=== PATIENT | female | born 1955 | race Caucasian/White ===

== ENCOUNTER → 2018-02-08 10:53 | Outpatient (CLI) | payer OTHER, SELFPAY ==
--- NOTE | 2018-02-08 10:58 | RAD_ITS ---
STUDY: X-RAY - SACROILIAC JOINTS REASON FOR EXAM: Female, 62 years old. Low back pain. TECHNIQUE: 3 view(s) of the sacroiliac joints were obtained. COMPARISON: None. FINDINGS: There are degenerative changes of the bilateral sacroiliac joints. Normal visualized sacral ala and sacrum. Normal visualized iliac bones. Normal visualized soft tissue structures. RAD/S-I Jts 3 or More Views IMPRESSION: Degenerative changes of the bilateral sacroiliac joints, as described above. Electronically Signed: Jase Torres MD at 9:16 EST Tel [phone], Service support ,
--- NOTE | 2018-02-08 10:58 | RAD_ITS ---
STUDY: X-RAY - LUMBAR SPINE REASON FOR EXAM: Female, 62 years old. Low back pain following a fall. TECHNIQUE: 5 view(s) of the lumbar spine were obtained including oblique views. COMPARISON: None FINDINGS: Normal lumbar lordosis. There is no substantial scoliosis. There is a normal alignment of the vertebrae. 20% loss of height of the superior endplate of the L1 vertebrae. There is multi-level degenerative disc disease with multi-level disc space narrowing. Spondylosis. There is atherosclerotic calcification of the abdominal aorta without a demonstrated aneurysm. RAD/L/S Spine Min 4 Views IMPRESSION: Degenerative changes of the spine, as detailed above. 20% loss of height of the superior endplate of the L1 vertebrae. Electronically Signed: Jsae Torres MD at 9:15 EST Tel [phone], Service support ,
--- OUTSIDE RECORDS SUMMARY | 2018-05-12 15:00 | XMS RPT_ITS ---
:1955 Author Organization [facility] Care Team Providers Name Role Phone Jair Squires Attending Unavailable Jair Squires Referring Unavailable Jair Squires Primary Care Unavailable Jair Squires Attending Unavailable Jair Squires Referring Unavailable Shaw, Jair Primary Care Unavailable Jair Squires Attending Unavailable Shaw, Jair Primary Care Unavailable PROBLEMS PROBLEMS DATE TYPE CONDITION / CODE ATTENDING STATUS SOURCE 03/08/2018 Unknown S32.010A - Wedge Jair Squires Active Nelson compression [facility], Repository initial encounter for closed fracture / S32.010A(ICD-10) 02/08/2018 Unknown S39.012A - Strain Jair Squires Active Nelson of muscle, fascia Community and tendon of Hospital lower back, Repository initial encounter / S39.012A(ICD-10) PROCEDURES PROCEDURES No Procedure Records FoundRESULTS RESULTS DEXA BONE DENSITY Observed: 03/08/2018 Status: F Source: [place] [facility] 9:23 AM [facility] Imaging Services [address] [place] [address] Dexa Bone Density Study MR#: [id number] Acct: [id number] Name: MARGO STRICKLAND Rep #: [id number] : 1955 F 62 From: Jase Torres MD PCP: Jair Squires MD Status: REG CLI Study: Dexa Bone Density Study Date of Exam: 03/08/18 Exam# [id number] Ordering Dr: Jari Squires MD STUDY: DUAL ENERGY X-RAY ABSORPTIOMETRY / DXA REASON FOR EXAM: Female, 62 years old. Early menopause. Loss of height. TECHNIQUE: Bone Mineral Density (BMD) measurements of lumbar spine and bilateral hips were obtained. COMPARISON: None. FINDINGS: Lumbar Spine (L1-L4): g/cm2 (0.994) / T-score (-1.7) / Z-score (0.2) Findings are suggestive of osteopenia with a moderate fracture risk. Left Femur Total: g/cm2 (0.674) / T-score (-2.6) / Z- score (-1.5) Left Femoral Neck: g/cm2 (0.690) / T-score (-2.5) / Z- score (-1.1) Right Femur Total: g/cm2 (0.720) / T-score (-2.3) / Z- score (-1.1) Right Femoral Neck: g/cm2 (0.733) / T-score (-2.2) / Z-score (-0.8) BD/Dexa Bone Density Study IMPRESSION: The patient is considered osteoporotic as outlined below according to World Yash Organization (WHO) criteria with a high fracture risk. Reference Information: The T-score is the number of standard deviations above or below the standard which is normal for young adults at their peak bone mineral density. The World Health Organization (WHO) interprets the T-scores as follows: Above -1 Normal bone density Between -1 and -2.5 Osteopenia Equal to / or below -2.5 Osteoporosis As a practical clinical guideline, osteopenia may be graded as follows: Mild -1 through -1.5 Moderate -1.6 through -2.0 Severe -2.1 through -2.4 The Z-score is the number of standard deviations above or below age-matched controls. A Z-score of less than -1.5 would be considered abnormal. References: 1. NIH Osteoporosis and Related Bone Diseases http://www.osteo.org 2. International Society for Clinical Densitometry http://www.iscd.org 3. National Osteoporosis Foundation http://www.nof.org Electronically Signed: Jase Torres MD at 11:19 EST Tel [phone], Service support , CC: Jair Squires MD Justice Of The Peace: Signed BONE SCAN LIMITED Observed: 02/23/2018 Status: F Source: [facility] 10:11 AM [facility] Imaging Services [address] [place] [address] Bone Scan Limited Area MR#: [id number] Acct: [id number] Name: MARGO STRICKLAND Rep #: [id number] : 1955 F 62 From: Amando Quinones DO PCP: Jair Squires MD Status: REG CLI Study: Bone Scan Limited Area Date of Exam: 02/23/18 Exam# [id number] Ordering Dr: Jair Squires MD CLINICAL: 62-year-old female with reported history of traumatic fall. LIMITED PLANAR 99m Tc MDP RADIONUCLIDE BONE SCINTIGRAPHY COMPARISON: Plain film radiograph reports lumbar spine and sacroiliac joints 02/08/2018 FINDINGS: Following the intravenous administration of 25.5 mCi of 99m Tc MDP, limited bone acquisitions of the lower thoracic-lumbar spine and pelvis, bilateral knee articulations reveal: 1. Increased radiopharmaceutical concentration is defined in the first lumbar vertebra diffusely, the left proximal tibial metaphysis. 2. Enhanced tracer concentration is defined in the patellofemoral compartment of the right knee, fourth and fifth lumbar vertebra posteriorly on the left and right. 3. The remaining limited skeletal structures are scintigraphically unremarkable with normal appearing renal images and urinary bladder activity identified. NM/Bone Scan Limited Area IMPRESSION: 1. The increase in radiopharmaceutical concentration identified in the first lumbar vertebra is commensurate with trauma-compression fracture correlating with findings described on plain film x-ray report of the lumbar spine dated 02/08/2018. In patients less than 65 years of age, increased radiopharmaceutical concentration on bone scintigraphy in uncomplicated documented fracture, may take up to 18 months for complete resolution. (Colin et al, Seminars of Nuclear Medicine, 13:104, 1983). 2. Facilitated uptake defined in the left proximal tibial metaphysis likely represents trauma-fracture. Plain film radiography correlation is recommended. 3. Degenerative arthritis is otherwise defined in the right knee, the lower lumbar spine. Electronically Signed: Amando Quinones DO at 23:12 EST Tel , Service support , CC: Jair Squires MD Justice Of The Peace: Signed L/S SPINE MIN 4 Observed: 02/08/2018 Status: F Source: [place] [facility] 10:58 AM [facility] Imaging Services [address] [place] [address] [place] [address] L/S Spine Min 4 Views MR#: [id number] Acct: [id number] Name: MARGO STRICKLAND Rep #: [id number] : 1955 F 62 From: Jase Torres MD PCP: Jair Squires MD Status: REG CLI Study: L/S Spine Min 4 Views Date of Exam: 02/08/18 Exam# [id number] Ordering Dr: Jair Squires MD STUDY: X-RAY - LUMBAR SPINE REASON FOR EXAM: Female, 62 years old. Low back pain following a fall. TECHNIQUE: 5 view(s) of the lumbar spine were obtained including oblique views. COMPARISON: None FINDINGS: Normal lumbar lordosis. There is no substantial scoliosis. There is a normal alignment of the vertebrae. 20% loss of height of the superior endplate of the L1 vertebrae. There is multi-level degenerative disc disease with multi-level disc space narrowing. Spondylosis. There is atherosclerotic calcification of the abdominal aorta without a demonstrated aneurysm. RAD/L/S Spine Min 4 Views IMPRESSION: Degenerative changes of the spine, as detailed above. 20% loss of height of the superior endplate of the L1 vertebrae. Electronically Signed: Jase Torres MD at 9:15 EST Tel [phone], Service support , CC: Jair Squires MD Justice Of The Peace: Signed S-I JTS 3 OR MORE Observed: 02/08/2018 Status: F Source: [place] [facility] 10:58 AM [facility] Imaging Services [address] [place] [address] S-I Jts 3 or More Views MR#: [id number] Acct: [id number] Name: MARGO STRICKLAND Rep #: [id number] : 1955 F 62 From: Jase Torres MD PCP: Jair Squires MD Status: REG CLI Study: S-I Jts 3 or More Views Date of Exam: 02/08/18 Exam# [id number] Ordering Dr: Jair Squires MD STUDY: X-RAY - SACROILIAC JOINTS REASON FOR EXAM: Female, 62 years old. Low back pain. TECHNIQUE: 3 view(s) of the sacroiliac joints were obtained. COMPARISON: None. FINDINGS: There are degenerative changes of the bilateral sacroiliac joints. Normal visualized sacral ala and sacrum. Normal visualized iliac bones. Normal visualized soft tissue structures. RAD/S-I Jts 3 or More Views IMPRESSION: Degenerative changes of the bilateral sacroiliac joints, as described above. Electronically Signed: Jase Torres MD at 9:16 EST Tel [phone], Service support , CC: Jair Squires MD Justice Of The Peace: Signed ALLERGIES ALLERGIES No Allergies Records FoundENCOUNTERS ENCOUNTERS ADMIT/DISCHARGE ACCOUNT ADMITTING ENCOUNTER LOCATION SOURCE NUMBER CLASS 03/08/2018 [id number] Ambulatory [facility] 2 [facility] ing:OPBD Repository 02/23/2018 [id number] Ambulatory [facility] 7 [facility] ing:NM Repository 02/08/[id number] ing:MTRAD Repository PAYERS PAYERS ENCOUNTER GUARANTOR PAYER SUBSCRIBER SOURCE 03/08/2018 MARGO Cuevas Primary MARGO Cuevas Nelson [id number] MIGUELINA Insurance:MEDICAL YODERDOB: [facility] [id number] [id number]: (330) Number: Repository [phone] (HP) [id number] Date:6314-31-75VS [address] [place] [phone]: 03/08/2018 Secondary NOT GIVENUNK Nelson Insurance:SELF PAY [facility] Number: Effective Repository Date:2018-02-28 02/23/2018 MARGO Cuevas Primary MARGO Cuevas Nelson [id number] MIGUELINA Insurance:MEDICAL YODERDOB: [facility] [id number] [id number]: (330) Number: Repository [phone] () [id number] Date:6593-77-80SS [address] [place] [phone]: 02/23/2018 Secondary NOT GIVENUNK Joe Insurance:SELF PAY [facility] Number: Effective Repository Date:2018-02-16 02/08/2018 MARGO Cuevas Primary MARGO Cuevas Nelson [id number] MIGUELINA Insurance:MEDICAL YODERDOB: [facility] [id number] Hospital [address]Ibk: (330) Number: Repository [phone] () [id number] Date:3314-65-89DY [address] [place] [phone]: 02/08/2018 Secondary NOT GIVENUNK Nelson Insurance:SELF PAY [facility] Number: Effective Repository Date:2018-02-08
== END ==
PROVIDERS: Family Provider Family Medicine; PCP Family Medicine; Referring Provider Family Medicine; Visit Provider Family Medicine
DX: S39.012A Strain of muscle, fascia and tendon of lower back, initial encounter (principal)
CPT/HCPCS: 72110; 72202

== ENCOUNTER → 2018-02-23 10:05 | Outpatient (CLI) | payer OTHER, SELFPAY ==
--- NOTE | 2018-02-23 10:11 | NM_ITS ---
CLINICAL: 62-year-old female with reported history of traumatic fall. LIMITED PLANAR 99m Tc MDP RADIONUCLIDE BONE SCINTIGRAPHY COMPARISON: Plain film radiograph reports lumbar spine and sacroiliac joints 02/08/2018 FINDINGS: Following the intravenous administration of 25.5 mCi of 99m Tc MDP, limited bone acquisitions of the lower thoracic-lumbar spine and pelvis, bilateral knee articulations reveal: 1. Increased radiopharmaceutical concentration is defined in the first lumbar vertebra diffusely, the left proximal tibial metaphysis. 2. Enhanced tracer concentration is defined in the patellofemoral compartment of the right knee, fourth and fifth lumbar vertebra posteriorly on the left and right. 3. The remaining limited skeletal structures are scintigraphically unremarkable with normal appearing renal images and urinary bladder activity identified. NM/Bone Scan Limited Area IMPRESSION: 1. The increase in radiopharmaceutical concentration identified in the first lumbar vertebra is commensurate with trauma-compression fracture correlating with findings described on plain film x-ray report of the lumbar spine dated 02/08/2018. In patients less than 65 years of age, increased radiopharmaceutical concentration on bone scintigraphy in uncomplicated documented fracture, may take up to 18 months for complete resolution. (Colin et al, Seminars of Nuclear Medicine, 13:104, 1983). 2. Facilitated uptake defined in the left proximal tibial metaphysis likely represents trauma-fracture. Plain film radiography correlation is recommended. 3. Degenerative arthritis is otherwise defined in the right knee, the lower lumbar spine. Electronically Signed: Amando Quinones DO at 23:12 EST Tel , Service support ,
== END ==
PROVIDERS: Family Provider Family Medicine; PCP Family Medicine; Referring Provider Family Medicine; Visit Provider Family Medicine
DX: M54.5 Low back pain (principal)
CPT/HCPCS: 78300

== ENCOUNTER → 2018-03-08 09:30 | Outpatient (CLI) | payer OTHER, SELFPAY ==
--- NOTE | 2018-03-08 09:35 | BD_ITS ---
STUDY: DUAL ENERGY X-RAY ABSORPTIOMETRY / DXA REASON FOR EXAM: Female, 62 years old. Early menopause. Loss of height. TECHNIQUE: Bone Mineral Density (BMD) measurements of lumbar spine and bilateral hips were obtained. COMPARISON: None. FINDINGS: Lumbar Spine (L1-L4): g/cm2 (0.994) / T-score (-1.7) / Z-score (0.2) Findings are suggestive of osteopenia with a moderate fracture risk. Left Femur Total: g/cm2 (0.674) / T-score (-2.6) / Z-score (-1.5) Left Femoral Neck: g/cm2 (0.690) / T-score (-2.5) / Z-score (-1.1) Right Femur Total: g/cm2 (0.720) / T-score (-2.3) / Z-score (-1.1) Right Femoral Neck: g/cm2 (0.733) / T-score (-2.2) / Z-score (-0.8) BD/Dexa Bone Density Study IMPRESSION: The patient is considered osteoporotic as outlined below according to World Yash Organization (WHO) criteria with a high fracture risk. Reference Information: The T-score is the number of standard deviations above or below the standard which is normal for young adults at their peak bone mineral density. The World Health Organization (WHO) interprets the T-scores as follows: Above -1 Normal bone density Between -1 and -2.5 Osteopenia Equal to / or below -2.5 Osteoporosis As a practical clinical guideline, osteopenia may be graded as follows: Mild -1 through -1.5 Moderate -1.6 through -2.0 Severe -2.1 through -2.4 The Z-score is the number of standard deviations above or below age-matched controls. A Z-score of less than -1.5 would be considered abnormal. References: 1. NIH Osteoporosis and Related Bone Diseases http://www.osteo.org 2. International Society for Clinical Densitometry http://www.iscd.org 3. National Osteoporosis Foundation http://www.nof.org Electronically Signed: Jase Torres MD at 11:19 EST Tel [phone], Service support ,
--- OUTSIDE RECORDS SUMMARY | 2018-05-13 01:18 | XMS RPT_ITS ---
[...] Unknown S32.010A - Wedge Jair Squires Active [place]man compression [facility] lumbar vertebra, Repository initial encounter for closed fracture / S32.010A(ICD-10) 02/08/2018 Unknown S39.012A - Strain Jair Squires Active Holman of muscle, fascia Community and tendon of Hospital lower back, Repository initial encounter / S39.012A(ICD-10) PROCEDURES PROCEDURES No Procedure Records FoundRESULTS RESULTS DEXA BONE DENSITY Observed: 03/08/2018 Status: F Source: [place] [facility] 9:23 AM [facility] REPOSITORY [facility] Imaging Services [address] [place] [address] Dexa Bone Density Study MR#: [id number] Acct: [id number] Name: MARGO STRICKLAND Rep #: [id number] : 1955 F 62 From: Jase Torres MD PCP: Jair Squires MD Status: REG CLI Study: Dexa Bone Density Study Date of Exam: 03/08/18 Exam# [id number] Ordering Dr: Jair Squires MD STUDY: DUAL ENERGY X-RAY ABSORPTIOMETRY [...] Jase Torres MD at 11:19 EST Tel [phone], Service support , CC: Jair Squires MD Media Relations Coordinator: Signed BONE SCAN LIMITED Observed: 02/23/2018 Status: F Source: [facility] 10:11 AM [facility] REPOSITORY [facility] Imaging Services [address] [place] [address] Bone Scan Limited Area MR#: [id number] Acct: [id number] Name: MARGO STRICKLAND Rep #: [id number] : 1955 F 62 From: Amando Quinones DO PCP: Jair Squires MD Status: REG CLI Study: Bone Scan Limited Area Date of Exam: 02/23/18 Exam# [id number] Ordering Dr: Jair Squires MD CLINICAL: 62-year-old [...] EST Tel , Service support , CC: Jiar Squires MD Media Relations Coordinator: Signed L/S SPINE MIN 4 Observed: 02/08/2018 Status: F Source: [place] [facility] 10:58 AM [facility] REPOSITORY [facility] Imaging Services [address] [place] [address] [place] [address] L/S Spine Min 4 Views MR#: [id number] Acct: [id number] Name: MARGO STRICKLAND Rep #: [id number] : 1955 F 62 From: Jase Torres MD PCP: Jair Squires MD Status: REG CLI Study: L/S Spine Min 4 Views Date of Exam: 02/08/18 Exam# [id number] Ordering Dr: Jair Squires MD STUDY: X-RAY [...] Jase Torres MD at 9:15 EST Tel [phone], Service support , CC: Jair Squires MD Media Relations Coordinator: Signed S-I JTS 3 OR MORE Observed: 02/08/2018 Status: F Source: [place] [facility] 10:58 AM [facility] REPOSITORY [facility] Imaging Services [address] [place] [address] S-I Jts 3 or More Views MR#: [id number] Acct: [id number] Name: MARGO STRICKLAND Rep #: [id number] : 1955 F 62 From: Jase Torres MD PCP: Jair Squires MD Status: REG CLI Study: S-I Jts 3 or More Views Date of Exam: 02/08/18 Exam# [id number] Ordering Dr: Jair Squires MD STUDY: X-RAY [...] Jase Torres MD at 9:16 EST Tel [phone], Service support , CC: Jair Squires MD Media Relations Coordinator: Signed ALLERGIES ALLERGIES No Allergies Records FoundENCOUNTERS ENCOUNTERS ADMIT/DISCHARGE ACCOUNT ADMITTING ENCOUNTER LOCATION SOURCE NUMBER CLASS 03/08/2018 [id number] Ambulatory [facility] 2 [facility] ing:OPBD Repository 02/23/2018 [id number] Ambulatory [facility] 7 [facility] ing:NM Repository 02/08/[id number] ing:MTRAD Repository PAYERS PAYERS ENCOUNTER GUARANTOR PAYER SUBSCRIBER SOURCE 03/08/2018 MARGO Cuevas Primary MARGO Cuevas Holman [id number] [place] Insurance:MEDICAL YODERDOB: [facility] [id number] Hospital [address]Trg: (330) Number: Repository [phone] (HP) [id number] Date:6963-43-42VZ [address] [place] [phone]: 03/08/2018 Secondary NOT GIVENUNK Holman Insurance:SELF PAY [facility] Number: Effective Repository Date:2018-02-28 02/23/2018 MARGO Cuevas Primary MARGO Cuevas Holman [id number] [place] Insurance:MEDICAL YODERDOB: [facility] [id number] [id number]: (330) Number: Repository [phone] () [id number] Date:3312-29-75MP [address] [place] [phone]: 02/23/2018 Secondary NOT GIVENUNK Joe Insurance:SELF PAY [facility] Number: Effective Repository Date:2018-02-16 02/08/2018 MARGO Cuevas Primary MARGO Cuevas Holman [id number] MIGUEL[place] Insurance:MEDICAL YODERDOB: [facility] [id number] Hospital [address]Vga: (330) Number: Repository [phone] () [id number] Date:7209-48-26HY [address] [place] [phone]: 02/08/2018 Secondary NOT GIVENUNK Holman Insurance:SELF PAY [facility]: Effective Repository Date:2018-02-08
== END ==
PROVIDERS: Family Provider Family Medicine; PCP Family Medicine; Visit Provider Family Medicine
DX: S32.010A Wedge compression fracture of first lumbar vertebra, initial encounter for closed fracture (principal)
CPT/HCPCS: 77080

== ENCOUNTER → 2018-08-18 | Outpatient (CLI) | payer OTHER, SELFPAY ==
[2018-08-08 10:53] VITALS: BMI 23.7
--- NOTE | 2018-08-18 07:51 | BI_ITS ---
MAMMOGRAPHY - BILATERAL SCREENING 3-D TOMOSYNTHESIS REASON FOR EXAM: Female, 62 years old. Bilateral Screening 3-D tomosynthesis PERTINENT HISTORY: Breast cancer in sister at age 42. TECHNIQUE: 2-D mammograms and 3-D Tomosynthesis of the breast (s) were performed. CAD was performed. COMPARISON: March 16, 2017, February 24, 2016 FINDINGS: The breast composition is heterogeneously dense that can obscure small breast masses. Scattered benign calcifications are seen. No dense spiculated masses or suspicious microcalcifications are identified. No architectural distortion is identified. There is no skin thickening or retraction. There has been no significant change since the prior study. BI/SCREEN MAMM (CAD) W/JOSE E BILAT IMPRESSION: No mammographic signs of malignancy. Routine yearly mammograms recommended. ASSESSMENT CATEGORY: BIRADS Category 2: Benign. A letter regarding these results will be sent to the patient by the facility within 30 days. FOLLOW UP RECOMMENDATION: Yearly follow up mammogram recommended. (A) Approximately 10% of breast cancers are not detected by mammography. A normal mammogram should not delay biopsy of a clinically suspicious abnormality. Electronically Signed: Toby Vincent MD at 17:53 EDT , Service support ,
== END | disposition home or self-care (01) ==
LOC: OPBI 07:49
PROVIDERS: Family Provider Family Medicine; PCP Family Medicine; Referring Provider Family Medicine; Visit Provider Family Medicine
DX: Z12.31 Encounter for screening mammogram for malignant neoplasm of breast (principal)
CPT/HCPCS: 77063; 77067

== ENCOUNTER → 2018-12-25 08:38 | Outpatient (CLI) | payer MEDICARE, SELFPAY ==
[2018-08-08 10:53] VITALS: BMI 23.7
[2018-12-25 11:24] LABS: ALB/GLOB Ratio 0.9 RATIO (0.9-2.4); AST(SGOT) 59 U/L (15-37); Alanine Aminotransfer ALT/SGPT 47 U/L (13-56); Albumin, Serum 3.8 g/dL (3.2-5.0); Alkaline Phosphatase 43 U/L (45-117); Anion Gap 10 (5-15); BUN 8 mg/dL (7-18); BUN/Creat Ratio 14.5 RATIO (10-20); Calcium,Total 8.8 mg/dL (8.5-10.1); Chloride 98 mmol/L (98-107); Creatinine, Serum 0.55 mg/dL (0.55-1.02); EST Glomerular Filtration Rate 117 mL/min (>60); Est Glom Filt Rate - Afr Amer 142 mL/min (>60); Free T3 3.3 pg/mL (2.18-3.98); Globulin 4.3 g/dL (2.2-4.2); Glucose 79 mg/dL (74-106); Magnesium 1.3 mg/dL (1.6-2.6); Protein, Total 8.1 g/dL (6.4-8.2); Sodium Level 132 mmol/L (136-145); T4 Free Direct 0.94 ng/dL (0.76-1.46); Thyroid Stim Hormone (TSH) 1.11 uIU/mL (0.358-3.74)
[2018-12-25 11:36] LABS: Microalbumin:Creatinine Ratio 278.9 mg/g CRE (<30 mg/g CRE)
== END ==
PROVIDERS: Family Provider Family Medicine; PCP Family Medicine; Visit Provider Family Medicine
DX: I10 Essential (primary) hypertension (principal); R45.0 Nervousness
CPT/HCPCS: 36415; 80053; 82043; 82570; 83735; 84439; 84443; 84481

== ENCOUNTER → 2019-01-29 16:11 | Outpatient (CLI) | payer MEDICARE, SELFPAY ==
[2018-08-08 10:53] VITALS: BMI 23.7
== END ==
PROVIDERS: Family Provider Family Medicine; PCP Family Medicine; Referring Provider Otolaryngology; Visit Provider Otolaryngology
DX: J32.9 Chronic sinusitis, unspecified (principal)
CPT/HCPCS: 87070; 87205

== ENCOUNTER 2019-07-02 17:59 | Emergency (ER) | payer MEDICARE, SELFPAY ==
[2019-02-22 11:05] VITALS: BMI 23.7
[2019-07-02 17:59] VITALS: BP 86/40; PULSE 72; RESP 16; TEMP 36.4; O2SAT 98; BMI 24.1
[2019-07-02 18:03] VITALS: BP 132/62; PULSE 71; RESP 16; O2SAT 96
--- NOTE | 2019-07-02 19:29 | ED.VIS.GEN ---
History of Present Illness Chief Complaint: Upper Extremity Injury Informant: Patient Onset: Today Current Severity: Moderate Maximum Severity: Moderate Narrative: Patient reports pain to left shoulder and wrist after falling down 12 steps. She states she was rushing and lost her footing. She does admit to drinking alcohol today. She denies headache or loss of consciousness. Her brought her to the emergency room. - Past Medical History (1) Hypertension Status: Chronic Past Medical History - Allergies and Home Meds Allergies/Adverse Reactions: Allergies doxycycline Allergy (Mild, Verified 07/02/19 18:02) UNKNOWN amoxicillin Allergy (Verified 07/02/19 18:02) Unknown ciprofloxacin [From Cipro] Allergy (Verified 07/02/19 18:02) Unknown naproxen Allergy (Verified 07/02/19 18:02) Unknown sulfamethoxazole [From Bactrim] Allergy (Verified 07/02/19 18:02) Unknown trimethoprim [From Bactrim] Allergy (Verified 07/02/19 18:02) Unknown Primary Care Physician: Jhonny Turner MD [STAFF PHYSICIAN] - 3-5 Days Prior records reviewed: Yes Lives: Spouse/ Significant Other Smoking Status: Current every day smoker Alcohol: Heavy Drugs: None Review of Systems General: Denies: Chills, Fever Eyes: Denies: Visual changes - bilaterally ENT: Denies: Bilateral ear pain Cardiovascular: Denies: Chest pain Respiratory: Denies: Dyspnea, Cough Gastrointestinal: Denies: Abdominal pain, Nausea, Vomiting, Diarrhea Musculoskeletal: Reports: Extremity Pain Skin: Denies: Rash Neurological: Denies: Headache Hematologic: Denies: Easy bruising, Easy bleeding Allergy: Denies: Uticaria Physical Exam Vital Signs/Narrative: Vital Signs Temp Pulse Resp BP Pulse Ox 07/02/19 18:03 71 16 132/62 H 96 07/02/19 17:59 97.6 F L 72 16 86/40 L 98 Inital Vital Signs reviewed: Yes General: Well nourished, Well developed Head: Normocephalic, Atraumatic Eyes: Perrl, EOMI ENT: Moist mucous membranes Neck: Supple, - - No C-spine tenderness. Cardiovascular: Regular rate, Regular rhythm Respiratory: No distress, CTA bilaterally Abdomen: Soft, Nontender Back: - - No midline thoracic or lumbar tenderness. Extremities: - - Tenderness palpation around the left shoulder with ecchymosis noted over the lateral portion of the left clavicle. Decreased range of motion secondary to pain. No tenderness of the elbow but she does have mild tenderness at the left wrist. No obvious deformity. Good cap refill distally with good sensation. Neurological: Alert, Oriented x3 Psychological: Normal affect Diagnostic/Tx/Re-eval Impressions Shoulder X-Ray 07/02/19 19:58 IMPRESSION: Mid clavicular fracture. Left first rib fracture. Electronically Signed: Regi Boggs MD at 20:29 EDT Tel , Service support , Wrist X-Ray 07/02/19 19:58 IMPRESSION: Distal radial fracture. Ulnar styloid fracture. Electronically Signed: Regi Boggs MD at 20:32 EDT Tel , Service support , 07/02/19 19:58 Shoulder min 2 Views [RAD] Stat Wrist min 3 Views [RAD] Stat - Medical Decision Making Test results are discussed with the patient. She was given 1 tab of [place] here for pain. Left wrist fracture was splinted in AP Ortho-Glass splint by myself. She was given a sling. Patient was observed in the ER for 5 hours and remained alert and appropriate throughout her ED stay. She is given prescription for [place] for home and is referred to Dr. Turner, on-call for orthopedics. Procedures - Upper Extremity Splints Upper Extremity Splint: Orthoglass, - - AP Ortho-Glass splint Splint Fabrication: Fabricated Location: Left ED Disposition - Plan for ED Patient: Disposition: Home or Assisted Living Diagnosis: Clavicle fracture, Wrist fracture Instructions: ED Clavicle Fracture, ED WRIST FRACTURE General Prescriptions: Hydrocodone Bitart/Apap 5-325 [[place] 5MG-325MG] 1 tab PO Q6H PRN PRN 3 Days #10 tab PRN Reason: Pain Prescription Printed Referrals: Jhonny Turner MD [STAFF PHYSICIAN] - 3-5 Days
--- NOTE | 2019-07-02 19:58 | RAD_ITS ---
STUDY: X-RAY - LEFT WRIST REASON FOR EXAM: Female, 63 years old. FALL, PAIN AND SWELLING -- HX OF FX TECHNIQUE: 3 view(s) of the wrist were obtained. COMPARISON: None. FINDINGS: There is a comminuted intra-articular distal radial fracture. There is a ulnar styloid fracture present as well. Normal carpal bones. Normal carpal articulations. Normal carpometacarpal articulation of the thumb. Normal second through fifth carpometacarpal articulations. Normal visualized metacarpal bones. There is diffuse soft tissue swelling. RAD/Wrist min 3 Views IMPRESSION: Distal radial fracture. Ulnar styloid fracture. Electronically Signed: Regi Boggs MD at 20:32 EDT Tel , Service support ,
--- NOTE | 2019-07-02 19:58 | RAD_ITS ---
STUDY: X-RAY - LEFT SHOULDER REASON FOR EXAM: Female, 63 years old. FALL, PAIN TECHNIQUE: 2 view(s) of the shoulder. COMPARISON: None. FINDINGS: There is a deformity within the mid clavicle. Normal glenohumeral articulation. Normal acromioclavicular joint. Normal acromion. Normal humeral head and visualized proximal humerus. The soft tissue structures are unremarkable. There is a fracture of the left first rib. RAD/Shoulder min 2 Views IMPRESSION: Mid clavicular fracture. Left first rib fracture. Electronically Signed: Regi Boggs MD at 20:29 EDT Tel , Service support ,
[2019-07-02 20:00] VITALS: RESP 17
[2019-07-02] MEDS: HYDROcodone Bitartrate/Apap 5/325 Tablet PO (20:48)
[2019-07-02 22:46] VITALS: BP 107/69; PULSE 79; RESP 16; O2SAT 95
== END 2019-07-02 23:26 | disposition home or self-care (01) ==
PROVIDERS: Emergency Provider Emergency Medicine; PCP Family Medicine
DX: S42.002A Fracture of unspecified part of left clavicle, initial encounter for closed fracture (principal); S52.502A Unspecified fracture of the lower end of left radius, initial encounter for closed fracture; S52.612A Displaced fracture of left ulna styloid process, initial encounter for closed fracture; S22.32XA Fracture of one rib, left side, initial encounter for closed fracture; W10.9XXA Fall (on) (from) unspecified stairs and steps, initial encounter; Y93.9 Activity, unspecified; Y92.9 Unspecified place or not applicable; I10 Essential (primary) hypertension; Z79.899 Other long term (current) drug therapy; F17.200 Nicotine dependence, unspecified, uncomplicated
CPT/HCPCS: 29125; 73030; 73110; 99283

== ENCOUNTER → 2019-07-12 09:26 | Outpatient (CLI) | payer MEDICARE, SELFPAY ==
[2019-07-02 17:59] VITALS: BMI 24.1
--- NOTE | 2019-07-12 09:28 | RAD_ITS ---
ACR Level 3 findings have been noted. An addendum which confirms receipt of the report will follow. STUDY: X-RAY CHEST REASON FOR EXAM: Female, 63 years old. WHEEZING, COUGH, SOB AND CONGESTION FOR ABOUT 4 DAYS NOW. NOT FEELING WELL AT ALL PER PATIENT. HX OF A RECENT FALL DOWN STAIRS June AND BROKE SEVERAL BONES PER PATIENT. UNALBLE TO HOLD BREATH VERY WELL OR HOLD ARMS UP. TECHNIQUE: PA and lateral views of the chest. COMPARISON: X-ray dated July 02, 2019 of the shoulder. FINDINGS: Acute/subacute left clavicle overlapping fracture. Multiple acute/subacute left-sided rib fracture. Cardiac silhouette unremarkable. Pulmonary vascularity unremarkable. Aorta calcified. No focal patchy airspace opacities. Mild costophrenic angle blunting without significant effusions. Atelectasis/scar with coarse lung markings. Upper abdomen unremarkable. No visualized pneumothorax. RAD/Chest PA and Lateral IMPRESSION: Acute/subacute left clavicle overlapping fracture Multiple acute/subacute left-sided displaced rib fractures Costophrenic angle blunting without significant effusions COPD with atelectasis/scarring Consider chest CT evaluation as clinically necessary Electronically Signed: Jair Hoskins DO at 10:03 EDT Tel , Service support ,
== END ==
PROVIDERS: PCP Family Medicine; Referring Provider Family Medicine; Visit Provider Family Medicine
DX: R06.2 Wheezing (principal)
CPT/HCPCS: 71046

== ENCOUNTER → 2019-12-04 09:25 | Outpatient (CLI) | payer MEDICARE, SELFPAY ==
[2019-11-23 15:36] VITALS: BMI 24.1
--- NOTE | 2019-12-04 10:10 | HP_ITS ---
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: No Is patient in pain?: No Allergies doxycycline Allergy (Mild, Verified 11/23/19 15:35) UNKNOWN amoxicillin Allergy (Verified 11/23/19 15:35) Unknown ciprofloxacin [From Cipro] Allergy (Verified 11/23/19 15:35) Unknown naproxen Allergy (Verified 11/23/19 15:35) Unknown sulfamethoxazole [From Bactrim] Allergy (Verified 11/23/19 15:35) Unknown trimethoprim [From Bactrim] Allergy (Verified 11/23/19 15:35) Unknown Medications amlodipine 10 mg tablet 10 mg PO DAILY #90 tab 08/08/18 [History Confirmed 11/23/19] metoprolol succinate 100 mg tablet,extended release 24 hr 100 mg PO DAILY #90 tab 08/08/18 [History Confirmed 11/23/19] omeprazole 40 mg capsule,delayed release 40 mg PO DAILY #90 cap 08/08/18 [History Confirmed 11/23/19] PFSH Medical History Hypertension (Chronic) Bronchitis (Acute) Acute frontal sinusitis, unspecified (Acute) Laceration of left thumb (Acute) HTN (hypertension) (Chronic) Family History Sister Breast cancer Mother Heart disease Social History (Updated 11/23/19 @ 16:[address] Gregg Bar MD) Smoking Status: Current every day smoker alcohol intake: current alcohol intake frequency: 0-2 drinks per day Alcohol type: beer HPI HPI HPI: MARGO STRICKLAND, is a 63 F who presents to the office today for HPI HPI Surgical H&P: Yes HPI: MARGO STRICKLAND, is a 63 F who presents to the office today for Epigastric pain as well as diarrhea and need for colonoscopy. Patient reports that she has been having epigastric pain especially after eating. She is on a PPI. She has also been having diarrhea for the past 3 weeks. Patient reports that there was one episode where she did have a lot of bleeding with the diarrhea. She is not having any other abdominal pain. ROS General General: No weight change or fatigue Cardio Cardiovascular: Yes high blood pressure; no murmur, pacemaker, heart disease, atrial fibrillation, heart attack, heart stent, palpitations, shortness of breat with exertion or chest pain Psych Psychiatric: No depression or anxiety Resp Respiratory: No shortness of breath, No sleep apnea, No cough, No COPD, No asthma, No emphysema, No wheezing Gastro Gastrointestinal: Yes abdominal pain, No nausea or vomiting, Yes diarrhea, No constipation, Yes blood in stool, Yes acid reflux, No hemorrhoids, No ulcers, No gallbladder problem, No black,tarry stools Yomi Hematologic: No blood thinners Exam Const General: cooperative Orientation: alert, oriented x3 Resp Effort & Inspection: normal respiratory effort Auscultation: clear to auscultation bilaterally Cardio Rate: regular rate Rhythm: regular rhythm Heart Sounds: no murmurs GI Inspection: non-distended Palpation: soft, nontender Assessment & Plan Problems 1. Epigastric pain R10.13 2. Gastroesophageal reflux disease, unspecified whether esophagitis present K21.9 3. Diarrhea, unspecified type R19.7 4. Rectal bleed K62.5 5. Tobacco abuse Z72.0 Plan The patient has epigastric pain and diarrhea. The patient reports that she is on a PPI but she also smokes. I discussed smoking cessation with the patient as well. Patient is also been having 3 weeks of diarrhea. She did have blood associated with one of her episodes of diarrhea. At this time I recommend the patient continue her PPI and I will perform an EGD and colonoscopy. I explained endoscopy in detail to the patient. I explained the risks including but not limited to stroke or heart attack with anesthesia, perforation of the GI tract, bleeding, infection. I explained that any of these could necessitate further emergency surgery. The patient understands and all questions were answered sufficiently. The patient wishes to proceed with procedure. Gregg Bar MD Pager: [facility] [address] [place] [address], [address] [place] [address] Office: Orders Orders: Colonoscopy Today EGD Today K62.5, R10.13 Coding Level of Care Code Off vis,new,level 3 Diagnoses Epigastric pain R10.13 Gastroesophageal reflux disease, unspecified whether esophagitis present K21.9 ??Esophagitis presence: esophagitis presence not specified Diarrhea, unspecified type R19.7 ??Diarrhea type: unspecified type Rectal bleed K62.5 Tobacco abuse Z72.0
== END ==
PROVIDERS: Anesthesiology; PCP Family Medicine; Referring Provider Family Medicine; Visit Provider Surgery
PROC: 0DJD8ZZ Inspection of Lower Intestinal Tract, Via Natural or Artificial Opening Endoscopic (ICD-10-PCS; CPT 45378; principal; 2019-12-04 09:25)
DX: Z20.828 Contact with and (suspected) exposure to other viral communicable diseases (principal)
CPT/HCPCS: 87635; C9803; U0003

== ENCOUNTER 2020-01-11 09:24 | Day surgery (SDC) | payer MEDICARE, SELFPAY ==
[2019-11-23 15:36] VITALS: BMI 24.1
--- NOTE | 2020-01-11 | IMM_PTH ---
PATIENT: MARGO STRICKLAND LOC: EN U#:[id number] AGE/SX: 64/F ROOM: RE01/11/[address]: Dr. Gregg Bar MD : 1955 BED: DIS: 01/11/2020 SPEC #: [id number] RECD: 01/15/20 10:52 STATUS: HANANE REPorsche #: [id number] DOUGIE: 01/11/20 00:[address]: Gregg Bar DEPT: IMMUNOHISTOCHEMISTRY RECD BY: Yennifer Rice ENTERED: 01/15/20 10:53 SP TYPE: IMMUNO OTHR DR: Dr. Jair Squires MD Tissues: A - Stomach, NOS Procedures: H Pylori (initial) PHYSICIAN & INSTITUTION [place] [address] SPECIMEN INFORMATION: Tissue Source: A - Gastric wall biopsy Clinical Info: Epigastric pain, GERD, esophagitis, diarrhea, rectal bleed Specimen Number: [id number] CPT code: 06994 METHODOLOGY: Deparaffinized sections of prefer/formalin-fixed tissue or PAP/DQ stained slides are incubated with monoclonal/polyclonal antibodies/oligonucleotide probes. Localization is made via biotin free immunoperoxidase method. Appropriate controls are performed and reacted as expected. Results on target cell population are indicated in the following table: RESULTS: ANTIBODY / CLONE RESULT Block A H Pylori (polyclonal) negative These tests were developed and their performance characteristics determined by [facility]. They may not have been cleared or approved by the U.S. Food and Drug Administration. The FDA has determined that such clearance or approval is not necessary. The above immunohistochemical/dualISH markers are ordered and reviewed by the Pathologist. INTERPRETATION: A. Gastric wall, biopsy: Negative for Helicobacter pylori organisms. SJ:maulik 01/16/20
--- NOTE | 2020-01-11 08:35 | HP_ITS ---
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 Is patient in pain?: No Allergies doxycycline Allergy (Mild, Verified 11/23/19 15:35) UNKNOWN amoxicillin Allergy (Verified 11/23/19 15:35) Unknown ciprofloxacin [From Cipro] Allergy (Verified 11/23/19 15:35) Unknown naproxen Allergy (Verified 11/23/19 15:35) Unknown sulfamethoxazole [From Bactrim] Allergy (Verified 11/23/19 15:35) Unknown trimethoprim [From Bactrim] Allergy (Verified 11/23/19 15:35) Unknown Medications amlodipine 10 mg tablet 10 mg PO DAILY #90 tab 08/08/18 [History Confirmed 11/23/19] metoprolol succinate 100 mg tablet,extended release 24 hr 100 mg PO DAILY #90 tab 08/08/18 [History Confirmed 11/23/19] omeprazole 40 mg capsule,delayed release 40 mg PO DAILY #90 cap 08/08/18 [History Confirmed 11/23/19] PFSH Medical History Hypertension (Chronic) Bronchitis (Acute) Acute frontal sinusitis, unspecified (Acute) Laceration of left thumb (Acute) HTN (hypertension) (Chronic) Family History Sister Breast cancer Mother Heart disease Social History (Updated 11/23/19 @ 16:[address] Gregg Bar MD) Smoking Status: Current every day smoker alcohol intake: current alcohol intake frequency: 0-2 drinks per day Alcohol type: beer HPI HPI HPI: MARGO STRICKLAND, is a 63 F who presents to the office today for HPI HPI Surgical H&P: Yes HPI: MARGO STRICKLAND, is a 63 F who presents to the office today for Epigastric pain as well as diarrhea and need for colonoscopy. Patient reports that she has been having epigastric pain especially after eating. She is on a PPI. She has also been having diarrhea for the past 3 weeks. Patient reports that there was one episode where she did have a lot of bleeding with the diarrhea. She is not having any other abdominal pain. ROS General General: No weight change or fatigue Cardio Cardiovascular: Yes high blood pressure; no murmur, pacemaker, heart disease, atrial fibrillation, heart attack, heart stent, palpitations, shortness of breat with exertion or chest pain Psych Psychiatric: No depression or anxiety Resp Respiratory: No shortness of breath, No sleep apnea, No cough, No COPD, No asthma, No emphysema, No wheezing Gastro Gastrointestinal: Yes abdominal pain, No nausea or vomiting, Yes diarrhea, No constipation, Yes blood in stool, Yes acid reflux, No hemorrhoids, No ulcers, No gallbladder problem, No black,tarry stools Yomi Hematologic: No blood thinners Exam Const General: cooperative Orientation: alert, oriented x3 Resp Effort & Inspection: normal respiratory effort Auscultation: clear to auscultation bilaterally Cardio Rate: regular rate Rhythm: regular rhythm Heart Sounds: no murmurs GI Inspection: non-distended Palpation: soft, nontender Assessment & Plan Problems 1. Epigastric pain R10.13 2. Gastroesophageal reflux disease, unspecified whether esophagitis present K21.9 3. Diarrhea, unspecified type R19.7 4. Rectal bleed K62.5 5. Tobacco abuse Z72.0 Plan The patient has epigastric pain and diarrhea. The patient reports that she is on a PPI but she also smokes. I discussed smoking cessation with the patient as well. Patient is also been having 3 weeks of diarrhea. She did have blood associated with one of her episodes of diarrhea. At this time I recommend the patient continue her PPI and I will perform an EGD and colonoscopy. I explained endoscopy in detail to the patient. I explained the risks including but not limited to stroke or heart attack with anesthesia, perforation of the GI tract, bleeding, infection. I explained that any of these could necessitate further emergency surgery. The patient understands and all questions were answered sufficiently. The patient wishes to proceed with procedure. Gregg Bar MD Pager: [facility] [address] [place] [address], [address] [place] [address] Office: Orders Orders: Colonoscopy Today EGD Today K62.5, R10.13 Coding Level of Care Code Off vis,new,level 3 Diagnoses Epigastric pain R10.13 Gastroesophageal reflux disease, unspecified whether esophagitis present K21.9 ??Esophagitis presence: esophagitis presence not specified Diarrhea, unspecified type R19.7 ??Diarrhea type: unspecified type Rectal bleed K62.5 Tobacco abuse Z72.0 I have re-examined the patient. There are no clinical changes since date of exam.
[2020-01-11 09:53] VITALS: BP 144/45; PULSE 114; RESP 14; TEMP 37.2; O2SAT 98; BMI 24.4
[2020-01-11] MEDS: Lactated Ringers 1,000 ML 100 ML IV (10:01)
--- NOTE | 2020-01-11 10:30 | COLBX_PTH ---
PATIENT: MARGO STRICKLAND LOC: EN U#:[id number] AGE/SX: 64/F ROOM: RE01/11/[address]: Dr. Gregg Bar MD : 1955 BED: DIS: 01/11/2020 SPEC #: [id number] RECD: 01/11/20 12:08 STATUS: HANANE RENEE #: [id number] DOUGIE: 01/11/20 10:[address]: Gregg Bar DEPT: SURGICAL PATHOLOGY RECD BY: Annette Collins ENTERED: 01/11/20 13:01 SP TYPE: COLON BX OTHR DR: Dr. Jair Squires MD Tissues: A - Gastric mucous membrane B - Sigmoid colon biopsy C - COLON BIOPSY Procedures: Trichrome (control) Special Stain Group II Surgery Specimen Level IV HEADER OPERATION: Colonoscopy, [place] DIAGNOSIS: Epigastric pain, GERD, esophagitis, diarrhea, rectal bleed TISSUE SUBMITTED: A - Biopsy of gastric wall, B - Sigmoid colon polyp, C - Random colon biopsies MICROSCOPIC DIAGNOSIS A. Gastric wall, biopsy: Mild chronic gastritis. See comment. B. Sigmoid colon polyp, biopsy: Consistent with hyperplastic polyp. C. Colon, random biopsy: Collagenous colitis. See comment. AM:maulik 01/15/20 COMMENT A. The results of immunohistochemistry for Helicobacter pylori will be reported separately ([id number]). C. Trichrome stain with matched control was used in the evaluation of this case. MICROSCOPIC DESCRIPTION Slides are reviewed. GROSS DESCRIPTION A - Received in fixative is one container labeled with the patient's name and designated gastric wall biopsy. The specimen consists of multiple irregular fragments of light jeffries soft tissue that in aggregate measure 0.7 x 0.3 x 0.1 cm. The specimen is totally submitted in one cassette. B - Received in fixative is one container labeled with the patient's name and designated sigmoid colon. The specimen consists of one irregular fragment of light jeffries soft tissue that measures 0.6 x 0.3 x 0.2 cm. The specimen is totally submitted in one cassette. C - Received in fixative is one container labeled with the patient's name and designated random colon biopsy. The specimen consists of multiple irregular fragments of light jeffries soft tissue that in aggregate measure 2 x 0.6 x 0.1 cm. The specimen is totally submitted in one cassette. / AM:maulik 01/11/20 TC:3 CPT: 39160 x3, 78012
[2020-01-11 11:12] VITALS: BP 144/45; BP 156/109; PULSE 104; RESP 22; TEMP 36.3; O2SAT 100
--- NOTE | 2020-01-11 11:13 | OP.EGD_ITS ---
Patient Name: Vani Nguyen Procedure Date: 01/11/2020 10:27 AM Date of : 1955 Age: 64 Procedure: Upper GI endoscopy Indications: Epigastric abdominal pain Providers: Gregg Bar MD Referring MD: Jair Squires Medicines: Monitored Anesthesia Care Patient Profile: This is a 64 year old female. Refer to note in patient chart for documentation of history and physical. Complications: No immediate complications. Estimated blood loss: Minimal. Procedure: Pre-Anesthesia Assessment: - Prior to the procedure, a History and Physical was performed, and patient medications and allergies were reviewed. The patient's tolerance of previous anesthesia was also reviewed. The risks and benefits of the procedure and the sedation options and risks were discussed with the patient. All questions were answered, and informed consent was obtained. Prior Anticoagulants: The patient has taken no previous anticoagulant or antiplatelet agents. After reviewing the risks and benefits, the patient was deemed in satisfactory condition to undergo the procedure. After obtaining informed consent, the endoscope was passed under direct vision. Throughout the procedure, the patient's blood pressure, pulse, and oxygen saturations were monitored continuously. The Endoscope was introduced through the mouth, and advanced to the third part of duodenum. The upper GI endoscopy was accomplished without difficulty. The patient tolerated the procedure well. Scope In: 10:42:05 AM Scope Out: 10:45:00 AM Total Procedure Duration Time 0 hours 2 minutes 55 seconds Findings: Diffuse moderately erythematous mucosa without bleeding was found in the entire examined stomach. Biopsies were taken with a cold forceps for histology. The esophagus was normal. The examined duodenum was normal. Impression: - Erythematous mucosa in the stomach. Biopsied. - Normal esophagus. - Normal examined duodenum. Recommendation: - Await pathology results. - Discharge patient to home. - Resume previous diet. - Continue present medications. - Await pathology results. Procedure Code(s): --- Professional --- 04817, Esophagogastroduodenoscopy, flexible, transoral; with biopsy, single or multiple Diagnosis Code(s): --- Professional --- K31.89, Other diseases of stomach and duodenum R10.13, Epigastric pain CPT copyright 2017 [employer]. All rights reserved. The codes documented in this report are preliminary and upon surgical coder review may be revised to meet current compliance requirements. Gregg Bar MD 01/11/2020 11:13:30 AM This report has been signed electronically. Number of Addenda: 0 Note Initiated On: 01/11/2020 10:27 AM
--- NOTE | 2020-01-11 11:13 | OP.CCLET_ITS ---
01/11/2020 Jair Squires [address] [place] [address] Re : Upper GI endoscopy procedure for Vani Nguyen Dear Dr. Squires This procedure was performed on Saturday, January 11, 2020. My impressions and recommendations are as follows: Impressions : - Erythematous mucosa in the stomach. Biopsied. - Normal esophagus. - Normal examined duodenum. Recommendations : - Await pathology results. - Discharge patient to home. - Resume previous diet. - Continue present medications. - Await pathology results. My findings are described in the full procedure note, which is enclosed. If I can be of further assistance, please feel free to contact me at Doctor phone number(s): , Work: . Sincerely, Gregg Bar MD 01/11/2020 11:13:30 AM This report has been signed electronically.
--- NOTE | 2020-01-11 11:16 | OP.COLON_ITS ---
Patient Name: Vani Nguyen Procedure Date: 01/11/2020 10:46 AM Date of : 1955 Age: 64 Procedure: Colonoscopy Indications: Chronic diarrhea Providers: Gregg Bar MD Referring MD: Jair Squires Medicines: Monitored Anesthesia Care Patient Profile: This is a 64 year old female. Refer to note in patient chart for documentation of history and physical. Last Colonoscopy: none. The patient's first colonoscopy is today. Complications: No immediate complications. Estimated blood loss: Minimal. Procedure: Pre-Anesthesia Assessment: - Prior to the procedure, a History and Physical was performed, and patient medications and allergies were reviewed. The patient's tolerance of previous anesthesia was also reviewed. The risks and benefits of the procedure and the sedation options and risks were discussed with the patient. All questions were answered, and informed consent was obtained. Prior Anticoagulants: The patient has taken no previous anticoagulant or antiplatelet agents. After reviewing the risks and benefits, the patient was deemed in satisfactory condition to undergo the procedure. After I obtained informed consent, the scope was passed under direct vision. Throughout the procedure, the patient's blood pressure, pulse, and oxygen saturations were monitored continuously. The pediatric colonoscope was introduced through the anus and advanced to the cecum, identified by appendiceal orifice and ileocecal valve. The colonoscopy was performed without difficulty. The patient tolerated the procedure well. The quality of the bowel preparation was good. Scope In: 10:48:51 AM Scope Withdrawal Time 0 hours 4 minutes 23 seconds Scope Out: 11:08:40 AM Total Procedure Duration Time 0 hours 19 minutes 49 seconds Findings: A polyp was found in the sigmoid colon. The polyp was semi-pedunculated. The polyp was removed with a hot snare. Resection and retrieval were complete. Biopsies for histology were taken with a cold forceps from the entire colon for evaluation of microscopic colitis. Impression: - One polyp in the sigmoid colon, removed with a hot snare. Resected and retrieved. Biopsied. Recommendation: - Discharge patient to home. - Resume previous diet. - Continue present medications. - Await pathology results. - Repeat colonoscopy in 5 years for surveillance based on pathology results. Procedure Code(s): --- Professional --- 29438, Colonoscopy, flexible; with removal of tumor(s), polyp(s), or other lesion(s) by snare technique Diagnosis Code(s): --- Professional --- D12.5, Benign neoplasm of sigmoid colon K52.9, Noninfective gastroenteritis and colitis, unspecified CPT copyright 2017 [employer]. All rights reserved. The codes documented in this report are preliminary and upon data coder operator review may be revised to meet current compliance requirements. Gregg Bar MD 01/11/2020 11:15:43 AM This report has been signed electronically. Number of Addenda: 0 Note Initiated On: 01/11/2020 10:46 AM
--- NOTE | 2020-01-11 11:16 | OP.CCLET_ITS ---
01/11/2020 Jair Squires [address] [place] [address] Re : Colonoscopy procedure for Vani Nguyen Dear Dr. Squires This procedure was performed on Saturday, January 11, 2020. My impressions and recommendations are as follows: Impressions : - One polyp in the sigmoid colon, removed with a hot snare. Resected and retrieved. Biopsied. Recommendations : - Discharge patient to home. - Resume previous diet. - Continue present medications. - Await pathology results. - Repeat colonoscopy in 5 years for surveillance based on pathology results. My findings are described in the full procedure note, which is enclosed. If I can be of further assistance, please feel free to contact me at Doctor phone number(s): , Work: . Sincerely, Gregg Bar MD 01/11/2020 11:15:43 AM This report has been signed electronically.
[2020-01-11 11:20] VITALS: BP 137/78; BP 144/45; PULSE 110; RESP 20; O2SAT 100
[2020-01-11 11:25] VITALS: BP 109/92; BP 144/45; PULSE 98; RESP 16; O2SAT 99
[2020-01-11 11:30] VITALS: BP 121/74; BP 144/45; PULSE 84; RESP 16; TEMP 36.3; O2SAT 100
[2020-01-11 12:03] VITALS: BP 144/45
== END 2020-01-11 12:03 | disposition home or self-care (01) ==
LOC: EN 09:25 → AC 09:25
PROVIDERS: PCP Family Medicine; Referring Provider Family Medicine; Visit Provider Surgery
PROC: 0DJD8ZZ Inspection of Lower Intestinal Tract, Via Natural or Artificial Opening Endoscopic (ICD-10-PCS; CPT 45378; principal; 2020-01-11 10:25)
DX: K29.50 Unspecified chronic gastritis without bleeding (principal); K52.831 Collagenous colitis; K63.5 Polyp of colon; K21.9 Gastro-esophageal reflux disease without esophagitis; Z20.828 Contact with and (suspected) exposure to other viral communicable diseases; I10 Essential (primary) hypertension; Z78.0 Asymptomatic menopausal state; Z79.899 Other long term (current) drug therapy; F17.200 Nicotine dependence, unspecified, uncomplicated
CPT/HCPCS: 43239; 45385; 87426; 88305; 88313; 88342; C9803; J7120; J1610; J2405

== ENCOUNTER → 2020-03-03 | Outpatient (CLI) | payer MEDICARE, SELFPAY | END | disposition home or self-care (01) | PROVIDERS: PCP Family Medicine; Referring Provider Nurse Practitioner Family; Visit Provider Nurse Practitioner Family | DX: U07.1 COVID-19 (principal); R53.83 Other fatigue | CPT/HCPCS: 87635; U0005; U0003 ==

== ENCOUNTER → 2020-03-15 | Outpatient (CLI) | payer MEDICARE, SELFPAY | END | disposition home or self-care (01) | LOC: LABSPEC 11:07 | PROVIDERS: PCP Family Medicine; Referring Provider Otolaryngology; Visit Provider Otolaryngology | DX: J32.9 Chronic sinusitis, unspecified (principal) | CPT/HCPCS: 87070; 87077; 87205 ==

== ENCOUNTER → 2020-04-21 | Outpatient (CLI) | payer MEDICARE, SELFPAY | END | disposition home or self-care (01) | LOC: LABSPEC 14:56 | PROVIDERS: PCP Family Medicine; Visit Provider Otolaryngology | DX: J32.9 Chronic sinusitis, unspecified (principal) | CPT/HCPCS: 87070; 87077; 87205 ==

== ENCOUNTER → 2020-04-22 14:59 | Outpatient (CLI) | payer MEDICARE, SELFPAY ==
[2020-04-22 18:16] LABS: CRP < 2.90 mg/L (0.0-3.0)
[2020-04-24 20:10] LABS: Endomysial Antibody IgA Negative (Negative)
[2020-04-25 16:31] LABS: Immunoglobulin A 352 mg/dL (87-352); t-Transglutaminase IgA <2 U/mL (0-3)
== END ==
PROVIDERS: PCP Family Medicine; Referring Provider Internal Medicine Gastroenterology; Visit Provider Internal Medicine Gastroenterology
DX: R19.7 Diarrhea, unspecified (principal)
CPT/HCPCS: 36415; 82784; 83516; 86140; 86255

== ENCOUNTER → 2020-12-03 | Outpatient (CLI) | payer MEDICARE, SELFPAY | END | disposition home or self-care (01) | LOC: LABSPEC 16:03 | PROVIDERS: PCP Family Medicine; Referring Provider Family Medicine; Visit Provider Family Medicine | DX: J39.9 Disease of upper respiratory tract, unspecified (principal); R09.89 Other specified symptoms and signs involving the circulatory and respiratory systems | CPT/HCPCS: 87633; 87635; U0005; U0003 ==

== ENCOUNTER → 2021-01-21 12:31 | Outpatient (CLI) | payer MEDICARE, SELFPAY ==
--- NOTE | 2021-01-21 12:34 | RAD_ITS ---
STUDY: X-RAY - PELVIS AND LEFT HIP REASON FOR EXAM: Female, 65 years old. Left hip pain following a fall. TECHNIQUE: 3 views of the pelvis and hip. COMPARISON: None. FINDINGS: There is a non-specific bowel gas pattern. Normal visualized soft tissue structures. There is narrowing with cortical sclerosis and osteophyte formation of the sacroiliac joint consistent with degenerative osteoarthritic changes. Normal bilateral superior and inferior pubic rami. There are degenerative changes of the pubic symphysis with articular narrowing and sclerosis. Normal bilateral ischial tuberosities. There is a nondisplaced transcervical fracture. RAD/HIP, UNI W/ Pelvis 2-3 Views IMPRESSION: Nondisplaced transcervical fracture. Electronically Signed: Jase Torres MD at 13:15 EST , Service support ,
[2021-01-21 14:59] LABS: Absolute Lymphocyte Count 0.56 X10^3/uL (0.83-4.51); Absolute Neutrophil Count 6.8 X10^3/uL (2.0-7.7); Basophil# 0.04 X10^3/uL; Basophil% 0.5 % (0-1); Eosinophil# 0.01 X10^3/uL; Eosinophils% 0.1 % (0-5); Hematocrit 35.9 % (37-47); Hemoglobin 13.1 g/dL (12.0-15.0); Lymphocyte # 0.56 X10^3/ul (0.83-4.51); Lymphocyte % 6.5 % (19-41); Mean Corp Hgb Conc 36.5 g/dL (32-36); Mean Corpuscular Hgb 37.3 pg (27.0-32.0); Mean Corpuscular Volume 102.3 fL (81-99); Monocyte# 1.14 X10^3/uL; Monocyte% 13.3 % (0-10); NRBC Flagged by Analyzer 0 % (0-5); Neutrophil # 6.75 X10^3/uL (2.7-7.7); POSITIVE DIFFERENTIAL YES; Platelet Count 206 K/mm3 (150-450); RBC Distribution Width CV 13.2 % (11.6-14.6); RBC Distribution Width SD 49.3 fl (35.1-43.9); Red Blood Count 3.51 M/mm3 (4.2-5.4); White Blood Count 8.6 K/mm3 (4.4-11.0)
[2021-01-21 15:03] LABS: Differential Indicated SCAN CRITERIA MET
[2021-01-21 15:20] LABS: ALB/GLOB Ratio 1.1 RATIO (0.9-2.4); AST(SGOT) 58 U/L (15-37); Alanine Aminotransfer ALT/SGPT 56 U/L (13-56); Alkaline Phosphatase 64 U/L (45-117); Anion Gap 16 (5-15); BUN 8 mg/dL (7-18); BUN/Creat Ratio 18.4 RATIO (10-20); Calcium,Total 7.9 mg/dL (8.5-10.1); Chloride 90 mmol/L (98-107); Creatinine, Serum 0.44 mg/dL (0.55-1.02); EST Glomerular Filtration Rate 154 mL/min (>60); Est Glom Filt Rate - Afr Amer 186 mL/min (>60); Globulin 3.7 g/dL (2.2-4.2); Glucose 108 mg/dL (74-106); Potassium 3.3 mmol/L (3.5-5.1); Protein, Total 7.7 g/dL (6.4-8.2); Sodium Level 128 mmol/L (136-145)
[2021-01-21 15:32] LABS: Differential Comment SCANNED
== END ==
PROVIDERS: Family Medicine; PCP Family Medicine; Referring Provider Family Medicine; Visit Provider Family Medicine
DX: S70.12XA Contusion of left thigh, initial encounter (principal); S70.02XA Contusion of left hip, initial encounter; R55 Syncope and collapse
CPT/HCPCS: 36415; 73502; 80053; 85025

== ENCOUNTER 2021-01-21 13:15 | Observation (INO) | payer MEDICARE, SELFPAY ==
[2021-01-21] VITALS (17 sets, daily range): BP systolic 98–137; BP diastolic 67–118; PULSE 73–99; RESP 15–25; TEMP 35.9–36.6; O2SAT 91–98; BMI 21.9; BMI 22.4
--- NOTE | 2021-01-21 14:18 | EKG12_ITS ---
Test Reason : FALL Blood Pressure : / mmHG Vent. Rate : 093 BPM Atrial Rate : 093 BPM P-R Int : 134 ms QRS Dur : 070 ms QT Int : 370 ms P-R-T Axes : 069 072 079 degrees QTc Int : 460 ms Normal sinus rhythm Normal ECG Confirmed by ADAM COPELAND, LUZ ([id number]), editorial specialist JACKELYN VALDEZ ([id number]) on 01/26/2021 9:42:06 AM Referred By: NEPTALI Confirmed By:ANA MEDINA MD
--- NOTE | 2021-01-21 14:18 | EX.ED.DYSGE1 ---
HPI History of Present Illness Chief Complaint: Fall Informant: patient Onset/Context/Timing Onset: Yesterday Current Severity: Mild Maximum Severity: Moderate Narrative Narrative: Patient presents with a fall/syncopal episode last evening. Patient states that she went to the kitchen because she had not eaten for some time and if she needed to eat. She got lightheaded while standing there and fell to the floor with a brief syncopal episode. Spouse was able to help her to the sofa. A short time later she attempted to walk to the bathroom and became lightheaded and had another near syncopal episode. Patient was seen by PCPs office this morning secondary to left hip pain after the syncopal episode. She was found to have a transcervical left hip fracture and sent to the emergency room. Patient denies chest pain or palpitations. [facility] Medical History HTN (hypertension) Microscopic colitis Home Medications amlodipine 10 mg tablet 10 mg PO DAILY #90 tab 08/08/18 [History Last Taken Unknown] metoprolol succinate 100 mg tablet,extended release 24 hr 100 mg PO DAILY #90 tab 08/08/18 [History Last Taken Unknown] omeprazole 40 mg capsule,delayed release 40 mg PO DAILY #90 cap 08/08/18 [History Last Taken Unknown] denosumab [Prolia] 60 mg SUBCUT .[id number] 01/21/21 [History Last Taken 12/03/20] Allergy/AdvReac Type Severity Reaction Status Date / Time doxycycline Allergy Mild UNKNOWN Verified 01/21/21 13:16 amoxicillin Allergy Unknown Verified 01/21/21 13:16 ciprofloxacin [From Cipro] Allergy Unknown Verified 01/21/21 13:16 naproxen Allergy Unknown Verified 01/21/21 13:16 sulfamethoxazole Allergy Unknown Verified 01/21/21 13:16 [From Bactrim] trimethoprim [From Bactrim] Allergy Unknown Verified 01/21/21 13:16 Family History Sister Breast cancer Mother Heart disease Social History Smoking Status: Current every day smoker tobacco type: cigarettes alcohol intake: current alcohol intake frequency: 0-2 drinks per day Alcohol type: beer ROS ROS ED Constitutional Constitutional ED: Denies chills or fever(s) Eyes Eyes: Denies change in vision ENT ENT ED: Denies sore throat Cardiovascular Cardiovascular: Denies chest pain Respiratory/Chest Respiratory/Chest: Denies cough or dyspnea Gastrointestinal Gastrointestinal: Denies abdominal pain, diarrhea, nausea or vomiting Genitourinary Genitourinary ED: Denies dysuria Musculoskeletal Musculoskeletal: Reports arthralgias; Denies back pain Integumentary Denies rash Neurologic Neurologic: Denies headache(s) or weakness Psychiatric Psychiatric: Denies anxiety or depression Allergic/Immunologic Allergic/Immunologic ED: Denies urticaria EXAM Physical Exam Const Vital Signs: 01/21/21 13:16 01/21/21 13:53 Temperature 96.7 F L Temperature Source Temporal Pulse Rate 96 Respiratory Rate 15 Respiratory Effort Short of Breath Respiratory Depth Shallow Respiratory Pattern Tachypnea Blood Pressure 119/79 Blood Pressure Mean 92 Pulse Ox 98 Oxygen Delivery Method Room Air Room Air Positive well nourished and well developed General Appearance ED: well developed Eyes PERRL and EOMs intact bilaterally Neck supple Chest Wall inspection of chest normal and palpation of chest normal Resp normal respiratory effort and clear to auscultation bilaterally Cardio regular rate and regular rhythm GI normal to inspection, nondistended, normoactive bowel sounds and non-tender Palpation: soft Extremity Extremity Narrative: Mild tenderness left hip. Equal leg lengths. Strong distal pulses and normal sensation. Neuro oriented x3 Sensorium / Orientation: alert Psych mental status grossly normal Skin no rashes or lesions noted MDM MDM MDM Narrative Medical decision making narrative: Although patient had labs drawn earlier he spoke with the lab and the blood work is not yet on this campus to run. Labs to be repeated. She declined anything for pain. EKG and Covid test obtained. Lab Data Attestation: I reviewed the patient's lab results. Labs: Laboratory Results - last 24 hr 01/21/21 01/21/21 01/21/21 14:05 14:05 14:30 WBC 9.1 RBC 3.57 L Hgb 13.2 Hct 36.1 L MCV 101.1 H MCH 37.0 H MCHC 36.6 H RDW Std Deviation 47.8 H RDW Coeff of Lynnette 12.8 Plt Count 213 MPV 9.3 Immature Gran % (Auto) 0.300 Neut % (Auto) 80.1 H Lymph % (Auto) 6.2 L Louisa % (Auto) 13.0 H Eos % (Auto) 0.1 Baso % (Auto) 0.3 Absolute Neuts (auto) 7.3 Absolute Lymphs (auto) 0.57 L Nucleated RBC % 0 Differential Comment COMMENT PT Cancelled INR Cancelled APTT Cancelled Sodium 128 L Potassium 3.0 L Chloride 91 L Carbon Dioxide 21.0 Anion Gap 16 H BUN 7 Creatinine 0.43 L Estim Creat Clear Calc 47.14 Est GFR (MDRD) Af Amer 187 Est GFR (MDRD) Non-Af 155 BUN/Creatinine Ratio 16.2 Glucose 99 Calcium 8.1 L Rapid Covid: Negative Radiography Chest X-Ray - ED: 1 View and Read by ED Physician Diagnostic Testing: Hyperinflation with no acute infiltrate. EKG Initial EKG: Attestation: I personally reviewed and interpreted this EKG as follows: Interpretation: Sinus Rhythm (Sinus at 93 with no acute ischemia.) Treatment and Re-Evaluation Comments:: I spoke with Dr. Scott solis after seeing the patient. Patient has not yet eaten today and he may take her to the OR this afternoon if available time. I will speak with the hospitalist. Discharge Plan Dx/Rx/DC Orders Clinical Impression: Closed fracture of left hip, Syncope Disposition Disposition: Acute Care [facility]
[2021-01-21] MEDS: 0.9% Normal Saline 1,000 ML 150 ML IV ×2 (14:25→21:07)
[2021-01-21 14:32] LABS: Absolute Lymphocyte Count 0.57 X10^3/uL (0.83-4.51); Absolute Neutrophil Count 7.3 X10^3/uL (2.0-7.7); Basophil# 0.03 X10^3/uL; Basophil% 0.3 % (0-1); Eosinophil# 0.01 X10^3/uL; Eosinophils% 0.1 % (0-5); Hematocrit 36.1 % (37-47); Hemoglobin 13.2 g/dL (12.0-15.0); Lymphocyte # 0.57 X10^3/ul (0.83-4.51); Lymphocyte % 6.2 % (19-41); Mean Corp Hgb Conc 36.6 g/dL (32-36); Mean Corpuscular Volume 101.1 fL (81-99); Mean Platelet Vol. 9.3 fl (6.2-12.0); Monocyte# 1.19 X10^3/uL; NRBC Flagged by Analyzer 0 % (0-5); Neutrophil % 80.1 % (47-70); POSITIVE DIFFERENTIAL YES; Platelet Count 213 K/mm3 (150-450); RBC Distribution Width CV 12.8 % (11.6-14.6); RBC Distribution Width SD 47.8 fl (35.1-43.9); Red Blood Count 3.57 M/mm3 (4.2-5.4); White Blood Count 9.1 K/mm3 (4.4-11.0)
[2021-01-21 14:36] LABS: Differential Indicated SCAN CRITERIA MET
[2021-01-21 14:40] LABS: Anion Gap 16 (5-15); BUN 7 mg/dL (7-18); BUN/Creat Ratio 16.2 RATIO (10-20); Calcium,Total 8.1 mg/dL (8.5-10.1); Chloride 91 mmol/L (98-107); Creatinine, Serum 0.43 mg/dL (0.55-1.02); EST Glomerular Filtration Rate 155 mL/min (>60); Est Glom Filt Rate - Afr Amer 187 mL/min (>60); Estimated Creatinine Clearance 47.14 ml/min; Glucose 99 mg/dL (74-106); Sodium Level 128 mmol/L (136-145)
--- NOTE | 2021-01-21 14:45 | RAD_ITS ---
STUDY: X-RAY CHEST REASON FOR EXAM: Female, 65 years old. Hip fx TECHNIQUE: Single AP portable view of the chest. COMPARISON: Comparison is made with prior study 07/12/2019. FINDINGS: EKG electrodes are seen. There is hyperinflation of the lungs consistent with chronic obstructive lung disease (COPD). Questionable 1.7 cm x 2 cm nodule in the lateral right upper lobe. There is no demonstrated pleural abnormality. Normal size heart. Normal mediastinum and skyler. There is prominence of the pulmonary hilar arteries without peripheral pulmonary vascular congestion, suggesting pulmonary hypertension. Normal visualized aortic arch and descending thoracic aorta. There are diffuse degenerative changes of the visualized thoracic spine. Multiple healed left rib fractures. Healed left clavicular fracture. There is no demonstrated abnormality of the visualized soft tissue structures of the upper abdomen. RAD/Chest 1 View (Portable) IMPRESSION: Hyperinflation. Questionable 1.7 cm x 2 cm nodule in the lateral right upper lobe. Multiple healed left rib fractures. Electronically Signed: Jase Torres MD at 15:08 EST , Service support ,
--- NOTE | 2021-01-21 14:57 | RAD_ITS ---
STUDY: X-RAY - PELVIS AND LEFT HIP REASON FOR EXAM: Female, 65 years old. LT. HIP PINNING IN OR TECHNIQUE: 5 fluoroscopic views of the pelvis and hip. COMPARISON: Pelvic x-ray dated January 21, 2021 FINDINGS: Intraoperative fluoroscopic views of the right hip shows 3 newly placed partially threaded lag screws along the long axis of the femoral neck and intratrochanteric region across the fracture site. The major fracture fragments have been reduced with improved alignment. RAD/Hip 1 view with Pelvis IMPRESSION: Status post surgical pinning of the left hip Electronically Signed: Robin Salguero MD at 18:55 EST , Service support ,
[2021-01-21 15:34] LABS: Prothrombin Time (Protime)PT. 12.7 SECONDS (11.7-14.9)
[2021-01-21 15:36] LABS: Partial Thromboplast Time 26.1 Seconds (24.1-36.2)
--- NOTE | 2021-01-21 15:48 | HP.PCM.HOS_ITS ---
Documented by User: Miguel NORWOOD 01/21/21 16:33 HPI - General General Date of Admission: 01/21/21 Date of Service: 01/21/21 Chief Complaint: Fall w/ left hip fracture HPI Narrative MARGO STRICKLAND is a 65-year-old female who presents to the ED at [facility] on 01/21/2021 with a chief complaint of fall and left hip fracture. Yesterday afternoon patient reported that she had gotten up from the sofa to get something to eat and subsequently got lightheaded and passed out on the kitchen floor. Patient did not initially seek emergency care as her only complaint initially was pain. Patient attempted to walk to the bathroom later on that evening and suffered a second syncopal episode. Due to repeat syncopal episode and ongoing left-sided hip pain patient reported to her PCP office this morning. Patient was found to have a transcervical left hip fracture and was told to report to the emergency room. Patient denies any acute illness, however does endorse diarrhea which is a chronic problem for her due to her colitis. Vital signs in the ED are BP 112/77, RR of 20 and patient is currently satting 92% on room air. CBC shows WBCs at 9.1, hemoglobin of 13.2 and platelets at 213. Chest x-ray demonstrates hyperinflation with questionable 1.7 x 2 cm nodule in the lateral right upper lobe. X-ray of the hip/pelvis demonstrates a left-sided nondisplaced transcervical fracture. Patient was given fluids in the ED. [facility] Medical History (Updated 01/21/21 @ 20:41 by Kenji Moeller) Anxiety Depression GERD (gastroesophageal reflux disease) HTN (hypertension) Microscopic colitis Osteoporosis Home Medications amlodipine 10 mg tablet 10 mg PO DAILY #90 tab 08/08/18 [History Last Taken 01/21/21] metoprolol succinate 100 mg tablet,extended release 24 hr 100 mg PO DAILY #90 tab 08/08/18 [History Last Taken 01/21/21] omeprazole 40 mg capsule,delayed release 40 mg PO DAILY #90 cap 08/08/18 [History Last Taken 01/21/21] denosumab [Prolia] 60 mg SUBCUT .[id number] 01/21/21 [History Last Taken 12/03/20] Allergy/AdvReac Type Severity Reaction Status Date / Time doxycycline Allergy Mild UNKNOWN Verified 01/21/21 13:16 amoxicillin Allergy Unknown Verified 01/21/21 13:16 ciprofloxacin [From Cipro] Allergy Unknown Verified 01/21/21 13:16 naproxen Allergy Unknown Verified 01/21/21 13:16 sulfamethoxazole Allergy Unknown Verified 01/21/21 13:16 [From Bactrim] trimethoprim [From Bactrim] Allergy Unknown Verified 01/21/21 13:16 Family History Sister Breast cancer Mother Heart disease Father No problems noted. no significant family history (No significant paternal medical history known. ) Surgical History (Updated 01/21/21 @ 16:02 by Miguel NORWOOD) History of colonoscopy Social History Smoking Status: Current every day smoker tobacco type: cigarettes alcohol intake: current alcohol intake frequency: 0-2 drinks per day Alcohol type: beer ROS Constitutional Constitutional: Denies anorexia, change in weight, chills, fatigue, fever(s), malaise, night sweats, weakness or other Eyes Eyes: Denies blurry vision, change in eye color, change in vision, discharge from eye(s), double vision, erythema, eye pain, loss of vision or other ENT HEENT: Denies abnormal hearing, dysphagia, ear pain, epistaxis, headache(s), hearing loss, nasal congestion, nasal discharge, post nasal drip, sinus pressure, sore throat or other Cardiovascular Cardiovascular: Reports syncope; Denies chest pain, claudication, dyspnea on exertion, edema, lightheadedness, orthopnea, palpitations, paroxysmal nocturnal dyspnea, rapid heart rate or other Respiratory/Chest Respiratory/Chest: Denies cough, dyspnea, excessive phlegm production, hemoptysis, productive cough, shortness of breath at rest, shortness of breath with exertion, wheezing or other Gastrointestinal Gastrointestinal: Reports diarrhea; Denies abdominal pain, coffee ground emesis, constipation, dyspepsia, hematemesis, hematochezia, loose stools, melena, nausea, vomiting or other Genitourinary Genitourinary: Denies burning urination, difficulty urinating, dysuria, hematuria, nocturia, urinary frequency, urinary hesitancy, urinary incontinence, urinary urgency or other Musculoskeletal Musculoskeletal: Denies arthralgias, back pain, joint pain, joint stiffness, joint swelling, myalgias, neck pain or other Neurologic Neurologic: Denies abnormal gait, abnormal speech, confusion, disequilibrium, dizziness, focal weakness, headache(s), numbness, paresthesias, seizure-like activity, seizures, syncope, tingling, tremor(s) or other Psychiatric Psychiatric: Denies anxiety, depression, homicidal ideation, suicidal ideation or other Vital Signs Vital Signs Vital Signs: 01/21/21 13:16 01/21/21 13:53 01/21/21 15:00 Temperature 96.7 F L Temperature Source Temporal Pulse Rate 96 93 Respiratory Rate 15 20 H Respiratory Effort Short of Breath Respiratory Depth Shallow Respiratory Pattern Tachypnea Blood Pressure 119/79 109/76 Blood Pressure Mean 92 87 Blood Pressure Source Blood Pressure Position Blood Pressure Location Pulse Ox 98 94 Oxygen Delivery Method Room Air Room Air Room Air 01/21/21 15:29 Temperature 97.9 F Temperature Source Temporal Pulse Rate 93 Respiratory Rate 25 H Respiratory Effort Respiratory Depth Respiratory Pattern Blood Pressure 112/77 Blood Pressure Mean 88 Blood Pressure Source Monitor Blood Pressure Position Semi-Fowlers Blood Pressure Location Left Arm Pulse Ox 91 Oxygen Delivery Method Room Air Weight Weight: 128 lb Body Mass Index (BMI) 21.9 Physical Exam Const alert and oriented x3 General Appearance: cooperative HEENT normocephalic, head/scalp atraumatic and hearing grossly normal bilaterally Eyes PERRL, EOMs intact bilaterally and conjunctivae normal Neck no lymphadenopathy, supple and no JVD Resp normal respiratory effort, no retractions, no use of accessory muscles and clear to auscultation bilaterally Cardio regular rate, regular rhythm, no murmurs and no JVD GI normal to inspection, nondistended, normoactive bowel sounds and non-tender Extremity normal to inspection, full ROM and no clubbing, cyanosis or edema Skin no rashes or lesions noted, no wounds and skin turgor normal Neuro CN's II-XII intact bilaterally Psych affect normal Results Lab / Micro Data Result Diagrams: 01/21/21 14:05 01/21/21 14:05 Labs: Laboratory Results - last 24 hr 01/21/21 14:05: WBC 9.1, RBC 3.57 L, Hgb 13.2, Hct 36.1 L, MCV 101.1 H, MCH 37.0 H, MCHC 36.6 H, RDW Std Deviation 47.8 H, RDW Coeff of Lynnette 12.8, Plt Count 213, MPV 9.3, Immature Gran % (Auto) 0.300, Neut % (Auto) 80.1 H, Lymph % (Auto) 6.2 L, Holt % (Auto) 13.0 H, Eos % (Auto) 0.1, Baso % (Auto) 0.3, Absolute Neuts (auto) 7.3, Absolute Lymphs (auto) 0.57 L, Nucleated RBC % 0, Differential Comment COMMENT 01/21/21 14:05: Sodium 128 L, Potassium 3.0 L, Chloride 91 L, Carbon Dioxide 21.0, Anion Gap 16 H, BUN 7, Creatinine 0.43 L, Estim Creat Clear Calc 47.14, Est GFR (MDRD) Af Amer 187, Est GFR (MDRD) Non-Af 155, BUN/Creatinine Ratio 16.2, Glucose 99, Calcium 8.1 L 01/21/21 14:30: PT Cancelled, INR Cancelled, APTT Cancelled 01/21/21 15:15: PT 12.7, INR 1.0, APTT 26.1 Micro: Microbiology 01/21/21 14:20 Nasal Secretion SARS-CoV-2 Antigen (Rapid) - Final Radiology Impression Chest X-Ray 01/21/21 14:45 IMPRESSION: Hyperinflation. Questionable 1.7 cm x 2 cm nodule in the lateral right upper lobe. Multiple healed left rib fractures. Electronically Signed: Jase Torres MD at 15:08 EST , Service support , Assessment & Plan Assessment/Plan (1) Closed fracture of left hip: (2) Syncope: PLAN: Patient is a 65-year-old female who presents to the ED at [facility] on 01/21/2021 with a chief complaint of syncope with fall. Patient will be admitted for management of left hip fracture. 1) Fall w/ left nondisplaced transcervical fracture Patient presents after suffering a fall yesterday in her kitchen after having an episode of syncope. Hip/pelvis x-ray obtained on admission demonstrated left nondisplaced transcervical fracture. According to the NSQIP surgical risk calculator patient has a below average risk of complications from surgery. Plan; admit to [facility] 3, consult Dr. Chavez, CBC and BMP in a.m., PT/OT eval ordered, case management consult ordered, initiate fluids, as needed medications ordered, obtain vitamin D level, obtain TSH and mag level. 2) syncope 2 episodes of syncope observed yesterday. Believe the syncopal events to be the result of poor oral intake and possible orthostasis, given unremarkable medical history. Patient denies any recent illness and rapid Covid is negative. Will place patient on telemetry, initiate fluids, obtain TSH and mag level, obtain orthostatic vitals. 3) HTN Continue amlodipine and metoprolol. 4) GERD Continue PPI. CODE STATUS: Full code Advanced care planning: Patient's is healthcare power of county attorney and is to be contacted if patient cannot make decisions for self. DVT prophylaxis - low risk, SCDs Patient seen by Miguel Smalls PA-C, under the supervision of Dr. Burnett. Documented by User: Dr. Christophe Burnett, 01/21/21 21:04 HPI - General General Date of Admission: 01/21/21 [facility] Medical History (Updated 01/21/21 @ 20:41 by Kenji Moeller) Anxiety Depression GERD (gastroesophageal reflux disease) HTN (hypertension) Microscopic colitis Osteoporosis Home Medications amlodipine 10 mg tablet 10 mg PO DAILY #90 tab 08/08/18 [History Last Taken 1 03/24/20] metoprolol succinate 100 mg tablet,extended release 24 hr 100 mg PO DAILY #90 tab 08/08/18 [History Last Taken 01/21/21] omeprazole 40 mg capsule,delayed release 40 mg PO DAILY #90 cap 08/08/18 [History Last Taken 01/21/21] denosumab [Prolia] 60 mg SUBCUT .[id number] 01/21/21 [History Last Taken 12/03/20] Allergy/AdvReac Type Severity Reaction Status Date / Time doxycycline Allergy Mild UNKNOWN Verified 01/21/21 13:16 amoxicillin Allergy Unknown Verified 01/21/21 13:16 ciprofloxacin [From Cipro] Allergy Unknown Verified 01/21/21 13:16 naproxen Allergy Unknown Verified 01/21/21 13:16 sulfamethoxazole Allergy Unknown Verified 01/21/21 13:16 [From Bactrim] trimethoprim [From Bactrim] Allergy Unknown Verified 01/21/21 13:16 Family History Sister Breast cancer Mother Heart disease Father No problems noted. Surgical History (Updated 01/21/21 @ 16:02 by Miguel NORWOOD) History of colonoscopy Social History Smoking Status: Current every day smoker tobacco type: cigarettes alcohol intake: current alcohol intake frequency: 0-2 drinks per day Alcohol type: beer Results Lab / Micro Data Result Diagrams: 01/21/21 14:05 01/21/21 14:05 Charges/Coding Addendum Addendum: Patient was seen and examined today independently of Miguel Smalls, she came to the emergency room after being sent in due to abnormal x-rays done as an outpatient indicating hip fracture. Patient had fallen 1 day prior after having what she believes was a syncopal episode or episode of lightheadedness. Patient states he fell in her kitchen. On examination she appeared in good health and spirits, she does not appear to be in any distress. Vital signs as documented. Skin warm and dry and without overt rashes. Neck without JVD, thyroid appears normal, trachea is midline, neck is supple. Lungs clear, normal air movement was noted. Heart exam notable for regular rhythm, normal sounds and absence of murmurs, rubs or gallops. Abdomen unremarkable and without evidence of organomegaly, masses, or abdominal aortic e nlargement, bowel sounds are present in all 4 quadrants, no abdominal tenderness was noted. Extremities nonedematous, no cyanosis was noted, no clubbing was noted. Neuro: Cranial nerves II through XII are grossly intact, no focal motor deficits were noted, sensation to light touch and pinprick is intact, motor exam 5/5 throughout. Psych: Patient is alert and oriented x3, she does not appear anxious or depressed, she does not appear agitated. Patient appears stable for surgery today, she was taken to surgery this afternoon that underwent a percutaneous screw fixation of the left nondisplaced valgus impacted femoral neck fracture. She appears stable postop at this time, she will remain on her home medications with the exception of her Prolia. I have reviewed Miguel Smalls's history and physical including his medical assessment and plan of care and endorse it. Visit Charges Inpatient E&M: 68116 Init Hosp L3
--- NOTE | 2021-01-21 16:17 | CON.PCM.OR_ITS ---
HPI Consult Data Date of Consult: 01/21/21 HPI Narrative HPI Narrative: MARGO STRICKLAND, is a 65 F who presents after a syncopal episode and fall last evening with left hip pain especially when ambulating. Patient has a history of colitis and was not eating or drinking all day yesterday. She states she got up in the evening to go to the kitchen and got lightheaded and subsequently fell. She awoke shortly thereafter as testified by her is at bedside. She was able to get up and bear some weight on her left hip although painful. She has been ambulating slowly and painfully over the last 18 hours or so. She denies any antecedent hip or groin pain. Denies prior use of cane or walker. Patient is being treated for osteoporosis with Prolia infusion s. Denies any other injuries from the fall. Denies head injury or neck pain. Denies any numbness or tingling. [facility] Medical History HTN (hypertension) Microscopic colitis Home Medications amlodipine 10 mg tablet 10 mg PO DAILY #90 tab 08/08/18 [History Last Taken 01/21/21] metoprolol succinate 100 mg tablet,extended release 24 hr 100 mg PO DAILY #90 tab 08/08/18 [History Last Taken 01/21/21] omeprazole 40 mg capsule,delayed release 40 mg PO DAILY #90 cap 08/08/18 [History Last Taken 01/21/21] denosumab [Prolia] 60 mg SUBCUT .[id number] 01/21/21 [History Last Taken 12/03/20] Allergy/AdvReac Type Severity Reaction Status Date / Time doxycycline Allergy Mild UNKNOWN Verified 01/21/21 13:16 amoxicillin Allergy Unknown Verified 01/21/21 13:16 ciprofloxacin [From Cipro] Allergy Unknown Verified 01/21/21 13:16 naproxen Allergy Unknown Verified 01/21/21 13:16 sulfamethoxazole Allergy Unknown Verified 01/21/21 13:16 [From Bactrim] trimethoprim [From Bactrim] Allergy Unknown Verified 01/21/21 13:16 Family History Sister Breast cancer Mother Heart disease Father No problems noted. Surgical History (Updated 01/21/21 @ 16:02 by Miguel NORWOOD) History of colonoscopy Social History Smoking Status: Current every day smoker tobacco type: cigarettes alcohol intake: current alcohol intake frequency: 0-2 drinks per day Alcohol type: beer ROS ROS Narrative 10 point review of systems obtained, negative unless otherwise noted in HPI. Vital Signs Vital Signs Vital Signs: 01/21/21 13:16 01/21/21 13:53 01/21/21 15:00 Temperature 96.7 F L Temperature Source Temporal Pulse Rate 96 93 Respiratory Rate 15 20 H Respiratory Effort Short of Breath Respiratory Depth Shallow Respiratory Pattern Tachypnea Blood Pressure 119/79 109/76 Blood Pressure Mean 92 87 Blood Pressure Source Blood Pressure Position Blood Pressure Location Pulse Ox 98 94 Oxygen Delivery Method Room Air Room Air Room Air 01/21/21 15:29 Temperature 97.9 F Temperature Source Temporal Pulse Rate 93 Respiratory Rate 25 H Respiratory Effort Respiratory Depth Respiratory Pattern Blood Pressure 112/77 Blood Pressure Mean 88 Blood Pressure Source Monitor Blood Pressure Position Semi-Fowlers Blood Pressure Location Left Arm Pulse Ox 91 Oxygen Delivery Method Room Air Weight Weight: 128 lb Body Mass Index (BMI) 21.9 Physical Exam Narrative General -A&Ox3, NAD, appears stated age. Vital signs stable, afebrile. Respiratory -normal work of breathing, no intercostal retractions. CV -pulses regular, brisk capillary refill ?4 limbs. Abdomen-soft, nontender, nondistended. No guarding, rigidity, rebound tenderness. Musculoskeletal/neurologic -full range of motion nontender throughout bilateral upper extremities, right lower extremity with full sensation and strength in all dermatomes and myotomes. No midline cervical tenderness. Left lower extremity- no obvious deformity. Pain with logroll of the left lower extremity. Nontender throughout the left knee femoral shaft, tibial shaft and left foot/ankle. Brisk capillary refill. Sensation intact light touch L3-S1 dermatomes. DF, PF, EHL intact. DP, PT 2+. Pelvis is stable, nontender. Skin is intact without lacerations, abrasions. No ecchymosis noted. Lab / Micro Data Result Diagrams: 01/21/21 14:05 01/21/21 14:05 Labs: Laboratory Results - last 24 hr 01/21/21 14:05: WBC 9.1, RBC 3.57 L, Hgb 13.2, Hct 36.1 L, MCV 101.1 H, MCH 37.0 H, MCHC 36.6 H, RDW Std Deviation 47.8 H, RDW Coeff of Lynnette 12.8, Plt Count 213, MPV 9.3, Immature Gran % (Auto) 0.300, Neut % (Auto) 80.1 H, Lymph % (Auto) 6.2 L, Knox % (Auto) 13.0 H, Eos % (Auto) 0.1, Baso % (Auto) 0.3, Absolute Neuts (auto) 7.3, Absolute Lymphs (auto) 0.57 L, Nucleated RBC % 0, Differential Comment COMMENT 01/21/21 14:05: Sodium 128 L, Potassium 3.0 L, Chloride 91 L, Carbon Dioxide 21.0, Anion Gap 16 H, BUN 7, Creatinine 0.43 L, Estim Creat Clear Calc 47.14, Est GFR (MDRD) Af Amer 187, Est GFR (MDRD) Non-Af 155, BUN/Creatinine Ratio 16.2, Glucose 99, Calcium 8.1 L 01/21/21 14:30: PT Cancelled, INR Cancelled, APTT Cancelled 01/21/21 15:15: PT 12.7, INR 1.0, APTT 26.1 Micro: Microbiology 01/21/21 14:20 Nasal Secretion SARS-CoV-2 Antigen (Rapid) - Final Radiology Impression Chest X-Ray 01/21/21 14:45 IMPRESSION: Hyperinflation. Questionable 1.7 cm x 2 cm nodule in the lateral right upper lobe. Multiple healed left rib fractures. Electronically Signed: Jase Torres MD at 15:08 EST , Service support , X-rays reviewed by myself personally 01/21/2021 AP pelvis and left hip demonstrates a subcapital femoral neck fracture with valgus impaction without significant angulation on the lateral projection. Minimal degenerative changes are noted at the hip joint. Assessment & Plan Assessment/Plan (1) Closed fracture of left hip: PLAN: Patient has a valgus impacted left subcapital femoral neck fracture. There is no significant angulation in the sagittal plane as best identified on these x-rays. Patient has also stressed the fracture by attempting to ambulate over the last day. Given these factors and a lack of antecedent hip pain, I recommended a percutaneous surgical fixation with cannulated screws of the left femoral neck fracture. The risk, benefits, alternatives to the procedure reviewed with patient at length. Risks include but are not limited to bleeding, infection, loss of limb, neurovascular injury, failure of orthopedic hardware, nonunion, malunion, need for additional surgery, need for conversion to total hip arthroplasty, wound complications, need for a walker postoperatively, pers istent limp. Patient expressed understands of these risks and wished to proceed with surgery. Informed consent obtained and placed in chart. 2 g Ancef on-call to the OR Plan to proceed with surgical intervention this evening when a room becomes available. Thank you for this consultation. I will follow in the postoperative period.
[2021-01-21] MEDS: Ipratropium/Albuterol Sulfate 3 ML AMPUL.NEB INHALATION ×2 (16:37→18:54)
--- NOTE | 2021-01-21 17:12 | PCM.OPRPT ---
Problems Associated Problem List Diagnoses (1) Closed fracture of left hip: Report of Operation Description of Surgical Findings:: Preoperative diagnosis: Left valgus impacted femoral neck fracture Postoperative diagnosis: Left valgus impacted femoral neck fracture Procedure: Percutaneous screw fixation of left nondisplaced valgus impacted femoral neck fracture Surgeon: Jason Chavez DO Anesthesia: General LMA Anesthesiologist: Dr. Chacon Complications: None Drains: None Estimated blood loss: 100 cc Urinary output: None IV fluids: 700 cc crystalloid Specimens: None Surgical implants: Synthes 7.3 mm cannulated screws x3, 1 washer Surgical indications: MARGO STRICKLAND is a 65 F who presents after a syncopal episode and fall last evening with left hip pain especially when ambulating. Patient has a history of colitis and was not eating or drinking all day yesterday. She states she got up in the evening to go to the kitchen and got lightheaded and subsequently fell. She awoke shortly thereafter as testified by her is at bedside. She was able to get up and bear some weight on her left hip although painful. She has been ambulating slowly and painfully over the last 18 hours or so. She denied any antecedent hip or groin pain. Denied prior use of cane or walker. Patient is being treated for osteoporosis with Prolia infusions. Denied any other injuries from the fall. Denied head injury or neck pain. She was seen by the hospitalist who stated she was optimized for surgery. She was also seen by the anesthesia staff prior to procedure. After review of the available imaging, there was no significant angulation in the sagittal plane as best identified on x-rays. Patient had also stressed the fracture by attempting to ambulate over the last day. Given these factors and a lack of antecedent hip pain, I recommended a percutaneous surgical fixation with cannulated screws of the left femoral neck fracture. The risks, benefits, alternatives to the procedure reviewed with patient at length. Risks include but are not limited to bleeding, infection, loss of limb, neurovascular injury, failure of orthopedic hardware, nonunion, malunion, need for additional surgery, need for conversion to total hip arthroplasty, wound complications, need for a walker postoperatively, persistent limp. Patient expressed understands of these risks and wished to proceed with surgery. Informed consent obtained and placed in chart. Description of procedure: Prior to the procedure, patient was brought to the preoperative holding area where patient was identified by name, medical record number and date of . I confirmed the side, site, operation to be performed. Informed consent was confirmed. The operative extremity was marked. She was also seen by anesthesia staff and anesthesia consent obtained.At time of the operative procedure, pt was brought to the operative suite. General anesthesia was induced on the hospital bed and LMA placed. After adequate anesthesia and securing the tube, patient was then positioned supine on a fracture table. The operative foot was well-padded and placed in a ski boot attached to the traction unit on the fracture table. The nonoperative leg was extended and secured to the lateral post of the fracture table. A well-padded perineal post was placed and the left upper extremity was brought across patient's torso and secured. We applied minimal traction through the operative extremity. We then prepped and draped the right lower extremity in normal sterile orthopedic fashion after maintained reduction was confirmed on fluoroscopy orthogonal views. We then performed a timeout with all parties in attendance in agreement with the side, site, operation be performed. 2 g Ancef was administered prior to incision by anesthesia staff. I first used fluoroscopy to rossana out our planned incision with the planned trajectory of the screws. An approximately 6 cm incision was made along the lateral thigh. I then opened the IT band with a scalpel. A threaded K wire was then used to plan my screw trajectory. I placed an inverted triangle configuration just above the level of the lesser trochanter. Position was confirmed on fluoroscopy and appropriate and parallel position. Depth gauge was used to measure the length of screws. Screws were then placed on power and tightened on hand. I did place a washer on the inferior screw for increasing purchase. Final tightening demonstrated excellent purchase of all screws. Final fluoroscopic images were obtained. Maintained reduction in placement and size of hardware appeared appropriate. Hemostasis was excellent. I then thoroughly irrigated the wound with normal saline solution. Deep tissues were closed with 0 Vicryl suture and subcutaneous tissue closed with 2-0 Vicryl suture. Skin was finally closed with kiana. Sterile compression dressings were applied to the wounds. Patient was then taken out of traction entirely and removed from both traction boot and well leg cavazos. Patient was transferred back to his hospital bed in stable condition and extubated safely in the operative suite. Patient was then transferred to PACU in stable condition. Post Operative Plan: Weightbearing: Weightbearing as tolerated left lower extremity Antibiotics: Ancef 1 g x 3 doses postoperatively, 1 dose given preoperatively DVT Prophylaxis: Given her history of colitis, I will discuss postoperative DVT prophylaxis with hospitalist. Aspirin versus Lovenox would be considered, given her high functioning mobility status. SCDs, JENY novoa. Adam: None Dressing: Dry sterile dressing changes daily and as needed for saturation X-Rays: 2-3 weeks postop in the office Follow-up: 2-3 weeks in the office with myself
[2021-01-21] MEDS: Cefazolin 2 GM in 0.9% Normal Saline 100 ML IV (17:29)
[2021-01-21] MEDS: Ropivacaine 0.5% 30 ML Vial (18:12)
[2021-01-21] MEDS: Acetaminophen 500 MG Tablet 1000 MG PO (21:07)
[2021-01-22] VITALS (9 sets, daily range): BP systolic 107–122; BP diastolic 57–80; PULSE 65–89; RESP 16–20; TEMP 36.6–36.9; O2SAT 91–97
[2021-01-22] MEDS: Acetaminophen 500 MG Tablet 1000 MG PO ×3 (04:55→21:18)
[2021-01-22] MEDS: 0.9% Normal Saline 1,000 ML 150 ML IV (04:56)
[2021-01-22 06:58] LABS: Absolute Lymphocyte Count 0.44 X10^3/uL (0.83-4.51); Absolute Neutrophil Count 6.6 X10^3/uL (2.0-7.7); Basophil# 0.02 X10^3/uL; Basophil% 0.2 % (0-1); Eosinophil# 0.04 X10^3/uL; Eosinophils% 0.5 % (0-5); Hematocrit 29.2 % (37-47); Hemoglobin 10.3 g/dL (12.0-15.0); Lymphocyte # 0.44 X10^3/ul (0.83-4.51); Lymphocyte % 5.2 % (19-41); Mean Corp Hgb Conc 35.3 g/dL (32-36); Mean Corpuscular Hgb 36.8 pg (27.0-32.0); Mean Corpuscular Volume 104.3 fL (81-99); Mean Platelet Vol. 9.5 fl (6.2-12.0); Monocyte% 14.3 % (0-10); NRBC Flagged by Analyzer 0 % (0-5); Neutrophil # 6.63 X10^3/uL (2.7-7.7); Neutrophil % 79.1 % (47-70); POSITIVE DIFFERENTIAL YES; Platelet Count 166 K/mm3 (150-450); RBC Distribution Width SD 49.3 fl (35.1-43.9); White Blood Count 8.4 K/mm3 (4.4-11.0)
[2021-01-22 07:00] LABS: Differential Indicated SCAN CRITERIA MET
--- NOTE | 2021-01-22 07:37 | PN.ORTHO_ITS ---
Subjective Subjective Patient seen and examined at bedside this morning. Patient required straight catheterization x1 overnight. Denies fevers, chills, nausea vomiting, chest pain or shortness of breath. She states pain is controlled at rest. Objective Data Objective Data Vital Signs: Vital Signs Temp Pulse Resp BP Pulse Ox 97.8 F 80 16 107/57 L 96 01/22/21 04:30 01/22/21 04:30 01/22/21 04:30 01/22/21 04:30 01/22/21 04:30 Oxygen Flow Rate (L/min) 2 Oxygen Delivery Method Nasal Cannula Weight: 131 lb 6.328 oz Body Mass Index (BMI) 22.4 Intake & Output: Intake and Output for Last 24 Hours 01/20/21 01/21/21 01/22/21 23:59 23:59 23:59 Intake Total 1110 / 1110 2000 / 2000 Output Total 400 / 400 Balance 1110 / 1110 1600 / 1600 Lab / Micro Data Result Diagrams: 01/22/21 06:15 01/22/21 06:15 Labs: Laboratory Results - last 24 hr 01/21/21 14:05: WBC 9.1, RBC 3.57 L, Hgb 13.2, Hct 36.1 L, MCV 101.1 H, MCH 37.0 H, MCHC 36.6 H, RDW Std Deviation 47.8 H, RDW Coeff of Lynnette 12.8, Plt Count 213, MPV 9.3, Immature Gran % (Auto) 0.300, Neut % (Auto) 80.1 H, Lymph % (Auto) 6.2 L, Mineral % (Auto) 13.0 H, Eos % (Auto) 0.1, Baso % (Auto) 0.3, Absolute Neuts (auto) 7.3, Absolute Lymphs (auto) 0.57 L, Nucleated RBC % 0, Differential Comment COMMENT 01/21/21 14:05: Sodium 128 L, Potassium 3.0 L, Chloride 91 L, Carbon Dioxide 21.0, Anion Gap 16 H, BUN 7, Creatinine 0.43 L, Estim Creat Clear Calc 47.14, Est GFR (MDRD) Af Amer 187, Est GFR (MDRD) Non-Af 155, BUN/Creatinine Ratio 16.2, Glucose 99, Calcium 8.1 L 01/21/21 14:05: Blood Type AB POSITIVE, Antibody Screen NEGATIVE 01/21/21 14:30: PT Cancelled, INR Cancelled, APTT Cancelled 01/21/21 15:15: PT 12.7, INR 1.0, APTT 26.1 01/22/21 06:15: WBC 8.4, RBC 2.80 L, Hgb 10.3 L, Hct 29.2 L, MCV 104.3 H, MCH 36.8 H, MCHC 35.3, RDW Std Deviation 49.3 H, RDW Coeff of Lynnette 13.0, Plt Count 166, MPV 9.5, Immature Gran % (Auto) 0.700, Neut % (Auto) 79.1 H, Lymph % (Auto) 5.2 L, Mineral % (Auto) 14.3 H, Eos % (Auto) 0.5, Baso % (Auto) 0.2, Absolute Neuts (auto) 6.6, Absolute Lymphs (auto) 0.44 L, Nucleated RBC % 0, Differential Comment COMMENT Micro: Microbiology 01/21/21 14:20 Nasal Secretion SARS-CoV-2 Antigen (Rapid) - Final Radiography Diagnostic Testing: Radiology Impression Chest X-Ray 01/21/21 14:45 IMPRESSION: Hyperinflation. Questionable 1.7 cm x 2 cm nodule in the lateral right upper lobe. Multiple healed left rib fractures. Electronically Signed: Jase Torres MD at 15:08 EST , Service support , Hip/Pelvis X-Ray 01/21/21 14:57 IMPRESSION: Status post surgical pinning of the left hip Electronically Signed: Robin Salguero MD at 18:55 EST , Service support , Physical Exam Narrative General - A&Ox3, NAD. VSS/AF Left lower extremity -incisional dressing minimal shadowing. SILT Sural, Saphenous, SPN, DPN, Tibial N. distributions. DP, PT 2+. BCR. DF, PF, EHL 5/5. No calf TTP. Assessment & Plan Assessment/Plan (1) Closed fracture of left hip: QUALIFIERS: Encounter type: initial encounter Qualified Code(s): S72.002A - Fracture of unspecified part of neck of left femur, initial encounter for closed fracture PLAN: POD#1 s/p left femoral neck percutaneous screw fixation - Pain control - Medicine following for medical management -hypokalemic this morning - PT/OT -weightbearing as tolerated left lower extremity with a walker - DVT PPX -aspirin 81 mg twice daily. She states she has tolerated aspirin well in the past despite her colitis. -Dietary consult ordered due to patient poor nutritional status. Would consider Ensure or something similar in terms of nutritional support for wound and bone healing. - Case management - D/C planning
[2021-01-22 07:41] LABS: Anion Gap 14 (5-15); BUN 7 mg/dL (7-18); Calcium,Total 6.4 mg/dL (8.5-10.1); Chloride 97 mmol/L (98-107); Creatinine, Serum 0.28 mg/dL (0.55-1.02); EST Glomerular Filtration Rate 255 mL/min (>60); Est Glom Filt Rate - Afr Amer 309 mL/min (>60); Estimated Creatinine Clearance 47.14 ml/min; Glucose 89 mg/dL (74-106); Magnesium 0.6 mg/dL (1.6-2.6); Potassium 2.8 mmol/L (3.5-5.1); Sodium Level 132 mmol/L (136-145); Thyroid Stim Hormone (TSH) 0.72 uIU/mL (0.358-3.74)
[2021-01-22 08:28] LABS: Vitamin D,25 Hydroxy 13.5 ng/mL
[2021-01-22] MEDS: Potassium Chloride Oral Tablet 20 MEQ 60 MEQ PO (09:37)
[2021-01-22] MEDS: Aspirin 81 MG TAB.CHEW PO (09:37)
[2021-01-22] MEDS: amLODIPine 10 MG Tablet PO (09:37)
[2021-01-22] MEDS: Pantoprazole Sodium 40 MG Tablet PO (09:38)
[2021-01-22] MEDS: Metoprolol(XL)Succ 100 MG Tablet PO (09:38)
[2021-01-22] MEDS: oxyCODONE 5 MG Tablet PO ×2 (09:42→17:35)
[2021-01-22] MEDS: Magnesium Sulfate 4gm/100mL 4 GM/100 ML IV.SOLN. IV (11:07)
--- NOTE | 2021-01-22 11:12 | CASEMGMT ---
Addendum entered by Alina Fang 01/22/21 11:50: Communication with , would like pt to have home therapy prior to follow up appt with him. Patient was provided a list of C providers including quality and resource use data and consistent with the patient?s preferred geographic region, medical needs, and insurance network. Pt and would like to review list and RN CM to come back for decision. Original Note: RN CM Assessment: Face to Face with pt for initial transition planning/care coordination assessment. RN CM introduced self and role at [facility], pt voices understanding and consents to assessment. Pt is A/O x4 and answers all questions appropriately at this time. Pt sitting up in chair in no distress with at bedside. Care providers, pharmacy, and demographics verified/updated. Admitting Dx: Left hip fx PCP:Shaw Specialists: eric Chavez Preferred Pharmacy: [facility] inpt [facility]: yes LW/HPOA: Pt has LW/DPOA on file at [facility]. Her DPOA is her , Sriram Nguyen. LNOK: Sriram Nguyen, Living Arrangements: Pt lives with in a two story house with 1 step to enter without a rail. Pt states she was I in ADL's prior to her fall. Pt denies concerns at home. Transportation: Pt drives self and denies concerns with transportation. is able to transport pt until she is able to drive again. DME/HHC/SNF: Pt has a FWW and w/c at home. She did not use any DME prior. Pt denies previous HHC or SNF stays. Pt states no concerns with going home at time of dc. She states her will assist her at home. She states that she was told she will follow up with in two weeks then start therapy at [facility]. Will verify with Dr. Chavez. Pt states no further concerns/needs. CM to follow. Advised pt to ask CM if any further question/concerns/needs arise, voices understanding. Pt Goal: Home with outpt therapy after f/u appt Plan: TBD
--- NOTE | 2021-01-22 11:53 | PN.HOSP_ITS ---
Documented by User: Florence Arevalo NP-C 01/22/21 12:00 Subjective Subjective Patient seen and examined. Patient sitting in chair no distress noted. Patient states that she is having increased pain approximately 6 out of 10 having just worked with therapy. Patient denies other needs at this time. Objective Data Objective Data Vital Signs: Vital Signs Temp Pulse Resp BP Pulse Ox 98.2 F 86 20 H 117/75 93 01/22/21 08:26 01/22/21 09:38 01/22/21 08:26 01/22/21 08:26 01/22/21 08:26 Oxygen Flow Rate (L/min) 2 Oxygen Delivery Method Nasal Cannula Weight: 131 lb 6.328 oz Body Mass Index (BMI) 22.4 Intake & Output: Intake and Output for Last 24 Hours 01/20/21 01/21/21 01/22/21 23:59 23:59 23:59 Intake Total 1110 / 1110 2850 / 2850 Output Total 400 / 400 Balance 1110 / 1110 2450 / 2450 Lab / Micro Data Result Diagrams: 01/22/21 06:15 01/22/21 06:15 Labs: Laboratory Results - last 24 hr 01/21/21 14:05: WBC 9.1, RBC 3.57 L, Hgb 13.2, Hct 36.1 L, MCV 101.1 H, MCH 37.0 H, MCHC 36.6 H, RDW Std Deviation 47.8 H, RDW Coeff of Lynnette 12.8, Plt Count 213, MPV 9.3, Immature Gran % (Auto) 0.300, Neut % (Auto) 80.1 H, Lymph % (Auto) 6.2 L, [place] % (Auto) 13.0 H, Eos % (Auto) 0.1, Baso % (Auto) 0.3, Absolute Neuts (auto) 7.3, Absolute Lymphs (auto) 0.57 L, Nucleated RBC % 0, Differential Comment COMMENT 01/21/21 14:05: Sodium 128 L, Potassium 3.0 L, Chloride 91 L, Carbon Dioxide 21.0, Anion Gap 16 H, BUN 7, Creatinine 0.43 L, Estim Creat Clear Calc 47.14, Est GFR (MDRD) Af Amer 187, Est GFR (MDRD) Non-Af 155, BUN/Creatinine Ratio 16.2, Glucose 99, Calcium 8.1 L 01/21/21 14:05: Blood Type AB POSITIVE, Antibody Screen NEGATIVE 01/21/21 14:30: PT Cancelled, INR Cancelled, APTT Cancelled 01/21/21 15:15: PT 12.7, INR 1.0, APTT 26.1 01/22/21 06:15: Vitamin D 25-Hydroxy 13.5 01/22/21 06:15: WBC 8.4, RBC 2.80 L, Hgb 10.3 L, Hct 29.2 L, MCV 104.3 H, MCH 36.8 H, MCHC 35.3, RDW Std Deviation 49.3 H, RDW Coeff of Lynnette 13.0, Plt Count 166, MPV 9.5, Immature Gran % (Auto) 0.700, Neut % (Auto) 79.1 H, Lymph % (Auto) 5.2 L, [place] % (Auto) 14.3 H, Eos % (Auto) 0.5, Baso % (Auto) 0.2, Absolute Neuts (auto) 6.6, Absolute Lymphs (auto) 0.44 L, Nucleated RBC % 0, Differential Comment COMMENT 01/22/21 06:15: Sodium 132 L, Potassium 2.8 L, Chloride 97 L, Carbon Dioxide 21.0, Anion Gap 14, BUN 7, Creatinine 0.28 L, Estim Creat Clear Calc 47.14, Est GFR (MDRD) Af Amer 309, Est GFR (MDRD) Non-Af 255, BUN/Creatinine Ratio 25.0 H, Glucose 89, Calcium 6.4 L*, Magnesium 0.6 L*, TSH 0.72 Micro: Microbiology 01/21/21 14:20 Nasal Secretion SARS-CoV-2 Antigen (Rapid) - Final Radiography Diagnostic Testing: Radiology Impression Chest X-Ray 01/21/21 14:45 IMPRESSION: Hyperinflation. Questionable 1.7 cm x 2 cm nodule in the lateral right upper lobe. Multiple healed left rib fractures. Electronically Signed: Jase Torres MD at 15:08 EST , Service support , Hip/Pelvis X-Ray 01/21/21 14:57 IMPRESSION: Status post surgical pinning of the left hip Electronically Signed: Robin Salguero MD at 18:55 EST , Service support , Physical Exam Const alert, oriented x3 and no apparent distress HEENT head/scalp atraumatic Head and Scalp: normocephalic Eyes conjunctivae normal and no scleral icterus Neck full ROM and supple Resp normal respiratory effort, normal air movement and clear to auscultation bilaterally Effort and Inspection: able to speak in complete sentences and symmetric chest movement Cardio regular rate, regular rhythm, S1 normal heart sound and S2 normal heart sound GI normal to inspection, nondistended, normoactive bowel sounds, soft to palpation and non-tender Extremity normal to inspection and no clubbing, cyanosis or edema Extremity Narrative: Limited range of motion to left leg secondary to pain from recent fracture Peripheral Pulses: Yes pulses 2+ throughout Skin no rashes or lesions noted, no wounds and skin turgor normal Neuro oriented x3, moves all extremities, no focal motor deficits and no sensory deficits noted Sensorium / Orientation: awake and alert Psych affect normal Assessment & Plan Assessment/Plan (1) Closed fracture of left hip: QUALIFIERS: Encounter type: initial encounter Qualified Code(s): S72.002A - Fracture of unspecified part of neck of left femur, initial encounter for closed fracture (2) Syncope: QUALIFIERS: Syncope type: unspecified Qualified Code(s): R55 - Syncope and collapse PLAN: Patient is a 65-year-old female who presented following a fall. Patient was noted to fracture her left hip and subsequently underwent a screw fixation of the left hip with Dr. Chavez. 1. Fall with left nondisplaced transcervical fracture -Postop day one -PT and OT following -Pain medication regimen ordered -Dr. Chavez following 2. Syncope -TSH and vitamin D normal, magnesium, calcium, potassium low, replacement ordered -Telemetry demonstrates normal sinus rhythm 3. Hypertension -Vital signs per protocol, currently stable -Continue amlodipine and metoprolol DVT prophylaxis-SCDs This patient was seen by MEGHAN Vo under the supervision of Dr. Burnett. Documented by User: Dr. Christophe Burnett DO 01/22/21 18:57 Objective Data Lab / Micro Data Result Diagrams: 01/22/21 06:15 01/22/21 06:15 Charges/Coding Addendum Addendum: Patient was seen and examined today independently of Suzanna Arevalo, her electrolytes were abnormal today with a low potassium, low magnesium, and low calcium. Supplements were given IV and orally for the patient. Patient's labs will be rechecked tomorrow. On examination she appeared in good health and spirits, she does not appear to be in any distress. Vital signs as documented. Skin warm and dry and without overt rashes. Neck without JVD, thyroid appears normal, trachea is midline, neck is supple. Lungs clear, normal air movement was noted. Heart exam notable for regular rhythm, normal sounds and absence of murmurs, rubs or gallops. Abdomen unremarkable and without evidence of organomegaly, masses, or abdominal aortic enlargement, bowel sounds are present in all 4 quadrants, no abdominal tenderness was noted. Extremities nonedematous, no cyanosis was noted, no clubbing was noted. Neuro: Cranial nerves II through XII are grossly intact, no focal motor deficits were noted, sensation to light touch and pinprick is intact, motor exam 5/5 throughout. Psych: Patient is alert and oriented x3, she does not appear anxious or depressed, she does not appear agitated. Patient appears medically stable at this time, labs will be rechecked tomorrow. I have reviewed Suzanna Arevalo's progress note including her medical assessment and plan of care and endorse it. Visit Charges Inpatient E&M: 28546 Subs Hosp L2
[2021-01-22] MEDS: Potassium Chloride Oral Tablet 20 MEQ 40 MEQ PO (12:59)
[2021-01-23] MEDS: Acetaminophen 500 MG Tablet 1000 MG PO (05:21)
[2021-01-23 05:29] VITALS: BP 122/82; PULSE 87; RESP 16; TEMP 36.4; O2SAT 95
[2021-01-23 05:52] LABS: Absolute Lymphocyte Count 0.78 X10^3/uL (0.83-4.51); Absolute Neutrophil Count 3.9 X10^3/uL (2.0-7.7); Basophil# 0.03 X10^3/uL; Basophil% 0.5 % (0-1); Eosinophil# 0.06 X10^3/uL; Eosinophils% 1.1 % (0-5); Hematocrit 29.6 % (37-47); Hemoglobin 10.7 g/dL (12.0-15.0); Lymphocyte # 0.78 X10^3/ul (0.83-4.51); Lymphocyte % 13.8 % (19-41); Mean Corp Hgb Conc 36.1 g/dL (32-36); Mean Corpuscular Hgb 37.4 pg (27.0-32.0); Mean Corpuscular Volume 103.5 fL (81-99); Mean Platelet Vol. 9.3 fl (6.2-12.0); Monocyte# 0.87 X10^3/uL; Monocyte% 15.4 % (0-10); NRBC Flagged by Analyzer 0 % (0-5); Neutrophil # 3.86 X10^3/uL (2.7-7.7); Neutrophil % 68.5 % (47-70); Platelet Count 165 K/mm3 (150-450); RBC Distribution Width CV 12.6 % (11.6-14.6); RBC Distribution Width SD 47.2 fl (35.1-43.9); Red Blood Count 2.86 M/mm3 (4.2-5.4); White Blood Count 5.6 K/mm3 (4.4-11.0)
[2021-01-23 06:29] LABS: Anion Gap 8 (5-15); BUN 3 mg/dL (7-18); BUN/Creat Ratio 8.8 RATIO (10-20); Chloride 97 mmol/L (98-107); Creatinine, Serum 0.34 mg/dL (0.55-1.02); EST Glomerular Filtration Rate 204 mL/min (>60); Est Glom Filt Rate - Afr Amer 247 mL/min (>60); Estimated Creatinine Clearance 47.14 ml/min; Glucose 89 mg/dL (74-106); Magnesium 1.6 mg/dL (1.6-2.6); Potassium 3.9 mmol/L (3.5-5.1); Sodium Level 130 mmol/L (136-145)
[2021-01-23 08:00] VITALS: BP 122/79; PULSE 76; RESP 16; TEMP 36.3; O2SAT 100
[2021-01-23 08:06] VITALS: PULSE 76
[2021-01-23] MEDS: Pantoprazole Sodium 40 MG Tablet PO (08:06)
[2021-01-23] MEDS: amLODIPine 10 MG Tablet PO (08:06)
[2021-01-23] MEDS: Aspirin 81 MG TAB.CHEW PO (08:06)
[2021-01-23] MEDS: Metoprolol(XL)Succ 100 MG Tablet PO (08:06)
[2021-01-23] MEDS: oxyCODONE 5 MG Tablet PO (08:06)
--- NOTE | 2021-01-23 08:58 | CASEMGMT ---
Late entry for 01/22/2021 at 1545- Pt chose [facility], referral made to Gloria at [facility] and accepted. SOC will be Tuesday.
--- NOTE | 2021-01-23 12:00 | PCM.DC ---
Discharge Instructions Diet Discharge Diet: Low fat / Low cholesterol Activity Weight Bearing Status: Weight bearing as tolerated Keep extremity elevated above heart level: Left Leg Dressing / Incision Call your doctor if your incision/area has: Sudden Increased Bleeding, Increased Pain/ Swelling and Swelling at the incision site Call your doctor if you observe: Fever of 101 or Higher, Coldness, Increased Pain, Numbness or Tingling and Uncontrolled pain Follow Up Care Please Follow Up With: Jason Chavez DO When: 2-3 weeks Test Results: Test results from this visit will be discussed in further detail at your follow-up appointment, if applicable. Discharge Plan Admission Admit Date/Time: 01/21/21 21:02 Primary Reason for Your Visit: Left hip fracture Attending Provider: Miguel Smalls Primary Care Provider: Jair Squires Consulting Providers: Jason Chavez Discharge Orders/Prescriptions Prescriptions: New acetaminophen 500 mg Tablet 1,000 mg PO Q8 Qty: 0 RF: 0 oxycodone 5 mg Tablet 5 mg PO Q6H PRN PRN (Reason: Pain Score 4-5) 3 Days Qty: 10 RF: 0 Continued metoprolol succinate 100 mg tablet extended release 24 hr 100 mg PO DAILY Qty: 90 RF: 0 amlodipine 10 mg tablet 10 mg PO DAILY Qty: 90 RF: 0 omeprazole 40 mg capsule,delayed release(DR/EC) 40 mg PO DAILY Qty: 90 RF: 0 Prolia 60 mg/mL syringe 60 mg SUBCUT .[id number] RF: 0 Referrals / Follow Up: Jair Squires MD [Primary Care Provider] - Jason Chavez DO [STAFF PHYSICIAN] - 02/09/21 Disposition Disposition (needs filled in before D/C Order can be placed): Home Health Service
--- NOTE | 2021-01-23 12:14 | DS.PCM_ITS ---
Documented by User: MEGHAN Vo 01/23/21 12:18 Providers Date of Admission: 01/21/21 Primary Care Physician: Dr. Jair Squires MD Consultations 01/21/21 16:24 Consult: Orthopedics Routine Consulting Provider: Jason Chavez Reason for Consult: Left hip fracture. EMERGENT Consult: No MD Notified: Yes Date Notified: 01/21/21 Time Notified: 16:28 Method of Notification: Verbal Reason For Visit: LEFT HIP FRACTURE Diagnosis Discharge Diagnosis (1) Closed fracture of left hip: Status: Acute Code(s): S72.002A - Fracture of unspecified part of neck of left femur, initial encounter for closed fracture Qualifiers: Encounter type: initial encounter Qualified Code(s): S72.002A - Fracture of unspecified part of neck of left femur, initial encounter for closed fracture (2) Syncope: Status: Acute Code(s): R55 - Syncope and collapse Qualifiers: Syncope type: unspecified Qualified Code(s): R55 - Syncope and collapse Medications at Discharge Home Medications amlodipine 10 mg tablet 10 mg PO DAILY #90 tab 08/08/18 metoprolol succinate 100 mg tablet,extended release 24 hr 100 mg PO DAILY #90 tab 08/08/18 omeprazole 40 mg capsule,delayed release 40 mg PO DAILY #90 cap 08/08/18 Prolia 60 mg SUBCUT .[id number] 01/21/21 acetaminophen 1,000 mg PO Q8 #0 tab 01/23/21 oxycodone 5 mg PO Q6H PRN PRN 3 Days #10 tab 01/23/21 Hospital Course Operations - (Left hip screw fixation) Procedures EKG Summary of Care Provided Minutes Spent on Discharge: 35 Hospital Course: Patient is a 65-year-old female who presented with a left hip fracture following a fall. Patient underwent a percutaneous screw fixation of the left nondisplaced valgus impacted femoral neck fracture with Dr. Chavez. Patient will be discharged home with home health for PT and OT. Patient was also discharged home with oxycodone for pain and instructions to follow-up with Dr. Chavez in 2 to 3 weeks in the office for repeat x-rays and evaluation of postsurgical progress. Physical Exam Const alert, oriented x3 and no apparent distress HEENT head/scalp atraumatic Eyes conjunctivae normal and no scleral icterus Neck full ROM and supple Resp normal respiratory effort, normal air movement and clear to auscultation bilate rally Effort and Inspection: able to speak in complete sentences and symmetric chest movement Cardio regular rate, regular rhythm, S1 normal heart sound and S2 normal heart sound GI normal to inspection, nondistended, normoactive bowel sounds, soft to palpation and non-tender Extremity normal to inspection and no clubbing, cyanosis or edema Extremity Narrative: Limited range of motion to left leg secondary to pain from recent fracture Skin no rashes or lesions noted, no wounds and skin turgor normal Neuro oriented x3, moves all extremities, no focal motor deficits and no sensory deficits noted Sensorium / Orientation: awake and alert Psych affect normal Weight / BMI Weight Weight: 131 lb 6.328 oz Body Mass Index (BMI) 22.4 ABG / Lab / Microbiology Data Result Diagrams: 01/23/21 05:30 01/23/21 05:30 Laboratory: Laboratory Results - last 24 hr 01/23/21 05:30: WBC 5.6, RBC 2.86 L, Hgb 10.7 L, Hct 29.6 L, MCV 103.5 H, MCH 37.4 H, MCHC 36.1 H, RDW Std Deviation 47.2 H, RDW Coeff of Lynnette 12.6, Plt Count 165, MPV 9.3, Immature Gran % (Auto) 0.700, Neut % (Auto) 68.5, Lymph % (Auto) 13.8 L, [place] % (Auto) 15.4 H, Eos % (Auto) 1.1, Baso % (Auto) 0.5, Absolute Neuts (auto) 3.9, Absolute Lymphs (auto) 0.78 L, Nucleated RBC % 0 01/23/21 05:30: Sodium 130 L, Potassium 3.9, Chloride 97 L, Carbon Dioxide 25.0, Anion Gap 8, BUN 3 L, Creatinine 0.34 L, Estim Creat Clear Calc 47.14, Est GFR (MDRD) Af Amer 247, Est GFR (MDRD) Non-Af 204, BUN/Creatinine Ratio 8.8 L, Glucose 89, Calcium 7.0 L, Magnesium 1.6 Microbiology: Microbiology 01/21/21 14:20 Nasal Secretion SARS-CoV-2 Antigen (Rapid) - Final D/C Instructions Discharge Diet: Low fat / Low cholesterol Weight Bearing Status: Weight bearing as tolerated Keep extremity elevated above heart level: Left Leg Call your doctor if your incision/area has: Sudden Increased Bleeding, Increased Pain/ Swelling and Swelling at the incision site Call your doctor if you observe: Fever of 101 or Higher, Coldness, Increased Pain, Numbness or Tingling and Uncontrolled pain Please Follow Up With: Jason Chavez DO When: 2-3 weeks Meaningful Use Info Meaningful Use Diagnoses (Choose all that apply): None applicable Discharge Plan Admission Admit Date/Time: 01/21/21 21:02 Primary Reason for Your Visit: Left hip fracture Attending Provider: Miguel Smalls Primary Care Provider: Jair Squires Consulting Providers: Jason Chavez Discharge Orders/Prescriptions Prescriptions: New acetaminophen 500 mg Tablet 1,000 mg PO Q8 Qty: 0 RF: 0 oxycodone 5 mg Tablet 5 mg PO Q6H PRN PRN (Reason: Pain Score 4-5) 3 Days Qty: 10 RF: 0 Continued metoprolol succinate 100 mg tablet extended release 24 hr 100 mg PO DAILY Qty: 90 RF: 0 amlodipine 10 mg tablet 10 mg PO DAILY Qty: 90 RF: 0 omeprazole 40 mg capsule,delayed release(DR/EC) 40 mg PO DAILY Qty: 90 RF: 0 Prolia 60 mg/mL syringe 60 mg SUBCUT .[id number] RF: 0 Referrals / Follow Up: Jair Squires MD [Primary Care Provider] - Jason Chavez DO [STAFF PHYSICIAN] - 02/09/21 Disposition Disposition (needs filled in before D/C Order can be placed): Home Health Service Documented by User: Dr. Christophe Burnett DO 01/23/21 21:44 Providers Date of Admission: 01/21/21 Reason For Visit: LEFT HIP FRACTURE Medications at Discharge Home Medications amlodipine 10 mg tablet 10 mg PO DAILY #90 tab 08/08/18 metoprolol succinate 100 mg tablet,extended release 24 hr 100 mg PO DAILY #90 tab 08/08/18 omeprazole 40 mg capsule,delayed release 40 mg PO DAILY #90 cap 08/08/18 Prolia 60 mg SUBCUT .[id number] 01/21/21 acetaminophen 1,000 mg PO Q8 #0 tab 01/23/21 oxycodone 5 mg PO Q6H PRN PRN 3 Days #10 tab 01/23/21 ABG / Lab / Microbiology Data Result Diagrams: 01/23/21 05:30 01/23/21 05:30 Discharge Plan Admission Admit Date/Time: 01/21/21 21:02 Primary Reason for Your Visit: Left hip fracture Attending Provider: Miguel Smalls Primary Care Provider: Jair Squires Consulting Providers: Jason Chavez Discharge Orders/Prescriptions Prescriptions: New acetaminophen 500 mg Tablet 1,000 mg PO Q8 Qty: 0 RF: 0 oxycodone 5 mg Tablet 5 mg PO Q6H PRN PRN (Reason: Pain Score 4-5) 3 Days Qty: 10 RF: 0 Continued metoprolol succinate 100 mg tablet extended release 24 hr 100 mg PO DAILY Qty: 90 RF: 0 amlodipine 10 mg tablet 10 mg PO DAILY Qty: 90 RF: 0 omeprazole 40 mg capsule,delayed release(DR/EC) 40 mg PO DAILY Qty: 90 RF: 0 Prolia 60 mg/mL syringe 60 mg SUBCUT .[id number] RF: 0 Referrals / Follow Up: Jair Squires MD [Primary Care Provider] - Jason Chavez DO [STAFF PHYSICIAN] - 02/09/21 Disposition Disposition (needs filled in before D/C Order can be placed): Home Health Service Charges/Coding Addendum Addendum: Patient was seen and examined today, I talked extensively with her and her who was in the room at the time of my examination. Patient has been able to ambulate without much difficulty. Patient's electrolytes appear to have corrected for the most part, her sodium is still slightly low at 130. Patient has no symptoms of hyponatremia. On examination she appeared in good health and spirits, she does not appear to be in any distress. Vital signs as documented. Skin warm and dry and without overt rashes. Neck without JVD, thyroid appears normal, trachea is midline, neck is supple. Lungs clear, normal air movement was noted. Heart exam notable for regular rhythm, normal sounds and absence of murmurs, rubs or gallops. Abdomen unremarkable and without evidence of organomegaly, masses, or abdominal aortic enlargement, bowel sounds are present in all 4 quadrants, no abdominal tendern ess was noted. Extremities nonedematous, no cyanosis was noted, no clubbing was noted. Neuro: Cranial nerves II through XII are grossly intact, no focal motor deficits were noted, sensation to light touch and pinprick is intact, motor exam 5/5 throughout. Psych: Patient is alert and oriented x3, she does not appear anxious or depressed, she does not appear agitated. 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 I have reviewed Suzanna Arevalo's discharge summary including her medical assessment and plan of care and endorse it. Visit Charges Inpatient E&M: 20455 Disch Hosp
--- NOTE | 2021-01-23 12:24 | PN.ORTHO_ITS ---
Subjective Subjective Patient is s/p percutaneous screw fixation of left nondisplaced impacted femoral neck fracture with Dr. Chavez. Patient resting comfortably in bed. Rates pain 5-7/ 10 at rest. With movement 7/10. States taking Tylenol and oxycodone and ice help to relieve pain. Patient has been up with therapy. Walking with the assit of a walker. Afebrile, no chest pain, shortness of breath, negative calf pain/ erythema, and no other signs of DVT. Objective Data Objective Data Vital Signs: Vital Signs Temp Pulse Resp BP Pulse Ox 97.4 F L 76 16 122/79 H 100 01/23/21 08:00 01/23/21 08:06 01/23/21 08:00 01/23/21 08:00 01/23/21 08:00 Oxygen Flow Rate (L/min) 2 Oxygen Delivery Method Room Air Weight: 59.6 kg Body Mass Index (BMI) 22.4 Intake & Output: Intake and Output for Last 24 Hours 01/21/21 01/22/21 01/23/21 23:59 23:59 23:59 Intake Total 1110 / 1110 3590 / 3690 650 / 650 Output Total 900 / 900 Balance 1110 / 1110 2690 / 2790 650 / 650 Lab / Micro Data Result Diagrams: 01/23/21 05:30 01/23/21 05:30 Labs: Laboratory Results - last 24 hr 01/23/21 05:30: WBC 5.6, RBC 2.86 L, Hgb 10.7 L, Hct 29.6 L, MCV 103.5 H, MCH 37.4 H, MCHC 36.1 H, RDW Std Deviation 47.2 H, RDW Coeff of Lynnette 12.6, Plt Count 165, MPV 9.3, Immature Gran % (Auto) 0.700, Neut % (Auto) 68.5, Lymph % (Auto) 13.8 L, [place] % (Auto) 15.4 H, Eos % (Auto) 1.1, Baso % (Auto) 0.5, Absolute Neuts (auto) 3.9, Absolute Lymphs (auto) 0.78 L, Nucleated RBC % 0 01/23/21 05:30: Sodium 130 L, Potassium 3.9, Chloride 97 L, Carbon Dioxide 25.0, Anion Gap 8, BUN 3 L, Creatinine 0.34 L, Estim Creat Clear Calc 47.14, Est GFR (MDRD) Af Amer 247, Est GFR (MDRD) Non-Af 204, BUN/Creatinine Ratio 8.8 L, Glucose 89, Calcium 7.0 L, Magnesium 1.6 Micro: Microbiology 01/21/21 14:20 Nasal Secretion SARS-CoV-2 Antigen (Rapid) - Final Physical Exam Narrative Patient resting comfortably in bed No signs of acute distress Satting well on room air Limb is warm to touch, Sensation intact throughout entire lower extremity, including saphenous, sural, superficial and deep peroneal, and tibial distri bution. DP/PT pulses bounding. Dorsiflexion plantarflexion 5/5 Dressing clear dry intact Calf nontender to palpation, no erythema, no edema. Negative Homans Assessment & Plan Assessment/Plan (1) Closed fracture of left hip: QUALIFIERS: Encounter type: initial encounter Qualified Code(s): S72.002A - Fracture of unspecified part of neck of left femur, initial encounter for closed fracture PLAN: Patient is status post percutaneous screw fixation of left nondisplaced valgus impacted femoral neck fracture with Dr. Chavez On 01/21/2021. 1. Will continue PT today . Weightbearing as tolerated 2. Okay for discharge from orthopedic standpoint discharge per primary. 3. Patient will follow up for his post op appointment in 2 weeks 4. Appreciate medicine for electrolyte imbalance. Na 130 today. K 3.9 from 2. 8. 5. DVT prophylaxis : Aspirin 81 mg twice daily x4 weeks 6. Pain control: Recommend tylenol 500mg 2 tablets TID scheduled. and oxycodone 1-2 tablets every 4-6 hours only as needed for pain control.
[2021-01-23 12:45] VITALS: BP 120/80; PULSE 83; RESP 16; O2SAT 93
== END 2021-01-23 13:05 | disposition home health service (06) | DRG 482 ==
LOC: ED 14:43 → SDC 15:30 → ACINP 15:31 → SDC 16:03 → MS3 16:05
PROVIDERS: Nurse Practitioner Family; Student in an Organized Health Care Education/Training Program; Admitting Provider Internal Medicine; Emergency Provider Emergency Medicine; PCP Family Medicine; Visit Provider Physician Assistant
PROC: (CPT 27235; principal; 2021-01-21 16:40)
DX: S72.035A Nondisplaced midcervical fracture of left femur, initial encounter for closed fracture (principal); M81.0 Age-related osteoporosis without current pathological fracture; Z20.822 Contact with and (suspected) exposure to COVID-19; F17.210 Nicotine dependence, cigarettes, uncomplicated; R55 Syncope and collapse; K52.839 Microscopic colitis, unspecified; I10 Essential (primary) hypertension; W18.30XA Fall on same level, unspecified, initial encounter; Z79.899 Other long term (current) drug therapy; K21.9 Gastro-esophageal reflux disease without esophagitis; W19.XXXA Unspecified fall, initial encounter; Y92.89 Other specified places as the place of occurrence of the external cause
CPT/HCPCS: 27235; 01230; 36415; 71045; 73501; 73502; 76000; 80048; 80053; 82306; 83735; 84443; 85025; 85610; 85730; 86850; 86900; 86901; 87426; 93005; 94640; 96361; 96365; 96366; 96367; 97162; 97166; 97530; 97535; 97802; 99221; 99284; 99406; C1713; J7030; A4216; G0378; J0610; J2405

== ENCOUNTER → 2021-02-06 | Outpatient (CLI) | payer MEDICARE, SELFPAY | END | disposition home or self-care (01) | LOC: LABSPEC 15:47 | PROVIDERS: PCP Family Medicine; Referring Provider Family Medicine; Visit Provider Family Medicine | DX: J01.90 Acute sinusitis, unspecified (principal) | CPT/HCPCS: 87633; 87635; U0005; U0003 ==

== ENCOUNTER 2021-02-11 16:45 | Inpatient (IN) | payer MEDICARE, SELFPAY ==
[2021-02-11] VITALS (12 sets, daily range): BP systolic 104–144; BP diastolic 70–113; PULSE 92–138; RESP 18–43; TEMP 36.4–36.7; O2SAT 77–100; BMI 20.7; BMI 20.5
--- NOTE | 2021-02-11 17:00 | EKG12_ITS ---
Test Reason : SOB Blood Pressure : / mmHG Vent. Rate : 115 BPM Atrial Rate : 115 BPM P-R Int : 126 ms QRS Dur : 068 ms QT Int : 336 ms P-R-T Axes : 036 066 058 degrees QTc Int : 464 ms Sinus tachycardia Nonspecific ST abnormality Abnormal ECG Confirmed by RAVEN COPELAND, TJ ([id number]), news assignment editor JACKELYN VALDEZ ([id number]) on 02/16/2021 10:15:34 AM Referred By: JENIFER Confirmed By:TJ CARBAJAL MD
--- NOTE | 2021-02-11 17:02 | ED.VIS.DYS ---
HPI History of Present Illness Chief Complaint: Shortness of Breath Informant: patient and spouse/S.O. Onset/Context/Timing Onset: Days Context: gradual Timing: Continuous Quality: Positive for Dyspnea on exertion Current Severity: Moderate Maximum Severity: Moderate Worsened by: Exertion, Lying flat and Coughing Relieved by: Rest Associated Symptoms cough; Negative for fever Chest Pain: Positive for None Narrative Narrative: 65-year-old female 40+ pack year history of smoking but never been diagnosed with COPD. Has a history of microscopic colitis and anxiety depression. Says he been coughing short of breath for approximately a week. In the last several days she had a negative rapid Covid test. She denies any history of DVT or PE. No leg pain or swelling. No hemoptysis. She is not on home O2. She did within the last month have broken hip and had hip surgery. She denies any chest pain. No fever or chills. PE Risk Factors: Positive for Recent surgery; Negative for Cancer, OCP + Smoking + > 35, Prior DVT or PE, Recent immobilization and Recent travel Prior similar symptoms: No Recent Illness/Hospitalization: No PFSH PFSH Medical History Anxiety Depression GERD (gastroesophageal reflux disease) Hip fracture HTN (hypertension) Microscopic colitis Osteoporosis Home Medications amlodipine 10 mg tablet 10 mg PO DAILY #90 tab 08/08/18 [History Last Taken 01/21/21] metoprolol succinate 100 mg tablet,extended release 24 hr 100 mg PO DAILY #90 tab 08/08/18 [History Last Taken 01/21/21] omeprazole 40 mg capsule,delayed release 40 mg PO DAILY #90 cap 08/08/18 [History Last Taken 01/21/21] Prolia 60 mg SUBCUT .[id number] 01/21/21 [History Last Taken 12/03/20] acetaminophen 1,000 mg PO Q8 #0 tab 01/23/21 [Rx Last Taken Unknown] Allergy/AdvReac Type Severity Reaction Status Date / Time doxycycline Allergy Mild UNKNOWN Verified 02/11/21 16:54 amoxicillin Allergy Unknown Verified 02/11/21 16:54 ciprofloxacin [From Cipro] Allergy Unknown Verified 02/11/21 16:54 naproxen Allergy Unknown Verified 02/11/21 16:54 sulfamethoxazole Allergy Unknown Verified 02/11/21 16:54 [From Bactrim] trimethoprim [From Bactrim] Allergy Unknown Verified 02/11/21 16:54 Family History Sister Breast cancer Mother Heart disease Father No problems noted. Surgical History History of colonoscopy Social History Smoking Status: Current every day smoker tobacco type: cigarettes alcohol intake: current alcohol intake frequency: 0-2 drinks per day Alcohol type: beer ROS ROS ED ROS Narrative Wheezing, short of breath. Review of Systems ROS Unobtainable: Denies due to encephalopathy Constitutional Constitutional ED: Denies chills or fever(s) Eyes Eyes: Denies change in vision ENT ENT ED: Denies ear pain or rhinorrhea Cardiovascular Cardiovascular: Denies chest pain or palpitations Respiratory/Chest Respiratory/Chest: Reports cough and dyspnea; Denies sputum Gastrointestinal Gastrointestinal: Denies abdominal pain, diarrhea, nausea or vomiting Genitourinary Genitourinary ED: Denies dysuria or hematuria Musculoskeletal Musculoskeletal: Denies myalgias Integumentary Denies rash Neurologic Neurologic: Denies headache(s) Psychiatric Psychiatric: Denies depression Endocrine Endocrinology: Denies polyuria Hematologic/Lymphatic Hematologic/Lymphatic: Denies easy bruising Allergic/Immunologic Allergic/Immunologic ED: Denies urticaria EXAM Physical Exam Narrative Exam Narrative: Six 5-year-old female increased work of breathing. Tripoding. Vital signs are stable except for pulse ox of 77% on room air consistent with obvious hypoxia. On 15 L she is on her percent. She is actually working to breathe. Has prolonged expiratory phase. H EENT exam unremarkable. Neck nontender no JVD. No lymphadenopathy. Lungs diminished breath sounds bilaterally. Increased work of breathing. Prolonged expiratory phase and expiratory wheezes. No rales or rhonchi. Heart tachycardic rate about 115 no murmur. Chest wall nontender no crepitance or subcu air. Abdomen soft nontender. Moving all 4 extremities. Calves are nontender without edema or cords. Neurologically she is awake and alert with no focal motor deficits. Const Vital Signs: 02/11/21 16:46 02/11/21 16:52 02/11/21 16:56 Temperature 97.5 F L Temperature Source Temporal Pulse Rate 115 H Respiratory Rate 38 H Respiratory Effort Short of Breath Labored Accessory Muscle Use Retracting Respiratory Depth Deep Respiratory Pattern Tachypnea Blood Pressure 120/86 H Blood Pressure Mean 97 Pulse Ox 77 100 Oxygen Delivery Method Room Air Non-Rebreather Non-Rebreather Oxygen Flow Rate (L/min) 15 15 02/11/21 17:18 02/11/21 17:59 02/11/21 18:34 Temperature Temperature Source Pulse Rate 121 H 138 H 133 H Respiratory Rate 43 H 23 H 32 H Respiratory Effort Respiratory Depth Respiratory Pattern Tachypnea Blood Pressure 117/74 144/113 H Blood Pressure Mean 88 123 Pulse Ox 94 96 Oxygen Delivery Method Nasal Cannula Nasal Cannula Oxygen Flow Rate (L/min) 3 3 02/11/21 19:03 02/11/21 21:00 02/11/21 21:48 Temperature Temperature Source Pulse Rate 134 H 116 H 112 H Respiratory Rate 34 H Respiratory Effort Respiratory Depth Respiratory Pattern Blood Pressure 106/70 104/71 114/83 H Blood Pressure Mean 82 82 93 Pulse Ox 91 96 94 Oxygen Delivery Method Nasal Cannula Nasal Cannula Oxygen Flow Rate (L/min) 3 4 Positive well nourished and well developed; Negative for obese, cachectic, contractures or unkempt General Appearance ED: well developed; Negative for unkempt, cachectic, contractures, NAD or pallor Nutritional Appearance: Negative for cachectic or obese HEENT Reports moist mucous membranes atraumatic; Negative for trauma or tenderness Eyes PERRL and EOMs intact bilaterally Neck no lymphadenopathy, supple, no meningeal signs and no JVD General: Negative for tenderness Back/Spine no CVA tenderness and normal to inspection General Back: Negative for CVA tenderness Extremity normal to inspection General Extremety ED: Negative for edema or tenderness General Extremity: Negative for edema Neuro oriented x3 Sensorium / Orientation: alert, oriented to person, oriented to place and oriented to time; Negative for orientation impaired, confused, lethargic or stuporous Motor Exam: strength 5/5 throughout Psych mental status grossly normal Appearance: Negative for unkempt Thought Process: normal thought process Skin no wounds General Skin Exam: Negative for jaundice or pallor Lesions: no lesions Rashes: no rashes MDM MDM MDM Narrative Medical decision making narrative: 65-year-old female with a shortness of breath hypoxia. I think this is her first onset of COPD with a flare. Rule out pneumonia versus Covid versus other etiologies. PE is in the differential but very low suspicion. She has had no chest pain or nor any hemoptysis. She had no leg swelling. She is wheezing and working to breathe. She will be treated with aerosols with albuterol and DuoNeb. IV Solu-Medrol and evaluated with chest x-ray and lab work-up. Repeat exam at 6:05 PM patient says she did not feel a lot better after multiple aerosols and Solu-Medrol IV. She said aerosols made her quite jittery. She will be given a milligram of Ativan because she also has anxiety. I am going to add a D-dimer because of her recent surgery though my clinical suspicion is low. She still has expiratory wheezes. Repeat exam patient is showing improvement at 10:05 PM. She will be taken off the oxygen and ambulated by staff to determine if she can go home on steroids and inhaler or has to be admitted. Patient was taken off the oxygen her sats dropped about 84% before we even attempted a walker she will need to be admitted for continued aerosols and steroids. Lab Data Attestation: I reviewed the patient's lab results. Lab results narrative: CBC shows an elevated white count of 16.3. Hemoglobin 13.1 hematocrit 37. Electrolytes sodium 131 potassium 3.1 gap of 14. Normal BUN and creatinine. Normal troponin. D-dimer elevated 1.09. Labs: Laboratory Results - last 24 hr 02/11/21 02/11/21 02/11/21 17:00 17:00 17:00 WBC 16.3 H RBC 3.63 L Hgb 13.1 Hct 37.2 MCV 102.5 H MCH 36.1 H MCHC 35.2 RDW Std Deviation 51.0 H RDW Coeff of Lynnette 13.5 Plt Count 216 MPV 9.0 Immature Gran % (Auto) 0.900 Neut % (Auto) 78.3 H Lymph % (Auto) 6.6 L [place] % (Auto) 12.5 H Eos % (Auto) 1.2 Baso % (Auto) 0.5 Absolute Neuts (auto) 12.8 H Absolute Lymphs (auto) 1.07 Nucleated RBC % 0 Differential Comment SCANNED Diff Path Review May foll D-Dimer Quant (PE/DVT) 1.09 H* Sodium 131 L Potassium 3.1 L Chloride 93 L Carbon Dioxide 24.0 Anion Gap 14 BUN 7 Creatinine 0.57 Estim Creat Clear Calc 45.16 Est GFR (MDRD) Af Amer 136 Est GFR (MDRD) Non-Af 113 BUN/Creatinine Ratio 12.3 Glucose 99 Calcium 7.4 L Troponin I High Sens 4 Radiography Chest X-Ray - ED: 1 View, Read by ED Physician, Heart, Lungs, Mediastinum, Bony Structures, No Acute Disease and Chronic Changes Diagnostic Testing: Clinical Impression(s) from Imaging Studies Chest X-Ray 02/11/21 17:42 IMPRESSION: Mild hyperinflation and chronic interstitial changes. No acute disease. Electronically Signed: Renaldo Jones MD at 18:08 EST , Service support , Chest CTA 02/11/21 19:26 IMPRESSION: Diffuse chronic interstitial and emphysematous changes. ASHD without evidence for aortic aneurysm No evidence for pulmonary embolus Electronically Signed: Renaldo Jones MD at 21:12 EST , Service support , Chest x-ray portable shows chronic changes consistent with COPD. The right hilum which was seen on a prior film. No pneumothorax. No infiltrate. No obvious Covid. CT chest shows no PE. No pneumonia. Extensive COPD changes. Rhythm Strip Rhythm Strip: Sinus Tach Rate: 115 Ectopy: None EKG Initial EKG: Attestation: I personally reviewed and interpreted this EKG as follows: Interpretation: Sinus Rhythm, No Acute Injury Pattern and Sinus Tachycardia Comments: Sinus tachycardia rate of 115 no acute signs of CO or ischemia. Discharge Plan Dx/Rx/DC Orders Clinical Impression: COPD exacerbation, Hypoxia Disposition Disposition: Acute Care Hospital [facility]
[2021-02-11 17:10] LABS: Absolute Lymphocyte Count 1.07 X10^3/uL (0.83-4.51); Absolute Neutrophil Count 12.8 X10^3/uL (2.0-7.7); Basophil# 0.08 X10^3/uL; Basophil% 0.5 % (0-1); Eosinophils% 1.2 % (0-5); Hematocrit 37.2 % (37-47); Hemoglobin 13.1 g/dL (12.0-15.0); Lymphocyte # 1.07 X10^3/ul (0.83-4.51); Lymphocyte % 6.6 % (19-41); Mean Corp Hgb Conc 35.2 g/dL (32-36); Mean Corpuscular Hgb 36.1 pg (27.0-32.0); Mean Corpuscular Volume 102.5 fL (81-99); Monocyte# 2.03 X10^3/uL; Monocyte% 12.5 % (0-10); NRBC Flagged by Analyzer 0 % (0-5); Neutrophil # 12.75 X10^3/uL (2.7-7.7); Neutrophil % 78.3 % (47-70); POSITIVE DIFFERENTIAL YES; Platelet Count 216 K/mm3 (150-450); RBC Distribution Width CV 13.5 % (11.6-14.6); Red Blood Count 3.63 M/mm3 (4.2-5.4); White Blood Count 16.3 K/mm3 (4.4-11.0)
[2021-02-11] MEDS: MethylPREDNISolone 125 MG/2 ML Vial IV (17:13)
[2021-02-11 17:14] LABS: Differential Indicated SCAN CRITERIA MET
[2021-02-11] MEDS: Ipratropium/Albuterol Sulfate 3 ML AMPUL.NEB INHALATION (17:18)
[2021-02-11] MEDS: Albuterol 2.5 MG/3 ML VIAL.NEB. INHALATION ×3 (17:18)
[2021-02-11 17:38] LABS: Anion Gap 14 (5-15); BUN 7 mg/dL (7-18); BUN/Creat Ratio 12.3 RATIO (10-20); Calcium,Total 7.4 mg/dL (8.5-10.1); Chloride 93 mmol/L (98-107); Creatinine, Serum 0.57 mg/dL (0.55-1.02); EST Glomerular Filtration Rate 113 mL/min (>60); Est Glom Filt Rate - Afr Amer 136 mL/min (>60); Estimated Creatinine Clearance 45.16 ml/min; Glucose 99 mg/dL (74-106); Potassium 3.1 mmol/L (3.5-5.1); Sodium Level 131 mmol/L (136-145); Troponin-I HS 4 pg/mL (3.0-54.0)
--- NOTE | 2021-02-11 17:42 | RAD_ITS ---
STUDY: X-RAY CHEST REASON FOR EXAM: Female, 65 years old. dyspnea TECHNIQUE: AP portable COMPARISON: 01/21/2021 FINDINGS: Lungs are mildly hyperinflated and there is mild interstitial thickening in the lower lobes.. There is no demonstrated pleural abnormality. Normal size heart. Normal mediastinum and skyler. Normal visualized pulmonary arteries. Normal visualized aortic arch and descending thoracic aorta. Dorsal spine and shoulders demonstrate degenerative change. Normal right clavicle.. Old unfused fracture of left clavicle. Normal global healed left rib fractures There is no demonstrated abnormality of the visualized soft tissue structures of the upper abdomen. RAD/Chest 1 View (Portable) IMPRESSION: Mild hyperinflation and chronic interstitial changes. No acute disease. Electronically Signed: Renaldo Jones MD at 18:08 EST , Service support ,
[2021-02-11 17:48] LABS: Differential Comment SCANNED
--- NOTE | 2021-02-11 18:13 | CPS ---
Breathing Tx stopped due to Patient complaint of gitteryness and increased heartrate
[2021-02-11] MEDS: LORazepam 2 MG/ML Syringe 1 MG IV (18:23)
--- NOTE | 2021-02-11 19:26 | CT_ITS ---
STUDY: CTA CHEST REASON FOR EXAM: Female, 65 years old. elevated d-dimer RADIATION DOSAGE (If Supplied By Facility): CTDIvol = ( 5.01 ) mGy, DLP = ( 131.21 ) mGycm TECHNIQUE: The examination was performed with the intravenous administration of IV 75mL Isovue-370. Post-processing of the angiographic images was performed, with multiplanar reformation and 3D reconstruction. Individualized dose optimization techniques were used for this CT. COMPARISON: None. FINDINGS: Normal enhancement of the main pulmonary artery and right and left pulmonary arteries. Normal enhancement of the bilateral peripheral pulmonary arteries. There is no demonstrated pulmonary embolism. Normal thoracic aorta and visualized great vessels. There is no demonstrated aortic dissection. Heart is normal size. There is mild coronary artery calcification. Normal mediastinum. Normal hilar regions. Normal visualized trachea and bronchi. The lungs are well expanded. Severe diffuse interstitial and emphysematous changes are noted in association with bronchial wall thickening... There is minimal subsegmental atelectasis in right lower lobe Normal pleura. Normal chest wall structures. Dorsal spine demonstrates degenerative change.. Multiple old healed left rib fractures and chronic compression fracture of the lower thoracic spine Nonspecific fatty infiltrated liver. CT/CTA Chest W/WO Contrast IMPRESSION: Diffuse chronic interstitial and emphysematous changes. ASHD without evidence for aortic aneurysm No evidence for pulmonary embolus Electronically Signed: Renaldo Jones MD at 21:12 EST , Service support ,
[2021-02-11 19:27] LABS: D-Dimer Quantitative (DVT/PE) 1.09 FEU/ug/m (0.27-0.49)
--- NOTE | 2021-02-11 22:42 | HP.PCM.HOS_ITS ---
HPI - General General Date of Admission: 02/11/21 HPI Narrative MARGO STRICKLAND, is a 65 F with a significant history of hypertension; colitis and tobacco abuse who presents to emergency department with a 2-day history of progressively worsening shortness of breath. Associated with her symptom is wheezing. Reportedly she had cough productive for yellow sputum and now it is productive for green sputum. Her sputum is thick. She denies fever or chills. She reports hypoxia on her home pulse oximetery. At the emergency department reportedly when patient walked in her oxygen saturation was in the high 70s. She was placed on nasal cannula oxygen. She was treated with steroids and breathing treatments. When the nasal cannula oxygen was removed her oxygen saturation was 84%. Patient is unvaccinated against Covid-19 virus. FORMERLY [facility] Medical History Anxiety Depression GERD (gastroesophageal reflux disease) Hip fracture HTN (hypertension) Microscopic colitis Osteoporosis Home Medications amlodipine 10 mg tablet 10 mg PO DAILY #90 tab 08/08/18 [History Last Taken 01/21/21] metoprolol succinate 100 mg tablet,extended release 24 hr 100 mg PO DAILY #90 tab 08/08/18 [History Last Taken 01/21/21] omeprazole 40 mg capsule,delayed release 40 mg PO DAILY #90 cap 08/08/18 [History Last Taken 01/21/21] Prolia 60 mg SUBCUT .[id number] 01/21/21 [History Last Taken 12/03/20] acetaminophen 1,000 mg PO Q8 #0 tab 01/23/21 [Rx Last Taken Unknown] budesonide 9 mg PO/SL DAILY 02/11/21 [History Last Taken Unknown] Allergy/AdvReac Type Severity Reaction Status Date / Time doxycycline Allergy Mild UNKNOWN Verified 02/11/21 16:54 amoxicillin Allergy Unknown Verified 02/11/21 16:54 ciprofloxacin [From Cipro] Allergy Unknown Verified 02/11/21 16:54 naproxen Allergy Unknown Verified 02/11/21 16:54 sulfamethoxazole Allergy Unknown Verified 02/11/21 16:54 [From Bactrim] trimethoprim [From Bactrim] Allergy Unknown Verified 02/11/21 16:54 Family History Sister Breast cancer Mother Heart disease Father No problems noted. Surgical History History of colonoscopy Social History household members: spouse housing: house number of children: 0 current occupational status: retired pets and animals: Yes (dog) Smoking Status: Current every day smoker tobacco type: cigarettes alcohol intake: current alcohol intake frequency: 0-2 drinks per day Alcohol type: beer ROS ROS Narrative Constitutional: Reports fatigue and anorexia. Denies fever, chills, and change in weight Eyes: Denies blurry vision, change in eye color, change in vision, discharge from eye(s), double vision, erythema, eye pain, loss of vision or other HEENT: Denies abnormal hearing, dysphagia, ear pain, epistaxis, headache(s), hearing loss, nasal congestion, nasal discharge, post nasal drip, sinus pressure, sore throat or other Cardiovascular: Denies chest pain or palpitations. Denies dyspnea on exertion, orthopnea and paroxysmal nocturnal dyspnea Respiratory/Chest: Reports cough, productive sputum, shortness of breath and wheezes. Gastrointestinal: Denies abdominal pain, coffee ground emesis, constipation, diarrhea, dyspepsia, hematemesis, hematochezia, loose stools, melena, nausea, vomiting or other Genitourinary: Denies burning urination, difficulty urinating, dysuria, hematuria, nocturia, urinary frequency, urinary hesitancy, urinary incontinence, urinary urgency or other Musculoskeletal: Reports left hip pain from recent surgery. Denies back pain, neck pain or other Neurologic: Denies abnormal gait, abnormal speech, confusion, disequilibrium, dizziness, focal weakness, headache(s), numbness, paresthesias, seizure-like activity, seizures, syncope, tingling, tremor(s) or other Psychiatric: Reports anxiety. Denies depression, homicidal ideation, suicidal ideation or other Endocrinology: Denies change in body appearance, cold intolerance, excessive sweating, heat intolerance, polydipsia, polyuria or other Hematologic/Lymphatic: Denies anemia, easy bleeding, easy bruising, lymphadenopathy or other Integumentary: Denies rashes Allergic/Immunologic: Denies rhinitis, hives, eczema, asthma or other Vital Signs Vital Signs Vital Signs: 02/11/21 16:46 02/11/21 16:52 02/11/21 16:56 Temperature 97.5 F L Temperature Source Temporal Pulse Rate 115 H Respiratory Rate 38 H Respiratory Effort Short of Breath Labored Accessory Muscle Use Retracting Respiratory Depth Deep Respiratory Pattern Tachypnea Blood Pressure 120/86 H Blood Pressure Mean 97 Pulse Ox 77 100 Oxygen Delivery Method Room Air Non-Rebreather Non-Rebreather Oxygen Flow Rate (L/min) 15 15 02/11/21 17:18 02/11/21 17:59 02/11/21 18:34 Temperature Temperature Source Pulse Rate 121 H 138 H 133 H Respiratory Rate 43 H 23 H 32 H Respiratory Effort Respiratory Depth Respiratory Pattern Tachypnea Blood Pressure 117/74 144/113 H Blood Pressure Mean 88 123 Pulse Ox 94 96 Oxygen Delivery Method Nasal Cannula Nasal Cannula Oxygen Flow Rate (L/min) 3 3 02/11/21 19:03 02/11/21 21:00 02/11/21 21:48 Temperature Temperature Source Pulse Rate 134 H 116 H 112 H Respiratory Rate 34 H Respiratory Effort Respiratory Depth Respiratory Pattern Blood Pressure 106/70 104/71 114/83 H Blood Pressure Mean 82 82 93 Pulse Ox 91 96 94 Oxygen Delivery Method Nasal Cannula Nasal Cannula Oxygen Flow Rate (L/min) 3 4 02/11/21 22:11 Temperature Temperature Source Pulse Rate Respiratory Rate Respiratory Effort Respiratory Depth Respiratory Pattern Blood Pressure Blood Pressure Mean Pulse Ox 86 Oxygen Delivery Method Room Air Oxygen Flow Rate (L/min) Weight Weight: 53.07 kg Body Mass Index (BMI) 20.7 Physical Exam Narrative Physical exam: General: Well-nourished, well-developed. Head: Normocephalic, atraumatic, no tenderness Eyes: PERRLA, EOMI ENT, no trauma, moist mucous membranes, no rhinorrhea Neck: Nontender, full range of motion, no spinal tenderness, deformities, step- off CVS: Regular rate and rhythm. S1-S2 present. No murmur, gallop or rub. Respiratory : clear to auscultation bilaterally, chest wall nontender, no wheezing Abdomen: Soft, nontender, nondistended, normal bowel sounds, no masses : Deferred Back: Nontender, no CVA tenderness, no midline spinal tenderness, deformities, step-offs Extremities: Nontender full range of motion, no trauma Skin: Normal color, no trauma, abrasions Neuro: Alert, oriented, cranial nerves II through XII grossly intact. Psychiatry: Anxious. Not depressed. Results Lab / Micro Data Result Diagrams: 02/11/21 17:00 02/11/21 17:00 Labs: Laboratory Results - last 24 hr 02/11/21 17:00: WBC 16.3 H, RBC 3.63 L, Hgb 13.1, Hct 37.2, MCV 102.5 H, MCH 36.1 H, MCHC 35.2, RDW Std Deviation 51.0 H, RDW Coeff of Lynnette 13.5, Plt Count 216, MPV 9.0, Immature Gran % (Auto) 0.900, Neut % (Auto) 78.3 H, Lymph % (Auto) 6.6 L, [place] % (Auto) 12.5 H, Eos % (Auto) 1.2, Baso % (Auto) 0.5, Absolute Neuts (auto) 12.8 H, Absolute Lymphs (auto) 1.07, Nucleated RBC % 0, Differential Comment SCANNED, Diff Path Review June02/11/21 17:00: Sodium 131 L, Potassium 3.1 L, Chloride 93 L, Carbon Dioxide 24.0, Anion Gap 14, BUN 7, Creatinine 0.57, Estim Creat Clear Calc 45.16, Est GFR (MDRD) Af Amer 136, Est GFR (MDRD) Non-Af 113, BUN/Creatinine Ratio 12.3, Glucose 99, Calcium 7.4 L, Troponin I High Sens 4 02/11/21 17:00: D-Dimer Quant (PE/DVT) 1.09 H* Micro: Microbiology 02/11/21 17:07 Nasal Secretion SARS-CoV-2 Antigen (Rapid) - Final Rhythm Strip Rhythm Strip: Sinus Tach Rate: 115 Ectopy: None Radiology Impression Chest X-Ray 02/11/21 17:42 IMPRESSION: Mild hyperinflation and chronic interstitial changes. No acute disease. Electronically Signed: Renaldo Jones MD at 18:08 EST , Service support , Chest CTA 02/11/21 19:26 IMPRESSION: Diffuse chronic interstitial and emphysematous changes. ASHD without evidence for aortic aneurysm No evidence for pulmonary embolus Electronically Signed: Renaldo Jones MD at 21:12 EST , Service support , Assessment & Plan Assessment/Plan (1) COPD exacerbation: PLAN: COPD exacerbation Review of records shows that on 02/06/2021 patient had a negative comprehensive respiratory pathogen panel test. Also a PCR COVID-19 test on the same day was negative. Of note review of old records show the patient had a positive COVID- 19 test on 03/03/2020 Chest x-ray and chest CT was independently interpreted. I agree with radiology interpretation above. Review of labs showed white count of 16.3 with neutrophilia. D-dimer of 1.09 Scheduled DuoNeb Albuterol as needed Solu-Medrol ordered Because of sputum purulence azithromycin ordered. Oxygen as needed Monitor BMP and CBC Patient has no formal diagnosis of COPD. Upon discharge consider pulmonology referral for PFT. Tobacco abuse Counseled Declined nicotine patch Anxiety attack. Ativan x1 dose ordered. Hypertension Blood pressure is not within goal Metoprolol continued. Trend blood pressure and adjust blood pressure medications. DVT prophylaxis: Lovenox ordered. Charges/Coding Visit Charges Inpatient E&M: 48513 Init Hosp L3
--- NOTE | 2021-02-11 23:26 | PCS.PANDOC ---
PANDEMIC DOCUMENTATION INITIATED: Date: 10/06/2020 Time: 190
[2021-02-12] VITALS (18 sets, daily range): BP systolic 103–138; BP diastolic 71–79; PULSE 85–114; RESP 16–26; TEMP 36.6–37; O2SAT 85–96
[2021-02-12] MEDS: Ipratropium/Albuterol Sulfate 3 ML AMPUL.NEB INHALATION ×4 (00:10→20:44)
[2021-02-12] MEDS: guaiFENesin 1,200 MG Tablet 1200 MG PO ×2 (00:23→09:58)
[2021-02-12] MEDS: Azithromycin 250 MG Tablet 500 MG PO ×2 (00:23→21:11)
[2021-02-12] MEDS: Potassium Chloride Oral Tablet 20 MEQ 60 MEQ PO (00:28)
[2021-02-12] MEDS: LORazepam 1 MG Tablet PO (01:13)
[2021-02-12 07:17] LABS: Absolute Lymphocyte Count 0.61 X10^3/uL (0.83-4.51); Absolute Neutrophil Count 11.8 X10^3/uL (2.0-7.7); Basophil# 0.04 X10^3/uL; Basophil% 0.3 % (0-1); Hematocrit 31.9 % (37-47); Hemoglobin 11.1 g/dL (12.0-15.0); Lymphocyte # 0.61 X10^3/ul (0.83-4.51); Lymphocyte % 4.3 % (19-41); Mean Corp Hgb Conc 34.8 g/dL (32-36); Mean Corpuscular Hgb 35.2 pg (27.0-32.0); Mean Corpuscular Volume 101.3 fL (81-99); Mean Platelet Vol. 9.7 fl (6.2-12.0); Monocyte# 1.63 X10^3/uL; Monocyte% 11.4 % (0-10); NRBC Flagged by Analyzer 0 % (0-5); Neutrophil # 11.84 X10^3/uL (2.7-7.7); Neutrophil % 83.2 % (47-70); POSITIVE DIFFERENTIAL YES; Platelet Count 219 K/mm3 (150-450); RBC Distribution Width CV 13.3 % (11.6-14.6); RBC Distribution Width SD 49.4 fl (35.1-43.9); Red Blood Count 3.15 M/mm3 (4.2-5.4); White Blood Count 14.2 K/mm3 (4.4-11.0)
[2021-02-12 07:18] LABS: Anion Gap 8 (5-15); BUN 10 mg/dL (7-18); BUN/Creat Ratio 25.3 RATIO (10-20); Calcium,Total 6.8 mg/dL (8.5-10.1); Chloride 98 mmol/L (98-107); EST Glomerular Filtration Rate 171 mL/min (>60); Est Glom Filt Rate - Afr Amer 207 mL/min (>60); Estimated Creatinine Clearance 45.16 ml/min; Glucose 107 mg/dL (74-106); Potassium 3.7 mmol/L (3.5-5.1); Sodium Level 131 mmol/L (136-145)
[2021-02-12 07:19] LABS: Differential Indicated SCAN CRITERIA MET
[2021-02-12 08:15] LABS: Platelet Estimate ADEQUATE (ADEQ); Red Cell Morphology NORM C+C NORMAL (NORM C&C)
[2021-02-12] MEDS: Enoxaparin 40 MG/0.4 ML Syringe SC (09:26)
[2021-02-12] MEDS: Pantoprazole Sodium 40 MG Tablet PO (09:27)
[2021-02-12] MEDS: Budesonide 3 MG CAPSULE.EC 9 MG PO (09:58)
[2021-02-12] MEDS: Metoprolol(XL)Succ 100 MG Tablet PO (10:27)
[2021-02-12] MEDS: amLODIPine 10 MG Tablet PO (10:27)
--- NOTE | 2021-02-12 11:00 | CASEMGMT ---
TONI CONNER Face to Face with patient for initial transition planning/care coordination assessment. RN CM introduced self and role at [facility]. Patient lying in bed, alert and oriented. Patient willing to participate in assessment and is able to answer all questions appropriately. Care providers, pharmacy, and demographics verified. Patient wishes to discharge home with resumption of HHC with [facility]. Patient states she has no further needs or concerns at this time. CM to follow for discharge planning needs that may arise. PCP: Jair Squires Specialists: Wyatt Chavez; ARCENIO Wasserman Preferred Pharmacy: [facility] Insurance: [employer] [facility] Prescription Benefit: yes Living Will/HPOA: Yes, Sriram Nguyen LNOK: Living Arrangements: Patient lives with in a 2 story home. Patient states she is independent and able to ambulate stairs Transportation: DME/HHC: Patient states she has built in shower bench, grab bars, raised toilet, walker, and wheelchair. Patient has no preferences for DME. Patient is active with [facility] for PT. Disposition Plan: Patient to discharge home with resumption of HHC, family support, and follow-up plans in place. Marina CAPPS, RN, CM
--- NOTE | 2021-02-12 11:15 | PN.HOSP_ITS ---
Subjective Subjective Feels little bit better today, eating is improved however she still needed 6 L with ambulation Objective Data Objective Data Vital Signs: Vital Signs Temp Pulse Resp BP Pulse Ox 97.9 F 98 21 H 123/71 H 95 02/12/21 10:25 02/12/21 10:53 02/12/21 10:53 02/12/21 10:27 02/12/21 10:25 Oxygen Flow Rate (L/min) [ 6 AMBULATING with Oxygen #3] Oxygen Flow Rate (L/min) [ 4 AMBULATING with Oxygen #2] Oxygen Flow Rate (L/min) [ 2 AMBULATING with Oxygen #1] Oxygen Flow Rate (L/min) [At 2 REST with Oxygen] Oxygen Flow Rate (L/min) [At 0 REST on Room Air] Oxygen Flow Rate (L/min) 3 Oxygen Delivery Method Nasal Cannula Weight: 117 lb 11.629 oz Body Mass Index (BMI) 20.5 Intake & Output: Intake and Output for Last 24 Hours 02/11/21 02/12/21 02/13/21 03:59 03:59 03:59 Intake Total 300 / 300 300 / 300 Balance 300 / 300 300 / 300 Lab / Micro Data Result Diagrams: 02/12/21 07:15 02/12/21 05:55 Labs: Laboratory Results - last 24 hr 02/11/21 17:00: WBC 16.3 H, RBC 3.63 L, Hgb 13.1, Hct 37.2, MCV 102.5 H, MCH 36.1 H, MCHC 35.2, RDW Std Deviation 51.0 H, RDW Coeff of Lynnette 13.5, Plt Count 216, MPV 9.0, Immature Gran % (Auto) 0.900, Neut % (Auto) 78.3 H, Lymph % (Auto) 6.6 L, [place] % (Auto) 12.5 H, Eos % (Auto) 1.2, Baso % (Auto) 0.5, Absolute Neuts (auto) 12.8 H, Absolute Lymphs (auto) 1.07, Nucleated RBC % 0, Differential Comment SCANNED, Diff Path Review June02/11/21 17:00: Sodium 131 L, Potassium 3.1 L, Chloride 93 L, Carbon Dioxide 24.0, Anion Gap 14, BUN 7, Creatinine 0.57, Estim Creat Clear Calc 45.16, Est GFR (MDRD) Af Amer 136, Est GFR (MDRD) Non-Af 113, BUN/Creatinine Ratio 12.3, G lucose 99, Calcium 7.4 L, Troponin I High Sens 4 02/11/21 17:00: D-Dimer Quant (PE/DVT) 1.09 H* 02/12/21 05:55: WBC Cancelled, Corrected WBC Cancelled, RBC Cancelled, Hgb Cancelled, Hct Cancelled, MCV Cancelled, MCH Cancelled, MCHC Cancelled, RDW Std Deviation Cancelled, RDW Coeff of Lynnette Cancelled, Plt Count Cancelled, MPV Cancelled, Immature Gran % (Auto) Cancelled, Neut % (Auto) Cancelled, Lymph % (Auto) Cancelled, [place] % (Auto) Cancelled, Eos % (Auto) Cancelled, Baso % (Auto) Cancelled, Absolute Neuts (auto) Cancelled, Absolute Lymphs (auto) Cancelled, Total Counted Cancelled, Neutrophils % (Manual) Cancelled, Band Neutrophils % Cancelled, Lymphocytes % (Manual) Cancelled, Monocytes % (Manual) Cancelled, Eosinophils % (Manual) Cancelled, Basophils % (Manual) Cancelled, Metamyelocytes % Cancelled, Myelocytes % Cancelled, Promyelocytes % Cancelled, Blast Cells % Cancelled, Plasma Cell % (Manual) Cancelled, Other Cells % Cancelled, Nucleated RBC % Cancelled, Nucleated RBCs/100 WBC Cancelled, Differential Comment Cancelled, Diff Path Review Cancelled, Hypersegmented Neuts Cancelled, Atypical Lymphocytes Cancelled, Reactive Lymphocytes Cancelled, Smudge Cells Cancelled, Toxic Granulation Cancelled, Toxic Vacuolation Cancelled, Dohle Bodies Cancelled, Aby Rods Cancelled, Platelet Estimate Cancelled, Plt Morphology Comment Cancelled, RBC Morphology Cancelled, Polychromasia Cancelled, Hypo chromasia Cancelled, Poikilocytosis Cancelled, Basophilic Stippling Cancelled, Anisocytosis Cancelled, Microcytosis Cancelled, Macrocytosis Cancelled, Spherocytes Cancelled, Sickle Cells Cancelled, Target Cells Cancelled, Tear Drop Cells Cancelled, Ovalocytes Cancelled, Stomatocytes Cancelled, [place] Bodies Cancelled, Damon Cells Cancelled, Bite Cells Cancelled, Crenated Cell Cancelled, Acanthocytes (Spur) Cancelled, Rouleaux Cancelled, Schistocytes Cancelled 02/12/21 05:55: Sodium 131 L, Potassium 3.7, Chloride 98, Carbon Dioxide 25.0, Anion Gap 8, BUN 10, Creatinine 0.40 L, Estim Creat Clear Calc 45.16, Est GFR (MDRD) Af Amer 207, Est GFR (MDRD) Non-Af 171, BUN/Creatinine Ratio 25.3 H, Glucose 107 H, Calcium 6.8 L 02/12/21 07:15: WBC 14.2 H, RBC 3.15 L, Hgb 11.1 L, Hct 31.9 L, MCV 101.3 H, MCH 35.2 H, MCHC 34.8, RDW Std Deviation 49.4 H, RDW Coeff of Lynnette 13.3, Plt Count 219, MPV 9.7, Immature Gran % (Auto) 0.800, Neut % (Auto) 83.2 H, Lymph % (Auto) 4.3 L, [place] % (Auto) 11.4 H, Eos % (Auto) 0.0, Baso % (Auto) 0.3, Absolute Neuts (auto) 11.8 H, Absolute Lymphs (auto) 0.61 L, Nucleated RBC % 0, Differential Comment , Diff Path Review May foll, Platelet Estimate ADEQUATE, RBC Morphology NORM C+C Micro: Microbiology 02/11/21 17:07 Nasal Secretion SARS-CoV-2 Antigen (Rapid) - Final Radiography Diagnostic Testing: Radiology Impression Chest X-Ray 02/11/21 17:42 IMPRESSION: Mild hyperinflation and chronic interstitial changes. No acute disease. Electronically Signed: Renaldo Jones MD at 18:08 EST , Service support , Chest CTA 02/11/21 19:26 IMPRESSION: Diffuse chronic interstitial and emphysematous changes. ASHD without evidence for aortic aneurysm No evidence for pulmonary embolus Electronically Signed: Renaldo Jones MD at 21:12 EST , Service support , Rhythm Strip Rhythm Strip: Sinus Tach Rate: 115 Ectopy: None Physical Exam Const alert, oriented x3 and no apparent distress General Appearance: cooperative HEENT normocephalic and moist oral mucous membranes Eyes PERRL, EOMs intact bilaterally and conjunctivae normal Neck supple and no JVD Resp normal respiratory effort, no retractions and no use of accessory muscles Auscultation: wheezes; Negative for crackles, rales or rhonchi Cardio regular rate, regular rhythm, S1 normal heart sound, S2 normal heart sound and no murmurs GI soft to palpation, non-tender and non-distended; Negative for hepatosplenomegaly Extremity no clubbing, cyanosis or edema Skin no rashes or lesions noted Neuro no focal motor deficits and no sensory deficits noted Psych affect normal Appearance: appropriate Assessment & Plan Assessment/Plan (1) COPD exacerbation: (2) Acute respiratory failure with hypoxia: PLAN: 1. Acute hypoxic respiratory failure secondary to COPD exacerbation ?Covid test is negative ?She did have an elevated D-dimer so CT of the chest was performed which was negative for PE, just shows findings consistent with COPD ?She states that this is her first exacerbation ?Continue with steroids, duo nebs ?Continue with azithromycin for possible bronchitis ?She will need referral for pulmonology on discharge 2. HTN ?Blood pressure stable ?Continue with metoprolol and Norvasc 3. GERD ?Stable ?Continue with PPI DVT: Lovenox Charges/Coding Visit Charges Inpatient E&M: 40857 Subs Hosp L2
--- NOTE | 2021-02-12 12:33 | CASEMGMT ---
RN CM NOTE: Green sheet placed on chart for HHC and O2, if needed. Order placed for resumption of HHC: PT. SN added. Chris JULIENN RN CM
[2021-02-12 14:02] LABS: Pathologist Review Reviewed
[2021-02-12 14:07] LABS: Pathologist Review Reviewed
--- NOTE | 2021-02-12 15:25 | CHAPLAIN ---
Type of Pastoral Visit _x__ Initial Visit ___ Follow-up Visit ___ On-call Visit ___ General Patient Visit ___ Spiritual Assessment ___ Family Conference ___ Bereavement ___ Rapid Response ___ Code Blue ___ Other (describe below) Pastoral Care Referral From _x__ Patient ___ Family ___ Nurse ___ Physician ___ World Designer ___ Fish Egg Packer ___ Other (describe below) Sacrament/Intervention _x__ Active listening ___ Anointing ___ Alevism ___ Bereavement ___ Communion ___ [place] exploration ___ ___ Life review _x__ Prayer ___ Reconciliation ___ Sacrament of Sick ___ Supportive presence ___ Wedding ___ Other (describe below) Pastoral Comments spouse is with patient;
[2021-02-12] MEDS: guaiFENesin 10 ML UDC (200MG/10ML) 20 ML PO (17:19)
[2021-02-12] MEDS: hydrOXYzine 10 MG Tablet PO (21:32)
[2021-02-13] VITALS (23 sets, daily range): BP systolic 133–153; BP diastolic 75–99; PULSE 93–122; RESP 16–35; TEMP 36.1–36.8; O2SAT 81–98
[2021-02-13] MEDS: Ipratropium/Albuterol Sulfate 3 ML AMPUL.NEB INHALATION ×5 (00:03→20:05)
[2021-02-13] MEDS: LORazepam 1 MG Tablet PO ×2 (01:18→15:39)
[2021-02-13 07:11] LABS: Absolute Lymphocyte Count 0.45 X10^3/uL (0.83-4.51); Absolute Neutrophil Count 10.8 X10^3/uL (2.0-7.7); Basophil# 0.03 X10^3/uL; Basophil% 0.2 % (0-1); Hematocrit 31.1 % (37-47); Hemoglobin 10.6 g/dL (12.0-15.0); Lymphocyte # 0.45 X10^3/ul (0.83-4.51); Lymphocyte % 3.7 % (19-41); Mean Corp Hgb Conc 34.1 g/dL (32-36); Mean Corpuscular Hgb 34.8 pg (27.0-32.0); Mean Platelet Vol. 9.4 fl (6.2-12.0); Monocyte# 0.81 X10^3/uL; Monocyte% 6.6 % (0-10); NRBC Flagged by Analyzer 0 % (0-5); Neutrophil # 10.81 X10^3/uL (2.7-7.7); Neutrophil % 88.6 % (47-70); POSITIVE DIFFERENTIAL YES; Platelet Count 231 K/mm3 (150-450); RBC Distribution Width CV 13.2 % (11.6-14.6); RBC Distribution Width SD 48.5 fl (35.1-43.9); Red Blood Count 3.05 M/mm3 (4.2-5.4); White Blood Count 12.2 K/mm3 (4.4-11.0)
[2021-02-13 07:15] LABS: Differential Indicated SCAN CRITERIA MET
[2021-02-13 08:08] LABS: Anion Gap 10 (5-15); BUN 7 mg/dL (7-18); BUN/Creat Ratio 23.5 RATIO (10-20); Calcium,Total 6.5 mg/dL (8.5-10.1); Chloride 95 mmol/L (98-107); EST Glomerular Filtration Rate 238 mL/min (>60); Est Glom Filt Rate - Afr Amer 288 mL/min (>60); Estimated Creatinine Clearance 45.16 ml/min; Glucose 103 mg/dL (74-106); Potassium 3.6 mmol/L (3.5-5.1); Sodium Level 132 mmol/L (136-145)
[2021-02-13] MEDS: guaiFENesin 10 ML UDC (200MG/10ML) 20 ML PO (09:44)
[2021-02-13] MEDS: Pantoprazole Sodium 40 MG Tablet PO (09:44)
[2021-02-13] MEDS: Metoprolol(XL)Succ 100 MG Tablet PO (09:44)
[2021-02-13] MEDS: amLODIPine 10 MG Tablet PO (09:44)
[2021-02-13] MEDS: Budesonide 3 MG CAPSULE.EC 9 MG PO (09:44)
[2021-02-13] MEDS: Enoxaparin 40 MG/0.4 ML Syringe SC (09:44)
--- NOTE | 2021-02-13 13:32 | PN.HOSP_ITS ---
Subjective Subjective Patient seen and examined. She had no active complaitns. REview of systems is otherwise negative. She was on room air at time I reviewed her potassium required up to 6 L of oxygen with ambulation and with that was only saturating at 89%. Objective Data Objective Data Vital Signs: Vital Signs Temp Pulse Resp BP Pulse Ox 98.2 F 104 H 20 H 133/75 H 83 02/13/21 09:40 02/13/21 10:38 02/13/21 10:38 02/13/21 09:44 02/13/21 10:15 Oxygen Flow Rate (L/min) [ 6 AMBULATING with Oxygen #3] Oxygen Flow Rate (L/min) [ 4 AMBULATING with Oxygen #2] Oxygen Flow Rate (L/min) [ 2 AMBULATING with Oxygen #1] Oxygen Flow Rate (L/min) [At 2 REST with Oxygen] Oxygen Flow Rate (L/min) [At 0 REST on Room Air] Oxygen Flow Rate (L/min) 3 Oxygen Delivery Method Nasal Cannula Weight: 117 lb 11.629 oz Body Mass Index (BMI) 20.5 Intake & Output: Intake and Output for Last 24 Hours 02/11/21 02/12/21 02/13/21 23:59 23:59 23:59 Intake Total 1580 / 1780 870 / 870 Balance 1580 / 1780 870 / 870 Medical Nutrition Assessment Dietitian: Malnutrition Criteria Met Start: 02/12/21 11:59 Freq: Status: Active Protocol: Document 02/12/21 11:59 [facility] (Rec: 02/12/21 12:01 [facility] Laptop) Nutrition Malnutrition Evidence of Malnutrition Exists Yes Malnutrition (severe): Acute Illness/Injury Malnutrition (unspecified) Severe pro/oscar Evidenced By Suboptimal Energy Intake ( Severe),Weight Loss (Severe) Clinical Problem Acute Disease or Injury Related Malnutrition Etiology severe, acute malnutrition r/t inadequate energy intake with self reported depression exacerbated by hip fracture , stated new COPD Dx and grief of having lost so many people in my life decreasing appetite. Signs/Symptoms as evidenced by unintentional wt loss of 7.75# / 6.2% in 3 weeks - from patient reported UBW 125# to CBW 117# 11.69 oz from Jan 21 to current () and estimated PO intake meeting < 50% of estimated nutritional needs x 3 weeks. Status Active Problem Recommendation Dietitian Recommendations/Changes continue cardiac Heart Healthy diet. Will add 8 oz Ensure Enlive at each meal tray and Ensure pudding at Lunch and dinner with Vani's knowledge and agreement for additional Kcals and nutrients if consumed. Lab / Micro Data Result Diagrams: 02/13/21 06:30 02/13/21 06:30 Labs: Laboratory Results - last 24 hr 02/11/21 17:00: Diff Path Review Reviewed 02/12/21 07:15: Diff Path Review Reviewed 02/13/21 06:30: WBC 12.2 H, RBC 3.05 L, Hgb 10.6 L, Hct 31.1 L, MCV 102.0 H, MCH 34.8 H, MCHC 34.1, RDW Std Deviation 48.5 H, RDW Coeff of Lynnette 13.2, Plt Count 231, MPV 9.4, Immature Gran % (Auto) 0.900, Neut % (Auto) 88.6 H, Lymph % (Auto) 3.7 L, [place] % (Auto) 6.6, Eos % (Auto) 0.0, Baso % (Auto) 0.2, Absolute Neuts (auto) 10.8 H, Absolute Lymphs (auto) 0.45 L, Nucleated RBC % 0, Differential Comment COMMENT 02/13/21 06:30: Sodium 132 L, Potassium 3.6, Chloride 95 L, Carbon Dioxide 27.0, Anion Gap 10, BUN 7, Creatinine 0.30 L, Estim Creat Clear Calc 45.16, Est GFR (MDRD) Af Amer 288, Est GFR (MDRD) Non-Af 238, BUN/Creatinine Ratio 23.5 H, Glucose 103, Calcium 6.5 L* Micro: Microbiology 02/11/21 17:07 Nasal Secretion SARS-CoV-2 Antigen (Rapid) - Final Rhythm Strip Rhythm Strip: Sinus Tach Rate: 115 Ectopy: None Physical Exam Const alert, oriented x3 and no apparent distress Exam Limitations: no limitations HEENT head/scalp atraumatic and moist oral mucous membranes Head and Scalp: normocephalic Eyes PERRL, EOMs intact bilaterally and conjunctivae normal Neck no lymphadenopathy, supple and no JVD Resp Resp Narrative: diminished breath sounds bibasally, no wheezes or crackles. on 3L of oxygen at time of review. Cardio regular rate, regular rhythm, S1 normal heart sound, S2 normal heart sound and no murmurs GI normal to inspection, nondistended, normoactive bowel sounds, soft to palpation, non-tender and non-distended Extremity normal to inspection and no clubbing, cyanosis or edema Peripheral Pulses: Yes pulses 2+ throughout Skin no rashes or lesions noted Neuro oriented x3, CN's II-XII intact bilaterally and moves all extremities Sensorium / Orientation: awake and alert Psych affect normal Assessment & Plan Assessment/Plan (1) Acute respiratory failure with hypoxia: (2) COPD exacerbation: PLAN: #Acute on chronic hypoxic respiratory failure due to COVID 19 pneumonia * Patient still desaturating significantly with ambulation and so cannot be discharged today. * Titrate oxygen to maintain saturation above 90%. Breathing treatments with bronchodilators. * Patient still notes tachycardic and tachypneic especially with exertion. * Will need follow-up with pulmonology on outpatient basis. * on solumedrol. Also on azithromycin. * covid antigen test was negative. Will check PCR. * #Hypertension; on metoprolol and norvasc #GERD: on PPI #Severe protein calorie malnutrition * continue cardiac Heart Healthy diet. Will add 8 oz Ensure enlive at each meal tray and ensure pudding at lunch. DVT prophylaxis: lovenox. # Charges/Coding Visit Charges Inpatient E&M: 25152 Subs Hosp L2
[2021-02-13] MEDS: Azithromycin 250 MG Tablet 500 MG PO (21:38)
[2021-02-13] MEDS: 0.9% Saline Lock 10 ML Syringe IV (21:39)
[2021-02-13] MEDS: hydrOXYzine 10 MG Tablet PO (21:39)
[2021-02-14] VITALS (26 sets, daily range): BP systolic 127–159; BP diastolic 74–96; PULSE 82–120; RESP 18–30; TEMP 36.1–37; O2SAT 83–100
[2021-02-14] MEDS: 0.9% Saline Lock 10 ML Syringe IV ×3 (05:21→21:36)
[2021-02-14 06:23] LABS: Absolute Lymphocyte Count 0.59 X10^3/uL (0.83-4.51); Absolute Neutrophil Count 6.3 X10^3/uL (2.0-7.7); Basophil# 0.03 X10^3/uL; Basophil% 0.4 % (0-1); Hemoglobin 11.2 g/dL (12.0-15.0); Lymphocyte # 0.59 X10^3/ul (0.83-4.51); Lymphocyte % 7.4 % (19-41); Mean Corp Hgb Conc 36.1 g/dL (32-36); Mean Corpuscular Hgb 36.4 pg (27.0-32.0); Mean Corpuscular Volume 100.6 fL (81-99); Mean Platelet Vol. 8.9 fl (6.2-12.0); Monocyte# 0.83 X10^3/uL; Monocyte% 10.4 % (0-10); NRBC Flagged by Analyzer 0 % (0-5); Neutrophil # 6.29 X10^3/uL (2.7-7.7); Neutrophil % 78.9 % (47-70); POSITIVE DIFFERENTIAL YES; Platelet Count 247 K/mm3 (150-450); RBC Distribution Width CV 13.1 % (11.6-14.6); RBC Distribution Width SD 48.1 fl (35.1-43.9); Red Blood Count 3.08 M/mm3 (4.2-5.4)
[2021-02-14 06:24] LABS: Differential Indicated SCAN CRITERIA MET
[2021-02-14 06:37] LABS: Differential Comment SCANNED
[2021-02-14 06:40] LABS: Anion Gap 10 (5-15); BUN 6 mg/dL (7-18); BUN/Creat Ratio 18.3 RATIO (10-20); Calcium,Total 6.8 mg/dL (8.5-10.1); Chloride 99 mmol/L (98-107); Creatinine, Serum 0.33 mg/dL (0.55-1.02); EST Glomerular Filtration Rate 213 mL/min (>60); Est Glom Filt Rate - Afr Amer 257 mL/min (>60); Estimated Creatinine Clearance 45.16 ml/min; Glucose 113 mg/dL (74-106); Potassium 3.6 mmol/L (3.5-5.1); Sodium Level 133 mmol/L (136-145)
[2021-02-14] MEDS: Ipratropium/Albuterol Sulfate 3 ML AMPUL.NEB INHALATION ×4 (06:54→18:39)
[2021-02-14] MEDS: Budesonide 3 MG CAPSULE.EC 9 MG PO (09:59)
[2021-02-14] MEDS: Metoprolol(XL)Succ 100 MG Tablet PO (09:59)
[2021-02-14] MEDS: Enoxaparin 40 MG/0.4 ML Syringe SC (10:00)
[2021-02-14] MEDS: amLODIPine 10 MG Tablet PO (10:00)
[2021-02-14] MEDS: Pantoprazole Sodium 40 MG Tablet PO (10:00)
--- NOTE | 2021-02-14 13:07 | PN.HOSP_ITS ---
Subjective Subjective Patient seen and examined. She had no active complaints today. Patient was on 2 L of oxygen but still tachypneic and with exertion required up to 6 L of oxygen. Review of systems otherwise negative. She has remained hemodynamically stable otherwise. Objective Data Objective Data Vital Signs: Vital Signs Temp Pulse Resp BP Pulse Ox 97.8 F 96 24 H 127/95 H 96 02/14/21 10:00 02/14/21 11:14 02/14/21 11:14 02/14/21 10:00 02/14/21 10:00 Oxygen Flow Rate (L/min) [ 6 AMBULATING with Oxygen #3] Oxygen Flow Rate (L/min) [ 4 AMBULATING with Oxygen #2] Oxygen Flow Rate (L/min) [ 2 AMBULATING with Oxygen #1] Oxygen Flow Rate (L/min) [At 2 REST with Oxygen] Oxygen Flow Rate (L/min) [At 0 REST on Room Air] Oxygen Flow Rate (L/min) 2 Oxygen Delivery Method Nasal Cannula Weight: 117 lb 11.629 oz Body Mass Index (BMI) 20.5 Intake & Output: Intake and Output for Last 24 Hours 02/12/21 02/13/21 02/14/21 23:59 23:59 23:59 Intake Total 1580 / 1780 1610 / 1610 350 / 350 Balance 1580 / 1780 1610 / 1610 350 / 350 Medical Nutrition Assessment Dietitian: Malnutrition Criteria Met Start: 02/12/21 11:59 Freq: Status: Active Protocol: Document 02/12/21 11:59 [facility] (Rec: 02/12/21 12:01 [facility] Laptop) Nutrition Malnutrition Evidence of Malnutrition Exists Yes Malnutrition (severe): Acute Illness/Injury Malnutrition (unspecified) Severe pro/oscar Evidenced By Suboptimal Energy Intake ( Severe),Weight Loss (Severe) Clinical Problem Acute Disease or Injury Related Malnutrition Etiology severe, acute malnutrition r/t inadequate energy intake with self reported depression exacerbated by hip fracture , stated new COPD Dx and grief of having lost so many people in my life decreasing appetite. Signs/Symptoms as evidenced by unintentional wt loss of 7.75# / 6.2% in 3 weeks - from patient reported UBW 125# to CBW 117# 11.69 oz from Jan 21 to current () and estimated PO intake meeting < 50% of estimated nutritional needs x 3 weeks. Status Active Problem Recommendation Dietitian Recommendations/Changes continue cardiac Heart Healthy diet. Will add 8 oz Ensure Enlive at each meal tray and Ensure pudding at Lunch and dinner with Vani's knowledge and agreement for additional Kcals and nutrients if consumed. Lab / Micro Data Result Diagrams: 02/14/21 06:14 02/14/21 06:14 Labs: Laboratory Results - last 24 hr 02/13/21 15:46: COVID-19 (KATHY) Negative 02/14/21 06:14: WBC 8.0, RBC 3.08 L, Hgb 11.2 L, Hct 31.0 L, MCV 100.6 H, MCH 36.4 H, MCHC 36.1 H D, RDW Std Deviation 48.1 H, RDW Coeff of Lynnette 13.1, Plt Count 247, MPV 8.9, Immature Gran % (Auto) 2.900 H, Neut % (Auto) 78.9 H, Lymph % (Auto) 7.4 L, [place] % (Auto) 10.4 H, Eos % (Auto) 0.0, Baso % (Auto) 0.4, Absolute Neuts (auto) 6.3, Absolute Lymphs (auto) 0.59 L, Nucleated RBC % 0, Differential Comment SCANNED 02/14/21 06:14: Sodium 133 L, Potassium 3.6, Chloride 99, Carbon Dioxide 24.0, Anion Gap 10, BUN 6 L, Creatinine 0.33 L, Estim Creat Clear Calc 45.16, Est GFR (MDRD) Af Amer 257, Est GFR (MDRD) Non-Af 213, BUN/Creatinine Ratio 18.3, Glucose 113 H, Calcium 6.8 L Micro: Microbiology 02/11/21 17:07 Nasal Secretion SARS-CoV-2 Antigen (Rapid) - Final Rhythm Strip Rhythm Strip: Sinus Tach Rate: 115 Ectopy: None Physical Exam Const alert, oriented x3 and no apparent distress General Appearance: cooperative Exam Limitations: no limitations HEENT normocephalic, head/scalp atraumatic and moist oral mucous membranes Head and Scalp: normocephalic Eyes PERRL, EOMs intact bilaterally and conjunctivae normal Neck no lymphadenopathy, supple and no JVD Resp normal respiratory effort, no retractions and no use of accessory muscles Resp Narrative: diminished breath sounds bibasally, no wheezes or crackles. on 2L of oxygen at time of review. Auscultation: wheezes; Negative for crackles, rales or rhonchi Cardio regular rate, regular rhythm, S1 normal heart sound, S2 normal heart sound and no murmurs GI normal to inspection, nondistended, normoactive bowel sounds, soft to palpation, non-tender and non-distended; Negative for hepatosplenomegaly Extremity normal to inspection and no clubbing, cyanosis or edema Skin no rashes or lesions noted Neuro oriented x3, CN's II-XII intact bilaterally, moves all extremities, no focal motor deficits and no sensory deficits noted Sensorium / Orientation: awake and alert Psych affect normal Appearance: appropriate Assessment & Plan Assessment/Plan (1) Acute respiratory failure with hypoxia: (2) COPD exacerbation: PLAN: #Acute on chronic hypoxic respiratory failure due to COPD exacerbtion * Patient still desaturating significantly with ambulation; required up to 6L of oxygen today. * Titrate oxygen to maintain saturation above 90%. Breathing treatments with bronchodilators. * Patient still notes tachycardic and tachypneic especially with exertion. * Will need follow-up with pulmonology on outpatient basis. * on solumedrol. Also on azithromycin. * covid antigen test was negative.PCR test was also negative. * #Hypertension; on metoprolol and norvasc #GERD: on PPI #Severe protein calorie malnutrition * continue cardiac Heart Healthy diet. * Will add 8 oz Ensure enlive at each meal tray and ensure pudding at lunch. DVT prophylaxis: lovenox. Disposition: anticipate discharge tomorrow if her tachypnea and oxygen requirements with ambulation improves. Charges/Coding Visit Charges Inpatient E&M: 23624 Subs Hosp L2
[2021-02-14] MEDS: LORazepam 1 MG Tablet PO (13:08)
[2021-02-14] MEDS: hydrOXYzine 10 MG Tablet PO ×2 (17:34→21:26)
[2021-02-14] MEDS: guaiFENesin 10 ML UDC (200MG/10ML) 20 ML PO ×4 (17:34→22:48)
[2021-02-14] MEDS: Azithromycin 250 MG Tablet 500 MG PO (21:31)
[2021-02-15] VITALS (11 sets, daily range): BP systolic 133–149; BP diastolic 85–97; PULSE 77–97; RESP 16–25; TEMP 36.4–37; O2SAT 86–98
[2021-02-15] MEDS: 0.9% Saline Lock 10 ML Syringe IV (06:03)
[2021-02-15] MEDS: Ipratropium/Albuterol Sulfate 3 ML AMPUL.NEB INHALATION ×2 (06:59→10:59)
[2021-02-15 07:08] LABS: Hematocrit 32.5 % (37-47); Hemoglobin 11.5 g/dL (12.0-15.0); Mean Corp Hgb Conc 35.4 g/dL (32-36); Mean Corpuscular Hgb 35.7 pg (27.0-32.0); Mean Corpuscular Volume 100.9 fL (81-99); POSITIVE COUNT YES; POSITIVE DIFFERENTIAL YES; POSITIVE MORPHOLOGY YES; Platelet Count 307 K/mm3 (150-450); RBC Distribution Width CV 13.1 % (11.6-14.6); RBC Distribution Width SD 48.3 fl (35.1-43.9); Red Blood Count 3.22 M/mm3 (4.2-5.4); White Blood Count 5.8 K/mm3 (4.4-11.0)
[2021-02-15 07:09] LABS: Differential Indicated MANUAL DIFF
[2021-02-15 07:28] LABS: Anion Gap 9 (5-15); BUN 6 mg/dL (7-18); BUN/Creat Ratio 18.5 RATIO (10-20); Calcium,Total 6.9 mg/dL (8.5-10.1); Chloride 98 mmol/L (98-107); Creatinine, Serum 0.32 mg/dL (0.55-1.02); EST Glomerular Filtration Rate 215 mL/min (>60); Est Glom Filt Rate - Afr Amer 260 mL/min (>60); Estimated Creatinine Clearance 45.16 ml/min; Glucose 113 mg/dL (74-106); Potassium 3.1 mmol/L (3.5-5.1); Sodium Level 136 mmol/L (136-145)
[2021-02-15] MEDS: Budesonide 3 MG CAPSULE.EC 9 MG PO (08:05)
[2021-02-15] MEDS: amLODIPine 10 MG Tablet PO (08:05)
[2021-02-15] MEDS: Enoxaparin 40 MG/0.4 ML Syringe SC (08:05)
[2021-02-15] MEDS: guaiFENesin 10 ML UDC (200MG/10ML) 20 ML PO (08:05)
[2021-02-15] MEDS: Pantoprazole Sodium 40 MG Tablet PO (08:06)
[2021-02-15] MEDS: Metoprolol(XL)Succ 100 MG Tablet PO (08:06)
[2021-02-15 08:16] LABS: Lymphocyte 11 % (19-41); Monocyte 8 % (0-10); Myelocyte 1 % (0-0); Neutrophil-Band 1 % (0-5); Neutrophil-Segmented 79 % (47-70); Platelet Estimate ADEQUATE (ADEQ); Red Cell Morphology NORM C+C NORMAL (NORM C&C); Total Cells Counted 100 (MANUAL DIFF)
[2021-02-15 08:23] LABS: Absolute Lymphocyte Count 0.64 X10^3/uL (0.83-4.51); Absolute Neutrophil Count 4.6 X10^3/uL (2.0-7.7)
[2021-02-15] MEDS: Potassium Chloride Oral Tablet 20 MEQ 60 MEQ PO (10:20)
--- NOTE | 2021-02-15 10:50 | PCM.DC.SUM ---
Providers Date of Admission: 02/11/21 Primary Care Physician: Dr. Jair Squires MD Reason For Visit: ACUTE EXACERBATION OF COPD Diagnosis Discharge Diagnosis (1) Acute respiratory failure with hypoxia: Status: Acute Code(s): J96.01 - Acute respiratory failure with hypoxia (2) COPD exacerbation: Status: Chronic Code(s): J44.1 - Chronic obstructive pulmonary disease with (acute) exacerbation Medications at Discharge Home Medications amlodipine 10 mg tablet 10 mg PO DAILY #90 tab 08/08/18 metoprolol succinate 100 mg tablet,extended release 24 hr 100 mg PO DAILY #90 tab 08/08/18 omeprazole 40 mg capsule,delayed release 40 mg PO DAILY #90 cap 08/08/18 Prolia 60 mg SUBCUT .[id number] 01/21/21 acetaminophen 1,000 mg PO Q8 #0 tab 01/23/21 budesonide 9 mg PO/SL DAILY 02/11/21 prednisone 40 mg PO DAILY #10 tab 02/15/21 Hospital Course Operations None Procedures None Summary of Care Provided Minutes Spent on Discharge: 45 Hospital Course: Patient is a 65-year-old female with a significant past medical history of hypertension, COPD and nicotine dependence was admitted through the ED on 02/11/2021 with a complaint of progressively worsening shortness of breath. She had associated wheezing and cough was productive of greenish-yellowish sputum. She denied any fever or chills but was noted to be hypoxic with a saturation down in the 70s. Chest x-ray showed mild hyperinflation and chronic interstitial changes but no acute disease and CTA of the chest showed no evidence of PE but showed diffuse chronic interstitial and emphysematous changes. Covid test done was negative. She was admitted to be managed for acute hypoxic respiratory failure due to COPD exacerbation. She was placed on IV Solu-Medrol and breathing treatments bronchodilators. Patient mentioned that she had followed up with sweater designer-Dr. Stephenson in the past but had not followed up in several years. Patient's wheezing and shortness of breath gradually improved. However her course was complicated by persistent hypoxia with ambulation requiring over 6 L of oxygen. Her oxygen requirements gradually improved and on the day of discharge, she required 4 L of oxygen with ambulation. She was discharged home on 02/15/2021 on a tapering course of prednisone and is to follow-up with her primary care doctor was also referred to pulmonology for follow-up for her COPD for her treatments to be optimized. Patient seen and examined prior to discharge. She had no active complaints and felt well. Review of systems otherwise negative. Labs and vitals reviewed. Medication reviewed and reconciled. Physical Exam Const alert, oriented x3 and no apparent distress General Appearance: cooperative Exam Limitations: no limitations HEENT normocephalic, head/scalp atraumatic and moist oral mucous membranes Eyes PERRL, EOMs intact bilaterally and conjunctivae normal Neck no lymphadenopathy, supple and no JVD Resp normal respiratory effort, no retractions and no use of accessory muscles Resp Narrative: diminished breath sounds bibasally, no wheezes or crackles. on 2L of oxygen Auscultation: wheezes; Negative for crackles, rales or rhonchi Cardio regular rate, regular rhythm, S1 normal heart sound, S2 normal heart sound and no murmurs GI normal to inspection, nondistended, normoactive bowel sounds, soft to palpation, non-tender and non-distended; Negative for hepatosplenomegaly Extremity normal to inspection and no clubbing, cyanosis or edema Skin no rashes or lesions noted Neuro oriented x3, CN's II-XII intact bilaterally, moves all extremities, no focal motor deficits and no sensory deficits noted Sensorium / Orientation: awake and alert Psych affect normal Appearance: appropriate Medical Records Data Medical Nutrition Assessment Dietitian: Malnutrition Criteria Met Start: 02/12/21 11:59 Freq: Status: Active Protocol: Document 02/12/21 11:59 [facility] (Rec: 02/12/21 12:01 [facility] Laptop) Nutrition Malnutrition Evidence of Malnutrition Exists Yes Malnutrition (severe): Acute Illness/Injury Malnutrition (unspecified) Severe pro/oscar Evidenced By Suboptimal Energy Intake ( Severe),Weight Loss (Severe) Clinical Problem Acute Disease or Injury Related Malnutrition Etiology severe, acute malnutrition r/t inadequate energy intake with self reported depression exacerbated by hip fracture , stated new COPD Dx and grief of having lost so many people in my life decreasing appetite. Signs/Symptoms as evidenced by unintentional wt loss of 7.75# / 6.2% in 3 weeks - from patient reported UBW 125# to CBW 117# 11.69 oz from Jan 21 to current () and estimated PO intake meeting < 50% of estimated nutritional needs x 3 weeks. Status Active Problem Recommendation Dietitian Recommendations/Changes continue cardiac Heart Healthy diet. Will add 8 oz Ensure Enlive at each meal tray and Ensure pudding at Lunch and dinner with Vani's knowledge and agreement for additional Kcals and nutrients if consumed. Weight / BMI Weight Weight: 117 lb 11.629 oz Body Mass Index (BMI) 20.5 ABG / Lab / Microbiology Data Result Diagrams: 02/15/21 06:00 02/15/21 06:00 Laboratory: Laboratory Results - last 24 hr 02/15/21 06:00: WBC 5.8, RBC 3.22 L, Hgb 11.5 L, Hct 32.5 L, MCV 100.9 H, MCH 35.7 H, MCHC 35.4, RDW Std Deviation 48.3 H, RDW Coeff of Lynnette 13.1, Plt Count 307, MPV 9.0, Neut % (Auto) Not Reportable, Absolute Neuts (auto) 4.6, Absolute Lymphs (auto) 0.64 L, Total Counted 100, Neutrophils % (Manual) 79 H, Band Neutrophils % 1, Lymphocytes % (Manual) 11 L, Monocytes % (Manual) 8, Myelocytes % 1 H, Diff Path Review May foll, Platelet Estimate ADEQUATE, RBC Morphology NORM C+C 02/15/21 06:00: Sodium 136, Potassium 3.1 L, Chloride 98, Carbon Dioxide 29.0, Anion Gap 9, BUN 6 L, Creatinine 0.32 L, Estim Creat Clear Calc 45.16, Est GFR (MDRD) Af Amer 260, Est GFR (MDRD) Non-Af 215, BUN/Creatinine Ratio 18.5, Glucose 113 H, Calcium 6.9 L Microbiology: Microbiology 02/11/21 17:07 Nasal Secretion SARS-CoV-2 Antigen (Rapid) - Final D/C Instructions Discharge Diet: Low fat / Low cholesterol Discharge Activity: Return to Normal Activity Weight Bearing Status: Weight bearing as tolerated Call your doctor if you observe: Fever of 101 or Higher, Shortness of breath, Dizziness, Swelling in the ankles, Chest pain and Increased palpitations (irregular heartbeat) Meaningful Use Info Meaningful Use Diagnoses (Choose all that apply): None applicable Discharge Plan Admission Admit Date/Time: 02/11/21 22:35 Primary Reason for Your Visit: acute hypoxic respiratory failure due to COPD exacerbation Attending Provider: Angelique Rdz Primary Care Provider: Jair Squires Instructions Patient Instructions: COPD Meds, ED COPD Flare Additional Instructions / Restrictions: use 4L of oxygen for shortness of breath as needed. Discharge Orders/Prescriptions Prescriptions: New prednisone 20 mg tablet 40 mg PO DAILY Qty: 10 RF: 0 Continued metoprolol succinate 100 mg tablet extended release 24 hr 100 mg PO DAILY Qty: 90 RF: 0 amlodipine 10 mg tablet 10 mg PO DAILY Qty: 90 RF: 0 omeprazole 40 mg capsule,delayed release(DR/EC) 40 mg PO DAILY Qty: 90 RF: 0 Prolia 60 mg/mL syringe 60 mg SUBCUT .[id number] RF: 0 acetaminophen 500 mg Tablet 1,000 mg PO Q8 Qty: 0 RF: 0 budesonide 9 mg PO/SL DAILY RF: 0 Referrals / Follow Up: Jair Squires MD [Primary Care Provider] - Within 2 Weeks Ivan Rice MD [STAFF PHYSICIAN] - Within 2 Weeks Disposition Disposition (needs filled in before D/C Order can be placed): Home, Self Care Charges/Coding Visit Charges Inpatient E&M: 03367 Disch Hosp
--- NOTE | 2021-02-16 09:50 | CASEMGMT ---
Addendum entered by Marina Mosqueda 02/16/21 13:03: Call to pt to update and she states has home oxygen set up at this time and voices no further questions/concerns/needs. Ck MUÑOZ CM Addendum entered by Marina Mosqueda 02/16/21 13:01: 1216 This RN CM has not heard back from [employer]. Call back to Mando and he states that pt called [employer] armor reconnaissance vehicle driver prior to leaving hospital and then armor reconnaissance vehicle driver told her to call [employer] once home. [employer] was closed and pt was unable to get ahold of anyone. Per Mando, he is unsure why armor reconnaissance vehicle driver told pt to do this but armor reconnaissance vehicle driver is on way to pt home at this time. Ck MUÑOZ CM Original Note: Call from pt stating that [employer] never brought out her home oxygen after discharge yesterday. [facility] and he states he will check into it and call this RN CM back. Ck MUÑOZ CM
[2021-02-17 10:39] LABS: Pathologist Review Reviewed
== END 2021-02-15 13:41 | disposition home or self-care (01) | DRG 189 ==
LOC: ED 22:20 → PCU 23:04
PROVIDERS: Family Medicine; Admitting Provider Hospitalist; Emergency Provider Emergency Medicine; PCP Family Medicine; Visit Provider Student in an Organized Health Care Education/Training Program
DX: J96.01 Acute respiratory failure with hypoxia (principal); E43 Unspecified severe protein-calorie malnutrition; J44.1 Chronic obstructive pulmonary disease with (acute) exacerbation; Z68.20 Body mass index [BMI] 20.0-20.9, adult; I10 Essential (primary) hypertension; K21.9 Gastro-esophageal reflux disease without esophagitis; M81.0 Age-related osteoporosis without current pathological fracture; F32.A Depression, unspecified; F41.9 Anxiety disorder, unspecified; Z87.19 Personal history of other diseases of the digestive system; Z79.899 Other long term (current) drug therapy; F17.210 Nicotine dependence, cigarettes, uncomplicated
CPT/HCPCS: 36415; 71045; 71275; 80048; 84484; 85025; 85379; 87426; 87635; 93005; 94640; 94667; 94668; 94762; 97802; 99251; 99285; 99406; Q9967; U0005; A4216; G0463; J0610; U0003

== ENCOUNTER 2021-02-23 07:52 | Inpatient (IN) | payer MEDICARE, SELFPAY ==
[2021-02-23] VITALS (13 sets, daily range): BP systolic 105–157; BP diastolic 40–109; PULSE 73–115; RESP 18–30; TEMP 36.3–36.9; O2SAT 94–98; BMI 20.5; BMI 19.2
--- NOTE | 2021-02-23 08:17 | EKG12_ITS ---
Test Reason : SOB Blood Pressure : / mmHG Vent. Rate : 085 BPM Atrial Rate : 081 BPM P-R Int : 000 ms QRS Dur : 072 ms QT Int : 406 ms P-R-T Axes : 000 067 044 degrees QTc Int : 483 ms SINUS VS. ECTOPOIC ATRIAL RHYTHM Nonspecific ST and T wave abnormality Abnormal ECG Confirmed by RAVEN COPELAND, TJ ([id number]), editor & co founder NAVEED GUALLPA ([id number]) on 02/24/2021 10:48:39 AM Referred By: JOSEFINA Confirmed By:TJ CARBAJAL MD
--- NOTE | 2021-02-23 08:19 | EDS_ITS ---
HPI History of Present Illness Chief Complaint: Dizziness Informant: patient Onset/Context/Timing Onset: Weeks (3) Context: Gradual Onset Timing: Continuous Quality: Lightheaded Location: Generalized Worsened by: Standing and walking Relieved by: Nothing Narrative Narrative: Patient with nausea, vomiting, and dizziness that has been constant for the past 3 weeks. Patient states she feels lightheaded. Patient states it is worse with standing and walking. Patient states nothing seems to help with it. Patient states she has been having some nausea, vomiting, and diarrhea over the past several days. Patient denies any hematemesis or coffee-ground emesis. Patient denies any melena or hematochezia. Patient denies any dysuria or hematuria. Patient denies any abdominal pain. [facility] Medical History Acute respiratory failure with hypoxia Anxiety Depression GERD (gastroesophageal reflux disease) Hip fracture HTN (hypertension) Microscopic colitis Osteoporosis Home Medications amlodipine 10 mg tablet 10 mg PO DAILY #90 tab 08/08/18 [History Last Taken 01/21/21] metoprolol succinate 100 mg tablet,extended release 24 hr 100 mg PO DAILY #90 tab 08/08/18 [History Last Taken 01/21/21] omeprazole 40 mg capsule,delayed release 40 mg PO DAILY #90 cap 08/08/18 [History Last Taken 01/21/21] Prolia 60 mg SUBCUT .[id number] 01/21/21 [History Last Taken 12/03/20] acetaminophen 1,000 mg PO Q8 #0 tab 01/23/21 [Rx Last Taken Unknown] budesonide 9 mg PO/SL DAILY 02/11/21 [History Last Taken Unknown] diazepam 2 mg PO TID PRN PRN #10 tablet 02/23/21 [Rx Last Taken Unknown] Allergy/AdvReac Type Severity Reaction Status Date / Time doxycycline Allergy Mild UNKNOWN Verified 02/23/21 07:57 amoxicillin Allergy Unknown Verified 02/23/21 07:57 ciprofloxacin [From Cipro] Allergy Unknown Verified 02/23/21 07:57 naproxen Allergy Unknown Verified 02/23/21 07:57 sulfamethoxazole Allergy Unknown Verified 02/23/21 07:57 [From Bactrim] trimethoprim [From Bactrim] Allergy Unknown Verified 02/23/21 07:57 Family History Sister Breast cancer Mother Heart disease Father No problems noted. Surgical History History of colonoscopy Social History household members: spouse housing: house number of children: 0 current occupational status: retired pets and animals: Yes (dog) Smoking Status: Current every day smoker tobacco type: cigarettes alcohol intake: current alcohol intake frequency: 0-2 drinks per day Alcohol type: beer ROS ROS ED Constitutional Constitutional ED: Denies chills or fever(s) Eyes Eyes: Reports blurry vision; Denies diplopia ENT ENT ED: Reports rhinorrhea; Denies sore throat Cardiovascular Cardiovascular: Denies chest pain or palpitations Respiratory/Chest Respiratory/Chest: Reports dyspnea; Denies cough Gastrointestinal Gastrointestinal: Reports diarrhea, nausea and vomiting Genitourinary Genitourinary ED: Denies dysuria or hematuria Musculoskeletal Musculoskeletal: Denies back pain or neck pain Integumentary Denies abscess or rash Neurologic Neurologic: Reports headache(s); Denies weakness Allergic/Immunologic Allergic/Immunologic ED: Denies mouth swelling or urticaria EXAM Physical Exam Const Vital Signs: 02/23/21 07:53 02/23/21 07:58 02/23/21 08:31 Temperature 97.8 F 97.8 F Temperature Source Oral Oral Pulse Rate 88 86 Pulse Rate [Lying] Pulse Rate [Sitting] Respiratory Rate 22 H 22 H Respiratory Effort Short of Breath Respiratory Pattern Normal Blood Pressure 148/103 H 148/103 H Blood Pressure [Lying] Blood Pressure [Sitting] Blood Pressure Mean 118 118 Blood Pressure Mean [Lying] Blood Pressure Mean [Sitting] Pulse Ox 94 94 Oxygen Delivery Method Room Air Room Air Oxygen Flow Rate (L/min) 02/23/21 08:56 02/23/21 09:30 02/23/21 10:20 Temperature Temperature Source Pulse Rate 83 Pulse Rate [Lying] 83 Pulse Rate [Sitting] 82 Respiratory Rate 20 H Respiratory Effort Respiratory Pattern Blood Pressure 135/76 H Blood Pressure [Lying] 105/40 L Blood Pressure [Sitting] 112/63 Blood Pressure Mean 95 Blood Pressure Mean [Lying] 61 Blood Pressure Mean [Sitting] 79 Pulse Ox 96 96 Oxygen Delivery Method Nasal Cannula Room Air Oxygen Flow Rate (L/min) 2 02/23/21 12:39 02/23/21 14:13 02/23/21 15:52 Temperature 98.2 F Temperature Source Temporal Pulse Rate 98 77 73 Pulse Rate [Lying] Pulse Rate [Sitting] Respiratory Rate 27 H 19 H 18 Respiratory Effort Respiratory Pattern Blood Pressure 113/76 142/85 H 122/77 H Blood Pressure [Lying] Blood Pressure [Sitting] Blood Pressure Mean 88 104 92 Blood Pressure Mean [Lying] Blood Pressure Mean [Sitting] Pulse Ox 96 94 94 Oxygen Delivery Method Room Air Nasal Cannula Nasal Cannula Oxygen Flow Rate (L/min) 2 2 Positive well nourished and well developed General Appearance ED: well developed HEENT Reports moist mucous membranes Neck supple and no JVD Resp normal respiratory effort Auscultation: diminished lung sounds diffuse Cardio regular rate, regular rhythm and no murmurs GI normal to inspection, nondistended, normoactive bowel sounds and non-tender Palpation: soft Extremity normal to inspection General Extremety ED: Negative for edema or tenderness General Extremity: Negative for edema Neuro oriented x3, CN's II-XII intact bilaterally and no sensory deficits noted Sensorium / Orientation: alert Motor Exam: strength 5/5 throughout Psych mental status grossly normal Skin no rashes or lesions noted MDM MDM MDM Narrative Medical decision making narrative: Patient was given a DuoNeb aerosol here. Patient was given Zofran. EKG was obtained. On my interpretation, it showed a normal sinus rhythm with a rate of 85. KS interval, QRS interval, and QTc intervals were all normal. [place] was normal. There are no acute ST or T wave changes. CBC shows a slight leukocytosis of 12.3. Platelets were slightly elevated at 537. Comprehensive metabolic profile showed a potassium of 3.2, sodium of 131, and chloride of 95. The remainder was essentially within normal limits. Urinalysis does not show any evidence of urinary tract infection. Portable 1 view chest x-ray was obtained. On my interpretation, lung kilpatrick show hyperinflation consistent with prior COPD. There is normal cardiac silhouette. Bony thorax is normal. There is no acute process noted. Radiologist also interpreted the x-ray and agrees. Patient was given a dose of potassium here. Patient was also given a dose of Valium here. Patient states her dizziness improved after this. Patient denies any further dizziness at this time. Patient was to be discharged however, she moved her head and her dizziness came back. Patient was given 2 more doses of Valium here. Patient had no improvement of her dizziness after this. Because of this, CT scan of the brain was obtained. There is no acute intracranial abnormality. This was interpreted by the radiologist and reviewed by myself. Patient states she still feels very dizzy and does not feel like she can ambulate. Case was discussed with the hospitalist. He will admit the patient to his service. Patient understood and was agreeable with the plan. All questions were answered. Lab Data Attestation: I reviewed the patient's lab results. Labs: Laboratory Results - last 24 hr 02/23/21 02/23/21 02/23/21 08:06 08:06 11:55 WBC 12.3 H RBC 3.64 L Hgb 12.8 Hct 35.4 L MCV 97.3 MCH 35.2 H MCHC 36.2 H RDW Std Deviation 47.8 H RDW Coeff of Lynnette 13.3 Plt Count 537 H MPV 9.0 Immature Gran % (Auto) 2.400 H Neut % (Auto) 75.2 H Lymph % (Auto) 11.5 L [place] % (Auto) 10.2 H Eos % (Auto) 0.3 Baso % (Auto) 0.4 Absolute Neuts (auto) 9.3 H Absolute Lymphs (auto) 1.41 Nucleated RBC % 0 Sodium 131 L Potassium 3.2 L Chloride 95 L Carbon Dioxide 23.0 Anion Gap 13 BUN 8 Creatinine 0.45 L Estim Creat Clear Calc 46.91 Est GFR (MDRD) Af Amer 179 Est GFR (MDRD) Non-Af 148 BUN/Creatinine Ratio 17.8 Glucose 106 Calcium 6.8 L Total Bilirubin 0.70 AST 68 H ALT 75 H Alkaline Phosphatase 80 Troponin I High Sens 4 Total Protein 7.6 Albumin 2.8 L Globulin 4.8 H Albumin/Globulin Ratio 0.6 L Urine Color Yellow Urine Clarity Sl. Cloudy Urine pH 6.0 Ur Specific [place] 1.010 Urine Protein Negative Urine Glucose (UA) Normal Urine Ketones Negative Urine Occult Blood Negative Urine Nitrite Negative Urine Bilirubin Negative Urine Urobilinogen 1 H Ur Leukocyte Esterase 25 H Urine RBC 0 SEEN Urine WBC 0-5 SEEN Ur Squamous Epith Cells 0-5 SEEN Urine Bacteria 0 SEEN Urine Mucus 0 SEEN Radiography Chest X-Ray - ED: 1 View, Read by ED Physician, Read by Radiologist and No Acute Disease Diagnostic Testing: Clinical Impression(s) from Imaging Studies Chest X-Ray 02/23/21 08:40 IMPRESSION: Hyperinflation. Stable mild linear scarring at the left lung base. Electronically Signed: Jase Torres MD at 9:05 EST , Service support , Brain CT 02/23/21 15:05 IMPRESSION: Chronic involutional changes of the brain. Bilateral maxillary sinusitis worse on the right side. Electronically Signed: Jase Torres MD at 15:34 EST , Service support , EKG Initial EKG: Attestation: I personally reviewed and interpreted this EKG as follows: Interpretation: Sinus Rhythm (85) and No Acute Injury Pattern Prior EKG tracings: available for review Prior: Unchanged (02/11/2021) Treatment and Re-Evaluation Vital Sign Attestation:: Vital signs were reviewed prior to admission. They are stable. Discharge Plan Dx/Rx/DC Orders Clinical Impression: Dizziness Disposition [facility]
[2021-02-23] MEDS: Ipratropium/Albuterol Sulfate 3 ML AMPUL.NEB INHALATION ×2 (08:30→23:50)
[2021-02-23] MEDS: Ondansetron 4 MG/2 ML Vial IV ×3 (08:30→18:55)
[2021-02-23 08:33] LABS: Absolute Lymphocyte Count 1.41 X10^3/uL (0.83-4.51); Absolute Neutrophil Count 9.3 X10^3/uL (2.0-7.7); Basophil# 0.05 X10^3/uL; Basophil% 0.4 % (0-1); Eosinophil# 0.04 X10^3/uL; Eosinophils% 0.3 % (0-5); Hematocrit 35.4 % (37-47); Hemoglobin 12.8 g/dL (12.0-15.0); Lymphocyte # 1.41 X10^3/ul (0.83-4.51); Lymphocyte % 11.5 % (19-41); Mean Corp Hgb Conc 36.2 g/dL (32-36); Mean Corpuscular Hgb 35.2 pg (27.0-32.0); Mean Corpuscular Volume 97.3 fL (81-99); Monocyte# 1.25 X10^3/uL; Monocyte% 10.2 % (0-10); NRBC Flagged by Analyzer 0 % (0-5); Neutrophil # 9.25 X10^3/uL (2.7-7.7); Neutrophil % 75.2 % (47-70); Platelet Count 537 K/mm3 (150-450); RBC Distribution Width CV 13.3 % (11.6-14.6); RBC Distribution Width SD 47.8 fl (35.1-43.9); Red Blood Count 3.64 M/mm3 (4.2-5.4); White Blood Count 12.3 K/mm3 (4.4-11.0)
--- NOTE | 2021-02-23 08:40 | RAD_ITS ---
STUDY: X-RAY CHEST REASON FOR EXAM: Female, 65 years old. Dyspnea TECHNIQUE: Single AP portable view of the chest. COMPARISON: Comparison is made with prior study dated 02/11/2021. FINDINGS: EKG electrodes are seen. There is hyperinflation of the lungs consistent with chronic obstructive lung disease (COPD). Stable mild linear scarring at the left lung base. There is no demonstrated pleural abnormality. Normal size heart. Normal mediastinum and skyler. Normal visualized pulmonary arteries. Normal visualized aortic arch and descending thoracic aorta. There are diffuse degenerative changes of the visualized thoracic spine. There is degenerative osteoarthritis of the bilateral shoulders. Old left midclavicular fracture. There is no demonstrated abnormality of the visualized soft tissue structures of the upper abdomen. RAD/Chest 1 View (Portable) IMPRESSION: Hyperinflation. Stable mild linear scarring at the left lung base. Electronically Signed: Jase Torres MD at 9:05 EST , Service support ,
[2021-02-23 08:49] LABS: ALB/GLOB Ratio 0.6 RATIO (0.9-2.4); AST(SGOT) 68 U/L (15-37); Alanine Aminotransfer ALT/SGPT 75 U/L (13-56); Albumin, Serum 2.8 g/dL (3.2-5.0); Alkaline Phosphatase 80 U/L (45-117); Anion Gap 13 (5-15); BUN 8 mg/dL (7-18); BUN/Creat Ratio 17.8 RATIO (10-20); Calcium,Total 6.8 mg/dL (8.5-10.1); Chloride 95 mmol/L (98-107); Creatinine, Serum 0.45 mg/dL (0.55-1.02); EST Glomerular Filtration Rate 148 mL/min (>60); Est Glom Filt Rate - Afr Amer 179 mL/min (>60); Estimated Creatinine Clearance 46.91 ml/min; Globulin 4.8 g/dL (2.2-4.2); Glucose 106 mg/dL (74-106); Potassium 3.2 mmol/L (3.5-5.1); Protein, Total 7.6 g/dL (6.4-8.2); Sodium Level 131 mmol/L (136-145); Troponin-I HS 4 pg/mL (3.0-54.0)
--- NOTE | 2021-02-23 09:29 | ED.RN ---
pt reports nausea remains, zofran not effective. pt had sudden onset of numbness to rt leg. denies any other sx. equal in strength. dr mahoney.
--- NOTE | 2021-02-23 10:22 | ED.RN ---
pt declining potassium d/t nausea and dizziness. dr mahoney
[2021-02-23] MEDS: diazePAM 5 MG Tablet 2.5 MG PO ×3 (11:26→14:40)
[2021-02-23 11:58] LABS: Bacteria 0 SEEN /hpf (None Seen); Mucous, Urine 0 SEEN /hpf (<or=2+); Red Blood Cells-Urine 0 SEEN /hpf (0-5)
[2021-02-23 12:03] LABS: Color, Urine Yellow (Yellow); Glucose, Dipstick Normal (Normal); Ketone-Dipstick Negative (Negative); Leukocyte Esterase-Dipstick 25 /ul (Negative); Nitrite-Dipstick Negative (Negative); Occult Blood-Urine Negative /ul (Negative); Protein-Dipstick Negative (Negative); Urine Bilirubin Dipstick Negative (Negative); Urine Clarity Sl. Cloudy (Clear); Urine Urobilinogen 1 mg/dl (Normal)
[2021-02-23 12:11] LABS: Squamous Epithelial Cells - UA 0-5 SEEN /hpf (5-10); White Blood Cells 0-5 SEEN /hpf (0-5)
[2021-02-23] MEDS: Potassium Chloride Oral Tablet 20 MEQ 40 MEQ PO (12:40)
--- NOTE | 2021-02-23 12:45 | ED.RN ---
Pt had recurrence of dizziness after coughing. eased some then as I began charting informed me the dizziness is back big time. room spinning.
--- NOTE | 2021-02-23 15:05 | CT_ITS ---
STUDY: CT BRAIN WITHOUT CONTRAST REASON FOR EXAM: Female, 65 years old. Dizziness and nausea and vomiting for 2 days. RADIATION DOSAGE (If Supplied By Facility): CTDIvol = ( 44.99 ) mGy, DLP = ( 796.11 ) mGycm TECHNIQUE: Transaxial CT imaging of the brain was performed without administration of intravenous contrast material. Individualized dose optimization techniques were used for this CT. COMPARISON: No relevant priors. FINDINGS: Normal soft tissue structures. Normal calvarium. There is mild cerebral atrophy with widening of the extra-axial spaces and ventricular dilatation. Normal white matter tracts of the cerebral hemispheres. Normal basal ganglia and thalami. Normal brainstem. There is mild cerebellar atrophy. There is no intracranial hemorrhage. There are no findings of an acute ischemic infarction. There is opacification of the right maxillary sinus. Mucosal thickening of the left maxillary sinus. CT/Brain/Head without Contrast IMPRESSION: Chronic involutional changes of the brain. Bilateral maxillary sinusitis worse on the right side. Electronically Signed: Jase Torres MD at 15:34 EST , Service support ,
--- NOTE | 2021-02-23 16:13 | PCM.HP.STD ---
HPI - General HPI Narrative MARGO STRICKLAND, is a 65 F who presents with dizziness. Symptoms began last night, worse with movement and coughing. Even worse today. Patient presented to the emergency room for evaluation. Patient had a head CT that showed no acute process. She received several rounds of diazepam without relief. Given that her symptoms are still ongoing and has profound difficulty moving, contact the hospitalist for admission. Patient denies ever having had symptoms like this before. [facility] Medical History Acute respiratory failure with hypoxia Anxiety Depression GERD (gastroesophageal reflux disease) Hip fracture HTN (hypertension) Microscopic colitis Osteoporosis Home Medications amlodipine 10 mg tablet 10 mg PO DAILY #90 tab 08/08/18 [History Last Taken 01/21/21] metoprolol succinate 100 mg tablet,extended release 24 hr 100 mg PO DAILY #90 tab 08/08/18 [History Last Taken 01/21/21] omeprazole 40 mg capsule,delayed release 40 mg PO DAILY #90 cap 08/08/18 [History Last Taken 01/21/21] Prolia 60 mg SUBCUT .[id number] 01/21/21 [History Last Taken 12/03/20] acetaminophen 1,000 mg PO Q8 #0 tab 01/23/21 [Rx Last Taken Unknown] budesonide 9 mg PO/SL DAILY 02/11/21 [History Last Taken Unknown] diazepam 2 mg PO TID PRN PRN #10 tablet 02/23/21 [Rx Last Taken Unknown] Allergy/AdvReac Type Severity Reaction Status Date / Time doxycycline Allergy Mild UNKNOWN Verified 02/23/21 07:57 amoxicillin Allergy Unknown Verified 02/23/21 07:57 ciprofloxacin [From Cipro] Allergy Unknown Verified 02/23/21 07:57 naproxen Allergy Unknown Verified 02/23/21 07:57 sulfamethoxazole Allergy Unknown Verified 02/23/21 07:57 [From Bactrim] trimethoprim [From Bactrim] Allergy Unknown Verified 02/23/21 07:57 Family History Sister Breast cancer Mother Heart disease Father No problems noted. Surgical History History of colonoscopy Social History household members: spouse housing: house number of children: 0 current occupational status: retired pets and animals: Yes (dog) Smoking Status: Current every day smoker tobacco type: cigarettes alcohol intake: current alcohol intake frequency: 0-2 drinks per day Alcohol type: beer ROS ROS Narrative Patient had COVID-19 back in March 2020. No fever chills. Patient is on oxygen and is chronically short of breath. Nausea and vomiting. Has lost weight over the past few weeks roughly 10 pounds. Does not eat much. All review of systems were negative except as mentioned above in the history of present illness and the other review of systems. Vital Signs Vital Signs Vital Signs: 02/23/21 07:53 02/23/21 07:58 02/23/21 08:31 Temperature 36.6 C 36.6 C Temperature Source Oral Oral Pulse Rate 88 86 Pulse Rate [Lying] Pulse Rate [Sitting] Respiratory Rate 22 H 22 H Respiratory Effort Short of Breath Respiratory Pattern Normal Blood Pressure 148/103 H 148/103 H Blood Pressure [Lying] Blood Pressure [Sitting] Blood Pressure Mean 118 118 Blood Pressure Mean [Lying] Blood Pressure Mean [Sitting] Pulse Ox 94 94 Oxygen Delivery Method Room Air Room Air Oxygen Flow Rate (L/min) 02/23/21 08:56 02/23/21 09:30 02/23/21 10:20 Temperature Temperature Source Pulse Rate 83 Pulse Rate [Lying] 83 Pulse Rate [Sitting] 82 Respiratory Rate 20 H Respiratory Effort Respiratory Pattern Blood Pressure 135/76 H Blood Pressure [Lying] 105/40 L Blood Pressure [Sitting] 112/63 Blood Pressure Mean 95 Blood Pressure Mean [Lying] 61 Blood Pressure Mean [Sitting] 79 Pulse Ox 96 96 Oxygen Delivery Method Nasal Cannula Room Air Oxygen Flow Rate (L/min) 2 02/23/21 12:39 02/23/21 14:13 02/23/21 15:52 Temperature 36.8 C Temperature Source Temporal Pulse Rate 98 77 73 Pulse Rate [Lying] Pulse Rate [Sitting] Respiratory Rate 27 H 19 H 18 Respiratory Effort Respiratory Pattern Blood Pressure 113/76 142/85 H 122/77 H Blood Pressure [Lying] Blood Pressure [Sitting] Blood Pressure Mean 88 104 92 Blood Pressure Mean [Lying] Blood Pressure Mean [Sitting] Pulse Ox 96 94 94 Oxygen Delivery Method Room Air Nasal Cannula Nasal Cannula Oxygen Flow Rate (L/min) 2 2 Weight Weight: 54.431 kg Body Mass Index (BMI) 20.5 Physical Exam Const alert General Appearance: cooperative HEENT normocephalic Eyes EOMs intact bilaterally Eyes Narrative: Patient had reproducible fatigable left lateral nystagmus. Upon patient gazing to her left, she had reproduction of her symptoms and became nauseated and had dry heaves. No icterus Resp normal respiratory effort, no retractions, no use of accessory muscles and clear to auscultation bilaterally Cardio regular rate, regular rhythm, S1 normal heart sound and S2 normal heart sound GI normal to inspection, nondistended, normoactive bowel sounds, soft to palpation, non-tender, non-distended and hepatosplenomegaly Extremity normal to inspection Skin no rashes or lesions noted Neuro oriented x3 Sensorium / Orientation: awake, alert and oriented to person Psych Mood & Affect: anxious Results Lab / Micro Data Attestation: I reviewed the patient's lab results. Result Diagrams: 02/23/21 08:06 02/23/21 08:06 Labs: Laboratory Results - last 24 hr 02/23/21 08:06: WBC 12.3 H, RBC 3.64 L, Hgb 12.8, Hct 35.4 L, MCV 97.3, MCH 35.2 H, MCHC 36.2 H, RDW Std Deviation 47.8 H, RDW Coeff of Lynnette 13.3, Plt Count 537 H, MPV 9.0, Immature Gran % (Auto) 2.400 H, Neut % (Auto) 75.2 H, Lymph % (Auto) 11.5 L, [place] % (Auto) 10.2 H, Eos % (Auto) 0.3, Baso % (Auto) 0.4, Absolute Neuts (auto) 9.3 H, Absolute Lymphs (auto) 1.41, Nucleated RBC % 0 02/23/21 08:06: Sodium 131 L, Potassium 3.2 L, Chloride 95 L, Carbon Dioxide 23.0, Anion Gap 13, BUN 8, Creatinine 0.45 L, Estim Creat Clear Calc 46.91, Est GFR (MDRD) Af Amer 179, Est GFR (MDRD) Non-Af 148, BUN/Creatinine Ratio 17.8, Glucose 106, Calcium 6.8 L, Total Bilirubin 0.70, AST 68 H, ALT 75 H, Alkaline Phosphatase 80, Troponin I High Sens 4, Total Protein 7.6, Albumin 2.8 L, Globulin 4.8 H, Albumin/Globulin Ratio 0.6 L 02/23/21 11:55: Urine Color Yellow, Urine Clarity Sl. Cloudy, Urine pH 6.0, Ur Specific [place] 1.010, Urine Protein Negative, Urine Glucose (UA) Normal, Urine Ketones Negative, Urine Occult Blood Negative, Urine Nitrite Negative, Urine Bilirubin Negative, Urine Urobilinogen 1 H, Ur Leukocyte Esterase 25 H, Urine RBC 0 SEEN, Urine WBC 0-5 SEEN, Ur Squamous Epith Cells 0-5 SEEN, Urine Bacteria 0 SEEN, Urine Mucus 0 SEEN Micro: Microbiology 02/23/21 08:21 Nasal Secretion SARS-CoV-2 Antigen (Rapid) - Final Radiology Impression Chest X-Ray 02/23/21 08:40 IMPRESSION: Hyperinflation. Stable mild linear scarring at the left lung base. Electronically Signed: Jase Torres MD at 9:05 EST , Service support , Brain CT 02/23/21 15:05 IMPRESSION: Chronic involutional changes of the brain. Bilateral maxillary sinusitis worse on the right side. Electronically Signed: Jase Torres MD at 15:34 EST , Service support , Assessment & Plan Assessment/Plan (1) Vertigo: (2) Maxillary sinusitis: QUALIFIERS: Chronicity: unspecified Qualified Code(s): J32.0 - Chronic maxillary sinusitis PLAN: 1. Vertigo Suspect benign paroxysmal positional vertigo given the fatigability of her nystagmus which was left-sided. Start as needed meclizine Physical therapy for evaluation for vestibular therapy Antiemetics 2. Maxillary sinusitis Hold off on antibiotics at this time but incidental finding. 3. COPD Not in exacerbation at this time 4. VTE prophylaxis: Not indicated given current observation status 5. Recent hip fracture Follow-up with orthopedics as outpatient 6. Advanced care planning: Patient wishes to be full CODE STATUS 7. History of COVID-19: Patient contracted it back in March. She is not vaccinated for COVID-19. No known recent COVID-19 contacts Charges/Coding Visit Charges OBSV E&M: 34166 Initial observation care L3
--- NOTE | 2021-02-23 16:13 | NURSING ---
MED SURG OBS JOPPERI INTRACTABLE VERTIGO
--- NOTE | 2021-02-23 16:49 | CASEMGMT ---
RN CM MILL OILER CM to room to meet with patient for initial transition planning/care coordination assessment. RN DALILA introduced self and role at [facility]. Pt voices understanding and consents to assessment at this time. Patient complains of continued dizziness with nausea. Pt is A/O at this time and answers all questions appropriately. , Sriram, present at bedside. Care providers, pharmacy, and demographics verified/updated at this time. PCP: Jair Squires Specialists: Gualberto Robles Preferred Pharmacy: [facility] Insurance: Aet Medicare Prescription Benefit: yes Living Will/HPOA: Patient has living will and HPOA forms on file at [facility]. HPOA is Sriram. LNOK: , Sriram Nguyen Living Arrangements: Patient lives with in two story house with one step to enter the home. Patient typically independent with ADLs prior to current illness but has recently needed assistance of to shower/bathe related to weakness/dizziness. Transportation: Self. available for transport needs as well. DME/HHC/SNF: Patient has walk-in shower with bench, grab bars, walker, cane, wheelchair and pulse ox monitor in home. Patient recently set-up with home oxygen through [employer] around Keisha time- 2-3 LPM per . TONI CONNER attempted to call [employer] office to confirm oxygen liter flow order but business office closed. Patient is active with [facility] for SN/PT. Pt wishes to return home with resumption of HHC services. CM to follow for any discharge planning/needs. Pt voices no concerns/needs at this time. Advised pt to ask for CM if any questions/concerns/needs arise. Voices understanding. PLAN/GOAL: Home with resumption of HHC services
[2021-02-23] MEDS: Meclizine HCl 25 MG Tablet PO (19:29)
[2021-02-23] MEDS: Acetaminophen 500 MG Tablet 1000 MG PO (21:14)
[2021-02-23] MEDS: Haloperidol Lactate 5 MG/ML Vial 2 MG IM (23:25)
--- NOTE | 2021-02-23 23:34 | RAD_ITS ---
EXAM: XR CHEST, 1 VIEW CLINICAL INDICATION: SOB TECHNIQUE: Frontal view of the chest. This report was created using [employer] report generation technology. COMPARISON: 02/23/2021 chest x-ray performed at 8:39 AM. FINDINGS: See Impression. RAD/Chest 1 View (Portable) IMPRESSION: 1. No change in the short interval. 2. No new consolidation, pleural effusion or pneumothorax. 3. Redemonstration of fracture deformity involving the left clavicle and multiple right and left ribs; remaining bones are also unchanged. Electronically Signed: Keagan Gaona MD at 1:03 EST Tel , Service support ,
[2021-02-24] VITALS (13 sets, daily range): BP systolic 103–135; BP diastolic 59–84; PULSE 70–134; RESP 16–30; TEMP 36.3–36.8; O2SAT 94–99
[2021-02-24 00:15] LABS: Allen Test Negative; Base Excess -3 mmol/L (-2 to +2); Bicarbonate 19.1 mmol/L (22-26); Blood Gas Specimen Type ART; O2 Delivery Device Cannula; PO2 65 mmHG (75-100); SITE L Radial; SO2 96 % (95-99); Total Carbon Dioxide 20 mmol/L; pCO2 21.5 mmHg (35-45); pH 7.56 (7.35-7.45)
[2021-02-24] MEDS: proCHLORPERazine 10 MG/2 ML Vial 5 MG IV (00:33)
[2021-02-24] MEDS: 0.9% Saline Lock 10 ML Syringe IV ×3 (00:34→16:35)
[2021-02-24] MEDS: Haloperidol Lactate 5 MG/ML Vial 4 MG IM ×2 (01:09→05:34)
[2021-02-24] MEDS: diazePAM 5 MG Tablet PO ×2 (03:03→07:10)
[2021-02-24] MEDS: Meclizine HCl 25 MG Tablet PO ×2 (03:14→08:51)
[2021-02-24] MEDS: Acetaminophen 500 MG Tablet 1000 MG PO ×3 (05:36→21:04)
--- NOTE | 2021-02-24 07:26 | PCS.PANDOC ---
PANDEMIC DOCUMENTATION INITIATED: Date: 10/06/2020 Time: 190
[2021-02-24] MEDS: Ipratropium/Albuterol Sulfate 3 ML AMPUL.NEB INHALATION ×3 (07:56→15:18)
--- NOTE | 2021-02-24 08:03 | CPS ---
Pt says she sleeps heavily and sleeps a lot when asked if it is normally hard to wake her at home.
--- NOTE | 2021-02-24 08:41 | PN.HOSP_ITS ---
Documented by User: Dr. Jason Leyva MD 02/24/21 20:00 Objective Data Objective Data Vital Signs: Vital Signs Temp Pulse Resp BP Pulse Ox 98 F 118 H 24 H 122/73 H 98 02/24/21 07:03 02/24/21 07:56 02/24/21 07:56 02/24/21 07:03 02/24/21 07:56 Oxygen Flow Rate (L/min) 3 Oxygen Delivery Method Nasal Cannula Weight: 112 lb Body Mass Index (BMI) 19.2 Intake & Output: Intake and Output for Last 24 Hours 02/23/21 02/24/21 02/25/21 03:59 03:59 03:59 Intake Total 300 / 300 400 / 400 Output Total 0 / 0 0 / 0 Balance 300 / 300 400 / 400 Lab / Micro Data Result Diagrams: 02/24/21 11:30 02/24/21 11:30 Labs: Laboratory Results - last 24 hr 02/23/21 08:06: Sodium 131 L, Potassium 3.2 L, Chloride 95 L, Carbon Dioxide 23.0, Anion Gap 13, BUN 8, Creatinine 0.45 L, Estim Creat Clear Calc 46.91, Est GFR (MDRD) Af Amer 179, Est GFR (MDRD) Non-Af 148, BUN/Creatinine Ratio 17.8, Glucose 106, Calcium 6.8 L, Total Bilirubin 0.70, AST 68 H, ALT 75 H, Alkaline Phosphatase 80, Troponin I High Sens 4, Total Protein 7.6, Albumin 2.8 L, Globulin 4.8 H, Albumin/Globulin Ratio 0.6 L 02/23/21 11:55: Urine Color Yellow, Urine Clarity Sl. Cloudy, Urine pH 6.0, Ur Specific [place] 1.010, Urine Protein Negative, Urine Glucose (UA) Normal, Urine Ketones Negative, Urine Occult Blood Negative, Urine Nitrite Negative, Urine Bilirubin Negative, Urine Urobilinogen 1 H, Ur Leukocyte Esterase 25 H, Urine RBC 0 SEEN, Urine WBC 0-5 SEEN, Ur Squamous Epith Cells 0-5 SEEN, Urine Bacteria 0 SEEN, Urine Mucus 0 SEEN Micro: Microbiology 02/23/21 08:21 Nasal Secretion SARS-CoV-2 Antigen (Rapid) - Final ABG Data ABG results: ABG 02/24/21 00:11 Specimen Type ART Sample Site L Radial pH 7.56 H Bicarbonate Actual 19.1 L Total CO2 20 Base Excess -3 L O2 Saturation 96 ABG pCO2 21.5 L ABG pO2 65 L Rahul Test Negative O2 Delivery Device Cannula Liter Flow 3.0 Radiography Diagnostic Testing: Radiology Impression Chest X-Ray 02/23/21 08:40 IMPRESSION: Hyperinflation. Stable mild linear scarring at the left lung base. Electronically Signed: Jase Torres MD at 9:05 EST , Service support , Brain CT 02/23/21 15:05 IMPRESSION: Chronic involutional changes of the brain. Bilateral maxillary sinusitis worse on the right side. Electronically Signed: Jase Torres MD at 15:34 EST , Service support , Chest X-Ray 02/23/21 23:34 IMPRESSION: 1. No change in the short interval. 2. No new consolidation, pleural effusion or pneumothorax. 3. Redemonstration of fracture deformity involving the left clavicle and multiple right and left ribs; remaining bones are also unchanged. Electronically Signed: Keagan Gaona MD at 1:03 EST Tel , Service support , Charges/Coding Addendum Addendum: Dr. Leyva: I personally reviewed the chart and examined the patient, and agree with the above findings. 65-year-old female who is resting comfortably, she had received a dose of Ativan as there is some concern that most of her symptomatology is consistent with alcohol withdrawal. She did tell nursing staff that she drinks 2 glasses of wine a night however in discussing this with her he states that she drinks 2 bottles of wine on most nights. Alcohol withdrawal could be the cause of her vertigo therefore we will continue with this treatment as well as the meclizine. Her white count is elevated but she does have maxillary sinusitis. She also has chronic hypocalcemia and I believe this is due to her Prolia injections as according to her she had gotten her last Prolia infusion in December and her hypocalcemia started significantly in January therefore we will give her a gram of calcium gluconate and follow in the morning. Visit Charges Inpatient E&M: 47686 Subs Hosp L2 Documented by User: MEGHAN Vo 02/24/21 14:26 Subjective Subjective Seen and examined. Patient lying in bed, full body tremors noted. Patient reports that she does consume alcohol daily. Patient states that she has never been through withdrawal before however patient is having full body tremors and stating that there are alterations in her hearing and that when people are talking to her it sounds like to voices instead of 1. Objective Data Lab / Micro Data Result Diagrams: 02/24/21 11:30 02/24/21 11:30 Physical Exam Const alert, oriented x3 and no apparent distress HEENT head/scalp atraumatic and moist oral mucous membranes Head and Scalp: normocephalic Eyes conjunctivae normal and no scleral icterus Neck full ROM and supple Resp normal respiratory effort and normal air movement Effort and Inspection: able to speak in complete sentences and symmetric chest movement Auscultation: wheezes Cardio regular rate, regular rhythm, S1 normal heart sound and S2 normal heart sound Rate: tachycardic GI normal to inspection, nondistended, normoactive bowel sounds, soft to palpation and non-tender Extremity normal to inspection, full ROM and no clubbing, cyanosis or edema Peripheral Pulses: Yes pulses 2+ throughout Skin no rashes or lesions noted, no wounds and skin turgor normal Neuro oriented x3 Sensorium / Orientation: awake and alert Speech: speech normal Motor Exam: tremor Type: Positive for resting Positive for bilateral upper extremity and bilateral lower extremity Psych affect normal Assessment & Plan Assessment/Plan (1) Vertigo: (2) Alcohol withdrawal: QUALIFIERS: Complication of substance-induced condition: uncomplicated Qualified Code(s): F10.230 - Alcohol dependence with withdrawal, uncomplicated (3) Bronchitis: PLAN: 1. Vertigo -Continue as needed meclizine, Valium DC'd due to initiation of Ativan taper for alcohol withdrawal -Continue PT and OT -CT negative 2. Alcohol withdrawal -Patient reports that she has a daily intake of wine, patient reports 2 glasses daily -Ativan taper initiated due to resting tremors to her upper and lower bilateral extremities as well as patient reports that she is beginning to have auditory disturbances, states that she hears 2 voices instead of 1 when people talk to her -Supportive medications also ordered per protocol 3. Hypokalemia - Potassium Chloride 40 meq x1 po ordered. -BMP ordered for a.m. 4. Hypocalcemia -Calcium gluconate 1 g given IV -BMP ordered for a.m. We will continue home medications for patient's chronic diseases as ordered DVT prophylaxis-Subcu lovenox Patient transition to inpatient status due to failed conservative treatment and need for potassium and calcium replacement.
[2021-02-24] MEDS: Metoprolol(XL)Succ 100 MG Tablet PO (08:48)
[2021-02-24] MEDS: Budesonide 3 MG CAPSULE.EC 9 MG PO (08:48)
[2021-02-24] MEDS: amLODIPine 10 MG Tablet PO (08:49)
[2021-02-24] MEDS: Pantoprazole Sodium 40 MG Tablet PO (08:49)
[2021-02-24] MEDS: hydrOXYzine PAM 25 MG Capsule 50 MG PO (09:42)
[2021-02-24] MEDS: LORazepam 1 MG Tablet PO ×3 (09:42→21:08)
[2021-02-24 11:45] LABS: Absolute Neutrophil Count 10.4 X10^3/uL (2.0-7.7); Basophil# 0.02 X10^3/uL; Basophil% 0.2 % (0-1); Eosinophil# 0.01 X10^3/uL; Eosinophils% 0.1 % (0-5); Hematocrit 30.4 % (37-47); Lymphocyte % 7.5 % (19-41); Mean Corp Hgb Conc 36.2 g/dL (32-36); Mean Corpuscular Volume 96.8 fL (81-99); Mean Platelet Vol. 9.2 fl (6.2-12.0); Monocyte# 1.64 X10^3/uL; Monocyte% 12.3 % (0-10); NRBC Flagged by Analyzer 0 % (0-5); Neutrophil # 10.43 X10^3/uL (2.7-7.7); Neutrophil % 78.5 % (47-70); POSITIVE DIFFERENTIAL YES; Platelet Count 452 K/mm3 (150-450); RBC Distribution Width CV 13.4 % (11.6-14.6); Red Blood Count 3.14 M/mm3 (4.2-5.4); White Blood Count 13.3 K/mm3 (4.4-11.0)
[2021-02-24 11:50] LABS: Differential Indicated SCAN CRITERIA MET
[2021-02-24 12:14] LABS: Anion Gap 15 (5-15); BUN 16 mg/dL (7-18); BUN/Creat Ratio 21.9 RATIO (10-20); Calcium,Total 6.4 mg/dL (8.5-10.1); Chloride 95 mmol/L (98-107); Creatinine, Serum 0.73 mg/dL (0.55-1.02); EST Glomerular Filtration Rate 84 mL/min (>60); Est Glom Filt Rate - Afr Amer 102 mL/min (>60); Estimated Creatinine Clearance 43.78 ml/min; Glucose 135 mg/dL (74-106); Sodium Level 133 mmol/L (136-145)
[2021-02-24] MEDS: Potassium Chloride Oral Tablet 20 MEQ 40 MEQ PO (14:33)
--- NOTE | 2021-02-24 16:27 | CHAPLAIN ---
Type of Pastoral Visit _x__ Initial Visit ___ Follow-up Visit ___ On-call Visit ___ General Patient Visit ___ Spiritual Assessment ___ Family Conference ___ Bereavement ___ Rapid Response ___ Code Blue ___ Other (describe below) Pastoral Care Referral From _x__ Patient ___ Family ___ Nurse ___ Physician ___ Creative Services Coordinator ___ Ship Carpenter ___ Other (describe below) Sacrament/Intervention ___ Active listening ___ Anointing ___ Restorationist ___ Bereavement ___ Communion ___ Clare exploration ___ ___ Life review ___ Prayer ___ Reconciliation ___ Sacrament of Sick _x__ Supportive presence ___ Wedding ___ Other (describe below) Pastoral Comments three attempts and patient is sleeping; however on third attempt spouse of pt is in the room; this software sales representative remembers meeting this couple in January when pt was admitted for another issue; spouse reports difficult year for the patient; decision to let pt sleep at this time; offer of support given
[2021-02-24] MEDS: Menthol/Lanolin/Calamine/Znox 113 GM Tube 1 APPLIC TOPICAL (21:04)
[2021-02-25] VITALS (10 sets, daily range): BP systolic 103–142; BP diastolic 73–93; PULSE 80–91; RESP 16–20; TEMP 36.4–37.1; O2SAT 94–97
[2021-02-25] MEDS: Acetaminophen 500 MG Tablet 1000 MG PO ×3 (06:40→21:47)
[2021-02-25] MEDS: LORazepam 1 MG Tablet PO ×4 (06:43→21:44)
[2021-02-25 06:51] LABS: Absolute Lymphocyte Count 1.45 X10^3/uL (0.83-4.51); Absolute Neutrophil Count 6.4 X10^3/uL (2.0-7.7); Basophil# 0.04 X10^3/uL; Basophil% 0.4 % (0-1); Eosinophils% 1.1 % (0-5); Hematocrit 29.3 % (37-47); Hemoglobin 10.3 g/dL (12.0-15.0); Lymphocyte # 1.45 X10^3/ul (0.83-4.51); Lymphocyte % 15.9 % (19-41); Mean Corp Hgb Conc 35.2 g/dL (32-36); Mean Corpuscular Hgb 34.4 pg (27.0-32.0); Mean Platelet Vol. 9.3 fl (6.2-12.0); NRBC Flagged by Analyzer 0 % (0-5); Neutrophil # 6.41 X10^3/uL (2.7-7.7); Neutrophil % 70.3 % (47-70); Platelet Count 416 K/mm3 (150-450); RBC Distribution Width CV 13.2 % (11.6-14.6); RBC Distribution Width SD 47.3 fl (35.1-43.9); Red Blood Count 2.99 M/mm3 (4.2-5.4); White Blood Count 9.1 K/mm3 (4.4-11.0)
[2021-02-25 07:35] LABS: Anion Gap 10 (5-15); BUN 9 mg/dL (7-18); BUN/Creat Ratio 24.1 RATIO (10-20); Calcium,Total 6.1 mg/dL (8.5-10.1); Chloride 102 mmol/L (98-107); Creatinine, Serum 0.37 mg/dL (0.55-1.02); EST Glomerular Filtration Rate 183 mL/min (>60); Est Glom Filt Rate - Afr Amer 221 mL/min (>60); Estimated Creatinine Clearance 43.78 ml/min; Glucose 76 mg/dL (74-106); Potassium 3.3 mmol/L (3.5-5.1); Sodium Level 137 mmol/L (136-145)
[2021-02-25] MEDS: Folic Acid 1 MG Tablet PO (08:31)
[2021-02-25] MEDS: Ondansetron 8 MG Tablet PO (08:31)
[2021-02-25] MEDS: Thiamine Hydrochloride 100 MG Tablet PO (08:31)
[2021-02-25] MEDS: Pantoprazole Sodium 40 MG Tablet PO (10:21)
[2021-02-25] MEDS: Enoxaparin 40 MG/0.4 ML Syringe SC (10:21)
[2021-02-25] MEDS: amLODIPine 10 MG Tablet PO (10:21)
[2021-02-25] MEDS: Budesonide 3 MG CAPSULE.EC 9 MG PO (10:21)
[2021-02-25] MEDS: Metoprolol(XL)Succ 100 MG Tablet PO (10:22)
[2021-02-25] MEDS: Menthol/Lanolin/Calamine/Znox 113 GM Tube 1 APPLIC TOPICAL ×2 (10:22→21:46)
[2021-02-25] MEDS: Ipratropium/Albuterol Sulfate 3 ML AMPUL.NEB INHALATION ×2 (11:54→20:32)
[2021-02-25] MEDS: Ondansetron 4 MG/2 ML Vial IV (12:32)
[2021-02-25] MEDS: 0.9% Saline Lock 10 ML Syringe IV (12:32)
[2021-02-25] MEDS: Meclizine HCl 25 MG Tablet PO (12:43)
--- NOTE | 2021-02-25 12:54 | PN.HOSP_ITS ---
Documented by User: Florence Arevalo NP-C 02/25/21 12:58 Subjective Subjective Patient seen and examined. Patient lying in bed no distress noted. Patient less tremorous than previous day however she continues to have subtle tremors in her bilateral upper extremities at rest. Objective Data Objective Data Vital Signs: Vital Signs Temp Pulse Resp BP Pulse Ox 97.5 F L 91 16 134/93 H 95 02/25/21 08:41 02/25/21 12:01 02/25/21 12:02/25/21 10:22 02/25/21 08:41 Oxygen Flow Rate (L/min) 2 Oxygen Delivery Method Nasal Cannula Weight: 112 lb Body Mass Index (BMI) 19.2 Intake & Output: Intake and Output for Last 24 Hours 02/23/21 02/24/21 02/25/21 23:59 23:59 23:59 Intake Total 1560 / 1560 Output Total 0 / 0 0 / 0 Balance 1560 / 1560 0 / 0 Medical Nutrition Assessment Dietitian: Malnutrition Criteria Met Start: 02/24/21 11:58 Freq: Status: Active Protocol: Document 02/24/21 11:58 SLA (Rec: 02/24/21 11:58 SLA [id number]) Nutrition Malnutrition Evidence of Malnutrition Exists Yes Evidenced By Suboptimal Energy Intake ( Severe),Weight Loss (Severe) Clinical Problem Acute Disease or Injury Related Malnutrition Etiology related to not feeling well and inability to consume adequate nutrition to meet est nutritional needs Signs/Symptoms as evidenced by <50% po intake x >2 wks and and 14.8% wt loss in 1 month Status Active Problem Recommendation Dietitian Recommendations/Changes Continue liberal regular diet d/t s/s of malnutrition Will change ensure compact w/ medpass to ensure clear w/ meals per pt request Lab / Micro Data Result Diagrams: 02/25/21 06:26 02/25/21 06:26 Labs: Laboratory Results - last 24 hr 02/24/21 11:30: Diff Path Review June02/25/21 06:26: WBC 9.1, RBC 2.99 L, Hgb 10.3 L, Hct 29.3 L, MCV 98.0, MCH 34.4 H, MCHC 35.2, RDW Std Deviation 47.3 H, RDW Coeff of Lynnette 13.2, Plt Count 416, MPV 9.3, Immature Gran % (Auto) 1.300 H, Neut % (Auto) 70.3 H, Lymph % (Auto) 15.9 L, [place] % (Auto) 11.0 H, Eos % (Auto) 1.1, Baso % (Auto) 0.4, Absolute Neuts (auto) 6.4, Absolute Lymphs (auto) 1.45, Nucleated RBC % 0 02/25/21 06:26: Sodium 137, Potassium 3.3 L, Chloride 102, Carbon Dioxide 25.0, Anion Gap 10, BUN 9, Creatinine 0.37 L, Estim Creat Clear Calc 43.78, Est GFR (MDRD) Af Amer 221, Est GFR (MDRD) Non-Af 183, BUN/Creatinine Ratio 24.1 H, Glucose 76, Calcium 6.1 L* Micro: Microbiology 02/23/21 08:21 Nasal Secretion SARS-CoV-2 Antigen (Rapid) - Final Physical Exam Const alert, oriented x3 and no apparent distress General Appearance: cooperative HEENT normocephalic, head/scalp atraumatic and moist oral mucous membranes Eyes conjunctivae normal and no scleral icterus Neck full ROM and supple Resp normal respiratory effort, normal air movement, no retractions and no use of acc essory muscles Effort and Inspection: able to speak in complete sentences and symmetric chest movement Auscultation: wheezes Cardio regular rate, regular rhythm, S1 normal heart sound and S2 normal heart sound Rate: tachycardic GI normal to inspection, nondistended, normoactive bowel sounds, soft to palpation, non-tender, non-distended and hepatosplenomegaly Extremity normal to inspection, full ROM and no clubbing, cyanosis or edema Skin no rashes or lesions noted, no wounds and skin turgor normal Neuro oriented x3 Sensorium / Orientation: awake, alert and oriented to person Speech: speech normal Motor Exam: tremor Type: Positive for resting Positive for bilateral upper extremity and bilateral lower extremity Psych affect normal Mood & Affect: anxious Assessment & Plan Assessment/Plan (1) Vertigo: (2) Alcohol withdrawal: QUALIFIERS: Complication of substance-induced condition: unco mplicated Qualified Code(s): F10.230 - Alcohol dependence with withdrawal, uncomplicated (3) Bronchitis: PLAN: 1. Vertigo -Continue as needed meclizine, Valium DC'd due to initiation of Ativan taper for alcohol withdrawal, patient verbalizes improvement of symptoms -Continue PT and OT -CT negative 2. Alcohol withdrawal -Patient reports that she has a daily intake of wine, patient reports 2 glasses daily. clarified that patient drinks closer to 2 bottles of wine daily. -Continue Ativan taper, tremors improving. -Supportive medications also ordered per protocol 3. Hypokalemia -Potassium 3.3, Potassium Chloride 40 meq x1 po ordered. -BMP ordered for a.m. 4. Hypocalcemia -Calcium gluconate 1 g given IV -BMP ordered for a.m. We will continue home medications for patient's chronic diseases as ordered DVT prophylaxis-Subcu lovenox Documented by User: Dr. Jason Leyva MD 02/25/21 16:32 Objective Data Lab / Micro Data Result Diagrams: 02/25/21 06:26 02/25/21 06:26 Charges/Coding Addendum Addendum: Dr. Leyva: I personally reviewed the chart and examined the patient, and agree with the above findings. 65-year-old female who is resting comfortably, she had received a dose of Ativan as there is some concern that most of her symptomatology is consistent with alcohol withdrawal. She did tell nursing staff that she drinks 2 glasses of wine a night however in discussing this with her he states that she drinks 2 bottles of wine on most nights. Alcohol withdrawal could be the cause of her vertigo therefore we will continue with this treatment as well as the meclizine. Her white count is elevated but she does have maxillary sinusitis. She also has chronic hypocalcemia and I believe this is due to her Prolia injections as according to her she had gotten her last Prolia infusion in December and her hypocalcemia started significantly in January therefore we will give her a gram of calcium gluconate and follow in the morning. 02/24/2021: Still has upper extremity tremors however appears to be a little less dizzy today. In discussion with her , she drinks 2 bottles of wine a night cee was today are 12. Continue with the Ativan taper. We will encourage her to get out of bed and ambulate with assistance as much as possible. Calcium down to 6.1 despite her gram of calcium gluconate given yesterday, will repeat dose today and an ionized calcium is pending. Time spent in clinical care activities 18 minutes Visit Charges Inpatient E&M: 27171 Subs Hosp L2
[2021-02-25 13:22] LABS: Pathologist Review Reviewed
[2021-02-25] MEDS: Potassium Chloride Oral Tablet 20 MEQ 40 MEQ PO (13:34)
[2021-02-26] VITALS (10 sets, daily range): BP systolic 92–112; BP diastolic 59–72; PULSE 82–96; RESP 16–24; TEMP 36.3–37.3; O2SAT 92–96
[2021-02-26] MEDS: hydrOXYzine PAM 25 MG Capsule 50 MG PO ×2 (00:18→12:25)
[2021-02-26] MEDS: LORazepam 1 MG Tablet PO ×6 (02:58→23:11)
[2021-02-26] MEDS: Acetaminophen 500 MG Tablet 1000 MG PO ×3 (06:22→23:11)
[2021-02-26 06:47] LABS: Absolute Lymphocyte Count 1.65 X10^3/uL (0.83-4.51); Absolute Neutrophil Count 4.8 X10^3/uL (2.0-7.7); Basophil# 0.13 X10^3/uL; Basophil% 1.7 % (0-1); Eosinophil# 0.15 X10^3/uL; Eosinophils% 1.9 % (0-5); Hematocrit 33.4 % (37-47); Hemoglobin 11.7 g/dL (12.0-15.0); Lymphocyte # 1.65 X10^3/ul (0.83-4.51); Lymphocyte % 21.4 % (19-41); Mean Corpuscular Hgb 34.9 pg (27.0-32.0); Mean Corpuscular Volume 99.7 fL (81-99); Monocyte# 0.82 X10^3/uL; Monocyte% 10.6 % (0-10); NRBC Flagged by Analyzer 0 % (0-5); Neutrophil # 4.83 X10^3/uL (2.7-7.7); Neutrophil % 62.8 % (47-70); Platelet Count 366 K/mm3 (150-450); RBC Distribution Width CV 13.6 % (11.6-14.6); RBC Distribution Width SD 49.2 fl (35.1-43.9); Red Blood Count 3.35 M/mm3 (4.2-5.4); White Blood Count 7.7 K/mm3 (4.4-11.0)
[2021-02-26 07:19] LABS: Anion Gap 12 (5-15); BUN 8 mg/dL (7-18); BUN/Creat Ratio 14.4 RATIO (10-20); Calcium,Total 6.3 mg/dL (8.5-10.1); Chloride 105 mmol/L (98-107); Creatinine, Serum 0.56 mg/dL (0.55-1.02); EST Glomerular Filtration Rate 116 mL/min (>60); Est Glom Filt Rate - Afr Amer 140 mL/min (>60); Estimated Creatinine Clearance 43.78 ml/min; Glucose 77 mg/dL (74-106); Potassium 3.4 mmol/L (3.5-5.1); Sodium Level 135 mmol/L (136-145)
[2021-02-26] MEDS: Ipratropium/Albuterol Sulfate 3 ML AMPUL.NEB INHALATION ×5 (07:39→23:15)
[2021-02-26] MEDS: Folic Acid 1 MG Tablet PO (08:07)
[2021-02-26] MEDS: Thiamine Hydrochloride 100 MG Tablet PO (08:08)
[2021-02-26] MEDS: 0.9% Saline Lock 10 ML Syringe IV ×2 (08:42→14:42)
[2021-02-26] MEDS: Budesonide 3 MG CAPSULE.EC 9 MG PO (10:16)
[2021-02-26] MEDS: Pantoprazole Sodium 40 MG Tablet PO (10:17)
[2021-02-26] MEDS: Enoxaparin 40 MG/0.4 ML Syringe SC (10:17)
[2021-02-26] MEDS: Metoprolol(XL)Succ 100 MG Tablet PO (10:17)
[2021-02-26] MEDS: amLODIPine 10 MG Tablet PO (10:17)
[2021-02-26] MEDS: Potassium Chloride Oral Tablet 20 MEQ 40 MEQ PO (10:28)
--- NOTE | 2021-02-26 11:19 | PN.HOSP_ITS ---
Documented by User: Miguel NORWOOD 02/26/21 11:28 Subjective Subjective Patient is a 65-year-old female comfortably resting in bed, alert and orient x3. Patient denies development of any new symptoms overnight. Does not appear in acute distress. Objective Data Objective Data Vital Signs: Vital Signs Temp Pulse Resp BP Pulse Ox 98.0 F 84 24 H 112/72 96 02/26/21 08:00 02/26/21 10:17 02/26/21 08:00 02/26/21 08:00 02/26/21 08:00 Oxygen Flow Rate (L/min) 2 Oxygen Delivery Method Nasal Cannula Weight: 112 lb Body Mass Index (BMI) 19.2 Intake & Output: Intake and Output for Last 24 Hours 02/24/21 02/25/21 02/26/21 23:59 23:59 23:59 Intake Total 1560 / 1560 610 / 610 0.25 / 0.25 Output Total 0 / 0 300 / 300 0 / 0 Balance 1560 / 1560 310 / 310 0.25 / 0.25 Medical Nutrition Assessment Dietitian: Malnutrition Criteria Met Start: 02/24/21 11:58 Freq: Status: Active Protocol: Document 02/24/21 11:58 SLA (Rec: 02/24/21 11:58 SLA [id number]) Nutrition Malnutrition Evidence of Malnutrition Exists Yes Evidenced By Suboptimal Energy Intake ( Severe),Weight Loss (Severe) Clinical Problem Acute Disease or Injury Related Malnutrition Etiology related to not feeling well and inability to consume adequate nutrition to meet est nutritional needs Signs/Symptoms as evidenced by <50% po intake x >2 wks and and 14.8% wt loss in 1 month Status Active Problem Recommendation Dietitian Recommendations/Changes Continue liberal regular diet d/t s/s of malnutrition Will change ensure compact w/ medpass to ensure clear w/ meals per pt request Lab / Micro Data Result Diagrams: 02/26/21 06:28 02/27/21 06:30 Labs: Laboratory Results - last 24 hr 02/24/21 11:30: Diff Path Review Reviewed 02/26/21 06:28: WBC 7.7, RBC 3.35 L, Hgb 11.7 L, Hct 33.4 L, MCV 99.7 H, MCH 34.9 H, MCHC 35.0, RDW Std Deviation 49.2 H, RDW Coeff of Lynnette 13.6, Plt Count 366, MPV 10.0, Immature Gran % (Auto) 1.600 H, Neut % (Auto) 62.8, Lymph % (Auto) 21.4, [place] % (Auto) 10.6 H, Eos % (Auto) 1.9, Baso % (Auto) 1.7 H, Absolute Neuts (auto) 4.8, Absolute Lymphs (auto) 1.65, Nucleated RBC % 0 02/26/21 06:28: Sodium 135 L, Potassium 3.4 L, Chloride 105, Carbon Dioxide 18.0 L, Anion Gap 12, BUN 8, Creatinine 0.56, Estim Creat Clear Calc 43.78, Est GFR (MDRD) Af Amer 140, Est GFR (MDRD) Non-Af 116, BUN/Creatinine Ratio 14.4, Glucose 77, Calcium 6.3 L* Micro: Microbiology 02/23/21 08:21 Nasal Secretion SARS-CoV-2 Antigen (Rapid) - Final Physical Exam Const alert, oriented x3 and no apparent distress HEENT head/scalp atraumatic, moist oral mucous membranes and oropharynx normal Head and Scalp: normocephalic Eyes PERRL, EOMs intact bilaterally and conjunctivae normal Neck no lymphadenopathy, supple and no JVD Resp normal respiratory effort, no retractions, no use of accessory muscles and clear to auscultation bilaterally Cardio regular rate, regular rhythm, no murmurs and no JVD GI normal to inspection, nondistended, normoactive bowel sounds, soft to palpation and non-tender Extremity normal to inspection, full ROM and no clubbing, cyanosis or edema Skin no rashes or lesions noted, no wounds, skin turgor normal and no jaundice Neuro CN's II-XII intact bilaterally Psych affect normal Assessment & Plan Assessment/Plan (1) Vertigo: (2) Alcohol withdrawal: QUALIFIERS: Complication of substance-induced condition: uncomplicated Qualified Code(s): F10.230 - Alcohol dependence with withdrawal, uncomplicated PLAN: Day 3 Discharge planning: Current plan is for patient to discharge home with home health care. 1) Vertigo Brain CT negative for any evidence of acute ischemia or infarction. Patient still reports being dizzy although reports that there is improvement of symptoms with meclizine. We will continue as needed meclizine. 2) alcohol withdrawal According to patient's patient drinks 2 bottles of wine daily. CIWA score 18. Continue Ativan taper, thiamine and folic acid supplementation as well as supportive medications. 3) hypokalemia Currently 3.4, potassium chloride 40 mEq x 1 ordered. Continue to monitor BMP. 4) hypocalcemia Currently 6.3, calcium gluconate infusion ordered. Continue to monitor. DVT prophylaxis- Lovenox Patient seen by Miguel Smalls PA-C, under the supervision of Dr. Leyva. Time spent on patient care: 7 minutes. Documented by User: Dr. Jason Leyva MD 02/27/21 17:15 Objective Data Lab / Micro Data Result Diagrams: 02/26/21 06:28 02/27/21 06:30 Charges/Coding Addendum Addendum: Dr. Leyva: I personally reviewed the chart and examined the patient, and agree with the above findings. 65-year-old female who is resting comfortably, she had received a dose of Ativan as there is some concern that most of her symptomatology is consistent with alcohol withdrawal. She did tell nursing staff that she drinks 2 glasses of wine a night however in discussing this with her he states that she drinks 2 bottles of wine on most nights. Alcohol withdrawal could be the cause of her vertigo therefore we will continue with this treatment as well as the meclizine. Her white count is elevated but she does have maxillary sin usitis. She also has chronic hypocalcemia and I believe this is due to her Prolia injections as according to her she had gotten her last Prolia infusion in December and her hypocalcemia started significantly in January therefore we will give her a gram of calcium gluconate and follow in the morning. 02/26/2021: Much more significant nystagmus today, her calcium is slightly improved therefore we will check a magnesium and replace as necessary. She does seem very off balance and will need to have PT/OT to evaluate her for discharge potential. We will continue to replace her calcium as necessary as this is likely the cause of her significant lateral and vertical nystagmus. Clinical time 18 minutes Visit Charges Inpatient E&M: 65395 Subs Hosp L2
[2021-02-26] MEDS: Meclizine HCl 25 MG Tablet PO (12:25)
[2021-02-26] MEDS: Ondansetron 8 MG Tablet PO (12:25)
[2021-02-26] MEDS: Menthol/Lanolin/Calamine/Znox 113 GM Tube 1 APPLIC TOPICAL ×2 (13:06→23:12)
[2021-02-26 13:15] LABS: Magnesium 0.5 mg/dL (1.6-2.6); Phosphorus 4.2 mg/dL (2.5-4.9)
[2021-02-26] MEDS: Magnesium Sulfate 4gm/100mL 4 GM/100 ML IV.SOLN. IV (14:42)
[2021-02-27] VITALS (8 sets, daily range): BP systolic 101–110; BP diastolic 54–69; PULSE 80–87; RESP 18–22; TEMP 36.4–36.8; O2SAT 91–97
[2021-02-27] MEDS: Acetaminophen 500 MG Tablet 1000 MG PO (05:59)
[2021-02-27] MEDS: LORazepam 1 MG Tablet PO ×2 (05:59→12:12)
[2021-02-27 07:34] LABS: Anion Gap 9 (5-15); BUN 11 mg/dL (7-18); BUN/Creat Ratio 27.6 RATIO (10-20); Calcium,Total 7.2 mg/dL (8.5-10.1); Chloride 107 mmol/L (98-107); EST Glomerular Filtration Rate 170 mL/min (>60); Est Glom Filt Rate - Afr Amer 205 mL/min (>60); Estimated Creatinine Clearance 43.78 ml/min; Glucose 75 mg/dL (74-106); Magnesium 1.6 mg/dL (1.6-2.6); Potassium 3.5 mmol/L (3.5-5.1); Sodium Level 137 mmol/L (136-145)
[2021-02-27] MEDS: Ipratropium/Albuterol Sulfate 3 ML AMPUL.NEB INHALATION ×2 (07:55→11:03)
--- NOTE | 2021-02-27 08:25 | NURSING ---
SITTING UP IN BED, DENIES NEEDS.
[2021-02-27] MEDS: 0.9% Saline Lock 10 ML Syringe IV (08:40)
[2021-02-27] MEDS: Thiamine Hydrochloride 100 MG Tablet PO (09:06)
[2021-02-27] MEDS: Folic Acid 1 MG Tablet PO (09:06)
[2021-02-27] MEDS: Budesonide 3 MG CAPSULE.EC 9 MG PO (09:07)
[2021-02-27] MEDS: Enoxaparin 40 MG/0.4 ML Syringe SC (09:07)
[2021-02-27] MEDS: Pantoprazole Sodium 40 MG Tablet PO (09:08)
[2021-02-27] MEDS: amLODIPine 10 MG Tablet PO (09:08)
--- NOTE | 2021-02-27 10:48 | PCM.DC ---
Discharge Instructions Diet Discharge Diet: No restrictions Activity Discharge Activity: Return to Normal Activity Weight Bearing Status: Weight bearing as tolerated Dressing / Incision Call your doctor if you observe: Fever of 101 or Higher, Numbness or Tingling, Shortness of breath, Dizziness, Chest pain, Increased palpitations (irregular heartbeat) and Calf discomfort Follow Up Care Please Follow Up With: Primary care provider When: Within the next two weeks. Test Results: Test results from this visit will be discussed in further detail at your follow-up appointment, if applicable. Discharge Plan Admission Admit Date/Time: 02/24/21 14:25 Primary Reason for Your Visit: Dizzyness Attending Provider: Jason Leyva Primary Care Provider: Jair Squires Discharge Orders/Prescriptions Prescriptions: New diazepam [diazepam] 2 MG tablet 2 mg PO TID PRN PRN (Reason: Vertigo) Qty: 10 RF: 0 meclizine 25 mg tablet,chewable 25 mg PO DAILY PRN (Reason: vertigo) Qty: 21 RF: 0 Continued metoprolol succinate 100 mg tablet extended release 24 hr 100 mg PO DAILY Qty: 90 RF: 0 amlodipine 10 mg tablet 10 mg PO DAILY Qty: 90 RF: 0 omeprazole 40 mg capsule,delayed release(DR/EC) 40 mg PO DAILY Qty: 90 RF: 0 Prolia 60 mg/mL syringe 60 mg SUBCUT .[id number] RF: 0 acetaminophen 500 mg Tablet 1,000 mg PO Q8 Qty: 0 RF: 0 budesonide 9 mg PO/SL DAILY RF: 0 Referrals / Follow Up: Jair Squires MD [Primary Care Provider] - Within 2 Weeks Disposition Disposition (needs filled in before D/C Order can be placed): Home Health Service
[2021-02-27] MEDS: Metoprolol(XL)Succ 100 MG Tablet PO (10:56)
[2021-02-27] MEDS: Menthol/Lanolin/Calamine/Znox 113 GM Tube 1 APPLIC TOPICAL (11:31)
--- NOTE | 2021-02-27 11:42 | CASEMGMT ---
Addendum entered by Marina Burnett 02/27/21 14:31: [place] and [place] [facility] [place] Patient updated and voiced understanding. Original Note: RN CM in to discuss discharge planning with patient and . states that he will be able to assist patient with care and wishes for patient to return home with resumption of HHC with [facility]. requesting assistance in setting up hospital bed to rent and [place] [facility] [place] already [place] through them. TONI CONNER called and updated [facility]. CM will assist with hospital bed setup. CM will continue to follow this patient and plan for a safe discharge.
--- NOTE | 2021-02-27 13:23 | PCM.DC.SUM ---
Documented by User: Miguel NORWOOD 02/27/21 13:29 Providers Date of Admission: 02/24/21 Primary Care Physician: Dr. Jair Squires MD Reason For Visit: vertigo Diagnosis Discharge Diagnosis (1) Vertigo: Status: Acute Code(s): R42 - Dizziness and giddiness (2) Alcohol withdrawal: Status: Acute Code(s): F10.239 - Alcohol dependence with withdrawal, unspecified Qualifiers: Complication of substance-induced condition: uncomplicated Qualified Code(s): F10.230 - Alcohol dependence with withdrawal, uncomplicated Medications at Discharge Home Medications amlodipine 10 mg tablet 10 mg PO DAILY #90 tab 08/08/18 metoprolol succinate 100 mg tablet,extended release 24 hr 100 mg PO DAILY #90 tab 08/08/18 omeprazole 40 mg capsule,delayed release 40 mg PO DAILY #90 cap 08/08/18 Prolia 60 mg SUBCUT .[id number] 01/21/21 acetaminophen 1,000 mg PO Q8 #0 tab 01/23/21 budesonide 9 mg PO/SL DAILY 02/11/21 diazepam 2 mg PO TID PRN PRN #10 tablet 02/23/21 meclizine 25 mg PO DAILY PRN #21 tab 02/27/21 Hospital Course Summary of Care Provided Minutes Spent on Discharge: 25 Hospital Course: Disposition: Patient is to discharge home with home health care. 1) Vertigo Brain CT negative for any evidence of acute ischemia or infarction. Patient reports improvement in her vertigo from admission. Patient to follow-up with primary care provider within the next 2 weeks and discharged on 1 week of meclizine. 2) alcohol withdrawal According to patient's patient drinks 2 bottles of wine daily. CIWA score 8, CIWA scores over past 24 hours have been significantly improved from yesterday. Patient already established with [facility] behavioral services. 3) hypokalemia Resolved, potassium currently 3.6. 4) hypocalcemia/hypomagnesemia 2 infusions given. DVT prophylaxis- Lovenox Patient seen by Miguel Smalls PA-C, under the supervision of Dr. Leyva. Time spent on patient care: 25 minutes. Physical Exam Narrative Patient is a 65-year-old female comfortably resting in bed, alert and orient x3. Patient reports improvement in her tremors. Denies development of any new symptoms overnight. Does not appear in acute distress. Const alert, oriented x3 and no apparent distress HEENT normocephalic, head/scalp atraumatic and hearing grossly normal bilaterally Eyes PERRL, EOMs intact bilaterally and conjunctivae normal Neck no lymphadenopathy, supple and no JVD Resp normal respiratory effort, no retractions, no use of accessory muscles and clear to auscultation bilaterally Cardio regular rate, regular rhythm, no murmurs and no JVD GI normal to inspection, nondistended, normoactive bowel sounds, soft to palpation and non-tender Extremity normal to inspection, full ROM and no clubbing, cyanosis or edema Skin no rashes or lesions noted, no wounds and skin turgor normal Neuro CN's II-XII intact bilaterally Psych affect normal Medical Records Data Medical Nutrition Assessment Dietitian: Malnutrition Criteria Met Start: 02/24/21 11:58 Freq: Status: Active Protocol: Document 02/24/21 11:58 [facility] (Rec: 02/24/21 11:58 [facility] [id number]) Nutrition Malnutrition Evidence of Malnutrition Exists Yes Evidenced By Suboptimal Energy Intake ( Severe),Weight Loss (Severe) Clinical Problem Acute Disease or Injury Related Malnutrition Etiology related to not feeling well and inability to consume adequate nutrition to meet est nutritional needs Signs/Symptoms as evidenced by <50% po intake x >2 wks and and 14.8% wt loss in 1 month Status Active Problem Recommendation Dietitian Recommendations/Changes Continue liberal regular diet d/t s/s of malnutrition Will change ensure compact w/ medpass to ensure clear w/ meals per pt request Weight / BMI Weight Weight: 112 lb Body Mass Index (BMI) 19.2 ABG / Lab / Microbiology Data Result Diagrams: 02/26/21 06:28 02/27/21 06:30 Laboratory: Laboratory Results - last 24 hr 02/27/21 06:30: Sodium 137, Potassium 3.5, Chloride 107, Carbon Dioxide 21.0, Anion Gap 9, BUN 11, Creatinine 0.40 L, Estim Creat Clear Calc 43.78, Est GFR (MDRD) Af Amer 205, Est GFR (MDRD) Non-Af 170, BUN/Creatinine Ratio 27.6 H, Glucose 75, Calcium 7.2 L, Magnesium 1.6 Microbiology: Microbiology 02/23/21 08:21 Nasal Secretion SARS-CoV-2 Antigen (Rapid) - Final D/C Instructions Discharge Diet: No restrictions Weight Bearing Status: Weight bearing as tolerated Call your doctor if you observe: Fever of 101 or Higher, Numbness or Tingling, Shortness of breath, Dizziness, Chest pain, Increased palpitations (irregular heartbeat) and Calf discomfort Please Follow Up With: Primary care provider When: Within the next two weeks. Meaningful Use Info Meaningful Use Diagnoses (Choose all that apply): None applicable Discharge Plan Admission Admit Date/Time: 02/24/21 14:25 Primary Reason for Your Visit: Dizzyness Attending Provider: Jason Leyva Primary Care Provider: Jiar Squires Discharge Orders/Prescriptions Prescriptions: New diazepam [diazepam] 2 MG tablet 2 mg PO TID PRN PRN (Reason: Vertigo) Qty: 10 RF: 0 meclizine 25 mg tablet,chewable 25 mg PO DAILY PRN (Reason: vertigo) Qty: 21 RF: 0 Continued metoprolol succinate 100 mg tablet extended release 24 hr 100 mg PO DAILY Qty: 90 RF: 0 amlodipine 10 mg tablet 10 mg PO DAILY Qty: 90 RF: 0 omeprazole 40 mg capsule,delayed release(DR/EC) 40 mg PO DAILY Qty: 90 RF: 0 Prolia 60 mg/mL syringe 60 mg SUBCUT .[id number] RF: 0 acetaminophen 500 mg Tablet 1,000 mg PO Q8 Qty: 0 RF: 0 budesonide 9 mg PO/SL DAILY RF: 0 Referrals / Follow Up: Jair Squires MD [Primary Care Provider] - Within 2 Weeks Disposition Disposition (needs filled in before D/C Order can be placed): Home Health Service Documented by User: Dr. Jason Leyva MD 02/27/21 17:19 Providers Date of Admission: 02/24/21 Reason For Visit: vertigo Medications at Discharge Home Medications amlodipine 10 mg tablet 10 mg PO DAILY #90 tab 08/08/18 metoprolol succinate 100 mg tablet,extended release 24 hr 100 mg PO DAILY #90 tab 08/08/18 omeprazole 40 mg capsule,delayed release 40 mg PO DAILY #90 cap 08/08/18 Prolia 60 mg SUBCUT .[id number] 01/21/21 acetaminophen 1,000 mg PO Q8 #0 tab 01/23/21 budesonide 9 mg PO/SL DAILY 02/11/21 diazepam 2 mg PO TID PRN PRN #10 tablet 02/23/21 meclizine 25 mg PO DAILY PRN #21 tab 02/27/21 ABG / Lab / Microbiology Data Result Diagrams: 02/26/21 06:28 02/27/21 06:30 Discharge Plan Admission Admit Date/Time: 02/24/21 14:25 Primary Reason for Your Visit: Dizzyness Attending Provider: Jason Leyva Primary Care Provider: Jair Squires Discharge Orders/Prescriptions Prescriptions: New diazepam [diazepam] 2 MG tablet 2 mg PO TID PRN PRN (Reason: Vertigo) Qty: 10 RF: 0 meclizine 25 mg tablet,chewable 25 mg PO DAILY PRN (Reason: vertigo) Qty: 21 RF: 0 Continued metoprolol succinate 100 mg tablet extended release 24 hr 100 mg PO DAILY Qty: 90 RF: 0 amlodipine 10 mg tablet 10 mg PO DAILY Qty: 90 RF: 0 omeprazole 40 mg capsule,delayed release(DR/EC) 40 mg PO DAILY Qty: 90 RF: 0 Prolia 60 mg/mL syringe 60 mg SUBCUT .[id number] RF: 0 acetaminophen 500 mg Tablet 1,000 mg PO Q8 Qty: 0 RF: 0 budesonide 9 mg PO/SL DAILY RF: 0 Referrals / Follow Up: Jair Squires MD [Primary Care Provider] - Within 2 Weeks Disposition Disposition (needs filled in before D/C Order can be placed): Home Health Service Charges/Coding Addendum Addendum: Dr. Leyva: I personally reviewed the chart and examined the patient, and agree with the above findings. 65-year-old female who is resting comfortably, she had received a dose of Ativan as there is some concern that most of her symptomatology is consistent with alcohol withdrawal. She did tell nursing staff that she drinks 2 glasses of wine a night however in discussing this with her he states that she drinks 2 bottles of wine on most nights. Alcohol withdrawal could be the cause of her vertigo therefore we will continue with this treatment as well as the meclizine. Her white count is elevated but she does have maxillary sinusitis. She also has chronic hypocalcemia and I believe this is due to her Prolia injections as according to her she had gotten her last Prolia infusion in December and her hypocalcemia started significantly in January therefore we will give her a gram of calcium gluconate and follow in the morning. 02/26/2021: Much more significant nystagmus today, her calcium is slightly improved therefore we will check a magnesium and replace as necessary. She does seem very off balance and will need to have PT/OT to evaluate her for discharge potential. We will continue to replace her calcium as necessary as this is likely the cause of her significant lateral and vertical nystagmus. Clinical time 18 minutes 02/27/2021: Magnesium yesterday was found to be 0.5 with normal phosphorus. Her magnesium and calcium yesterday were replaced and this morning her magnesium was found to be 1.6 and her calcium was 7.2. She was given another gram of calcium gluconate and her magnesium worse was replaced with 2 g today. Her nystagmus has completely resolved and she was able to get up and ambulate on her own with her walker. And needed only standby assistance I believe with physical therapy and Occupational Therapy. The case was discussed with both her and her in terms of potentially being discharged to a prison or being evaluated again tomorrow however they have elected to go home. The plan for discharge was discussed with him and they expressed understanding the risk benefits of going home and they would like to go home today. We will attempt to get the hospital bed delivered when able. I do recommend that she follow-up as an outpatient through her PCP for further evaluation of her calcium, magnesium, and potassium. We also did have extensive discussion on an appropriate diet and limiting alcohol intake. Clinical care time discussing the case with the patient as well as relevant specialists and nursing staff was 35 minutes. Visit Charges Inpatient E&M: [id number] Disch Hosp
--- NOTE | 2021-02-27 13:32 | CASEMGMT ---
Received call from Brittny with [facility] ([phone]). Discharge disposition communicated to Brittny who states she will be following pt post discharge to assist with ongoing care coordination. Hanh Felix RN CM
== END 2021-02-27 16:15 | disposition home health service (06) | DRG 897 ==
LOC: ED 16:16 → MS2 17:10
PROVIDERS: Nurse Practitioner Family; Physician Assistant; Emergency Provider Emergency Medicine; PCP Family Medicine; Visit Provider Family Medicine
DX: F10.230 Alcohol dependence with withdrawal, uncomplicated (principal); E83.51 Hypocalcemia; J44.9 Chronic obstructive pulmonary disease, unspecified; F17.210 Nicotine dependence, cigarettes, uncomplicated; G25.2 Other specified forms of tremor; E83.42 Hypomagnesemia; I10 Essential (primary) hypertension; E87.6 Hypokalemia; J32.0 Chronic maxillary sinusitis; K21.9 Gastro-esophageal reflux disease without esophagitis; F41.9 Anxiety disorder, unspecified; R42 Dizziness and giddiness; F32.A Depression, unspecified; Z86.16 Personal history of COVID-19; Z28.3 Underimmunization status; X58.XXXA Exposure to other specified factors, initial encounter
CPT/HCPCS: 36415; 36600; 70450; 71045; 80048; 80053; 81001; 82330; 82803; 83735; 84100; 84484; 85025; 87426; 93005; 94640; 97110; 97116; 97162; 97166; 97530; 97802; 97803; 99285; 99406; J7040; J7050; P9612; A4216; J0610; J2405

== ENCOUNTER 2021-04-03 07:55 | Outpatient (CLI) | payer MEDICARE, SELFPAY ==
--- NOTE | 2021-04-03 08:30 | MRI_ITS ---
STUDY: MRI BRAIN WITH AND WITHOUT CONTRAST (ATTENTION INTERNAL AUDITORY CANALS - I.A.C.''s) REASON FOR EXAM: Female, 65 years old. Dizziness, asymmetric hearing loss, VERTIGO X 3 WEEKS TECHNIQUE: Standardized multiplanar fat and water weighted pulse sequences were obtained. IV 11ml Dotarem was administered for the contrast portion of the examination. COMPARISON: CT head without contrast 02/23/2021. FINDINGS: Normal bilateral temporal bones. Normal bilateral internal auditory canals. There is no demonstrated intracanalicular or cisternal vestibular schwannoma (acoustic neuroma). There is no enhancement of the bilateral VIIth or VIIIth cranial nerves. Normal bilateral cochlea, vestibules and semicircular canals. Normal size of the ventricles and extra-axial spaces for the patient''s age. Normal white matter tracts of the supratentorial brain. Normal bilateral basal ganglia. Normal thalami. Normal flow voids within the major intracranial circulation suggesting patency by spin echo criteria. Normal venous enhancement. There is no enhancing intra-axial or extra-axial abnormality. There is no extra-axial fluid accumulation. Normal sella turcica, pituitary gland, infundibular stalk, optic chiasm and hypothalamus. Normal tectal plate and pineal gland. Normal midbrain, ap and medulla. Normal cerebellum. Normal basal cisterns. No demonstrated orbital abnormality, within the constraints of a routine brain study. Complete opacification of the right maxillary sinus and sclerotic wall thickening due to chronic sinusitis. This is unchanged. Normal calvarium and skull base. Normal visualized soft tissue structures. Normal visualized upper cervical spine. MRI/Brain W/WO Contrast IMPRESSION: 1. Normal unenhanced and enhanced MRI of the bilateral internal auditory canals (I.A.C''s). 2. Motion degradation artifacts. 3. Minimal mucosal edema in both temporal mastoid bones. 4. Chronic right maxillary sinusitis is unchanged when compared to CT head scan of 02/23/2021. 5. Clearing of small air-fluid level and/or mucosal thickening in the left maxillary sinus. Electronically Signed: Estuardo Syed MD at 9:44 EST ,
[2021-04-03 08:40] LABS: CREATININE FINGERSTICK 0.6 mg/dL (0.55-1.02); EGFR FINGERSTICK > 60.0000 mL/min (>60)
== END 2021-04-03 23:59 | disposition home or self-care (01) ==
PROVIDERS: PCP Family Medicine; Referring Provider Otolaryngology; Visit Provider Otolaryngology
DX: H91.93 Unspecified hearing loss, bilateral (principal); R42 Dizziness and giddiness
CPT/HCPCS: 70553; A9575

== ENCOUNTER 2021-04-20 15:24 | Outpatient (CLI) | payer MEDICARE, SELFPAY | END 2021-04-20 23:59 | disposition home or self-care (01) | LOC: LABSPEC 15:25 | PROVIDERS: PCP Family Medicine; Visit Provider Otolaryngology | DX: Z11.59 Encounter for screening for other viral diseases (principal); Z03.818 Encounter for observation for suspected exposure to other biological agents ruled out | CPT/HCPCS: 87635; U0003; U0005 ==

== ENCOUNTER 2021-04-27 11:40 | Outpatient (CLI) | payer MEDICARE, SELFPAY ==
[2021-04-27 15:22] LABS: Absolute Lymphocyte Count 1.28 X10^3/uL (0.83-4.51); Absolute Neutrophil Count 10.2 X10^3/uL (2.0-7.7); Basophil# 0.02 X10^3/uL; Basophil% 0.1 % (0-1); Eosinophil# 0.03 X10^3/uL; Eosinophils% 0.2 % (0-5); Hematocrit 41.2 % (37-47); Hemoglobin 13.8 g/dL (12.0-15.0); Lymphocyte # 1.28 X10^3/ul (0.83-4.51); Lymphocyte % 9.2 % (19-41); Mean Corp Hgb Conc 33.5 g/dL (32-36); Mean Corpuscular Hgb 32.2 pg (27.0-32.0); Mean Corpuscular Volume 96.3 fL (81-99); Mean Platelet Vol. 9.9 fl (6.2-12.0); Monocyte% 15.9 % (0-10); NRBC Flagged by Analyzer 0 % (0-5); Neutrophil # 10.23 X10^3/uL (2.7-7.7); Neutrophil % 73.7 % (47-70); POSITIVE DIFFERENTIAL YES; Platelet Count 312 K/mm3 (150-450); Red Blood Count 4.28 M/mm3 (4.2-5.4); White Blood Count 13.9 K/mm3 (4.4-11.0)
[2021-04-27 15:29] LABS: Differential Indicated SCAN CRITERIA MET
[2021-04-27 16:11] LABS: Differential Comment SCANNED
[2021-04-27 16:24] LABS: ALB/GLOB Ratio 0.6 RATIO (0.9-2.4); AST(SGOT) 16 U/L (15-37); Alanine Aminotransfer ALT/SGPT 13 U/L (13-56); Albumin, Serum 2.8 g/dL (3.2-5.0); Alkaline Phosphatase 55 U/L (45-117); Anion Gap 11 (5-15); BUN 5 mg/dL (7-18); BUN/Creat Ratio 10.9 RATIO (10-20); Chloride 95 mmol/L (98-107); Creatinine, Serum 0.46 mg/dL (0.55-1.02); EST Glomerular Filtration Rate 145 mL/min (>60); Est Glom Filt Rate - Afr Amer 175 mL/min (>60); Globulin 4.6 g/dL (2.2-4.2); Glucose 88 mg/dL (74-106); Magnesium 0.5 mg/dL (1.6-2.6); Potassium 2.6 mmol/L (3.5-5.1); Protein, Total 7.4 g/dL (6.4-8.2); Sodium Level 130 mmol/L (136-145)
[2021-04-27 18:45] LABS: Microalbumin,Random Urine 46.3 mg/L (NO RANGE EST.); Microalbumin:Creatinine Ratio 45.8 mg/g CRE (<30 mg/g CRE)
[2021-04-28 15:53] LABS: Pathologist Review Reviewed
== END 2021-04-27 23:59 | disposition home or self-care (01) ==
LOC: MFPLAB 11:41
PROVIDERS: PCP Family Medicine; Visit Provider Family Medicine
DX: R60.9 Edema, unspecified (principal)
CPT/HCPCS: 36415; 80053; 82043; 82570; 83735; 85025

== ENCOUNTER 2021-04-27 17:01 | Emergency (ER) | payer MEDICARE, SELFPAY ==
[2021-04-27 17:02] VITALS: BP 143/104; PULSE 116; RESP 24; TEMP 34.9; O2SAT 91; BMI 20.3
--- NOTE | 2021-04-27 17:24 | EKG12_ITS ---
Test Reason : ABB LABS Blood Pressure : / mmHG Vent. Rate : 100 BPM Atrial Rate : 101 BPM P-R Int : 000 ms QRS Dur : 064 ms QT Int : 384 ms P-R-T Axes : 000 068 063 degrees QTc Int : 495 ms Normal sinus rhythm Prolonged QT Abnormal ECG Confirmed by JOSEPHINE COPELAND, LETY ([id number]), international editorial producer JACKELYN VALDEZ ([id number]) on 04/28/2021 9:59:50 AM Referred By: PL Confirmed By:LETY BURTON MD
--- NOTE | 2021-04-27 17:28 | EDS_ITS ---
HPI History of Present Illness Chief Complaint: Abn Labs Informant: patient and spouse/S.O. Narrative Narrative: Patient is referred in here for abnormal labs. She had low potassium and magnesium as an outpatient. Patient states she has some vertigo which is what she had last time her magnesium and potassium was low. She is also been having diarrhea for a little over a week since she started doxycycline for a sinus infection. She is also had some nausea and vomiting the last couple days. She can keep some items down but will occasionally vomit. She is still drinking alcohol. She states she is down to only 3 or 4 a day. She does have a history of significant alcohol use. She does not feel as though she is in withdrawal. She also states that she wants to go home. She does not want to be admitted to the hospital. She is awake alert and appropriate and capable of making her own decisions. Nothing specifically makes her symptoms better or worse. [facility] Medical History Acute respiratory failure with hypoxia Alcohol abuse Anxiety Bronchitis COPD (chronic obstructive pulmonary disease) Depression GERD (gastroesophageal reflux disease) Hip fracture HTN (hypertension) Microscopic colitis On home oxygen therapy Osteoporosis Smoker Vertigo Home Medications amlodipine 10 mg tablet 10 mg PO DAILY #90 tab 08/08/18 [History Last Taken 01/21/21] metoprolol succinate 100 mg tablet,extended release 24 hr 100 mg PO DAILY #90 tab 08/08/18 [History Last Taken 01/21/21] omeprazole 40 mg capsule,delayed release 40 mg PO DAILY #90 cap 08/08/18 [History Last Taken 01/21/21] Prolia 60 mg SUBCUT .[id number] 01/21/21 [History Last Taken 12/03/20] diazepam 2 mg PO TID PRN PRN #10 tablet 02/23/21 [Rx Last Taken Unknown] meclizine 25 mg PO DAILY PRN #21 tab 02/27/21 [Rx Last Taken Unknown] albuterol sulfate 2 puff INHALATION Q4H 04/27/21 [History Last Taken Unknown] magnesium oxide 400 mg PO BID #10 tab 04/27/21 [Rx Last Taken Unknown] potassium chloride 20 meq PO BID #21 tab 04/27/21 [Rx Last Taken Unknown] Allergy/AdvReac Type Severity Reaction Status Date / Time doxycycline Allergy Mild UNKNOWN Verified 02/23/21 07:57 amoxicillin Allergy Unknown Verified 02/23/21 07:57 ciprofloxacin [From Cipro] Allergy Unknown Verified 02/23/21 07:57 naproxen Allergy Unknown Verified 02/23/21 07:57 sulfamethoxazole Allergy Unknown Verified 02/23/21 07:57 [From Bactrim] trimethoprim [From Bactrim] Allergy Unknown Verified 02/23/21 07:57 Family History Sister Breast cancer Mother Heart disease Father No problems noted. Surgical History History of colonoscopy Social History household members: spouse housing: house number of children: 0 current occupational status: retired pets and animals: Yes (dog) Smoking Status: Current every day smoker tobacco type: cigarettes alcohol intake: current alcohol intake frequency: 0-2 drinks per day Alcohol type: beer ROS ROS ED Constitutional Constitutional ED: Denies chills or fever(s) Eyes Eyes: Denies blurry vision or change in vision ENT ENT ED: Denies rhinorrhea or sore throat Cardiovascular Cardiovascular: Denies chest pain or palpitations Respiratory/Chest Respiratory/Chest: Reports cough, dyspnea and other Details: Patient has been having some dyspnea. She states she is a smoker and on albuterol. This is a chronic waxing and waning problem but she has been wheezing more the last week. ; Denies sputum Gastrointestinal Gastrointestinal: Reports diarrhea, nausea and vomiting; Denies abdominal pain Genitourinary Genitourinary ED: Denies dysuria Musculoskeletal Musculoskeletal: Denies arthralgias or myalgias Integumentary Denies rash Neurologic Neurologic: Denies headache(s) Psychiatric Psychiatric: Denies depression Endocrine Endocrinology: Denies polydipsia or polyuria Allergic/Immunologic Allergic/Immunologic ED: Denies mouth swelling or urticaria EXAM Physical Exam Const Vital Signs: 04/27/21 17:02 04/27/21 17:46 04/27/21 20:33 Temperature 94.9 F L Temperature Source Temporal Pulse Rate 116 H 102 H 102 H Respiratory Rate 24 H 16 23 H Respiratory Pattern Normal Blood Pressure 143/104 H 108/76 Blood Pressure Mean 117 86 Pulse Ox 91 94 Oxygen Delivery Method Room Air Room Air Positive well nourished General Appearance ED: NAD; Negative for cyanotic or diaphoretic HEENT Reports dry mucous membranes Mouth ED: Yes dry mucous membranes Mouth: dry mucous membranes Eyes General Eye ED: Negative for pale conjunctiva or scleral icterus Neck no JVD Chest Wall inspection of chest normal Resp normal respiratory effort and No clear to auscultation bilaterally Resp Narrative: Patient looks comfortable breathing. However, she has very tight sounding lungs with expiratory wheezing and poor air motion. Auscultation: wheezes and diminished lung sounds; Negative for rales or rhonchi Cardio regular rate and regular rhythm GI normal to inspection, nondistended, normoactive bowel sounds, non-tender and non-distended Palpation: soft Back/Spine no CVA tenderness Extremity normal to inspection Neuro oriented x3 Sensorium / Orientation: alert Psych mental status grossly normal Skin no rashes or lesions noted and no wounds MDM MDM MDM Narrative Medical decision making narrative: I reviewed the labs that were done prior to arrival here. Chest x-ray here shows no acute process. Patient feels much better after breathing treatment. We have encouraged her to quit smoking and use her inhalers. She had not used one for quite some time. It does not sound like she is actually having an exacerbation that would require steroids though. She states all her other symptoms of kind of weakness and slight vertigo are improving. She still wants to go home. She does not want to be admitted. She is capable of making this decision. Potassium is almost in. We will get magnesium and. I will get her home on supplementation. She is encouraged to continue cutting down her alcohol use. She is not interested in detox. Lab Data Attestation: I reviewed the patient's lab results. Radiography Diagnostic Testing: Clinical Impression(s) from Imaging Studies Chest X-Ray 04/27/21 17:30 IMPRESSION: There are no acute findings. Electronically Signed: Brett Holcomb MD at 18:00 EST , EKG Initial EKG: Comments: EKG done for electrolyte abnormalities read by me shows regular rhythm with a rate of 100. There is a lot of baseline variation. It is read as accelerated junctional but I do see P waves still in the normal timing with VT interval between 150 and 200 ms. No ventricular ectopy. No acute ST elevation or depression. VT interval QRS duration are normal. QTc is just slightly long at 495 ms. Discharge Plan Triage Chief Complaint: Abn Labs ED Provider: Arturo Santamaria Dx/Rx/DC Orders Clinical Impression: Hypomagnesemia, Hypokalemia, History of alcoholism, Chronic vertigo Instructions: Discharge Instructions for ..., ED Hypokalemia Prescriptions: New potassium chloride 20 mEq tablet extended release 20 meq PO BID Qty: 21 RF: 0 magnesium oxide 400 mg magnesium tablet 400 mg PO BID Qty: 10 RF: 0 No Action metoprolol succinate 100 mg tablet extended release 24 hr 100 mg PO DAILY Qty: 90 RF: 0 amlodipine 10 mg tablet 10 mg PO DAILY Qty: 90 RF: 0 omeprazole 40 mg capsule,delayed release(DR/EC) 40 mg PO DAILY Qty: 90 RF: 0 Prolia 60 mg/mL syringe 60 mg SUBCUT .[id number] RF: 0 diazepam [diazepam] 2 MG tablet 2 mg PO TID PRN PRN (Reason: Vertigo) Qty: 10 RF: 0 meclizine 25 mg tablet,chewable 25 mg PO DAILY PRN (Reason: vertigo) Qty: 21 RF: 0 albuterol sulfate 90 mcg/actuation HFA aerosol inhaler 2 puff INHALATION Q4H RF: 0 Primary Care Provider: Jair Squires Referrals: Jair Squires MD [Primary Care Provider] - 3-5 Days Disposition Disposition: Home, Self Care
--- NOTE | 2021-04-27 17:30 | RAD_ITS ---
STUDY: X-RAY CHEST REASON FOR EXAM: Female, 65 years old. CHEST PAIN cough TECHNIQUE: XR Chest 1 View COMPARISON: 02.23.21 FINDINGS: There is no demonstrated pleural abnormality. Healed rib fractures. Healed left clavicle fracture. Normal size heart. Normal mediastinum and skyler. Normal visualized pulmonary arteries. There is atherosclerotic calcification of the aortic arch with tortuosity. There are diffuse degenerative changes of the visualized thoracic spine. There is degenerative osteoarthritis of the bilateral shoulders. There is no demonstrated abnormality of the visualized soft tissue structures of the upper abdomen. RAD/Chest 1 View (Portable) IMPRESSION: There are no acute findings. Electronically Signed: Brett Holcomb MD at 18:00 EST ,
[2021-04-27] MEDS: Albuterol 2.5 MG/3 ML VIAL.NEB. INHALATION (17:41)
[2021-04-27] MEDS: Ipratropium/Albuterol Sulfate 3 ML AMPUL.NEB INHALATION (17:41)
[2021-04-27 17:46] VITALS: PULSE 102; RESP 16
[2021-04-27] MEDS: Ondansetron 4 MG/2 ML Vial IV (17:56)
[2021-04-27] MEDS: Potassium Chloride Oral Tablet 20 MEQ 40 MEQ PO (18:39)
[2021-04-27] MEDS: Potassium Chloride 10mEq/100mL 10 MEQ/100 ML IV.SOLN. 100 MEQ IV BOLUS ×4 (19:15→22:45)
[2021-04-27 20:33] VITALS: BP 108/76; PULSE 102; RESP 23; O2SAT 94
[2021-04-27 22:45] VITALS: BP 112/65; PULSE 94; RESP 19; O2SAT 98
[2021-04-27] MEDS: Magnesium Sulfate 4gm/100mL 4 GM/100 ML IV.SOLN. IV (23:57)
[2021-04-28 00:11] VITALS: BP 112/84
[2021-04-28 01:11] VITALS: BP 124/69; PULSE 74; RESP 17; O2SAT 98
[2021-04-28 03:56] VITALS: BP 122/69; PULSE 101; RESP 20; O2SAT 97
== END 2021-04-28 04:15 | disposition home or self-care (01) ==
PROVIDERS: Emergency Provider Emergency Medicine; PCP Family Medicine; Visit Provider Emergency Medicine
DX: E83.42 Hypomagnesemia (principal); J44.9 Chronic obstructive pulmonary disease, unspecified; F10.20 Alcohol dependence, uncomplicated; E87.6 Hypokalemia; F17.210 Nicotine dependence, cigarettes, uncomplicated; I10 Essential (primary) hypertension; Y90.9 Presence of alcohol in blood, level not specified; R42 Dizziness and giddiness; F32.A Depression, unspecified; F41.9 Anxiety disorder, unspecified; K21.9 Gastro-esophageal reflux disease without esophagitis; Z79.899 Other long term (current) drug therapy; M81.0 Age-related osteoporosis without current pathological fracture; R60.9 Edema, unspecified
CPT/HCPCS: 36415; 71045; 80053; 82043; 82570; 83735; 85025; 93005; 94640; 96365; 96366; 96367; 96375; 99284; J7030; J7050; A4216; J2405

== ENCOUNTER 2021-05-01 14:08 | Outpatient (CLI) | payer MEDICARE, SELFPAY ==
[2021-05-01 17:59] LABS: D-Dimer Quantitative (DVT/PE) 3.33 FEU/ug/m (0.27-0.49)
== END 2021-05-01 23:59 | disposition home or self-care (01) ==
LOC: MFPLAB 14:13
PROVIDERS: PCP Family Medicine; Referring Provider Family Medicine; Visit Provider Family Medicine
DX: M79.89 Other specified soft tissue disorders (principal)
CPT/HCPCS: 85379

== ENCOUNTER 2021-05-07 13:26 | Outpatient (CLI) | payer MEDICARE, SELFPAY ==
--- NOTE | 2021-05-07 13:56 | VDLE_ITS ---
Reason For Study: Swelling RIGHT LEFT GSV is normal. GSV is normal. CFV is compressible, spontaneous, phasic, CFV is compressible, spontaneous, phasic, competent and demonstrates normal competent, and demonstrates normal augmentation. augmentation. FV prox-mid is compressible with normal FV is compressible, spontaneous, phasic, venous flow noted. competent and demonstrates normal Acute deep vein thrombosis is noted in the augmentation. right FV distal, PopV, T/P Trunk, PTV, PeroV, POP V is compressible, spontaneous, phasic, GastrocV, and SoleusV. competent and demonstrates normal Procedure augmentation. This is a venous duplex using B-mode, color T/P Trunk is compressible. flow and spectral Doppler. PTV is compressible. Exam performed in department. LT PerV is compressible. 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 VL/Venous Duplex US - Nixon Extrem Interpretation Summary Acute deep venous thrombosis right femoral, popliteal, tibioperoneal trunk, pos terior tibial, gastrocnemius and soleus veins Acute deep venous thrombosis left soleus vein Patent, compressible bilateral great saphenous veins Ordering Physician: Jair Squires Referring Physician: Jair Squires MD Performed By: Marina Donald RVT
== END 2021-05-07 23:59 | disposition home or self-care (01) ==
LOC: CVS 13:27
PROVIDERS: PCP Family Medicine; Visit Provider Family Medicine
DX: M79.89 Other specified soft tissue disorders (principal)
CPT/HCPCS: 93970

== ENCOUNTER → 2021-06-25 | Outpatient (CLI) | payer MEDICARE, SELFPAY ==
[2021-06-25 13:24] LABS: Anion Gap 10 (5-15); BUN 10 mg/dL (7-18); BUN/Creat Ratio 17.7 RATIO (10-20); Calcium,Total 9.5 mg/dL (8.5-10.1); Chloride 92 mmol/L (98-107); Creatinine, Serum 0.56 mg/dL (0.55-1.02); EST Glomerular Filtration Rate 114 mL/min (>60); Est Glom Filt Rate - Afr Amer 138 mL/min (>60); Glucose 94 mg/dL (74-106); Magnesium 1.2 mg/dL (1.6-2.6); Sodium Level 128 mmol/L (136-145)
== END | disposition home or self-care (01) ==
PROVIDERS: PCP Family Medicine; Referring Provider Family Medicine; Visit Provider Family Medicine
DX: I10 Essential (primary) hypertension (principal)
CPT/HCPCS: 36415; 80048; 83735

== ENCOUNTER 2021-11-10 12:28 | Outpatient (RCR) | payer MEDICARE, SELFPAY | END 2021-11-10 12:29 | disposition home or self-care (01) | LOC: PT 12:28 | PROVIDERS: PCP Family Medicine; Referring Provider Family Medicine; Visit Provider Family Medicine | DX: Z00.00 Encounter for general adult medical examination without abnormal findings (principal) ==

== ENCOUNTER 2021-12-16 11:00 | Outpatient (RCR) | payer MEDICARE, SELFPAY ==
--- NOTE | 2021-09-11 11:32 | HP.PTEVAL_ITS ---
Patient's Visit Information MARGO STRICKLAND is a 65 year old F referred to Physical Therapy by Dr. Jair Squires MD with a diagnosis of vertigo. Date of Evaluation: 09/11/21 Physical Therapist: SHELLY Devi - Visit Plan Frequency: 2-3x /Week Duration: 3 Months Plan: 2-3 visits/ week for 10 weeks for LE strength, gait training with and without head turns, static and dynamic balance training, compliant surfaces, stair training, walking hills and grades, vestibular inputs with HEP. HEP: walking with more heel to toe gait pattern and picking up feet with turning 180 degrees - Subjective Pt has vertigo that started in January. reports that she fell and broke her hip and was in the hospital several times and then they dx her with vertigo. She has mg and potassium deficiency and takes supplements for that also. Pt gets dizzy most of the time. She reports that she is dizzy more so in morning. She describes her dizziness as the room is disoriented. If she turns her head it makes her worse. If she is reading a book and looks up it is worse. Getting up from sitting she gets more dizzy. Chiropractor made her dizziness worse by pushing down on her head and neck. It has been worse since then. She does not have neck pain but she is tense all the time. She has no double vision. Pt has a lot of anxiety. Riding in a car with a lot of hills bothers her. She runs into things but has not fallen since she broke her hip. Sometimes rolling over in bed bothers her. reports that she has sinus drainage all the time and had 2 surgeries and they do not work. MRI of brain and CATSCAN and those were clean. Chiropractor took x-rays of neck but she was not told there was anything abnormal. She started to have balance issues a little prior to breaking her hip. Did home therapy and ended for about a month. - Objective Gait: walks back with a larger single point cane in her R hand and holding onto her . Walking back to the treatment rooms made her SOB and took approx 4 min to recover. LE MMT: Hip flex R 15.5# and Hip flex L 14.0, R knee ext 17, L knee ext 10.2, R knee flex 19.9, L knee flex 10.8. CATSIB: 45 (high anxiety and very nervous and feels that she is going to fall over)... LOTS of deep breaths Anxiety level 10/10 visably shaking. FGA: 9 (scored steps at 0 as we did not attempt them today). Worked a lot with the patient on stopping and t aking a deep breath once she started to shake due to anxiety and she was able to regroup. Turning 180 degrees: pt does not like to pick feet up but with verbal cues she was able to start doing that. Walking with slow head turns did throw the patients balance off. Worked with the patient to also take steps with heel to toe gait pattern. Pt walked out of the clinic with more of a heel to toe ga it pattern with her cane and therapist CGA on the belt to help anxiety but therapist assistance was not needed. Pt was still SOB walking up to the front after the evaluation and several rest breaks during the eval were needed to catch her breath. - Balance/Special Test Scores Functional Gait Assessment Score: 9 % Disability: 70.0000 CATSIB Score (Max score 120 seconds): 45 Dizziness Score: 80 - Goals Goal 1:: I HEP Goal Time Frame: 6-8 Weeks Goal 2:: Increase score on the CATSIB from 45 at the time of the eval to 100 to decrease fall risk Goal Time Frame: 6-8 Weeks Goal 3:: Increase FGA by 10 points to decrease fall risk (score was 9 at time of the eval). Goal Time Frame: 6-8 Weeks Goal 4:: Be able to walk back to the treatment area with least restrictive device with SBA of therapist or with less fear of falling Goal Time Frame: 6-8 Weeks Goal 5:: Increase LE strength to help with overall fitness (at time of the eval: LE MMT: Hip flex R 15.5# and Hip flex L 14.0, R knee ext 17, L knee ext 10.2, R knee flex 19.9, L knee flex 10.8) Goal Time Frame: 6-8 Weeks Goal 6:: Be able to walk back to the treatment rooms without being so SOB that she has to rest prior to talking or starting exercises. Goal Time Frame: 6-8 Weeks - Rehabilitation Potential Rehabilitation Potential: Good - Anticipated Interventions Patient/Client Instruction: Educate patient on: Plan of Care For the Purpose of:: To increase ROM, To improve nutrient delivery to tissue, To improve muscle performance and motor function, To improve ability to perform ADL's, To increase tolerance to activity/condition/position, To improve performance and independence with ADL's, To decrease level of supervision to perform tasks, To improve ability of physical actions for home/community/work/leisure, To improve gait and locomotor functions, To improve endurance, To improve balance, To improve safety with gait Therapeutic Exercise to Include: Strength training, Endurance training, Balance training, Coordination, Body mechanics, Postural training, Gait and locomotor training, Neuromotor development, via Neurocom Balance Mas, Passive ROM, Active ROM For the Purpose of:: To improve nutrient delivery to tissue, To increase [place] perfusion, To improve muscle performance and motor function, To improve ability to perform ADL's, To increase tolerance to activity/condition/position, To improve performance and independence with ADL's, To decrease level of supervision to perform tasks, To improve ability of physical actions for home/community/work/leisure, To improve gait and locomotor functions, To increase flexibility/ROM, To improve endurance, To improve balance, To improve safety with gait Functional Training to Include: Gait training For the Purpose of:: To improve gait and locomotor functions, To improve safety with gait Thank you for the opportunity to evaluate your patient. For Medicare and Medicare HMO plans, please review the plan of care and approve it. It will need to be FAXED BACK to us at [phone] for Medicare purposes. For Medicare only, by signing this I certify the plan of care. Please let me know if there are questions or concerns regarding this plan of care. Physician Signature: Date:
--- NOTE | 2021-10-13 11:10 | HP.PTREVAL_ITS ---
Dr. Jair Squires MD, It has been my pleasure to treat MARGO STRICKLAND over the last 10 visits for vertigo. Please see the progress note below for an update on the physical therapy plan of care! Subjective: Pt wants to learn some gym exercises and then go on hold for PT until after Dr does his treatments on Spet 2nd and then one appt after that. Pt reports that she feels that she can cope with her balance issue better. She sees hope. She is always dizzy and it never stops and she feels like she is moving in a [place] all the time. She fell last Wed getting into her closet and fell BW and hit her head and slammed her R toes into the stair railing and upper foot and it is black and blue but she can walk on it now today. No X-ray. Objective/Function: FGA 12. CATSIB 100. Pt was able to walk back to the treatment area today with therapist SBA. LE MMT: Hip flex R 15.5# and Hip flex L 14.0, R knee ext 17, L knee ext 14.2, R knee flex 19.9, L knee flex 18.8) Plan Plan: Go over safe machines in the gym to come in and work on strengthening with her . Work on Foam with EC balance. pt to see Dr for dizziness and anxiety hypnosis on Oct 22 and she will see what dr wants to do. Balance/Gait/Functional tests - Balance/Special Test Scores Functional Gait Assessment Score: 12 % Disability: 60.0000 CATSIB Score (Max score 120 seconds): 100 Dizziness Score: 80 Goals Goal 1:: I HEP Goal Time Frame: 6-8 Weeks Goal Progress: Goal Met Goal 2:: Increase score on the CATSIB from 45 at the time of the eval to 110to decrease fall risk Goal Time Frame: 6-8 Weeks Goal Progress: Progressing Goal 3:: Increase FGA by 10 points to decrease fall risk (score was 9 at time of the eval). Goal Time Frame: 6-8 Weeks Goal Progress: Progressing Goal 4:: Be able to walk back to the treatment area with least restrictive device with SBA of therapist or with less fear of falling Goal Time Frame: 6-8 Weeks Goal Progress: Progressing Goal 5:: Increase LE strength to help with overall fitness (at time of the eval: LE MMT: Hip flex R 15.5# and Hip flex L 14.0, R knee ext 17, L knee ext 10.2, R knee flex 19.9, L knee flex 10.8) Goal Time Frame: 6-8 Weeks Goal Progress: Progressing Goal 6:: Be able to walk back to the treatment rooms without being so SOB that she has to rest prior to talking or starting exercises. Goal Time Frame: 6-8 Weeks Goal Progress: Progressing Anticipated Interventions Patient/Client Instruction: Educate patient on: Plan of Care For the Purpose of:: To increase ROM, To improve nutrient delivery to tissue, To improve muscle performance and motor function, To improve ability to perform ADL's, To increase tolerance to activity/condition/position, To improve performance and independence with ADL's, To decrease level of supervision to perform tasks, To improve ability of physical actions for home/community/work/leisure, To improve gait and locomotor functions, To improve endurance, To improve balance, To improve safety with gait Therapeutic Exercise to Include: Strength training, Endurance training, Balance training, Coordination, Body mechanics, Postural training, Gait and locomotor training, Neuromotor development, via Neurocom Balance Mas, Passive ROM, Active ROM For the Purpose of:: To improve nutrient delivery to tissue, To increase oxygenation perfusion, To improve muscle performance and motor function, To im prove ability to perform ADL's, To increase tolerance to activity/condition/position, To improve performance and independence with ADL's, To decrease level of supervision to perform tasks, To improve ability of physical actions for home/community/work/leisure, To improve gait and locomotor functions, To increase flexibility/ROM, To improve endurance, To improve balance, To improve safety with gait Functional Training to Include: Gait training For the Purpose of:: To improve gait and locomotor functions, To improve safety with gait Please do not hesitate to contact me at [phone] by phone or if you have questions or concerns regarding this new plan of care! Sincerely, SHELLY Devi
--- NOTE | 2021-11-10 13:16 | HP.PTREVAL ---
Dr. Jair Squires MD, It has been my pleasure to treat MARGO STRICKLAND over the last 13 visits for vertigo. Please see the progress note below for an update on the physical therapy plan of care! Subjective: Dr wants more sessions. 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 She wishes that she had more visits and has another session in [address] only does it on Fridays. She does not feel that her balance and dizziness is any better. Each day is different. She feels that her dizziness is worse when she does not sleep good. Her balance has still been pretty poor but she feels that part of it is being intense cause she is afraid that she is going to fall. One night she feel out of bed trying to get out of bed and he foot got caught in the sheet. Pt now has neuropathy. She has been coming in with her and doing some machines. Objective/Function: Gait: walks with slightly more confidence that when she left a few weeks ago with a straight cane and smaller steps but with increase in arm swing. FGA: 14. TU.77. CATSIB: 85. Stairs: up recip with 1 handrail and down stairs (started with 2 hand on one rail and going down sideways and then therapist corrected with one hand on each handrail and go recip with CGA. Smooth Pursuit: horizontal... hard to track at times. Increase dizziness and had to stop at 15 seconds. vertical....Little bit of dizziness. Not as hard to keep focus like horizontal. Stay focus on the pen and move head horizontally able to do it for approx 20 seconds but increase in dizziness. Plan Plan: Pt has list of above exercises listed in ther-ex and feels comfortable starting those until after her hypnosis for her dizziness. Pt will call in to let me know how she is doing and what the new POC is after hypnosis Balance/Gait/Functional tests - Balance/Special Test Scores Functional Gait Assessment Score: 14 % Disability: 53.3400 CATSIB Score (Max score 120 seconds): 85 Dizziness Score: 82 Goals Goal 1:: I HEP Goal Time Frame: 6-8 Weeks Goal Progress: Goal Met Goal 2:: Increase score on the CATSIB from 45 at the time of the eval to 110to decrease fall risk Goal Time Frame: 6-8 Weeks Goal Progress: Progressing Goal 3:: Increase FGA by 10 points to decrease fall risk (score was 9 at time of the eval). Goal Time Frame: 6-8 Weeks Goal Progress: Progressing Goal 4:: Be able to walk back to the treatment area with least restrictive device with SBA of therapist or with less fear of falling Goal Time Frame: 6-8 Weeks Goal Progress: Progressing Goal 5:: Increase LE strength to help with overall fitness (at time of the eval: LE MMT: Hip flex R 15.5# and Hip flex L 14.0, R knee ext 17, L knee ext 10.2, R knee flex 19.9, L knee flex 10.8) Goal Time Frame: 6-8 Weeks Goal Progress: Progressing Goal 6:: Be able to perform 1 min horizontal and vertical smooth pursuits in standing without feeling dizzy Goal Time Frame: 6-8 Weeks Goal Progress: Progressing Anticipated Interventions Patient/Client Instruction: Educate patient on: Plan of Care For the Purpose of:: To increase ROM, To improve nutrient delivery to tissue, To improve muscle performance and motor function, To improve ability to perform ADL's, To increase tolerance to activity/condition/position, To improve performance and independence with ADL's, To decrease level of supervision to perform tasks, To improve ability of physical actions for home/community/work/leisure, To improve gait and locomotor functions, To improve endurance, To improve balance, To improve safety with gait Therapeutic Exercise to Include: Strength training, Endurance training, Balance training, Coordination, Body mechanics, Postural training, Gait and locomotor training, Neuromotor development, via Neurocom Balance Mas, Passive ROM, Active ROM For the Purpose of:: To improve nutrient delivery to tissue, To increase oxygenation perfusion, To improve muscle performance and motor function, To improve ability to perform ADL's, To increase tolerance to activity/condition/position, To improve performance and independence with ADL's, To decrease level of supervision to perform tasks, To improve ability of physical actions for home/community/work/leisure, To improve gait and locomotor functions, To increase flexibility/ROM, To improve endurance, To improve balance, To improve safety with gait Functional Training to Include: Gait training For the Purpose of:: To improve gait and locomotor functions, To improve safety with gait Please do not hesitate to contact me at [phone] by phone or if you have questions or concerns regarding this new plan of care! Sincerely, Ashley Saleh, MPT
--- NOTE | 2021-12-09 11:34 | HP.PTREVAL ---
Dr. Jair Squires MD, It has been my pleasure to treat MARGO STRICKLAND over the last 20 visits for vertigo. Please see the progress note below for an update on the physical therapy plan of care! Subjective: Pt reports that she is very tipsy today. Pt reports 30% improvement. She feels more confident walking. Objective/Function: CATSIB: 100... righted self much better standing on foam with EC but very shaky still but caught self. FGA: 14. LE MMT: Hip flex R 15.5# and Hip flex L 14.0, R knee ext 23.7, L knee ext 18.8, R knee flex 19.9, L knee flex 14.8). Standing 30 second horizontal head turns and gets dizzy. Overall small improvements seen. Sees Ear nose and throat on Tuesday. Will complete next 2-3 visits for HEP and will prob D/C due to lack of major progress Plan Plan: 2X/ week for 4-8 weeks to work on VOR and balance activities to improve gait. Balance/Gait/Functional tests - Balance/Special Test Scores Functional Gait Assessment Score: 14 % Disability: 53.3400 CATSIB Score (Max score 120 seconds): 100 Dizziness Score: 76 Goals Goal 1:: I HEP Goal Time Frame: 6-8 Weeks Goal Progress: Goal Met Goal 2:: Increase score on the CATSIB from 45 at the time of the eval to 110to decrease fall risk Goal Time Frame: 6-8 Weeks Goal Progress: Progressing Goal 3:: Increase FGA by 10 points to decrease fall risk (score was 9 at time of the eval). Goal Time Frame: 6-8 Weeks Goal Progress: Progressing Goal 4:: Be able to walk back to the treatment area with least restrictive device with SBA of therapist or with less fear of falling Goal Time Frame: 6-8 Weeks Goal Progress: Progressing Goal 5:: Increase LE strength to help with overall fitness (at time of the eval: LE MMT: Hip flex R 15.5# and Hip flex L 14.0, R knee ext 17, L knee ext 10.2, R knee flex 19.9, L knee flex 10.8) Goal Time Frame: 6-8 Weeks Goal Progress: Progressing Goal 6:: Be able to perform 1 min horizontal and vertical smooth pursuits in standing without feeling dizzy Goal Time Frame: 6-8 Weeks Goal Progress: Progressing Anticipated Interventions Patient/Client Instruction: Educate patient on: Plan of Care For the Purpose of:: To increase ROM, To improve nutrient delivery to tissue, To improve muscle performance and motor function, To improve ability to perform ADL's, To increase tolerance to activity/condition/position, To improve performance and independence with ADL's, To decrease level of supervision to perform tasks, To improve ability of physical actions for home/community/work/leisure, To improve gait and locomotor functions, To improve endurance, To improve balance, To improve safety with gait Therapeutic Exercise to Include: Strength training, Endurance training, Balance training, Coordination, Body mechanics, Postural training, Gait and locomotor training, Neuromotor development, via Neurocom Balance Mas, Passive ROM, Active ROM For the Purpose of:: To improve nutrient delivery to tissue, To increase oxygenation perfusion, To improve muscle performance and motor function, To improve ability to perform ADL's, To increase tolerance to activity/condition/position, To improve performance and independence with ADL's, To decrease level of supervision to perform tasks, To improve ability of physical actions for home/community/work/leisure, To improve gait and locomotor functions, To increase flexibility/ROM, To improve endurance, To improve balance, To improve safety with gait Functional Training to Include: Gait training For the Purpose of:: To improve gait and locomotor functions, To improve safety with gait Please do not hesitate to contact me at [phone] by phone or if you have questions or concerns regarding this new plan of care! Sincerely, SHELLY Devi
--- NOTE | 2021-12-16 14:17 | HP.PTDCSUM ---
It has been my pleasure to treat MARGO STRICKLAND referred by Dr. Jair Squires MD, with the diagnosis of vertigo for a total of 22 visit(s). Discharge Date: 12/16/21 Please see the following information for a summary of their discharge status. Subjective: Pt reports that the ear nose and throat Dr said to give her some home exercises. She talked a lot about her anxiety and how it is contributing to her dizziness and its to the point she does not want to leave the house. L hip pain Pain Intensity (Out of 10): 5 R broken toes Pain Intensity (Out of 10): 5 General bone pain Pain Intensity (Out of 10): 7 neck and B shld Pain Intensity (Out of 10): 7 % Improvement: 30 Objective/Function: No progress at this point from the las reassessment Goal 1:: I HEP Goal Progress: Goal Met Goal 2:: Increase score on the CATSIB from 45 at the time of the eval to 110to decrease fall risk Goal Progress: Progressing Goal 3:: Increase FGA by 10 points to decrease fall risk (score was 9 at time of the eval). Goal Progress: Progressing Goal 4:: Be able to walk back to the treatment area with least restrictive device with SBA of therapist or with less fear of falling Goal Progress: Progressing Goal 5:: Increase LE strength to help with overall fitness (at time of the eval: LE MMT: Hip flex R 15.5# and Hip flex L 14.0, R knee ext 17, L knee ext 10.2, R knee flex 19.9, L knee flex 10.8) Goal Progress: Progressing Goal 6:: Be able to perform 1 min horizontal and vertical smooth pursuits in standing without feeling dizzy Goal Progress: Progressing Plan: DC PT Discharge Comments: DC PT to HEP If there are questions or concerns regarding this patient's physical therapy, please feel free to call me at [phone]. Thank you for the referral of this patient. Sincerely, Ashley Saleh, MPT Balance/Gait/Functional tests - Balance/Special Test Scores Functional Gait Assessment Score: 14 % Disability: 53.3400 CATSIB Score (Max score 120 seconds): 100 Dizziness Score: 76
== END 2021-12-16 19:00 | disposition home or self-care (01) ==
LOC: PT 11:00
PROVIDERS: PCP Family Medicine; Referring Provider Family Medicine; Visit Provider Family Medicine
DX: H81.09 Meniere's disease, unspecified ear (principal)
CPT/HCPCS: 97110; 97162; 97530

== ENCOUNTER → 2022-05-17 | Outpatient (CLI) | payer MEDICARE, SELFPAY ==
[2022-05-17 18:05] LABS: Bacteria 0 SEEN /hpf (None Seen); Mucous, Urine 0 SEEN /hpf (<or=2+); Red Blood Cells-Urine 0 SEEN /hpf (0-5)
[2022-05-17 18:35] LABS: Glucose, Dipstick Normal (Normal); Ketone-Dipstick Negative (Negative); Leukocyte Esterase-Dipstick 100 /ul (Negative); Nitrite-Dipstick Negative (Negative); Occult Blood-Urine Negative /ul (Negative); Protein-Dipstick Negative (Negative); Specific Gravity, Urine 1.005 (1.002-1.030); Urine Bilirubin Dipstick Negative (Negative); Urine Urobilinogen Normal (Normal)
[2022-05-17 19:59] LABS: Color, Urine Yellow (Yellow); Urine Clarity Clear (Clear)
[2022-05-17 21:16] LABS: White Blood Cells 5-10 SEEN /hpf (0-5)
[2022-05-17 21:17] LABS: Squamous Epithelial Cells - UA 5-10 SEEN /hpf (5-10)
== END | disposition home or self-care (01) ==
PROVIDERS: PCP Family Medicine; Visit Provider Family Medicine
DX: R30.0 Dysuria (principal)
CPT/HCPCS: 81001; 87077; 87086; 87088; 87186

== ENCOUNTER → 2022-05-21 | Outpatient (CLI) | payer MEDICARE, SELFPAY ==
--- NOTE | 2022-05-21 11:25 | MRI_ITS ---
STUDY: MRI BRAIN WITH AND WITHOUT CONTRAST REASON FOR EXAM: Female, 66 years old. Vertigo -- With attention to the internal auditory canals TECHNIQUE: Standardized multiplanar fat and water weighted pulse sequences were obtained. IV 13ml Clariscan was administered for the contrast portion of the examination. COMPARISON: MRI of the brain April 03, 2021 FINDINGS: Mild cerebral atrophy.. Normal white matter tracts of the supratentorial brain. Normal bilateral basal ganglia. Normal thalami. There is no extra-axial fluid accumulation. Normal flow voids within the major intracranial circulation suggesting patency by spin echo criteria. Normal venous enhancement. There is no enhancing intra-axial or extra-axial abnormality. Normal sella turcica, pituitary gland, infundibular stalk, optic chiasm and hypothalamus. Normal tectal plate and pineal gland. Normal midbrain, ap and medulla. Normal cerebellum. Normal basal cisterns. Normal bilateral temporal bones. Normal bilateral internal auditory canals. Postsurgical changes of the orbits. Severe mucosal thickening of the left maxillary sinus and moderate disease on the right. Normal calvarium and skull base. Normal visualized soft tissue structures. Normal visualized upper cervical spine. MRI/Brain W/WO Contrast IMPRESSION: Mild atrophy. No significant white matter disease or evidence for acute infarct. No enhancing lesions following contrast administration.. No evidence for acoustic or vestibular schwannoma. Bilateral maxillary sinusitis more severe on the left likely chronic Electronically Signed: Renaldo Jones MD at 22:23 EDT ,
[2022-05-21 12:15] LABS: CREATININE FINGERSTICK 0.9 mg/dL (0.55-1.02); EGFR FINGERSTICK > 60.0000 mL/min (>60)
[2022-05-21 12:23] LABS: Hematocrit 41.4 % (37-47); Hemoglobin 14.5 g/dL (12.0-15.0); Mean Corpuscular Hgb 34.8 pg (27.0-32.0); Mean Corpuscular Volume 99.3 fL (81-99); Mean Platelet Vol. 8.5 fl (6.2-12.0); Platelet Count 281 K/mm3 (150-450); RBC Distribution Width CV 12.5 % (11.6-14.6); Red Blood Count 4.17 M/mm3 (4.2-5.4); White Blood Count 6.9 K/mm3 (4.4-11.0)
[2022-05-21 12:54] LABS: Vitamin B12 370 pg/mL (211-911)
[2022-05-21 13:05] LABS: ALB/GLOB Ratio 0.8 RATIO (0.9-2.4); AST(SGOT) 104 U/L (15-37); Alanine Aminotransfer ALT/SGPT 40 U/L (13-56); Albumin, Serum 3.6 g/dL (3.2-5.0); Alkaline Phosphatase 86 U/L (45-117); Anion Gap 9 (5-15); BUN 6 mg/dL (7-18); BUN/Creat Ratio 10.8 RATIO (10-20); Calcium,Total 8.8 mg/dL (8.5-10.1); Chloride 96 mmol/L (98-107); Creatinine, Serum 0.56 mg/dL (0.55-1.02); EST Glomerular Filtration Rate 116 mL/min (>60); Est Glom Filt Rate - Afr Amer 140 mL/min (>60); Globulin 4.5 g/dL (2.2-4.2); Glucose 98 mg/dL (74-106); Magnesium 1.1 mg/dL (1.6-2.6); Potassium 3.8 mmol/L (3.5-5.1); Protein, Total 8.1 g/dL (6.4-8.2); Sodium Level 128 mmol/L (136-145); Thyroid Stim Hormone (TSH) 0.73 uIU/mL (0.358-3.74)
[2022-05-25 11:13] LABS: Vitamin D 1,25-Dihydroxy 46.5 pg/mL (24.8-81.5)
[2022-05-25 22:07] LABS: Free Lambda Light Chains 21.8 mg/L (5.7-26.3)
[2022-05-26 09:38] LABS: Vitamin B1, Thiamine 82.3 nmol/L (66.5-200.0)
== END | disposition home or self-care (01) ==
PROVIDERS: PCP Family Medicine; Referring Provider Psychiatry & Neurology Neurology; Visit Provider Psychiatry & Neurology Neurology
DX: F10.10 Alcohol abuse, uncomplicated (principal); H81.90 Unspecified disorder of vestibular function, unspecified ear; R26.9 Unspecified abnormalities of gait and mobility; E55.9 Vitamin D deficiency, unspecified; I10 Essential (primary) hypertension
CPT/HCPCS: 36415; 70553; 80053; 82607; 82652; 82746; 83735; 83883; 84425; 84443; 85027; A9575

== ENCOUNTER → 2022-06-03 | Outpatient (CLI) | payer MEDICARE, SELFPAY ==
[2022-06-03 16:01] LABS: Mucous, Urine 0 SEEN /hpf (<or=2+); Red Blood Cells-Urine 0 SEEN /hpf (0-5)
[2022-06-03 17:56] LABS: Color, Urine Yellow (Yellow); Glucose, Dipstick Normal (Normal); Ketone-Dipstick Negative (Negative); Leukocyte Esterase-Dipstick 500 /ul (Negative); Nitrite-Dipstick Negative (Negative); Occult Blood-Urine Negative /ul (Negative); Protein-Dipstick Negative (Negative); Urine Bilirubin Dipstick Negative (Negative); Urine Clarity Clear (Clear); Urine Urobilinogen Normal (Normal); Urine pH 6.5 (5.0 - 8.0)
[2022-06-03 18:14] LABS: Squamous Epithelial Cells - UA 0-5 SEEN /hpf (5-10); White Blood Cells 5-10 SEEN /hpf (0-5)
[2022-06-03 18:15] LABS: Bacteria 1+ /hpf (None Seen)
== END | disposition home or self-care (01) ==
LOC: MFPLAB 15:59
PROVIDERS: PCP Family Medicine; Referring Provider Family Medicine; Visit Provider Family Medicine
DX: R30.0 Dysuria (principal)
CPT/HCPCS: 81001; 87077; 87086; 87088; 87186

== ENCOUNTER → 2022-06-28 | Outpatient (CLI) | payer MEDICARE, SELFPAY | END | disposition home or self-care (01) | PROVIDERS: PCP Family Medicine; Visit Provider Family Medicine | DX: R30.0 Dysuria (principal) | CPT/HCPCS: 87086; 87088; 87186 ==

== ENCOUNTER 2022-08-15 19:21 | Emergency (ER) | payer MEDICARE, SELFPAY ==
[2022-08-15 19:22] VITALS: BP 123/85; PULSE 115; RESP 18; TEMP 36.5; O2SAT 93; BMI 24.5
--- NOTE | 2022-08-15 19:42 | EDS_ITS ---
HPI History of Present Illness Chief Complaint: Weakness Informant: patient Onset/Context/Timing Onset: Days (3 days) Context: Gradual Onset Narrative Narrative: Patient presents with 3-day history of nausea, vomiting, and diarrhea. She reports increased weakness and states she cannot keep anything down. There was 1 day that she was unable to keep her medication down as well. She does have a history of alcohol abuse and states her last drink was 5 days ago. She is not been able to keep alcohol down, however states she does not feel like she is in withdrawal. She does report urinary symptoms and states that she has had a UTI for the past month. She reported has been on 4 different antibiotics without improvement. She does have multiple allergies to antibiotics. [facility] Medical History Acute respiratory failure with hypoxia Alcohol abuse Anxiety Bronchitis COPD (chronic obstructive pulmonary disease) Depression GERD (gastroesophageal reflux disease) Hip fracture HTN (hypertension) Microscopic colitis On home oxygen therapy Osteoporosis Smoker Vertigo Home Medications amlodipine 10 mg tablet 10 mg PO DAILY bp #90 tabs 08/08/18 [History Last Taken 01/21/21] metoprolol succinate 100 mg tablet,extended release 24 hr 100 mg PO DAILY bp #90 tabs 08/08/18 [History Last Taken 01/21/21] omeprazole 40 mg capsule,delayed release 40 mg PO DAILY reflux #90 caps 08/08/18 [History Last Taken 01/21/21] denosumab 60 mg/mL subcutaneous syringe (Prolia) 60 mg subcut .[id number] BONES 01/21/21 [History Last Taken 12/03/20] albuterol sulfate 90 mcg/actuation aerosol inhaler 2 puff inhalation Q4H 04/27/21 [History Last Taken Unknown] loratadine 10 mg tablet 10 mg PO DAILY #30 tabs 08/03/22 [Rx Last Taken Unknown] prochlorperazine maleate 10 mg tablet (Compazine) 10 mg PO Q8H PRN nausea and vomiting #14 tabs 08/15/22 [Rx Last Taken Unknown] Allergy/AdvReac Type Severity Reaction Status Date / Time amoxicillin Allergy Intermediate Other Verified 08/15/22 19:21 ciprofloxacin [From Cipro] Allergy Intermediate Rash Verified 08/15/22 19:21 sulfamethoxazole Allergy Intermediate Other Verified 08/15/22 19:21 [From Bactrim] trimethoprim [From Bactrim] Allergy Unknown Verified 08/15/22 19:21 doxycycline AdvReac Intermediate Other Verified 08/15/22 19:21 naproxen AdvReac Intermediate Other Verified 08/15/22 19:21 Family History Sister Breast cancer Osteoporosis Mother Heart disease Myocardial infarction Father No problems noted. Surgical History History of colonoscopy Social History household members: spouse housing: house number of children: 0 current occupational status: retired pets and animals: Yes (dog) Smoking Status: Current every day smoker tobacco type: cigarettes alcohol intake: current alcohol intake frequency: 0-2 drinks per day Alcohol type: beer ROS ROS ED Constitutional Constitutional ED: Denies chills or fever(s) Eyes Eyes: Denies discharge from eye(s) ENT ENT ED: Denies discharge from eye(s), rhinorrhea or sore throat Cardiovascular Cardiovascular: Denies chest pain or palpitations Respiratory/Chest Respiratory/Chest: Denies cough or dyspnea Gastrointestinal Gastrointestinal: Reports diarrhea, nausea and vomiting; Denies abdominal pain Genitourinary Genitourinary ED: Reports dysuria Musculoskeletal Musculoskeletal: Denies back pain or extremity pain Integumentary Denies Abrasions or rash Neurologic Neurologic: Reports weakness; Denies headache(s) Psychiatric Psychiatric: Denies anxiety or depression Allergic/Immunologic Allergic/Immunologic ED: Denies lip swelling or urticaria EXAM Physical Exam Const Vital Signs: 08/15/22 19:22 08/15/22 19:28 08/15/22 20:00 Temperature 97.7 F L Temperature Source Temporal Pulse Rate 115 H Respiratory Rate 18 Respiratory Pattern Normal Blood Pressure 123/85 H Blood Pressure Mean 97 Pulse Ox 93 87 Oxygen Delivery Method Room Air Oxygen Flow Rate (L/min) 08/15/22 20:09 Temperature Temperature Source Pulse Rate Respiratory Rate Respiratory Pattern Blood Pressure Blood Pressure Mean Pulse Ox 91 Oxygen Delivery Method Nasal Cannula Oxygen Flow Rate (L/min) 2 Positive well nourished and well developed General Appearance ED: well developed HEENT Reports normocephalic and head/scalp atraumatic Eyes PERRL and EOMs intact bilaterally Neck supple Chest Wall inspection of chest normal and palpation of chest normal Resp normal respiratory effort and clear to auscultation bilaterally Cardio regular rhythm Rate: tachycardic GI Auscultation: hypoactive bowel sounds Palpation: soft Extremity normal to inspection Neuro oriented x3 and no sensory deficits noted Sensorium / Orientation: alert Motor Exam: strength 5/5 throughout Psych mental status grossly normal Skin no rashes or lesions noted MDM MDM MDM Narrative Medical decision making narrative: IV line established and patient given IV fluids. She was given Compazine and Benadryl for her nausea. Labwork obtained to evaluate for leukocytosis, anemia, and electrolyte derangement. Urinalysis obtained to evaluate for infection/hematuria. Lab Data Attestation: I reviewed the patient's lab results. Labs: Laboratory Results - last 24 hr 08/15/22 08/15/22 08/15/22 19:40 19:40 20:35 WBC 19.0 H RBC 3.75 L Hgb 13.1 Hct 37.1 MCV 98.9 MCH 34.9 H MCHC 35.3 RDW Std Deviation 47.3 H RDW Coeff of Lynnette 13.1 Plt Count 215 MPV 9.3 Immature Gran % (Auto) 1.100 H Neut % (Auto) 80.7 H Lymph % (Auto) 2.5 L Braxton % (Auto) 14.9 H Eos % (Auto) 0.3 Baso % (Auto) 0.5 Absolute Neuts (auto) 15.4 H Absolute Lymphs (auto) 0.47 L Nucleated RBC % 0 Differential Comment SCANNED Diff Path Review May foll Sodium 125 L Potassium 3.8 Chloride 93 L Carbon Dioxide 19.0 L Anion Gap 13 BUN 14 Creatinine 0.99 Estim Creat Clear Calc 44.99 Est GFR (MDRD) Af Amer 72 Est GFR (MDRD) Non-Af 60 BUN/Creatinine Ratio 14.2 Glucose 148 H Calcium 8.4 L Total Bilirubin 0.90 Direct Bilirubin 0.27 AST 21 ALT 19 Alkaline Phosphatase 61 Total Protein 7.5 Albumin 3.4 Globulin 4.1 Urine Color Yellow Urine Clarity Sl. Cloudy Urine pH 6.0 Ur Specific [place] 1.015 Urine Protein 500 H Urine Glucose (UA) Normal Urine Ketones 5 H Urine Occult Blood 25 H Urine Nitrite Negative Urine Bilirubin Negative Urine Urobilinogen Normal Ur Leukocyte Esterase 500 H Urine RBC 0 SEEN Urine WBC >100 SEEN Ur Squamous Epith Cells 0-5 SEEN Urine Bacteria 0 SEEN Urine Mucus 0 SEEN Radiography Diagnostic Testing: Clinical Impression(s) from Imaging Studies Abdomen/Pelvis CT 08/15/22 20:24 IMPRESSION: (NOT LISTED IN ORDER OF SIGNIFICANCE) Gastritis. There is a compression deformity of the spine at level: L1 . These are age-indeterminate. MRI could further evaluate if of concern. 14 mm left adrenal nodule. ACR White Paper guidelines (Ivon et al. JACR 2017; 14(8):2006-6868) suggest the following. If there is no history of malignancy consider a follow-up low dose, non-contrast adrenal CT or chemical-shift adrenal MRI in 12 months. If there is a history of malignancy recommend a low dose, non-emergent, non-contrast adrenal CT or chemical-shift adrenal MRI follow-up study. Other findings as above. Electronically Signed: Brett Holcomb MD at 21:27 EDT , Chest X-Ray 08/15/22 21:00 IMPRESSION: There are no acute findings. Electronically Signed: Brett Holcomb MD at 21:15 EDT , Treatment and Re-Evaluation :: CBC was a white count of 19 with 80% neutrophils. Hemoglobin is 13.1. Chemistry studies reveal sodium of 125 and chloride of 93. Appears her baseline sodium is around 127. Bicarb is slightly low at 19. Renal function is normal. LFTs are unremarkable. Urinalysis reveals greater than 100 white cells but 0 bacteria. Urine will be sent for a culture. Given the patient's significant leukocytosis, CT scan of the abdomen pelvis with IV contrast obtained to ensure no evidence of colitis. CT scan reveals gastrit is but no other acute findings at this time. Nursing staff did assist the patient up to the bedside commode. They did raise concern that she was very weak. Why brought this up with the patient she states that she wants to go home and is not concerned that she will fall. Patient did drop her oxygen saturations into the mid to high 80s while here and was on 2 L nasal cannula. She is taken off of oxygen at this time is maintaining her O2 sat at 91%. She does have a known history of COPD. She states that she has a pulse oximeter as well as oxygen at home that she can use if needed. Discharge Plan Triage Chief Complaint: Weakness ED Provider: Genny Benitez Dx/Rx/DC Orders Clinical Impression: Gastroenteritis, Dehydration, Generalized weakness Instructions: ED Dehydration (Adult), ED Gastroenteritis, Viral (Adult) Prescriptions: New prochlorperazine maleate [Compazine] 10 mg tablet 10 mg PO Q8H PRN (Reason: nausea and vomiting) Qty: 14 0RF No Action metoprolol succinate 100 mg tablet extended release 24 hr 100 mg PO DAILY Qty: 90 Label Comments: PT STATES ONLY TAKES ONCE A DAY. amlodipine 10 mg tablet 10 mg PO DAILY Qty: 90 omeprazole 40 mg capsule,delayed release(DR/EC) 40 mg PO DAILY Qty: 90 loratadine 10 mg tablet 10 mg PO DAILY Qty: 30 5RF Prolia 60 mg/mL syringe 60 mg SUBCUT .[id number] albuterol sulfate 90 mcg/actuation HFA aerosol inhaler 2 puff INHALATION Q4H Primary Care Provider: Jair Squires Referrals: Jair Squires MD [Primary Care Provider] - 5-7 Days Disposition Disposition: Home, Self Care
[2022-08-15] MEDS: 0.9% Normal Saline 1,000 ML 1000 ML IV (19:48)
[2022-08-15] MEDS: proCHLORPERazine 10 MG/2 ML Vial IV (19:48)
[2022-08-15] MEDS: DiphenhydrAMINE 50 MG/ML Syringe 12.5 MG IV (19:48)
[2022-08-15 19:50] LABS: POSITIVE MORPHOLOGY YES
[2022-08-15 19:55] LABS: Differential Indicated SCAN CRITERIA MET
[2022-08-15 20:00] VITALS: O2SAT 87
[2022-08-15 20:08] LABS: AST(SGOT) 21 U/L (15-37); Alanine Aminotransfer ALT/SGPT 19 U/L (13-56); Albumin, Serum 3.4 g/dL (3.2-5.0); Alkaline Phosphatase 61 U/L (45-117); Anion Gap 13 (5-15); BUN 14 mg/dL (7-18); BUN/Creat Ratio 14.2 RATIO (10-20); Bilirubin, Direct 0.27 mg/dL (0.00-0.30); Calcium,Total 8.4 mg/dL (8.5-10.1); Chloride 93 mmol/L (98-107); Creatinine, Serum 0.99 mg/dL (0.55-1.02); EST Glomerular Filtration Rate 60 mL/min (>60); Est Glom Filt Rate - Afr Amer 72 mL/min (>60); Estimated Creatinine Clearance 44.99 ml/min; Globulin 4.1 g/dL (2.2-4.2); Glucose 148 mg/dL (74-106); Potassium 3.8 mmol/L (3.5-5.1); Protein, Total 7.5 g/dL (6.4-8.2); Sodium Level 125 mmol/L (136-145)
[2022-08-15 20:09] VITALS: O2SAT 91
[2022-08-15 20:09] LABS: Absolute Lymphocyte Count 0.47 X10^3/uL (0.83-4.51); Absolute Neutrophil Count 15.4 X10^3/uL (2.0-7.7); Basophil% 0.5 % (0-1); Eosinophils% 0.3 % (0-5); Hematocrit 37.1 % (37-47); Hemoglobin 13.1 g/dL (12.0-15.0); Lymphocyte # 0.47 X10^3/ul (0.83-4.51); Lymphocyte % 2.5 % (19-41); Mean Corp Hgb Conc 35.3 g/dL (32-36); Mean Corpuscular Hgb 34.9 pg (27.0-32.0); Mean Corpuscular Volume 98.9 fL (81-99); Mean Platelet Vol. 9.3 fl (6.2-12.0); Monocyte# 2.83 X10^3/uL; Monocyte% 14.9 % (0-10); NRBC Flagged by Analyzer 0 % (0-5); Neutrophil # 15.35 X10^3/uL (2.7-7.7); Neutrophil % 80.7 % (47-70); POSITIVE DIFFERENTIAL YES; Platelet Count 215 K/mm3 (150-450); RBC Distribution Width CV 13.1 % (11.6-14.6); RBC Distribution Width SD 47.3 fl (35.1-43.9); Red Blood Count 3.75 M/mm3 (4.2-5.4)
[2022-08-15 20:12] LABS: Eosinophil# 0.06 X10^3/uL
[2022-08-15 20:15] LABS: Differential Comment SCANNED
--- NOTE | 2022-08-15 20:24 | CT_ITS ---
STUDY: CT Abdomen And Pelvis W/ Contrast Injection 08/15/2022 9:23 PM REASON FOR EXAM: Female, 66 years old. n/v weakness, copd, htn, alcohol abuse pain gastroenteritis, leukocytosis Individualized dose optimization techniques were used for this CT. COMPARISON: None. TECHNIQUE: CT Abdomen And Pelvis W/ Contrast Injection IV 100mL Isovue-370 FINDINGS: There are atherosclerotic calcifications of visualized coronary arteries. There are scattered blebs and bullae. This can be seen in pulmonary emphysema. Normal liver. Normal gallbladder and extrahepatic biliary system. Normal spleen. Normal pancreas. 14 mm left adrenal nodule. ACR White Paper guidelines (Ivon et al. JACR 2017; 14(8):2770-2493) suggest the following. If there is no history of malignancy consider a follow-up low dose, non-contrast adrenal CT or chemical-shift adrenal MRI in 12 months. If there is a history of malignancy recommend a low dose, non-emergent, non-contrast adrenal CT or chemical-shift adrenal MRI follow-up study. There are hypodensities in the right kidney. These are consistent for cysts. No follow up required. There are hypodensities in the left kidney. These are consistent for cysts. No follow up required. Focal wall thickening of the antrum of stomach. This can suggest a gastritis. Normal small intestine. There are multiple colonic diverticula consistent with diverticulosis. There is non-visualization of the appendix. There are calcifications of the abdominal aorta. This is consistent for atherosclerotic disease. There is NO abdominal aortic aneurysm. Vascular workup can be obtained based on clinical correlation. Normal inferior vena cava. Subcentimeter mesenteric lymph nodes. Normal urinary bladder. There is atrophy of the uterus. There is an umbilical hernia containing fat. There are diffuse degenerative changes of the visualized lumbar spine. There is a compression deformity of the spine at level: L1 . These are age-indeterminate. MRI could further evaluate if of concern. Metal hardware in the left hip. CT/Abdomen/Pelvis W IV Cont ONLY IMPRESSION: (NOT LISTED IN ORDER OF SIGNIFICANCE) Gastritis. There is a compression deformity of the spine at level: L1 . These are age-indeterminate. MRI could further evaluate if of concern. 14 mm left adrenal nodule. ACR White Paper guidelines (Ivon et al. JACR 2017; 14(8):0563-8462) suggest the following. If there is no history of malignancy consider a follow-up low dose, non-contrast adrenal CT or chemical-shift adrenal MRI in 12 months. If there is a history of malignancy recommend a low dose, non-emergent, non-contrast adrenal CT or chemical-shift adrenal MRI follow-up study. Other findings as above. Electronically Signed: Brett Holcomb MD at 21:27 EDT ,
[2022-08-15 20:45] LABS: Bacteria 0 SEEN /hpf (None Seen); Mucous, Urine 0 SEEN /hpf (<or=2+); Red Blood Cells-Urine 0 SEEN /hpf (0-5)
[2022-08-15 20:57] LABS: Color, Urine Yellow (Yellow); Glucose, Dipstick Normal (Normal); Ketone-Dipstick 5 mg/dl (Negative); Leukocyte Esterase-Dipstick 500 /ul (Negative); Nitrite-Dipstick Negative (Negative); Occult Blood-Urine 25 /ul (Negative); Protein-Dipstick 500 mg/dl (Negative); Specific Gravity, Urine 1.015 (1.002-1.030); Urine Bilirubin Dipstick Negative (Negative); Urine Clarity Sl. Cloudy (Clear); Urine Urobilinogen Normal (Normal)
--- NOTE | 2022-08-15 21:00 | RAD_ITS ---
STUDY: XR Chest 1 View 08/15/2022 8:56 PM REASON FOR EXAM: Female, 66 years old. CHEST PAIN hypoxia COMPARISON: 04/27/2021 TECHNIQUE: XR Chest 1 View FINDINGS: There is no demonstrated pleural abnormality. Enlarged heart size. Normal mediastinum. Normal skyler. Prominent appearing increased interstitial lung markings. Normal visualized pulmonary arteries. There is atherosclerotic calcification of the aortic arch with tortuosity. There are diffuse degenerative changes of the visualized thoracic spine. There is degenerative osteoarthritis of the bilateral shoulders. There is no demonstrated abnormality of the visualized soft tissue structures of the upper abdomen. RAD/Chest 1 View (Portable) IMPRESSION: There are no acute findings. Electronically Signed: Brett Holcomb MD at 21:15 EDT ,
[2022-08-15 21:04] LABS: Squamous Epithelial Cells - UA 0-5 SEEN /hpf (5-10); White Blood Cells >100 SEEN /hpf (0-5)
[2022-08-15 22:02] VITALS: BP 120/70
[2022-08-15 22:10] VITALS: BP 120/77; PULSE 78; RESP 18; O2SAT 93
[2022-08-16 13:00] LABS: Pathologist Review Reviewed
== END 2022-08-15 22:20 | disposition home or self-care (01) ==
PROVIDERS: Emergency Provider Emergency Medicine; PCP Family Medicine; Visit Provider Emergency Medicine
DX: K52.9 Noninfective gastroenteritis and colitis, unspecified (principal); J44.9 Chronic obstructive pulmonary disease, unspecified; E86.0 Dehydration; I10 Essential (primary) hypertension; F17.210 Nicotine dependence, cigarettes, uncomplicated; Z79.899 Other long term (current) drug therapy; K21.9 Gastro-esophageal reflux disease without esophagitis; M81.0 Age-related osteoporosis without current pathological fracture; R53.1 Weakness
CPT/HCPCS: 71045; 74177; 80048; 80076; 81001; 85025; 87077; 87086; 87088; 87186; 96361; 96374; 96375; 99284; J7030; Q9967; A4216

== ENCOUNTER → 2022-12-02 | Outpatient (CLI) | payer MEDICARE, SELFPAY ==
[2022-12-02 17:45] LABS: Anion Gap 13 (5-15); BUN 8 mg/dL (7-18); BUN/Creat Ratio 16.1 RATIO (10-20); Calcium,Total 8.2 mg/dL (8.5-10.1); Chloride 96 mmol/L (98-107); EST Glomerular Filtration Rate 131 mL/min (>60); Est Glom Filt Rate - Afr Amer 158 mL/min (>60); Glucose 70 mg/dL (74-106); Magnesium 1.5 mg/dL (1.6-2.6); Potassium 3.9 mmol/L (3.5-5.1); Sodium Level 126 mmol/L (136-145)
[2022-12-06 14:08] LABS: Albumin 3.3 g/dL (2.9-4.4); Alpha-1-Globulins 0.4 g/dL (0.0-0.4); Alpha-2-Globulins 1.1 g/dL (0.4-1.0); Gamma Globulin 1.5 g/dL (0.4-1.8); Immunoglobulin A 305 mg/dL (87-352); Immunoglobulin G 1244 mg/dL (586-1602); Immunoglobulin M 180 mg/dL (26-217); PROEL- TOTAL PROTEIN 7.5 g/dL (6.0-8.5)
== END | disposition home or self-care (01) ==
LOC: MFPLAB 14:56
PROVIDERS: PCP Family Medicine; Visit Provider Psychiatry & Neurology Neurology
DX: R76.8 Other specified abnormal immunological findings in serum (principal); E87.1 Hypo-osmolality and hyponatremia; R53.83 Other fatigue; E83.42 Hypomagnesemia
CPT/HCPCS: 36415; 80048; 82784; 83735; 84165; 86334; 86335

== ENCOUNTER 2023-12-29 17:25 | Inpatient (IN) | payer MEDICARE, SELFPAY ==
[2023-12-29 17:26] VITALS: BP 155/132; RESP 18; TEMP 35.6
[2023-12-29 17:28] VITALS: BMI 19.1
--- NOTE | 2023-12-29 17:52 | CT_ITS ---
EXAM: CT ABDOMEN AND PELVIS WITH INTRAVENOUS CONTRAST CLINICAL INDICATION: n/v/d pain TECHNIQUE: Helically acquired images were obtained of the abdomen and pelvis with intravenous contrast. This CT exam was performed using one or more of the following dose reduction techniques: automated exposure control, adjustment of the mA and/or kV according to patient size, and/or use of iterative reconstruction technique. CONTRAST: IV 75mL Isovue-370 COMPARISON: 08/15/2022 FINDINGS: LOWER THORAX: There is a low-density mass in the left adrenal gland that measures 1.3 x 1.0 cm which is stable compatible with pneumonia. There are emphysematous changes in the lung bases. No cardiomegaly. No significant pericardial effusion. ABDOMEN: LIVER: Unremarkable. Homogeneous. No focal mass. GALLBLADDER AND BILE DUCTS: Unremarkable. No calcified gallstones. No gallbladder distention or wall edema. No intra- or extrahepatic biliary ductal dilation. PANCREAS: Unremarkable. No focal cystic or solid mass. SPLEEN: Unremarkable. Normal size without focal cystic or solid mass. ADRENALS: Unremarkable. No nodules. KIDNEYS AND URETERS: Unremarkable. Normal renal size and position. No hydronephrosis. STOMACH AND BOWEL: There is sigmoid diverticulosis with no evidence of diverticulitis. No stomach or bowel distention. PELVIS: APPENDIX: No evidence of acute appendicitis. BLADDER: Unremarkable. REPRODUCTIVE: Unremarkable as visualized. No mass. ABDOMEN and PELVIS: INTRAPERITONEAL SPACE: Unremarkable. No ascites or other fluid collection. No free air. BONES/JOINTS: There is beam hardening artifact from a left hip prosthesis. No suspicious lytic or blastic abnormality. SOFT TISSUES: Unremarkable. No discrete abdominal or pelvic wall hernia. VASCULATURE: Unremarkable. Abdominal aorta is non-dilated. LYMPH NODES: Unremarkable. No enlarged lymph nodes. CT/Abdomen/Pelvis W IV Cont ONLY IMPRESSION: No acute abnormalities in the abdomen or pelvis. Electronically Signed: Kevin Reynolds MD at 20:34 EST ,
--- NOTE | 2023-12-29 17:52 | EKG12_ITS ---
Test Reason : Blood Pressure : */* mmHG Vent. Rate : 84 BPM Atrial Rate : 84 BPM P-R Int : 114 ms QRS Dur : 56 ms QT Int : 422 ms P-R-T Axes : 32 59 67 degrees QTcB Int : 498 ms Normal sinus rhythm Nonspecific ST abnormality Abnormal ECG Confirmed by JOSEPHINE COPELAND, LETY ([id number]), editorial writer NAVEED GUALLPA ([id number]) on 01/02/2024 10:11:45 AM Referred By: Ted Culp Confirmed By: LETY BURTON MD
--- NOTE | 2023-12-29 18:18 | CT_ITS ---
EXAM: CT HEAD WITHOUT INTRAVENOUS CONTRAST CLINICAL INDICATION: multiple falls TECHNIQUE: Multiple axial images were obtained of the head without intravenous contrast. This CT exam was performed using one or more of the following dose reduction techniques: automated exposure control, adjustment of the mA and/or kV according to patient size, and/or use of iterative reconstruction technique. COMPARISON: 02/23/2021 FINDINGS: BRAIN AND EXTRA-AXIAL SPACES: There is enlargement of ventricular system and cortical sulci. There is hypoattenuation in the periventricular. No intra- or extra-axial hemorrhage. No evidence of acute infarct. No intracranial mass or mass effect. There is preservation of the holliday/white matter interface. Posterior fossa structures are unremarkable. Basal cisterns are patent. BONES/JOINTS: Unremarkable. No discrete lytic or blastic abnormalities. SINUSES: There is an air-fluid level in right maxillary sinus. MASTOID AIR CELLS: Unremarkable. Clear. ORBITS: Visualized globes, extraocular muscles, optic nerves and retrobulbar fat appear unremarkable. CT/Brain/Head without Contrast IMPRESSION: 1. No acute intracranial abnormality. There has been no significant change from the reference exam. 2. Stable senescent change with small vessel ischemia. 3. Right maxillary sinusitis. Electronically Signed: Kevin Reynolds MD at 20:36 EST ,
--- NOTE | 2023-12-29 18:18 | EDS_ITS ---
HPI History of Present Illness Chief Complaint: Nausea/Vomiting/Diarrhea Narrative Narrative: Patient is a 67-year-old female past medical history of alcohol abuse, COPD, vertigo, depression, anxiety, hypertension who presented to the emergency department with chief complaint of nausea vomiting diarrhea. Patient states this has been going on for approximately 2 weeks now and for the past 2 to 3 days it has progressively worsened. States that she is not able to tolerate anything by mouth she immediately starts to vomit. Patient denies any recent sick contacts. Patient states that she has had multiple falls as she is very weak. Her significant other at bedside states that she has to help her ambulate secondary to her weakness. [facility] Medical History Alcohol abuse COPD (chronic obstructive pulmonary disease) Smoker On home oxygen therapy Vertigo Acute respiratory failure with hypoxia Hip fracture Depression Anxiety Osteoporosis GERD (gastroesophageal reflux disease) Microscopic colitis Bronchitis HTN (hypertension) Home Medications ?Medication ?Instructions ?Recorded ?Last Taken ?Type amlodipine 10 mg tablet 10 mg PO DAILY bp #90 tabs 08/08/18 01/21/21 History metoprolol succinate 100 mg 100 mg PO DAILY bp #90 tabs 08/08/18 01/21/21 History tablet,extended release 24 hr omeprazole 40 mg capsule,delayed 40 mg PO DAILY reflux #90 caps 08/08/18 01/21/21 History release denosumab 60 mg/mL subcutaneous 60 mg subcut .[id number] BONES 01/21/21 12/03/20 History syringe (Prolia) albuterol sulfate 90 mcg/actuation 2 puff inhalation Q4H 04/27/21 Unknown History aerosol inhaler loratadine 10 mg tablet 10 mg PO DAILY #30 tabs 08/03/22 Unknown Rx prochlorperazine maleate 10 mg 10 mg PO Q8H PRN nausea and 08/15/22 Unknown Rx tablet (Compazine) vomiting #14 tabs magnesium oxide 500 mg PO DAILY #30 tabs 12/06/22 Unknown Rx sodium chloride 1,000 mg soluble 1,000 mg PO QD-QID PRN electrolyte 12/06/22 Unknown Rx tablet replenishment #30 tabs Allergy/AdvReac Type Severity Reaction Status Date / Time nitrofurantoin (From AdvReac Severe Vomiting Verified 12/29/23 17:26 Macrobid) amoxicillin AdvReac Intermediate Other Verified 12/29/23 17:26 ciprofloxacin (From Cipro) AdvReac Intermediate Rash Verified 12/29/23 17:26 doxycycline AdvReac Intermediate Other Verified 12/29/23 17:26 naproxen AdvReac Intermediate Other Verified 12/29/23 17:26 sulfamethoxazole (From AdvReac Intermediate Other Verified 12/29/23 17:26 Bactrim) trimethoprim (From Bactrim) AdvReac Unknown Verified 12/29/23 17:26 Family History Sister Breast cancer Osteoporosis Mother Heart disease Myocardial infarction Father No problems noted. Surgical History History of colonoscopy Social History household members: spouse housing: house number of children: 0 current occupational status: retired pets and animals: Yes (dog) Smoking Status: Current every day smoker tobacco type: cigarettes alcohol intake: current alcohol intake frequency: 0-2 drinks per day Alcohol type: beer ROS ROS ED ROS Narrative Constitutional: Denies headache, fevers, chills, lightness, dizziness Eyes: Denies change in vision double vision blurry Cardiovascular: Denies chest pain or palpitation Respiratory: Denies coughing wheezing shortness of Abdomen: Complains of abdominal pain nausea vomit diarrhea as noted above : Denies any urinary symptoms Neurological: Denies any numbness, weakness, tingling Musculoskeletal: Denies any back pain Skin: Denies any rashes or lesions EXAM Physical Exam Narrative Exam Narrative: General: Patient was lying in bed rest comfortably did not appear to be acute distress Head: Atraumatic, normocephalic Eyes: PERRL bilateral, EOMI bilateral, no conjunctival injection no Neck: Soft, supple, trach midline Cardiovascular: Regular rate and rhythm no murmurs gallops rubs noted Respiratory: Clear to auscultation bilaterally no rales rhonchi or wheezes noted Abdomen: Soft, nondistended, no tenderness palpation, bowel sounds present x 4 Musculoskeletal: No tenderness palpation midline of the cervical thoracolumbar spine. All other bony prominences and joints taken through full range of motion no pain elicited Extremities: +4/5 strength noted in the bilateral upper and lower extremities, no pedal edema on exam, radial pulses +2/4 in the bilateral upper extremities Neurological: Patient is following commands knew that she was at [facility] years 2023 Skin: Warm, dry, intact Const Vital Signs: 12/29/23 17:26 12/29/23 19:25 12/29/23 21:00 Temperature 96.1 F L Temperature Source Temporal Pulse Rate 89 78 Respiratory Rate 18 20 H Blood Pressure 155/132 H 99/69 88/58 L Blood Pressure Mean 139 79 68 Pulse Ox 93 98 Oxygen Delivery Method Room Air 12/29/23 21:38 Temperature 98 F Temperature Source Pulse Rate 78 Respiratory Rate 20 H Blood Pressure 102/86 H Blood Pressure Mean 91 Pulse Ox 98 Oxygen Delivery Method MDM MDM MDM Narrative Medical decision making narrative: Patient is a 67-year-old female who presents to the emergency department chief complaint nausea vomiting diarrhea. Patient will have a workup performed here on the differential diagnose includes but not limited to small bowel obstruction, cancer, UTI, COVID, flu, other viral gastroenteritis. Once workup obtained reviewed she will be reevaluated. Patient be given IV fluids and Zofran. Patient CBC reviewed and was largely unremarkable no evidence leukocytosis white blood count normal at 7, hemoglobin 13.4, plate count normal at 250. Patient's sodium was noted be 132, creatinine normal at 0.69. Patient's calcium was noted be low at 6.2 did add on a ionized calcium which is pending. Patient's magnesium level was noted be low at 0.6 she was given 4 g magnesium replacement here in the emergency department. Patient's AST and ALT were 47 and 30 respectively. Patient's troponin was noted to be normal at 5. Patient's EKG reviewed and independently interpreted by which showed sinus rhythm with a rate of 84 bpm. Patient lipase normal at 22. Patient's CT head and brain reviewed showed no acute intracranial abnormality. Stable senescent change with small vessel ischemia right maxillary sinusitis. Patient CT abdomen pelvis with IV contrast was reviewed showed no acute abnormalities in the abdomen or pelvis. At this point in time do believe the patient will warrant [facility] for her generalized weakness multiple falls, hypomagnesia and generalized weakness. Patient case will be discussed with hospitalist. Discussed case with hospitalist Dr. Recio who accept patient for admission. Patient was notified is agreeable this plan all question concerns were answered bedside. Lab Data Labs: Laboratory Results - last 24 hr 12/29/23 12/29/23 18:11 19:49 WBC 7.0 RBC 3.86 L Hgb 13.4 Hct 39.5 MCV 102.3 H MCH 34.7 H MCHC 33.9 RDW Std Deviation 49.8 H RDW Coeff of Lynnette 13.1 Plt Count 250 MPV 10.4 Immature Gran % (Auto) 0.700 Neut % (Auto) 75.5 H Lymph % (Auto) 13.2 L Sutter % (Auto) 10.1 H Eos % (Auto) 0.1 Baso % (Auto) 0.4 Absolute Neuts (auto) 5.3 Absolute Lymphs (auto) 0.92 Nucleated RBC % 0 Sodium 132 L Potassium 3.5 Chloride 96 L Carbon Dioxide 14.0 L Anion Gap 22 H BUN 11 Creatinine 0.69 Est GFR (MDRD) Af Amer 108 Est GFR (MDRD) Non-Af 89 BUN/Creatinine Ratio 15.9 Glucose 59 L Calcium 6.2 L* Ionized Calcium 3.40 L Magnesium 0.6 L* Total Bilirubin 0.70 AST 47 H ALT 30 Alkaline Phosphatase 72 Troponin I High Sens 5 Total Protein 7.9 Albumin 3.5 Globulin 4.4 H Albumin/Globulin Ratio 0.8 L Lipase 22 Radiography Diagnostic Testing: Clinical Impression(s) from Imaging Studies Abdomen/Pelvis CT 12/29/23 17:52 IMPRESSION: No acute abnormalities in the abdomen or pelvis. Electronically Signed: Kevin Reynolds MD at 20:34 EST , Brain CT 12/29/23 18:18 IMPRESSION: 1. No acute intracranial abnormality. There has been no significant change from the reference exam. 2. Stable senescent change with small vessel ischemia. 3. Right maxillary sinusitis. Electronically Signed: Kevin Reynolds MD at 20:36 EST , Discharge Plan Triage Chief Complaint: Nausea/Vomiting/Diarrhea ED Provider: Ted Culp Dx/Rx/DC Orders Clinical Impression: Generalized weakness, Intractable nausea and vomiting, Low magnesium level Prescriptions: No Action metoprolol succinate 100 mg tablet extended release 24 hr 100 mg PO DAILY Qty: 90 Patient Comments: PT STATES ONLY TAKES ONCE A DAY. amlodipine 10 mg tablet 10 mg PO DAILY Qty: 90 omeprazole 40 mg capsule,delayed release(DR/EC) 40 mg PO DAILY Qty: 90 loratadine 10 mg tablet 10 mg PO DAILY Qty: 30 5RF magnesium oxide 500 mg tablet 500 mg PO DAILY Qty: 30 5RF sodium chloride 1,000 mg tablet,soluble 1,000 mg PO QD-QID PRN (Reason: electrolyte replenishment) Qty: 30 5RF Prolia 60 mg/mL syringe 60 mg SUBCUT .[id number] albuterol sulfate 90 mcg/actuation HFA aerosol inhaler 2 puff INHALATION Q4H prochlorperazine maleate [Compazine] 10 mg tablet 10 mg PO Q8H PRN (Reason: nausea and vomiting) Qty: 14 0RF Primary Care Provider: Jair Squires Referrals: Jair Squires MD [Primary Care Provider] - Print Language: Albanian Disposition Disposition: Acute Care [facility]
[2023-12-29] MEDS: Ondansetron 4 MG/2 ML Vial IV (18:32)
[2023-12-29] MEDS: 0.9% Normal Saline (1000mL) 1,000 ML 999 ML IV (18:32)
[2023-12-29 18:33] LABS: Absolute Lymphocyte Count 0.92 X10^3/uL (0.83-4.51); Absolute Neutrophil Count 5.3 X10^3/uL (2.0-7.7); Basophil# 0.03 X10^3/uL; Basophil% 0.4 % (0-1); Eosinophil# 0.01 X10^3/uL; Eosinophils% 0.1 % (0-5); Hematocrit 39.5 % (37-47); Hemoglobin 13.4 g/dL (12.0-15.0); Lymphocyte # 0.92 X10^3/ul (0.83-4.51); Lymphocyte % 13.2 % (19-41); Mean Corp Hgb Conc 33.9 g/dL (32-36); Mean Corpuscular Hgb 34.7 pg (27.0-32.0); Mean Corpuscular Volume 102.3 fL (81-99); Mean Platelet Vol. 10.4 fl (6.2-12.0); Monocyte% 10.1 % (0-10); NRBC Flagged by Analyzer 0 % (0-5); Neutrophil # 5.25 X10^3/uL (2.7-7.7); Neutrophil % 75.5 % (47-70); Platelet Count 250 K/mm3 (150-450); RBC Distribution Width CV 13.1 % (11.6-14.6); RBC Distribution Width SD 49.8 fl (35.1-43.9); Red Blood Count 3.86 M/mm3 (4.2-5.4)
[2023-12-29 19:11] LABS: ALB/GLOB Ratio 0.8 RATIO (0.9-2.4); AST(SGOT) 47 U/L (15-37); Alanine Aminotransfer ALT/SGPT 30 U/L (13-56); Albumin, Serum 3.5 g/dL (3.2-5.0); Alkaline Phosphatase 72 U/L (45-117); Anion Gap 22 (5-15); BUN 11 mg/dL (7-18); BUN/Creat Ratio 15.9 RATIO (10-20); Calcium,Total 6.2 mg/dL (8.5-10.1); Chloride 96 mmol/L (98-107); Creatinine, Serum 0.69 mg/dL (0.55-1.02); EST Glomerular Filtration Rate 89 mL/min (>60); Est Glom Filt Rate - Afr Amer 108 mL/min (>60); Globulin 4.4 g/dL (2.2-4.2); Glucose 59 mg/dL (74-106); Lipase 22 U/L (13-75); Magnesium 0.6 mg/dL (1.6-2.6); Potassium 3.5 mmol/L (3.5-5.1); Protein, Total 7.9 g/dL (6.4-8.2); Sodium Level 132 mmol/L (136-145); Troponin-I HS 5 pg/mL (3.0-54.0)
[2023-12-29 19:25] VITALS: BP 99/69; PULSE 89; O2SAT 93
[2023-12-29] MEDS: Magnesium Sulfate 4gm/100mL 4 GM/100 ML IV.SOLN. IV (19:30)
[2023-12-29 21:00] VITALS: BP 88/58; PULSE 78; RESP 20; O2SAT 98
--- NOTE | 2023-12-29 21:34 | PCM.HP.STD ---
[facility] - General General Date of Admission: 12/29/23 Date of Service: 12/29/23 Chief Complaint: Nausea, Vomiting, Diarrhea plus SOB and Wheezing. [facility] Narrative MARGO NGUYEN, is a 67 F with a past medical history of essential hypertension, history of tobacco abuse; with subsequent COPD, chronic hypoxic respiratory failure, history of bronchitis, depression with anxiety, history of alcohol abuse; with patient drinking 2 to 3 glasses of wine nightly, history of peripheral vestibulopathy, history of vertigo, chronic maxillary and frontal sinusitis, history of microscopic colitis, history of hypomagnesemia, history of hyponatremia, history of vitamin D deficiency, osteoporosis; on Prolia, listed allergy to Macrobid (vomiting), listed allergy to Cipro (rash), listed allergy to doxycycline (?), listed allergy to Bactrim (?), GERD and OA; s/p Left Hip Fracture with subsequent ORIF who presents to [facility] ER complaining of nausea, vomiting, diarrhea plus SOB and wheezing. Ms. Nguyen reports her symptoms began approximately 2 weeks prior to admission with a gradual-onset of progressively worsening GI upset with nausea followed by bilious emesis and nonbloody diarrhea. She then states her symptoms acutely worsened over the past 2 to 3 days with patient claiming she is unable to tolerate anything by mouth due to severe vomiting so she decided to come in for further evaluation and treatment. She also admits to multiple falls this week due to generalized weakness. She denies recent sick contacts, recent travel or recent medication changes or a history of alcohol withdrawal symptoms after she stops drinking. There is no report of fever, chills, constipation or chest pain but she does admit to increasingly severe SOB at rest with wheezing since arrival. In the ER she was noted to have laboratory evidence of Severe Hypomagnesemia of 0.6 mg/dL present on admission along with Severe Hypocalcemia of 6.2 mg/dL with confirmatory ionized calcium of 3.4 mg/dL present on admission suspected to be due to to a combination of Acute Viral Gastroenteritis and Acute Alcohol Withdrawal plus Right Maxillary Sinusitis evident on head CT this admission in the setting of Chronic Alcohol Abuse with Macrocytosis; with MCV of 102.3 fL present on admission compounded by AE COPD with Acute Hypoxic Respiratory Failure requiring BiPAP and she was then admitted to the PCU for ongoing care for stay is expected to extend beyond 2 midnights. [facility] Medical History Alcohol abuse COPD (chronic obstructive pulmonary disease) Smoker On home oxygen therapy Vertigo Acute respiratory failure with hypoxia Hip fracture Depression Anxiety Osteoporosis GERD (gastroesophageal reflux disease) Microscopic colitis Bronchitis HTN (hypertension) Home Medications ?Medication ?Instructions ?Recorded ?Last Taken ?Type amlodipine 10 mg tablet 10 mg PO DAILY bp #90 tabs 08/08/18 01/21/21 History metoprolol succinate 100 mg 100 mg PO DAILY bp #90 tabs 08/08/18 01/21/21 History tablet,extended release 24 hr omeprazole 40 mg capsule,delayed 40 mg PO DAILY reflux #90 caps 08/08/18 01/21/21 History release denosumab 60 mg/mL subcutaneous 60 mg subcut .[id number] BONES 01/21/21 12/03/20 History syringe (Prolia) albuterol sulfate 90 mcg/actuation 2 puff inhalation Q4H INHALER 04/27/21 Unknown History aerosol inhaler prochlorperazine maleate 10 mg 10 mg PO Q8H PRN nausea and 08/15/22 Unknown Rx tablet (Compazine) vomiting #14 tabs magnesium oxide 500 mg PO DAILY VITAMIN #30 tabs 12/06/22 Unknown Rx sodium chloride 1,000 mg soluble 1,000 mg PO QD-QID PRN electrolyte 12/06/22 Unknown Rx tablet replenishment #30 tabs Allergy/AdvReac Type Severity Reaction Status Date / Time nitrofurantoin (From AdvReac Severe Vomiting Verified 12/29/23 17:26 Macrobid) amoxicillin AdvReac Intermediate Other Verified 12/29/23 17:26 ciprofloxacin (From Cipro) AdvReac Intermediate Rash Verified 12/29/23 17:26 doxycycline AdvReac Intermediate Other Verified 12/29/23 17:26 naproxen AdvReac Intermediate Other Verified 12/29/23 17:26 sulfamethoxazole (From AdvReac Intermediate Other Verified 12/29/23 17:26 Bactrim) trimethoprim (From Bactrim) AdvReac Unknown Verified 12/29/23 17:26 Family History Sister Breast cancer Osteoporosis Mother Heart disease Myocardial infarction Father No problems noted. Surgical History History of colonoscopy Social History household members: spouse housing: house number of children: 0 current occupational status: retired pets and animals: Yes (dog) Smoking Status: Current every day smoker tobacco type: cigarettes alcohol intake: current alcohol intake frequency: 0-2 drinks per day Alcohol type: beer ROS ROS Narrative Review of Systems: Constitutional: Patient denies fever or chills. Eyes: Patient denies changes in vision or discharge from eyes. ENT: Patient denies runny nose, sore throat or ear pain. Resp: Patient admits to severe shortness of breath at rest with wheezing that has worsened since admission and ultimately required BiPAP. CV: Patient denies chest pain, palpitations or heart racing. GI: Patient admits to abdominal pain, nausea and vomiting with bilious emesis and nonbloody diarrhea as per HPI. : Patient denies dysuria or hematuria. Psych: Patient denies symptoms of uncontrolled depression or anxiety. Neuro: Patient denies headache, paresthesias or focal neurologic deficits. Allergy: Patient denies lip swelling, tongue swelling or urticaria. Hematology: Patient denies easy bleeding or easy bruisability. Endocrinology: Patient denies polyuria, polydipsia or polyphagia. 14 point review of systems otherwise negative except for positives noted above in HPI. Vital Signs Vital Signs Vital Signs: 12/29/23 17:26 12/29/23 19:25 12/29/23 21:00 Temperature 96.1 F L Temperature Source Temporal Pulse Rate 89 78 Respiratory Rate 18 20 H Blood Pressure 155/132 H 99/69 88/58 L Blood Pressure Mean 139 79 68 Pulse Ox 93 98 Oxygen Delivery Method Room Air Physical Exam Const alert and oriented x3 Constitutional Narrative: Moderate distress noted. General Appearance: cooperative HEENT normocephalic, head/scalp atraumatic and hearing grossly normal bilaterally HEENT Narrative: Mucous membranes dry Eyes PERRL and EOMs intact bilaterally Neck no lymphadenopathy and supple Resp normal respiratory effort, no retractions, no use of accessory muscles and clear to auscultation bilaterally Cardio regular rate and regular rhythm GI normal to inspection, nondistended, normoactive bowel sounds, soft to palpation, non-tender and non-distended Extremity normal to inspection, full ROM and no clubbing, cyanosis or edema Skin Skin Narrative: Patient has no evidence of rash, abscess or jaundice. Neuro oriented x3, CN's II-XII intact bilaterally, moves all extremities and no focal motor deficits Sensorium / Orientation: awake, alert, oriented to person, oriented to place and oriented to time Speech: speech normal Psych affect normal Results Medical Records Data Attestation: I reviewed the patient's medical records Lab / Micro Data Attestation: I reviewed the patient's lab results. 12/29/23 18:11 12/29/23 18:11 Labs: Laboratory Results - last 24 hr 12/29/23 18:11: WBC 7.0, RBC 3.86 L, Hgb 13.4, Hct 39.5, MCV 102.3 H, MCH 34.7 H, MCHC 33.9, RDW Std Deviation 49.8 H, RDW Coeff of Lynnette 13.1, Plt Count 250, MPV 10.4, Immature Gran % (Auto) 0.700, Neut % (Auto) 75.5 H, Lymph % (Auto) 13.2 L, Whitfield % (Auto) 10.1 H, Eos % (Auto) 0.1, Baso % (Auto) 0.4, Absolute Neuts (auto) 5.3, Absolute Lymphs (auto) 0.92, Nucleated RBC % 0, Sodium 132 L, Potassium 3.5, Chloride 96 L, Carbon Dioxide 14.0 L, Anion Gap 22 H, BUN 11, Creatinine 0.69, Est GFR (MDRD) Af Amer 108, Est GFR (MDRD) Non-Af 89, BUN/Creatinine Ratio 15.9, Glucose 59 L, Calcium 6.2 L*, Magnesium 0.6 L*, Total Bilirubin 0.70, AST 47 H, ALT 30, Alkaline Phosphatase 72, Troponin I High Sens 5, Total Protein 7.9, Albumin 3.5, Globulin 4.4 H, Albumin/Globulin Ratio 0.8 L, Lipase 22 12/29/23 19:49: Ionized Calcium 3.40 L Micro: Microbiology 12/29/23 18:40 Mucosa - Nose SARS-CoV-2, Influenza & RSV (PCR) - Final Imaging Radiology Impression Abdomen/Pelvis CT 12/29/23 17:52 IMPRESSION: No acute abnormalities in the abdomen or pelvis. Electronically Signed: Kevin Reynolds MD at 20:34 EST , Brain CT 12/29/23 18:18 IMPRESSION: 1. No acute intracranial abnormality. There has been no significant change from the reference exam. 2. Stable senescent change with small vessel ischemia. 3. Right maxillary sinusitis. Electronically Signed: Kevin Reynolds MD at 20:36 EST , Assessment & Plan Assessment/Plan (1) Hypomagnesemia: (2) Hypocalcemia: (3) Viral gastroenteritis: (4) Intractable nausea and vomiting: (5) Alcohol withdrawal: QUALIFIERS: Complication of substance-induced condition: uncomplicated Qualified Code(s): F10.930 - Alcohol use, unspecified with withdrawal, uncomplicated (6) Alcohol abuse: (7) Maxillary sinusitis: QUALIFIERS: Chronicity: unspecified Qualified Code(s): J32.0 - Chronic maxillary sinusitis (8) Generalized weakness: (9) Ambulatory dysfunction: PLAN: Plan 1. Severe Hypomagnesemia of 0.6 mg/dL present on admission - Give supplemental IV magnesium sulfate and then recheck level in a.m. to ensure improvement. 2. Severe Hypocalcemia of 6.2 mg/dL with confirmatory ionized calcium of 3.4 mg/dL present on admission complicating #1 - Give calcium gluconate IV and then recheck level in a.m. to confirm repletion. 3. Acute Viral Gastroenteritis with intractable nausea, vomiting and nonbloody diarrhea compounding #1 & #2 in the setting of a known history of microscopic colitis and GERD - Place patient on enteric precautions and check stool studies to confirm etiology of diarrhea. 4. Acute Alcohol Withdrawal in the setting of Chronic Alcohol Abuse with Macrocytosis; with MCV of 102.3 fL present on admission adding to the medical complexity of #1 - #3 - EtOH cessation was strongly encouraged with patient started on phenobarbital IV. Give folate 1 mg IV daily. Check B12 and folate levels. 5. AE COPD with Acute Hypoxic Respiratory Failure requiring BIPAP adding to the burden of disease outlined from #1 - #4 in the setting of a known history of bronchitis - Give IV Rocephin and IV azithromycin plus give IV Solu-Medrol and scheduled and as needed nebulizers. Recheck ABG in a.m. to confirm improvement. Tobacco cessation was strongly encouraged with nicotine patch offered to control cravings. 6. Right Maxillary Sinusitis evident on head CT this admission in the setting of known previous maxillary sinusitis - Patient started on broad-spectrum antibiotics for #5. 7. Generalized Weakness with Ambulatory Dysfunction and Frequent Falls arising from #1 - #6 in the setting of a known history of peripheral vestibulopathy and vertigo - Give Antivert prn. PT/OT and Case Management to consult and treat onn-rounds in the AM for further recommendations with help appreciated in advance. 8. Essential hypertension - Continue home regimen plus give prn Hydralazine IV for systolic blood pressure > 160 mmHg. 9. Depression with anxiety - Resume current regimen. 10. History of hyponatremia - Stable with serum sodium of 132 mmol/L present on admission. 11. History of vitamin D deficiency - Check vitamin D level with patient currently not on supplementation. 12. Osteoporosis; on Prolia - Restart this agent as an outpatient. 13. Listed allergy to Macrobid (vomiting) - Noted. 14. Listed allergy to Cipro (rash) - Noted. 15. Listed allergy to doxycycline (?) - Noted. 16. Listed allergy to Bactrim (?) - Noted. 17. OA; s/p Left Hip Fracture with subsequent ORIF - Stable. 18. DVT prophylaxis - Lovenox 40 mg sq daily plus SCD's. Total time: Approximately (but not less than) 75 minutes. Charges/Coding Visit Charges Inpatient E&M: 57183 Init Hosp L3
[2023-12-29 21:38] VITALS: BP 102/86; PULSE 78; RESP 20; TEMP 36.6; O2SAT 98
[2023-12-29 23:10] VITALS: BMI 19.1
[2023-12-29 23:29] VITALS: BP 92/58; PULSE 81; RESP 18; TEMP 36.4; O2SAT 98
[2023-12-29] MEDS: Scopolamine 1mg/72hr Patch 1 PATCH TD (23:55)
[2023-12-29] MEDS: Calcium Gluconate 1 GM/10 ML Vial 2 GM IVP (23:56)
[2023-12-29] MEDS: 0.9% Normal Saline (1000mL) 1,000 ML 70 ML IV (23:56)
[2023-12-30] VITALS (14 sets, daily range): BP systolic 100–145; BP diastolic 64–114; PULSE 68–96; RESP 12–28; TEMP 36.2–37; O2SAT 94–100
[2023-12-30] MEDS: Phenobarbital Sodium 65 MG/ML Vial 100 MG IV ×2 (00:18→09:23)
[2023-12-30] MEDS: Albuterol 2.5 MG/3 ML VIAL.NEB. INHALATION ×2 (00:32→09:33)
--- NOTE | 2023-12-30 00:38 | CPS ---
Patient wears 3L HS
--- NOTE | 2023-12-30 00:52 | RAD_ITS ---
EXAM: XR CHEST, 1 VIEW CLINICAL INDICATION: wheezing, tachypneic TECHNIQUE: Frontal view of the chest. COMPARISON: August 15, 2022 FINDINGS: LUNGS AND PLEURAL SPACES: Emphysema. Pleural-parenchymal scarring at the lung bases. Dilated pulmonary arteries with rapid tapering suggest pulmonary hypertension. No consolidation. No pleural effusion or pneumothorax. HEART: Unremarkable. Cardiac silhouette not enlarged. MEDIASTINUM: Central airways and mediastinal contour are unremarkable. BONES/JOINTS: Diffuse osteopenia. Multiple incompletely healed left rib fractures laterally; overlapping osseous structures limits there assessment. Old fracture deformity involving the left mid clavicle with overlapping fracture ends/clavicular shortening. SOFT TISSUES: Unremarkable. VASCULATURE: Atherosclerotic calcifications of the nonenlarged thoracic aortic arch. RAD/Chest 1 View (Portable) IMPRESSION: 1. No pneumonia or other acute cardiopulmonary disease. 2. Multiple incompletely healed left rib fractures laterally 3. Ancillary findings as above. Electronically Signed: Keagan Gaona MD at 3:15 EST ,
[2023-12-30] MEDS: MethylPREDNISolone 125 MG/2 ML Vial IV (01:20)
[2023-12-30] MEDS: Ondansetron 4 MG/2 ML Vial IV (01:29)
[2023-12-30] MEDS: Ceftriaxone 1 GM/50 ML BAG IV (01:52)
[2023-12-30 02:02] LABS: Blood Gas Specimen Type VEN; O2 Delivery Device Room Air; SITE Not entered; VBG BASE EXCESS -16 mmol/L (-1.0-3.5); VBG Bicarbonate 11 mmol/L (22-26); VBG PO2 49 mmHg (25-40); VBG SO2 82 % (50-70); VBG TCO2 11 mmol/L (23-33); VBG pCO2 21.5 mmHg (41-51); VBG pH 7.31 (7.32-7.42)
[2023-12-30] MEDS: Azithromycin 250 MG in Dextrose 5%-Water (250mL Bag) 250 ML IV (02:23)
[2023-12-30] MEDS: Enoxaparin 40 MG/0.4 ML Syringe SC (04:19)
[2023-12-30 08:01] LABS: Absolute Lymphocyte Count 0.18 X10^3/uL (0.83-4.51); Absolute Neutrophil Count 9.8 X10^3/uL (2.0-7.7); Basophil# 0.02 X10^3/uL; Basophil% 0.2 % (0-1); Hematocrit 32.5 % (37-47); Hemoglobin 11.4 g/dL (12.0-15.0); Lymphocyte # 0.18 X10^3/ul (0.83-4.51); Lymphocyte % 1.8 % (19-41); Mean Corp Hgb Conc 35.1 g/dL (32-36); Mean Corpuscular Hgb 35.2 pg (27.0-32.0); Mean Corpuscular Volume 100.3 fL (81-99); Mean Platelet Vol. 10.3 fl (6.2-12.0); Monocyte# 0.17 X10^3/uL; Monocyte% 1.7 % (0-10); NRBC Flagged by Analyzer 0 % (0-5); Neutrophil # 9.75 X10^3/uL (2.7-7.7); Neutrophil % 95.7 % (47-70); POSITIVE DIFFERENTIAL YES; Platelet Count 225 K/mm3 (150-450); RBC Distribution Width CV 12.9 % (11.6-14.6); RBC Distribution Width SD 47.2 fl (35.1-43.9); Red Blood Count 3.24 M/mm3 (4.2-5.4); White Blood Count 10.2 K/mm3 (4.4-11.0)
--- NOTE | 2023-12-30 08:08 | PN.HOSP_ITS ---
Reason for Visit Reason for Visit: Nausea/vomiting/diarrhea Subjective Subjective Patient reports that her last full meal was about a week ago. No further diarrhea since she has been in the hospital but stated she was having fairly significant diarrhea at home. Drinks about 3 glasses of 3 to 4 ounces of wine daily. Has never had withdrawal symptoms. States she has gone a few days without drinking before without any signs of withdrawal. Complains of shortness of breath with intermittent cough. Has had marked weakness lately. Objective Data Objective Data Vital Signs: Vital Signs Temp Pulse Resp BP Pulse Ox O2 Del Method O2 Flow Rate 97.1 F L 68 19 H 100/79 98 Nasal Cannula 2.5 12/30/23 06:00 12/30/23 06:00 12/30/23 06:00 12/30/23 06:00 12/30/23 06:00 12/30/23 06:00 12/30/23 06:00 FiO2 24 12/30/23 01:28 Oxygen Flow Rate (L/min) 2.5 Oxygen Delivery Method Nasal Cannula Weight: 50.7 kg Body Mass Index (BMI) 19.1 Intake & Output: Intake and Output for Last 24 Hours 12/28/23 12/29/23 12/30/23 23:59 23:59 23:59 Intake Total 1100 / 1100 440.17 / 440.17 Balance 1100 / 1100 440.17 / 440.17 Lab / Micro Data 12/30/23 06:47 12/30/23 15:24 Labs: Laboratory Results - last 24 hr 12/29/23 18:11: WBC 7.0, RBC 3.86 L, Hgb 13.4, Hct 39.5, MCV 102.3 H, MCH 34.7 H , MCHC 33.9, RDW Std Deviation 49.8 H, RDW Coeff of Lynnette 13.1, Plt Count 250, MPV 10.4, Immature Gran % (Auto) 0.700, Neut % (Auto) 75.5 H, Lymph % (Auto) 13.2 L, [place] % (Auto) 10.1 H, Eos % (Auto) 0.1, Baso % (Auto) 0.4, Absolute Neuts (auto) 5.3, Absolute Lymphs (auto) 0.92, Nucleated RBC % 0, Sodium 132 L, Potassium 3.5, Chloride 96 L, Carbon Dioxide 14.0 L, Anion Gap 22 H, BUN 11, Creatinine 0.69, Est GFR (MDRD) Af Amer 108, Est GFR (MDRD) Non-Af 89, BUN/Creatinine Ratio 15.9, Glucose 59 L, Calcium 6.2 L*, Magnesium 0.6 L*, Total Bilirubin 0.70, AST 47 H, ALT 30, Alkaline Phosphatase 72, Troponin I High Sens 5, Total Protein 7.9, Albumin 3.5, Globulin 4.4 H, Albumin/Globulin Ratio 0.8 L, Lipase 22, Folate 3.90 12/29/23 19:49: Ionized Calcium 3.40 L 12/30/23 06:47: WBC 10.2, RBC 3.24 L, Hgb 11.4 L, Hct 32.5 L, MCV 100.3 H, MCH 35.2 H, MCHC 35.1, RDW Std Deviation 47.2 H, RDW Coeff of Lynnette 12.9, Plt Count 225, MPV 10.3, Immature Gran % (Auto) 0.600, Neut % (Auto) 95.7 H, Lymph % (Auto) 1.8 L, Perkins % (Auto) 1.7, Eos % (Auto) 0.0, Baso % (Auto) 0.2, Absolute Neuts (auto) 9.8 H, Absolute Lymphs (auto) 0.18 L, Nucleated RBC % 0 Micro: Microbiology 12/29/23 18:40 Mucosa - Nose SARS-CoV-2, Influenza & RSV (PCR) - Final ABG Data ABG results: ABG 12/30/23 01:58 Specimen Type JINA Sample Site Not entered O2 % 21.0 VBG pH 7.31 L VBG pO2 49 H VBG HCO3 11 L VBG Total CO2 11 L VBG O2 Sat (Calc) 82 H VBG Base Excess -16 L POC Mix VBG pCO2 Pt Tmp 21.5 L O2 Delivery Device Room Air Radiography Diagnostic Testing: Radiology Impression Abdomen/Pelvis CT 12/29/23 17:52 IMPRESSION: No acute abnormalities in the abdomen or pelvis. Electronically Signed: Kevin Reynolds MD at 20:34 EST , Brain CT 12/29/23 18:18 IMPRESSION: 1. No acute intracranial abnormality. There has been no significant change from the reference exam. 2. Stable senescent change with small vessel ischemia. 3. Right maxillary sinusitis. Electronically Signed: Kevin Reynolds MD at 20:36 EST , Chest X-Ray 12/30/23 00:52 IMPRESSION: 1. No pneumonia or other acute cardiopulmonary disease. 2. Multiple incompletely healed left rib fractures laterally 3. Ancillary findings as above. Electronically Signed: Keagan Gaona MD at 3:15 EST , Physical Exam Const alert and oriented x3; Negative for no apparent distress, average body habitus, healthy appearing or well nourished Constitutional Narrative: Very frail appearing, older, white female, sitting up in bed, mild respiratory distress noted with significant tachypnea however sats stable on supplemental oxygen at 3 L, appears much older than stated age, cachectic and appears malnourished, cooperative with exam HEENT head/scalp atraumatic HEENT Narrative: Mucous membranes are dry, dentition is poor, Mallampati is 2, no thrush, significant temporal wasting Head and Scalp: normocephalic Eyes PERRL, EOMs intact bilaterally and conjunctivae normal Eyes Narrative: No scleral icterus Neck no lymphadenopathy and supple Neck Narrative: Trachea midline, no thyroid enlargement Resp No normal respiratory effort, No no retractions, No no use of accessory muscles and No clear to auscultation bilaterally Resp Narrative: Diffuse scattered wheeze with tachypnea and mild respiratory distress with no signs of pending extremis Auscultation: wheezes; Negative for crackles or rhonchi Cardio regular rate, regular rhythm, S1 normal heart sound, no murmurs, no rub, no gallops and no clicks; Negative for S2 normal heart sound Cardio Narrative: Accentuated P2 GI normal to inspection, nondistended, normoactive bowel sounds, soft to palpation and non-tender GI Narrative: Scaphoid abdomen Extremity Extremity Narrative: Markedly decreased lean muscle mass, no edema, slight clubbing noted no cyanosis Neuro Speech: speech normal Psych Psych Narrative: Appears anxious Assessment & Plan Assessment/Plan (1) High anion gap metabolic acidosis: PLAN: Plan Anion gap metabolic acidosis -Is likely exacerbating her respiratory status -Lactate is mildly elevated but not elevated enough to suggest that this is the etiology for her metabolic acidosis -Highly suspect related to mild lactic acidosis, diarrhea with bicarb losses at home, starvation ketosis, and possible alcohol ketosis -ABG shows normal pH but pCO2 has been blown down to 15--> blood gas interpretation is consistent with a primary respiratory alkalosis that is chronic and a secondary acute metabolic acidosis -The patient does have positive acetone but does not differentiate between beta hydroxybutyrate acetylacetate -Patient is not hyperglycemic and does not take any SLG T2 inhibitors so I do not feel that this is DKA -Start bicarb drip with 150 mill equivalents of bicarb in dextrose -I do fear that if we do not correct her acidosis she will decompensate from a respiratory stand point due to the severity of her lung disease at baseline with superimposed COPD exacerbation -Check serial BMPs every 4 hours and if trends up will extend to every 6 hours through the night -Transition to D5 LR once bicarb is more stable -Will start clear liquid diet and advance tomorrow if able Nausea/vomiting/diarrhea -Much improved -No diarrhea since admission -Will continue as needed antiemetics and scopolamine patch for now -Discontinue scopolamine tomorrow if no further nausea vomiting Lactic acidosis -Etiology is unclear right now -Will repeat in a.m. Hypocalcemia -2 g IV calcium gluconate replacement -repeat ionized calcium in a.m. Chronic hyponatremia -Relatively stable -Continue home salt tablets -Recheck in a.m. Hypokalemia -Is trending up -Replace and recheck in a.m. -Magnesium is now normalized Hypomagnesemia -Severe at 0.6 -Normalized now at 1.7 Will recheck in a.m. Severe malnutrition -Patient may be at risk for refeeding syndrome -Continue supplements as ordered -Will liberalize diet as able -Dietitian is following Acute hypoxia/shortness of breath secondary to metabolic acidosis and acute exacerbation of COPD -No infiltrate noted on imaging -Strep pneumo and Legionella antigens are pending -Discontinue ceftriaxone -Continue azithromycin but increase dose to 500 daily and will give a total of 5 days predominantly for anti-inflammatory purposes with COPD exacerbation -COVID/flu/RSV are negative -Respiratory viral panel negative -Continue steroids at 40 every 8 -Continue incentive spirometer and Acapella -Add DuoNebs every 4 hours while awake -Add Mucinex 1200 twice daily Alcohol abuse -Patient states she drinks 3 glasses of wine daily but has never had any withdrawal -Will hold phenobarb for now and check CIWA every 4 hours instead as phenobarb could decrease her respiratory drive which could result in intubation -If CIWA is elevated will initiate as needed Ativan at lower doses than typical due to risk of decreasing her respiratory drive and reconsider phenobarb taper -Continue thiamine and folate Essential hypertension -Blood pressure has been low -Will hold for now GERD -Continue PPI IV for now and if tolerates p.o. okay will transition to oral tomorrow Osteoporosis -Patient is on outpatient Prolia -Vitamin D levels pending COPD -Management as above for now -Would recommend outpatient follow-up after discharge History of left hip fracture -Previous ORIF Depression/anxiety -Patient is not medicated for this at baseline DVT prophylaxis -Continue subcu Lovenox Charges/Coding Visit Charges Inpatient E&M: 87531 [facility] Hosp L3
[2023-12-30 08:44] LABS: Vitamin B12 693 pg/mL (211-911)
[2023-12-30] MEDS: Magnesium Chloride 64 MG Delay Rel.Tablet 128 MG PO (09:01)
[2023-12-30] MEDS: Thiamine Hydrochloride 100 MG Tablet PO (09:01)
[2023-12-30] MEDS: Folic Acid 1 MG in 0.9% Normal Saline (50mL Bag) 50 ML 200 MG IV (09:06)
[2023-12-30 09:09] LABS: ALB/GLOB Ratio 0.9 RATIO (0.9-2.4); AST(SGOT) 30 U/L (15-37); Alanine Aminotransfer ALT/SGPT 20 U/L (13-56); Albumin, Serum 3.2 g/dL (3.2-5.0); Alkaline Phosphatase 64 U/L (45-117); Anion Gap 23 (5-15); BUN 11 mg/dL (7-18); BUN/Creat Ratio 16.2 RATIO (10-20); Calcium,Total 6.6 mg/dL (8.5-10.1); Chloride 96 mmol/L (98-107); Creatinine, Serum 0.68 mg/dL (0.55-1.02); EST Glomerular Filtration Rate 91 mL/min (>60); Est Glom Filt Rate - Afr Amer 110 mL/min (>60); Estimated Creatinine Clearance 52.37 ml/min; Globulin 3.6 g/dL (2.2-4.2); Glucose 109 mg/dL (74-106); Magnesium 1.7 mg/dL (1.6-2.6); Phosphorus 4.6 mg/dL (2.5-4.9); Potassium 3.1 mmol/L (3.5-5.1); Protein, Total 6.8 g/dL (6.4-8.2); Sodium Level 132 mmol/L (136-145); Thyroid Stim Hormone (TSH) 0.539 uIU/mL (0.358-3.740)
[2023-12-30] MEDS: MethylPREDNISolone 125 MG/2 ML Vial 60 MG IV (09:15)
[2023-12-30] MEDS: Pantoprazole Sodium 40 MG in 0.9% Normal Saline (100mL MB+) 100 ML 330 MG IV (10:09)
--- NOTE | 2023-12-30 10:22 | CPS ---
Critical value verified times two. Hand delivered results to DR. Mckeon. Verified by read back.
[2023-12-30 10:25] LABS: Allen Test Positive; Base Excess -15 mmol/L (-2 to +2); Bicarbonate 9.8 mmol/L (22-26); Blood Gas Specimen Type ART; Mode Not entered; O2 Delivery Device Cannula; PO2 113 mmHG (75-100); SITE L Radial; SO2 99 % (95-99); Total Carbon Dioxide 10 mmol/L; pCO2 15.9 mmHg (35-45)
--- NOTE | 2023-12-30 10:40 | CASEMGMT ---
TONI CONNER Face to Face with patient for initial transition planning/care coordination assessment. TONI CONNER introduced self and role at [facility]. Patient lying in bed, alert and oriented. Patient willing to participate in assessment and is able to answer all questions appropriately. Care providers, pharmacy, and demographics verified. Strata: 3 PCP: [facility] Specialists: Krystal, dentofacial orthopedics dentist; ARCENIO Wasserman Preferred Pharmacy: [facility] Insurance: [employer] Prescription Benefit: yes Living Will/HPOA: yes, Sriram Nguyen LNOK: Living Arrangements: Patient lives with in a 2 story home. Patient states help patient ambulate stairs and with ADLs. Transportation: DME/HHC: Patient states she has raised toilet, cane, walker, pulse ox, and home oxygen with [employer] at 2lpm at . TONI CONNER called [employer] to verify and Tyranny to deliver tank today if patient would need portability and discharge over the weekend. Green sheet on chart for increase in home oxygen. Patient states she smokes 1PPD of cigarettes and drinks 3 glasses of wine daily. Declined resources for cessation. Patient wishes to discharge home, will monitor progress with therapy. RN DALILA discussed possible SNF vs HHC pending therapy recommendations. Patient states she has no further needs or concerns at this time. CM to follow for discharge planning needs that may arise. Disposition Plan: TBD, anticipate HHC vs SNF pending progress with therapy. Marina CAPPS, RN, CM
[2023-12-30] MEDS: Potassium Chloride Oral Tablet 20 MEQ 60 MEQ PO (10:47)
[2023-12-30] MEDS: Calcium Gluconate IV 2 GM in 0.9% Normal Saline (100mL Bag) 100 ML IV (11:17)
[2023-12-30] MEDS: Gabapentin 300 MG Capsule PO (11:27)
[2023-12-30] MEDS: Sodium Bicarbonate 150 MEQ in Dextrose 5%-Water (1000mL Bag) 1,000 ML 100 MEQ IV (13:20)
[2023-12-30 14:47] LABS: Anion Gap 23 (5-15); BUN 10 mg/dL (7-18); BUN/Creat Ratio 11.7 RATIO (10-20); Calcium,Total 10.4 mg/dL (8.5-10.1); Chloride 98 mmol/L (98-107); Creatinine, Serum 0.86 mg/dL (0.55-1.02); EST Glomerular Filtration Rate 70 mL/min (>60); Est Glom Filt Rate - Afr Amer 85 mL/min (>60); Estimated Creatinine Clearance 48.72 ml/min; Glucose 171 mg/dL (74-106); Potassium 3.2 mmol/L (3.5-5.1); Sodium Level 133 mmol/L (136-145)
[2023-12-30 15:44] LABS: Lactic Acid 2.8 mmol/L (0.4-1.9)
[2023-12-30 15:57] LABS: Anion Gap 18 (5-15); BUN 12 mg/dL (7-18); BUN/Creat Ratio 16.4 RATIO (10-20); Chloride 100 mmol/L (98-107); Creatinine, Serum 0.73 mg/dL (0.55-1.02); EST Glomerular Filtration Rate 84 mL/min (>60); Est Glom Filt Rate - Afr Amer 101 mL/min (>60); Estimated Creatinine Clearance 52.37 ml/min; Glucose 208 mg/dL (74-106); Potassium 3.3 mmol/L (3.5-5.1); Sodium Level 133 mmol/L (136-145)
[2023-12-30 18:50] LABS: Reflex Lactate? Y
[2023-12-30 19:52] LABS: Anion Gap 15 (5-15); BUN 11 mg/dL (7-18); BUN/Creat Ratio 13.1 RATIO (10-20); Calcium,Total 6.8 mg/dL (8.5-10.1); Chloride 98 mmol/L (98-107); Creatinine, Serum 0.84 mg/dL (0.55-1.02); EST Glomerular Filtration Rate 72 mL/min (>60); Est Glom Filt Rate - Afr Amer 87 mL/min (>60); Estimated Creatinine Clearance 49.88 ml/min; Glucose 342 mg/dL (74-106); Potassium 3.5 mmol/L (3.5-5.1); Sodium Level 130 mmol/L (136-145)
[2023-12-30 20:07] LABS: Lactic Acid 2.5 mmol/L (0.4-1.9)
[2023-12-30] MEDS: Ipratropium/Albuterol Sulfate 3 ML AMPUL.NEB INHALATION (20:30)
[2023-12-30] MEDS: Azithromycin 250 MG in Dextrose 5%-Water (250mL Bag) 250 ML 500 MG IV (20:51)
[2023-12-30] MEDS: 0.9% Saline Lock 10 ML Syringe IV (20:51)
[2023-12-30] MEDS: guaiFENesin 1,200 MG Tablet 1200 MG PO (20:51)
[2023-12-30 21:11] LABS: Mucous, Urine 0 SEEN /hpf (<or=2+); Red Blood Cells-Urine 0 SEEN /hpf (0-5)
[2023-12-30 21:13] LABS: Color, Urine Yellow (Yellow); Glucose, Dipstick Normal (Normal); Leukocyte Esterase-Dipstick 100 /ul (Negative); Nitrite-Dipstick Negative (Negative); Occult Blood-Urine Negative /ul (Negative); Protein-Dipstick 30 mg/dl (Negative); Urine Bilirubin Dipstick Negative (Negative); Urine Clarity Clear (Clear); Urine Urobilinogen Normal (Normal)
[2023-12-30 21:19] LABS: Ketone-Dipstick 150 mg/dl (Negative)
[2023-12-30 21:28] LABS: Bacteria 2+ /hpf (None Seen); Squamous Epithelial Cells - UA 0-5 SEEN /hpf (5-10); White Blood Cells 5-10 SEEN /hpf (0-5)
[2023-12-30 21:30] LABS: Amphetamine Urine VISTA NEGATIVE (<1000 ng/mL); Barbiturate Urine VISTA POSITIVE (< 200 ng/mL); Benzodiazepine Urine VISTA NEGATIVE (< 200 ng/mL); Cocaine Urine VISTA NEGATIVE (< 300 ng/mL); Ecstacy Urine VISTA NEGATIVE (< 500 ng/mL); Methadone Urine VISTA NEGATIVE (< 300 ng/mL); PCP Urine VISTA NEGATIVE (< 25 ng/mL); THC Urine VISTA NEGATIVE (< 50 ng/mL); Vista UDS pH Range 5
[2023-12-30] MEDS: Insulin Lispro 100 UNIT/ML INSULN.PEN SC (23:46)
[2023-12-30 23:59] LABS: Bedside Glucose 317 mg/dL (74-106)
[2023-12-30 23:59] LABS: Anion Gap 12 (5-15); BUN 12 mg/dL (7-18); BUN/Creat Ratio 16.9 RATIO (10-20); Calcium,Total 6.8 mg/dL (8.5-10.1); Chloride 95 mmol/L (98-107); Creatinine, Serum 0.71 mg/dL (0.55-1.02); EST Glomerular Filtration Rate 87 mL/min (>60); Est Glom Filt Rate - Afr Amer 105 mL/min (>60); Estimated Creatinine Clearance 52.37 ml/min; Glucose 336 mg/dL (74-106); Potassium 3.1 mmol/L (3.5-5.1); Sodium Level 129 mmol/L (136-145)
[2023-12-31] VITALS (11 sets, daily range): BP systolic 97–125; BP diastolic 61–106; PULSE 75–129; RESP 13–24; TEMP 36.1–36.9; O2SAT 92–97; BMI 20.7
[2023-12-31] MEDS: Sodium Bicarbonate 150 MEQ in Dextrose 5%-Water (1000mL Bag) 1,000 ML 100 MEQ IV (03:27)
[2023-12-31] MEDS: Enoxaparin 40 MG/0.4 ML Syringe SC (03:48)
[2023-12-31] MEDS: 0.9% Saline Lock 10 ML Syringe IV ×2 (03:48→21:38)
[2023-12-31] MEDS: Insulin Lispro 100 UNIT/ML INSULN.PEN SC ×3 (05:31→16:46)
[2023-12-31 06:30] LABS: Bedside Glucose 297 mg/dL (74-106)
[2023-12-31 06:58] LABS: Absolute Lymphocyte Count 0.16 X10^3/uL (0.83-4.51); Absolute Neutrophil Count 8.9 X10^3/uL (2.0-7.7); Basophil# 0.01 X10^3/uL; Basophil% 0.1 % (0-1); Hematocrit 27.2 % (37-47); Hemoglobin 9.5 g/dL (12.0-15.0); Lymphocyte # 0.16 X10^3/ul (0.83-4.51); Lymphocyte % 1.7 % (19-41); Mean Corp Hgb Conc 34.9 g/dL (32-36); Mean Corpuscular Hgb 34.3 pg (27.0-32.0); Mean Corpuscular Volume 98.2 fL (81-99); Mean Platelet Vol. 9.8 fl (6.2-12.0); Monocyte# 0.29 X10^3/uL; Monocyte% 3.1 % (0-10); NRBC Flagged by Analyzer 0 % (0-5); Neutrophil % 94.4 % (47-70); POSITIVE DIFFERENTIAL YES; Platelet Count 210 K/mm3 (150-450); RBC Distribution Width CV 12.6 % (11.6-14.6); RBC Distribution Width SD 45.7 fl (35.1-43.9); Red Blood Count 2.77 M/mm3 (4.2-5.4); White Blood Count 9.4 K/mm3 (4.4-11.0)
[2023-12-31 07:06] LABS: Ionized Calcium 3.78 mg/dL (4.36-5.20)
[2023-12-31 07:24] LABS: ALB/GLOB Ratio 0.9 RATIO (0.9-2.4); AST(SGOT) 18 U/L (15-37); Alanine Aminotransfer ALT/SGPT 20 U/L (13-56); Albumin, Serum 2.8 g/dL (3.2-5.0); Alkaline Phosphatase 46 U/L (45-117); Anion Gap 8 (5-15); BUN 9 mg/dL (7-18); BUN/Creat Ratio 13.2 RATIO (10-20); Calcium,Total 6.6 mg/dL (8.5-10.1); Chloride 98 mmol/L (98-107); Creatinine, Serum 0.68 mg/dL (0.55-1.02); EST Glomerular Filtration Rate 90 mL/min (>60); Est Glom Filt Rate - Afr Amer 109 mL/min (>60); Globulin 3.2 g/dL (2.2-4.2); Glucose 266 mg/dL (74-106); Magnesium 1.2 mg/dL (1.6-2.6); Phosphorus 1.6 mg/dL (2.5-4.9); Potassium 2.9 mmol/L (3.5-5.1); Sodium Level 133 mmol/L (136-145)
[2023-12-31] MEDS: Ipratropium/Albuterol Sulfate 3 ML AMPUL.NEB INHALATION ×5 (07:34→23:11)
[2023-12-31 08:23] LABS: Ferritin 636 ng/mL (8-252); Iron 27 ug/dL (50-170); Iron Binding Capacity,Total 172 ug/dL (250-450); PERCENT IRON SATURATION 15.7 % (15.0-55.0)
[2023-12-31] MEDS: Thiamine Hydrochloride 100 MG Tablet PO (08:46)
[2023-12-31] MEDS: Potassium Chloride Oral Tablet 20 MEQ 60 MEQ PO ×2 (08:46→16:46)
[2023-12-31] MEDS: Sodium Chloride 1 GM Tablet PO ×2 (08:47→21:38)
[2023-12-31] MEDS: Magnesium Chloride 64 MG Delay Rel.Tablet 128 MG PO (08:47)
[2023-12-31] MEDS: guaiFENesin 1,200 MG Tablet 1200 MG PO ×2 (08:47→21:38)
[2023-12-31] MEDS: Magnesium Sulfate 4gm/100mL 4 GM/100 ML IV.SOLN. IV (08:52)
[2023-12-31] MEDS: Pantoprazole Sodium 40 MG in 0.9% Normal Saline (100mL MB+) 100 ML 330 MG IV ×2 (08:55→21:59)
[2023-12-31] MEDS: Folic Acid 1 MG in 0.9% Normal Saline (50mL Bag) 50 ML 200 MG IV (10:21)
[2023-12-31] MEDS: Potassium Phosphate 40 MM in 0.9% Normal Saline (500mL Bag) 500 ML 62.5 MM IV (10:48)
[2023-12-31] MEDS: Calcium Chloride IV 1 GM in 0.9% Normal Saline (100mL Bag) 100 ML IV (10:51)
[2023-12-31 11:59] LABS: Bedside Glucose 220 mg/dL (74-106)
--- NOTE | 2023-12-31 12:04 | PN.HOSP_ITS ---
Reason for Visit Reason for Visit: Nausea/vomiting/abdominal pain Subjective Subjective Patient states she overall feels much better today. Breathing is much improved. States her nausea and vomiting as well as her diarrhea have improved to resolved. No signs of alcohol withdrawal and CIWA is only 1 for nausea. Patient did well with a clear liquid diet except she is having some coughing after swallowing so we will have speech therapy see her to ensure that she is not having any signs of aspiration. Objective Data Objective Data Vital Signs: Vital Signs Temp Pulse Resp BP Pulse Ox O2 Del Method O2 Flow Rate 98.4 F 86 16 122/106 H 96 Nasal Cannula 2 12/31/23 08:35 12/31/23 08:35 12/31/23 08:35 12/31/23 08:35 12/31/23 08:35 12/31/23 10:00 12/31/23 10:00 FiO2 24 12/30/23 01:28 Oxygen Flow Rate (L/min) 2 Oxygen Delivery Method Nasal Cannula Weight: 54.9 kg Body Mass Index (BMI) 20.7 Intake & Output: Intake and Output for Last 24 Hours 12/29/23 12/30/23 12/31/23 23:59 23:59 23:59 Intake Total 1100 / 1100 2231.04 / 2231.04 1023.53 / 1023.53 Output Total 150 / 150 Balance 1100 / 1100 2231.04 / 2081.04 873.53 / 873.53 Medical Nutrition Assessment Dietitian: Malnutrition Criteria Met Start: 12/30/23 13:53 Freq: Status: Active Protocol: Document 12/30/23 13:54 DE (Rec: 12/30/23 13:54 DE [id number]) Nutrition Malnutrition Evidence of Malnutrition Exists Yes Malnutrition (moderate): Acute Illness/Injury Malnutrition (unspecified) Severe pro/oscar Evidenced By Suboptimal Energy Intake ( Severe),Weight Loss (Severe) Clinical Problem Acute Disease or Injury Related Malnutrition Etiology related to acute gastroenteritis with associated nausea, vomiting, diarrhea Signs/Symptoms Weight loss of 9% x 1 month, and energy intake <50% x 2 weeks. Status Active Problem Recommendation Dietitian Recommendations/Changes Advance diet as tolerated to liberal regular diet when warranted Consider oral nutrition supplements if patient is accepting Monitor weight changes Lab / Micro Data 12/31/23 06:10 12/31/23 06:10 Labs: Laboratory Results - last 24 hr 12/30/23 12:34: Sodium 133 L, Potassium 3.2 L, Chloride 98, Carbon Dioxide 11.0 L, Anion Gap 23 H, BUN 10, Creatinine 0.86, Estim Creat Clear Calc 48.72, Est GFR (MDRD) Af Amer 85, Est GFR (MDRD) Non-Af 70, BUN/Creatinine Ratio 11.7, G lucose 171 H, Calcium 10.4 H 12/30/23 14:35: Lactic Acid 2.8 H* 12/30/23 15:24: Sodium 133 L, Potassium 3.3 L, Chloride 100, Carbon Dioxide 15.0 L, Anion Gap 18 H, BUN 12, Creatinine 0.73, Estim Creat Clear Calc 52.37, Est GFR (MDRD) Af Amer 101, Est GFR (MDRD) Non-Af 84, BUN/Creatinine Ratio 16.4, G lucose 208 H, Calcium 7.0 L 12/30/23 19:06: Sodium 130 L, Potassium 3.5, Chloride 98, Carbon Dioxide 17.0 L, Anion Gap 15, BUN 11, Creatinine 0.84, Estim Creat Clear Calc 49.88, Est GFR (MDRD) Af Amer 87, Est GFR (MDRD) Non-Af 72, BUN/Creatinine Ratio 13.1, Glucose 342 H, Lactic Acid 2.5 H*, Calcium 6.8 L 12/30/23 21:05: Urine Color Yellow, Urine Clarity Clear, Urine pH 6.0, Ur Specific [place] 1.020, Urine Protein 30 H, Urine Glucose (UA) Normal, Urine Ketones 150 A*, Urine Occult Blood Negative, Urine Nitrite Negative, Urine Bilirubin Negative, Urine Urobilinogen Normal, Ur Leukocyte Esterase 100 H, Urine RBC 0 SEEN, Urine WBC 5-10 SEEN, Ur Squamous Epith Cells 0-5 SEEN, Urine Bacteria 2+, Urine Mucus 0 SEEN, Urine Opiates Screen NEGATIVE, Urine Methadone Screen NEGATIVE, Ur Barbiturates Screen POSITIVE H, Ur Phencyclidine Scrn NEGATIVE, Ur Amphetamines Screen NEGATIVE, MDMA (Ecstasy) Screen NEGATIVE, U Benzodiazepines Scrn NEGATIVE, Urine Cocaine Screen NEGATIVE, U Cannabinoids Screen NEGATIVE, Ur Drug Screen Comment 12/30/23 23:35: Sodium 129 L, Potassium 3.1 L, Chloride 95 L, Carbon Dioxide 22.0, Anion Gap 12, BUN 12, Creatinine 0.71, Estim Creat Clear Calc 52.37, Est GFR (MDRD) Af Amer 105, Est GFR (MDRD) Non-Af 87, BUN/Creatinine Ratio 16.9, G lucose 336 H, Calcium 6.8 L 12/30/23 23:42: POC Glucose 317 H 12/31/23 05:33: POC Glucose 297 H 12/31/23 06:10: WBC 9.4, RBC 2.77 L, Hgb 9.5 L, Hct 27.2 L, MCV 98.2, MCH 34.3 H , MCHC 34.9, RDW Std Deviation 45.7 H, RDW Coeff of Lynnette 12.6, Plt Count 210, MPV 9.8, Immature Gran % (Auto) 0.700, Neut % (Auto) 94.4 H, Lymph % (Auto) 1.7 L, [place] % (Auto) 3.1, Eos % (Auto) 0.0, Baso % (Auto) 0.1, Absolute Neuts (auto) 8.9 H, Absolute Lymphs (auto) 0.16 L, Nucleated RBC % 0, Sodium 133 L, Potassium 2.9 L, Chloride 98, Carbon Dioxide 27.0, Anion Gap 8, BUN 9, Creatinine 0.68, Estim Creat Clear Calc 56.50, Est GFR (MDRD) Af Amer 109, Est GFR (MDRD) Non-Af 90, BUN/Creatinine Ratio 13.2, Glucose 266 H, Calcium 6.6 L, Phosphorus 1.6 L, M agnesium 1.2 L, Iron 27 L, TIBC 172 L, Iron Saturation 15.7, Ferritin 636 H, Total Bilirubin 0.30, AST 18, ALT 20, Alkaline Phosphatase 46, Total Protein 6.0 L, Albumin 2.8 L, Globulin 3.2, Albumin/Globulin Ratio 0.9 12/31/23 07:01: Ionized Calcium 3.78 L 12/31/23 10:00: Folate 3.10 12/31/23 11:26: POC Glucose 220 H Micro: Microbiology 12/30/23 21:05 Urine, Clean Catch Legionella Antigen - Final 12/30/23 21:05 Urine, Clean Catch Streptococcus pneumoniae Antigen (M - Final 12/30/23 08:27 Mucosa - Nasopharyngeal Respiratory Panel (PCR) - Final 12/29/23 18:40 Mucosa - Nose SARS-CoV-2, Influenza & RSV (PCR) - Final Physical Exam Const alert, oriented x3 and no apparent distress; Negative for average body habitus, healthy appearing or well nourished Constitutional Narrative: Very frail appearing, older, white female, sitting up in bed, watching TV, appears comfortable, no longer tachypneic, does not appear toxic, does appear malnourished, much improved General Appearance: cooperative HEENT normocephalic, head/scalp atraumatic and hearing grossly normal bilaterally HEENT Narrative: Mallampati is 2, no thrush Eyes PERRL, EOMs intact bilaterally and conjunctivae normal Eyes Narrative: No scleral icterus Neck no lymphadenopathy and supple Neck Narrative: Trachea midline, no thyroid enlargement Resp normal respiratory effort, no retractions, no use of accessory muscles and clear to auscultation bilaterally Resp Narrative: Markedly diminished with no adventitious sounds, wheeze has resolved, no signs of respiratory distress, and patient currently on 2 L nasal cannula Auscultation: Negative for crackles, rhonchi or wheezes Cardio regular rate, regular rhythm, S1 normal heart sound, no murmurs, no rub, no gallops and no clicks; Negative for S2 normal heart sound Cardio Narrative: Accentuated P2 GI normal to inspection, nondistended, normoactive bowel sounds, soft to palpation and non-tender GI Narrative: Scaphoid abdomen Extremity no clubbing, cyanosis or edema Extremity Narrative: Markedly decreased lean muscle mass, no edema, slight clubbing noted no cyanosis Skin no jaundice, no petechiae and no mottling Skin Narrative: Skin is thin with scattered ecchymosis nose the foot wounds noted Neuro oriented x3, moves all extremities and no focal motor deficits Speech: speech normal Psych affect normal Psych Narrative: Now calm, interacts appropriately, eye contact is good Assessment & Plan Assessment/Plan (1) High anion gap metabolic acidosis: PLAN: Plan Anion gap metabolic acidosis -Resolved -Highly suspect related to mild lactic acidosis, diarrheal losses of bicarb, and starvation ketosis -Discontinue bicarb drip -Repeat BMP in a.m. Nausea/vomiting/diarrhea -Resolved -Continue as needed antiemetics -Discontinue scopolamine patch Lactic acidosis -Resolved Hypocalcemia - still low -Give 1 g of calcium chloride -Recheck ionized calcium in a.m. Chronic hyponatremia -Relatively stable -Restart home salt tablets -Recheck in a.m. Hypokalemia -Patient to receive IV K-Phos and oral potassium supplementation -Repeat lab in a.m. -Correct magnesium Hypomagnesemia -Trended back down -Will give repeat mag bolus -Repeat lab in a.m. Anemia -Suspect chronic -Recent baseline unknown however she was likely hemoconcentrated on presentation -Iron studies are consistent with anemia of chronic disease -No signs of acute blood loss -Will repeat in a.m. for stability -If trends down will check further workup Severe malnutrition -Patient may be at risk for refeeding syndrome -Monitor electrolytes carefully -Continue supplements as ordered -Will liberalize diet as able -Dietitian is following Acute hypoxia/shortness of breath secondary to metabolic acidosis and acute exacerbation of COPD -No infiltrate noted on imaging -Stable on 2 L nasal cannula -Strep pneumo and Legionella antigens are negative -Continue azithromycin but increase dose to 500 daily and will give a total of 5 days predominantly for anti-inflammatory purposes with COPD exacerbation -COVID/flu/RSV are negative -Respiratory viral panel negative -Continue steroids at 40 every 8 -Continue incentive spirometer and Acapella -Continue DuoNebs every 4 hours while awake -Continue Mucinex 1200 twice daily Abnormal UA -Cultures pending -Patient asymptomatic Alcohol abuse -Patient states she drinks 3 glasses of wine daily but has never had any withdrawal -Continue CIWA every 4 -CIWA's currently extremely low -No signs of acute withdrawal at this time -Continue to monitor -Continue thiamine and folate Essential hypertension -Continue to hold home antihypertensives as blood pressures are currently within goal range -Will start once blood pressures trend back up GERD -Will continue IV PPI and transition to twice daily with drop in hemoglobin -If hemoglobin stable tomorrow will transition to p.o. daily Osteoporosis -Patient is on outpatient Prolia -Vitamin D levels remain pending COPD -Management as above for now -Would recommend outpatient follow-up after discharge History of left hip fracture -Previous ORIF Depression/anxiety -Patient is not medicated for this at baseline DVT prophylaxis -Continue subcu Lovenox Charges/Coding Visit Charges Inpatient E&M: 01249 Subs Hosp L3
--- NOTE | 2023-12-31 15:02 | CASEMGMT ---
Social Work SW created in [facility] a list of retirement facilities to ge given to pt if needed, of SNFs in network w/pt's insurance, in pt's preferred geographic area, and complete w/quality and resource use data. NIYA Gonzales
[2023-12-31 17:25] LABS: Bedside Glucose 182 mg/dL (74-106)
--- NOTE | 2023-12-31 21:03 | CPS ---
PATIENT REFUSED PAP THERAPY FOR NIGHT TIME USE
[2023-12-31] MEDS: Azithromycin 250 MG in Dextrose 5%-Water (250mL Bag) 250 ML 500 MG IV (22:00)
[2023-12-31] MEDS: Gabapentin 300 MG Capsule PO (22:49)
[2024-01-01] VITALS (9 sets, daily range): BP systolic 105–147; BP diastolic 72–95; PULSE 92–112; RESP 16–20; TEMP 36.5–36.7; O2SAT 91–96; BMI 20.7
[2024-01-01 06:20] LABS: Hematocrit 26.8 % (37-47); Hemoglobin 9.2 g/dL (12.0-15.0); Mean Corp Hgb Conc 34.3 g/dL (32-36); Mean Corpuscular Hgb 35.1 pg (27.0-32.0); Mean Corpuscular Volume 102.3 fL (81-99); Platelet Count 207 K/mm3 (150-450); RBC Distribution Width CV 13.2 % (11.6-14.6); RBC Distribution Width SD 49.4 fl (35.1-43.9); Red Blood Count 2.62 M/mm3 (4.2-5.4); White Blood Count 13.5 K/mm3 (4.4-11.0)
[2024-01-01] MEDS: 0.9% Saline Lock 10 ML Syringe IV ×2 (06:31→21:47)
[2024-01-01 06:43] LABS: Ionized Calcium 4.12 mg/dL (4.36-5.20)
[2024-01-01 06:52] LABS: Anion Gap 9 (5-15); BUN 6 mg/dL (7-18); Calcium,Total 7.5 mg/dL (8.5-10.1); Chloride 102 mmol/L (98-107); EST Glomerular Filtration Rate 105 mL/min (>60); Est Glom Filt Rate - Afr Amer 127 mL/min (>60); Glucose 122 mg/dL (74-106); Magnesium 1.6 mg/dL (1.6-2.6); Phosphorus 3.6 mg/dL (2.5-4.9); Potassium 4.7 mmol/L (3.5-5.1); Sodium Level 137 mmol/L (136-145)
[2024-01-01 07:07] LABS: Bedside Glucose 117 mg/dL (74-106)
[2024-01-01] MEDS: Ipratropium/Albuterol Sulfate 3 ML AMPUL.NEB INHALATION ×4 (07:14→19:24)
[2024-01-01] MEDS: CALCIUM CHLORIDE IV (08:04)
[2024-01-01] MEDS: NORMAL SALINE 0.9% IV (08:04)
--- NOTE | 2024-01-01 08:37 | CPS ---
Pt instructed to do SMI and pep on own
--- NOTE | 2024-01-01 10:19 | PN.HOSP_ITS ---
Reason for Visit Reason for Visit: Nausea/vomiting/diarrhea Subjective Subjective Patient states overall she is feeling much better. No complaints this morning. We did discuss that her swallow was of concern Tuesday by speech therapy so they will do a modified barium swallow on Tuesday. She is anxious to go home. We did discuss that she may need placement at discharge depending on how she does with therapy or at least have home health that she is quite debilitated. Tolerating food thus far and I will advance her to a regular diet. Objective Data Objective Data Vital Signs: Vital Signs Temp Pulse Resp BP Pulse Ox O2 Del Method O2 Flow Rate 97.7 F L 107 H 20 H 140/79 H 96 Nasal Cannula 2 01/01/24 08:08 01/01/24 08:08 01/01/24 08:08 01/01/24 08:08 01/01/24 08:08 01/01/24 08:08 01/01/24 08:08 FiO2 24 12/30/23 01:28 Oxygen Flow Rate (L/min) 2 Oxygen Delivery Method Nasal Cannula Weight: 54.8 kg Body Mass Index (BMI) 20.7 Intake & Output: Intake and Output for Last 24 Hours 12/30/23 12/31/23 01/01/24 23:59 23:59 23:59 Intake Total 2231.04 / 2231.04 2109.3633 / 2109.3633 18.33 / 18.33 Output Total 950 / 950 300 / 300 Balance 2231.04 / 2081.04 1159.3633 / 1159.3633 -281.67 / -281.67 Medical Nutrition Assessment Dietitian: Malnutrition Criteria Met Start: 12/30/23 13:53 Freq: Status: Active Protocol: Document 12/30/23 13:54 PR (Rec: 12/30/23 13:54 PR [id number]) Nutrition Malnutrition Evidence of Malnutrition Exists Yes Malnutrition (moderate): Acute Illness/Injury Malnutrition (unspecified) Severe pro/oscar Evidenced By Suboptimal Energy Intake ( Severe),Weight Loss (Severe) Clinical Problem Acute Disease or Injury Related Malnutrition Etiology related to acute gastroenteritis with associated nausea, vomiting, diarrhea Signs/Symptoms Weight loss of 9% x 1 month, and energy intake <50% x 2 weeks. Status Active Problem Recommendation Dietitian Recommendations/Changes Advance diet as tolerated to liberal regular diet when warranted Consider oral nutrition supplements if patient is accepting Monitor weight changes Lab / Micro Data 01/01/24 05:39 01/01/24 05:39 Labs: Laboratory Results - last 24 hr 12/31/23 10:00: Folate 3.10 12/31/23 11:26: POC Glucose 220 H 12/31/23 16:44: POC Glucose 182 H 01/01/24 05:39: WBC 13.5 H, RBC 2.62 L, Hgb 9.2 L, Hct 26.8 L, MCV 102.3 H, MCH 35.1 H, MCHC 34.3, RDW Std Deviation 49.4 H, RDW Coeff of Lynnette 13.2, Plt Count 207, MPV 10.0, Sodium 137, Potassium 4.7, Chloride 102, Carbon Dioxide 26.0, Anion Gap 9, BUN 6 L, Creatinine 0.60, Estim Creat Clear Calc 56.50, Est GFR (MDRD) Af Amer 127, Est GFR (MDRD) Non-Af 105, BUN/Creatinine Ratio 10.0, G lucose 122 H, Calcium 7.5 L, Phosphorus 3.6, Magnesium 1.6 01/01/24 06:28: POC Glucose 117 H 01/01/24 06:38: Ionized Calcium 4.12 L Micro: Microbiology 12/30/23 21:05 Urine, Clean Catch Urine Culture - Preliminary Culture exhibits no growth. 12/30/23 21:05 Urine, Clean Catch Legionella Antigen - Final 12/30/23 21:05 Urine, Clean Catch Streptococcus pneumoniae Antigen (M - Final 12/30/23 08:27 Mucosa - Nasopharyngeal Respiratory Panel (PCR) - Final 12/29/23 18:40 Mucosa - Nose SARS-CoV-2, Influenza & RSV (PCR) - Final Physical Exam Const alert, oriented x3 and no apparent distress; Negative for average body habitus, healthy appearing or well nourished Constitutional Narrative: Very frail appearing, older, white female, sitting up in bed, watching TV, appears comfortable, breathing is comfortable, nontoxic, appears severely malnourished General Appearance: cooperative HEENT normocephalic, head/scalp atraumatic and hearing grossly normal bilaterally HEENT Narrative: Mallampati 2, no thrush Resp normal respiratory effort, no retractions, no use of accessory muscles and clear to auscultation bilaterally Resp Narrative: Markedly diminished with no adventitious sounds, few wheezes at bases bilaterally but overall much improved, stable on 2 L nasal cannula Auscultation: Negative for crackles, rhonchi or wheezes Cardio regular rate, regular rhythm, S1 normal heart sound, no murmurs, no rub, no gallops and no clicks; Negative for S2 normal heart sound Cardio Narrative: Accentuated P2 GI normal to inspection, nondistended, normoactive bowel sounds, soft to palpation and non-tender GI Narrative: Scaphoid abdomen Extremity no clubbing, cyanosis or edema Extremity Narrative: Markedly decreased lean muscle mass, no edema, slight clubbing noted no cyanosis Neuro oriented x3, moves all extremities and no focal motor deficits Neuro Narrative: Severe generalized weakness Speech: speech normal Psych affect normal Psych Narrative: Now calm, interacts appropriately, eye contact is good Assessment & Plan Assessment/Plan (1) High anion gap metabolic acidosis: PLAN: Plan Anion gap metabolic acidosis -Resolved -Highly suspect related to mild lactic acidosis, diarrheal losses of bicarb, and starvation ketosis Nausea/vomiting/diarrhea -Resolved -Continue as needed antiemetics -Discontinue scopolamine patch Lactic acidosis -Resolved Hypocalcemia -Ionized calcium is still low however trending up -Give 1/2 mg of calcium chloride -Repeat ionized calcium in a.m. Chronic hyponatremia -Continue home salt tablets -Current sodium is 137 -Chronic hyponatremia may be related to her alcohol use and since she is not drinking its resolved Hypokalemia -Resolved -Will follow Hypomagnesemia -Resolved -Continue to follow Possible dysphagia -Modified barium swallow tomorrow -Diet has not been altered by speech therapy for now -speech therapy is following Anemia -Suspect chronic -Recent baseline unknown however she was likely hemoconcentrated on presentation -Iron studies are consistent with anemia of chronic disease -Hemoglobin stable in the mid 9 range currently -No signs of acute blood loss Severe malnutrition -No signs of refeeding -Continue supplements as ordered -Will start regular diet -Dietitian is following Acute hypoxia/shortness of breath secondary to metabolic acidosis and acute exacerbation of COPD -No infiltrate noted on imaging -Stable on 2 L nasal cannula -Strep pneumo and Legionella antigens are negative -Continue azithromycin but increase dose to 500 daily and will give a total of 5 days predominantly for anti-inflammatory purposes with COPD exacerbation--> stop date is 01/03/2024 -COVID/flu/RSV are negative -Respiratory viral panel negative -Continue steroids at 40 every 8--> will transition to prednisone 40 mg daily tomorrow -Continue incentive spirometer and Acapella -Continue DuoNebs every 4 hours while awake -Continue Mucinex 1200 twice daily Abnormal UA -Urine culture with no growth Alcohol abuse -Patient states she drinks 3 glasses of wine daily but has never had any withdrawal -No signs of withdrawal -Okay to discontinue CIWA -Continue thiamine and folate Essential hypertension -Continue to hold home antihypertensives as blood pressures are currently within goal range -Will start once blood pressures trend back up GERD -Will continue IV PPI and transition to twice daily with drop in hemoglobin -If hemoglobin stable tomorrow will transition to p.o. daily Osteoporosis -Patient is on outpatient Prolia -Vitamin D levels remain pending COPD -Management as above for now -Would recommend outpatient follow-up after discharge History of left hip fracture -Previous ORIF Depression/anxiety -Patient is not medicated for this at baseline DVT prophylaxis -Continue subcu Lovenox Charges/Coding Visit Charges Inpatient E&M: 58874 Subs Hosp L2
[2024-01-01] MEDS: guaiFENesin 1,200 MG Tablet 1200 MG PO ×2 (10:57→21:10)
[2024-01-01] MEDS: Magnesium Chloride 64 MG Delay Rel.Tablet 128 MG PO (10:57)
[2024-01-01] MEDS: Sodium Chloride 1 GM Tablet PO ×2 (10:58→21:10)
[2024-01-01] MEDS: Thiamine Hydrochloride 100 MG Tablet PO (10:58)
[2024-01-01] MEDS: Pantoprazole Sodium 40 MG in 0.9% Normal Saline (100mL MB+) 100 ML 330 MG IV ×2 (12:00→21:19)
[2024-01-01 12:23] LABS: Bedside Glucose 155 mg/dL (74-106)
[2024-01-01] MEDS: Folic Acid 1 MG in 0.9% Normal Saline (50mL Bag) 50 ML 200 MG IV (12:33)
--- NOTE | 2024-01-01 16:14 | CPS ---
decreased pt to 1L NC at this time
[2024-01-01 16:33] LABS: Bedside Glucose 109 mg/dL (74-106)
[2024-01-01] MEDS: Azithromycin 250 MG in Dextrose 5%-Water (250mL Bag) 250 ML 500 MG IV (21:50)
[2024-01-02] VITALS (16 sets, daily range): BP systolic 100–138; BP diastolic 85–91; PULSE 88–119; RESP 16–19; TEMP 36.1–36.6; O2SAT 88–99; BMI 22.1
[2024-01-02] MEDS: 0.9% Saline Lock 10 ML Syringe IV ×3 (06:29→13:33)
[2024-01-02 06:39] LABS: Hemoglobin 11.3 g/dL (12.0-15.0); Mean Corp Hgb Conc 33.2 g/dL (32-36); Mean Corpuscular Hgb 34.6 pg (27.0-32.0); Mean Platelet Vol. 10.2 fl (6.2-12.0); Platelet Count 194 K/mm3 (150-450); RBC Distribution Width SD 49.9 fl (35.1-43.9); Red Blood Count 3.27 M/mm3 (4.2-5.4); White Blood Count 10.4 K/mm3 (4.4-11.0)
[2024-01-02 06:49] LABS: Bedside Glucose 84 mg/dL (74-106)
[2024-01-02 06:55] LABS: Ionized Calcium 4.31 mg/dL (4.36-5.20)
[2024-01-02] MEDS: Ipratropium/Albuterol Sulfate 3 ML AMPUL.NEB INHALATION ×4 (07:13→19:39)
[2024-01-02 07:36] LABS: Anion Gap 9 (5-15); BUN 8 mg/dL (7-18); BUN/Creat Ratio 12.4 RATIO (10-20); Calcium,Total 8.3 mg/dL (8.5-10.1); Chloride 98 mmol/L (98-107); Creatinine, Serum 0.65 mg/dL (0.55-1.02); EST Glomerular Filtration Rate 96 mL/min (>60); Est Glom Filt Rate - Afr Amer 117 mL/min (>60); Glucose 100 mg/dL (74-106); Magnesium 1.2 mg/dL (1.6-2.6); Phosphorus 3.3 mg/dL (2.5-4.9); Potassium 4.3 mmol/L (3.5-5.1); Sodium Level 133 mmol/L (136-145)
[2024-01-02 08:47] LABS: Vitamin B12 464 pg/mL (211-911)
[2024-01-02] MEDS: Metoprolol(XL)Succ 50 MG Tablet PO (09:51)
[2024-01-02] MEDS: Magnesium Chloride 64 MG Delay Rel.Tablet 128 MG PO (09:51)
[2024-01-02] MEDS: Sodium Chloride 1 GM Tablet PO ×2 (09:51→21:08)
[2024-01-02] MEDS: Thiamine Hydrochloride 100 MG Tablet PO (09:51)
[2024-01-02] MEDS: Pantoprazole Sodium 40 MG in 0.9% Normal Saline (100mL MB+) 100 ML 330 MG IV (10:03)
[2024-01-02] MEDS: Dicyclomine 10 MG Capsule 20 MG PO ×2 (10:07→17:07)
[2024-01-02] MEDS: Folic Acid 1 MG in 0.9% Normal Saline (50mL Bag) 50 ML 200 MG IV (11:00)
--- NOTE | 2024-01-02 12:16 | PCM.PN.HOSP ---
Subjective Subjective Doing well, no issues overnight, planning for modified barium swallow today Objective Data Objective Data Vital Signs: Vital Signs Temp Pulse Resp BP Pulse Ox O2 Del Method O2 Flow Rate 97.5 F L 111 H 16 131/91 H 94 Nasal Cannula 2 01/02/24 11:36 01/02/24 11:36 01/02/24 11:36 01/02/24 11:36 01/02/24 11:36 01/02/24 11:36 01/02/24 11:36 FiO2 24 12/30/23 01:28 Oxygen Flow Rate (L/min) 2 Oxygen Delivery Method Nasal Cannula Weight: 129 lb 3.054 oz Body Mass Index (BMI) 22.1 Intake & Output: Intake and Output for Last 24 Hours 01/01/24 01/02/24 01/03/24 03:59 03:59 03:59 Intake Total 1731.0333 / 1731.0333 627.70 / 627.70 160.2 / 160.2 Output Total 800 / 800 1100 / 1100 1200 / 1200 Balance 931.0333 / 931.0333 -472.30 / -472.30 -1039.8 / -1039.8 Medical Nutrition Assessment Dietitian: Malnutrition Criteria Met Start: 12/30/23 13:53 Freq: Status: Active Protocol: Document 12/30/23 13:54 AR (Rec: 12/30/23 13:54 AR [id number]) Nutrition Malnutrition Evidence of Malnutrition Exists Yes Malnutrition (moderate): Acute Illness/Injury Malnutrition (unspecified) Severe pro/oscar Evidenced By Suboptimal Energy Intake ( Severe),Weight Loss (Severe) Clinical Problem Acute Disease or Injury Related Malnutrition Etiology related to acute gastroenteritis with associated nausea, vomiting, diarrhea Signs/Symptoms Weight loss of 9% x 1 month, and energy intake <50% x 2 weeks. Status Active Problem Recommendation Dietitian Recommendations/Changes Advance diet as tolerated to liberal regular diet when warranted Consider oral nutrition supplements if patient is accepting Monitor weight changes Lab / Micro Data 01/02/24 05:37 01/02/24 05:37 Labs: Laboratory Results - last 24 hr 12/31/23 10:00: Vitamin B12 464 01/01/24 11:56: POC Glucose 155 H 01/01/24 16:11: POC Glucose 109 H 01/02/24 05:37: WBC 10.4, RBC 3.27 L, Hgb 11.3 L, Hct 34.0 L, MCV 104.0 H, MCH 34.6 H, MCHC 33.2, RDW Std Deviation 49.9 H, RDW Coeff of Lynnette 13.0, Plt Count 194, MPV 10.2, Sodium 133 L, Potassium 4.3, Chloride 98, Carbon Dioxide 26.0, Anion Gap 9, BUN 8, Creatinine 0.65, Estim Creat Clear Calc 56.50, Est GFR (MDRD) Af Amer 117, Est GFR (MDRD) Non-Af 96, BUN/Creatinine Ratio 12.4, Glucose 100, Calcium 8.3 L, Phosphorus 3.3, Magnesium 1.2 L 01/02/24 06:28: POC Glucose 84 01/02/24 06:50: Ionized Calcium 4.31 L Micro: Microbiology 12/30/23 21:05 Urine, Clean Catch Urine Culture - Final Culture exhibits no growth. 12/30/23 21:05 Urine, Clean Catch Legionella Antigen - Final 12/30/23 21:05 Urine, Clean Catch Streptococcus pneumoniae Antigen (M - Final 12/30/23 08:27 Mucosa - Nasopharyngeal Respiratory Panel (PCR) - Final 12/29/23 18:40 Mucosa - Nose SARS-CoV-2, Influenza & RSV (PCR) - Final Physical Exam Narrative General: Alert, Oriented x3, Cooperative, No apparent distress HEENT: Atraumatic, PERRLA, EOMI, Normocephalic Oral: Moist Mucosa Neck: Supple, No JVD Lungs: Diminished, Normal air movement, No rhonchi, No wheeze, No rales Cardiovascular: Regular rate, Regular Rhythm, Normal S1, Normal S2, No murmurs Abdomen: Soft, Non Tender, Non-Distended, No Hepato-splenomegaly Extremities: No edema, Capillary Refill Less than 3 Seconds Skin: No rashes, No breakdown Musculoskeletal: No Tenderness to Palpation of Joints or Extremities Neurological: No focal neurological deficits, Motor Exam 5/5 strength throughout, Sensory exam intact to light touch and pain Psych/Mental Status: Normal Affect, Appropriate Assessment & Plan Assessment/Plan (1) High anion gap metabolic acidosis: PLAN: Plan 1. Nausea vomiting with an anion gap metabolic acidosis secondary to mild lactic acidosis/chronic hyponatremia/severe malnutrition ? There is probably combination of starvation ketosis as well as loss of bicarb from her diarrhea involved ? She had a modified barium swallow today secondary to some issues with reflux and fears was swallowing, this showed esophageal retention ? Will consult GI for possible EGD ? Continue to encourage increased p.o. intake 2. Acute hypoxia and shortness of breath secondary to metabolic acidosis and acute exacerbation of COPD ? She is back down to room air today ? As she has 1 more day of azithromycin ? Viral studies are negative ? Will transition her steroids to p.o. prednisone tomorrow 3. Essential HTN ? Continue with her home metoprolol ? Will monitor make adjustments as necessary 4. Alcohol abuse ? She drinks about 3 glasses of wine every day but denies ever having any withdrawal continue with thiamine and folate ? Discontinue CIWA 5. GERD ? Stable ? Transition to p.o. PPI DVT: SCD Charges/Coding Visit Charges Inpatient E&M: 65185 Subs Hosp L2
--- NOTE | 2024-01-02 15:00 | CASEMGMT ---
TONI CONNER in to discuss needs at discharge, friends at bedside, permission to discuss discharge planning with friends in room. TONI CONNER reviewed progress with therapy with patient, patient requiring minimal assistance. Patient states that her is availalbe to help and assist patient at home. Patient states she would like HHC at discharge for nursing and therapy. TONI CONNER explained to patient that list of HHC will be provided to patient to review and provide preferences. Patient voiced understanding and had no further questions or concerns. TONI CONNER updated DC strike planning applications to provide HHC list to patient. CM will continue to follow this patient and plan for a safe discharge.
--- NOTE | 2024-01-02 15:02 | ST.MBS ---
Modified Barium Swallow Patient Information Study Date: 01/02/24 Study Time: 14:00 Direct Billable Minutes: 110 Total Minutes procedure & reportin Diagnosis: F10.939 Alcohol withdrawal; R53.1 Weakness Referring Physician: Rosalinda Mckeon Reason for Referral: Objectively assess swallow function, assess risk for aspiration, and determine recommendations for least restrictive diet textures and compensatory strategies to improve safety of swallow. Medical History: PMH: HTN, history of tobacco abuse; with subsequent COPD, chronic hypoxic respiratory failure, history of bronchitis, depression with anxiety, history of alcohol abuse; with patient drinking 2 to 3 glasses of wine nightly, history of peripheral vestibulopathy, history of vertigo, chronic maxillary and frontal sinusitis, history of microscopic colitis, history of hypomagnesemia, history of hyponatremia, history of vitamin D deficiency, osteoporosis; on Prolia, several medication allergies listed, GERD and OA; s/p Left Hip Fracture with subsequent ORIF. Pt presented to [facility] ED 12/29/2023 w/ nausea, vomiting, diarrhea, plus SOB and wheezing. Symptoms began ~2 weeks before admission w/ a gradual-onset of progressively worsening GI upset with nausea followed by bilious emesis and nonbloody diarrhea. She then stated her symptoms acutely worsened the 2 to 3 days before admission w/ inability to tolerate anything by mouth. Of note, she also had multiple falls. In the ED, pt presented w/ severe Hypomagnesemia and Severe Hypocalcemia along w/ suspected Acute Viral Gastroenteritis and Acute Alcohol Withdrawal. Pt also had Right Maxillary Sinusitis evident on head CT this admission in the setting of Chronic Alcohol Abuse with Macrocytosis present on admission compounded by AE COPD with Acute Hypoxic Respiratory Failure requiring BiPAP. Pt was admitted to PCU for ongoing care. Pt was placed on a clear liquid diet by physician for GI symptoms and advanced to a regular diet 01/01/2024. DIRECTOR OF SUSTAINABILITY followed during stay due to concerns for aspiration w/ thin liquids, and the patient was recommended for MBSS 01/02/2024. Current Diet Ordered: Regular / Thin Dentition: Natural Teeth Mental Status: Impaired (Pt able to follow commands, but DIRECTOR OF SUSTAINABILITY had concerns for recall - pt forgot she gave her phone to [employer] prior to exam) Respiratory Status: Oxygenating on Room Air Penetration-Aspiration Scale Penetration-Aspiration Scale: OBJECTIVE ASSESSMENT OF SWALLOW FUNCTION (QUANTITATIVE ? PER TRIAL): PENETRATION / ASPIRATION SCALE (CM): 1 = does not enter airway 2 = enters airway/above vocal folds/ejected 3 = enters airway/above vocal folds/not ejected 4 = enters airway/contacts vocal folds/ejected 5 = enters airway/contacts vocal folds/not ejected 6 = enters airway/below vocal folds/ejected 7 = enters airway/below vocal folds/not ejected despite effort 8 = enters airway/below vocal folds/no effort VIDEOFLOROSCOPIC SCALE SCORE (CM): Grade I = aspiration of material that has penetrated into the laryngeal vestibule, intact cough reflex Grade II = aspiration < 10 % of the bolus, intact cough reflex Grade III = aspiration of < 10 % of the bolus, reduced cough reflex or aspiration of > 10 % of the bolus, intact cough reflex Grade IV = aspiration of > 10 % of the bolus, reduced cough reflex Penetration-Aspiration Scale Score Thin Liquid via teaspoon: Result: 1= does not enter airway Thin Liquid via teaspoon Trial 2: Result: 1= does not enter airway Thin Liquid via small single sip: cup: Result: 1= does not enter airway Register Thick Liquid via large single sip: cup: Result: 1= does not enter airway Pudding via teaspoon: Result: 1= does not enter airway Comment: Esophageal screen - Retention in the upper and lower esophagus. Pt reported no sensation of anything caught. Thin Liquid via sequential sips:straw: Result: 1= does not enter airway Comment: Esophageal screen - somewhat improved clearance of esophageal retention of previous trial. 1/2 Cookie: Result: 1= does not enter airway Comment: Esophageal screen - mild retention in lower esophagus. Oral Phase Labial Seal: Interlabial escape, no progression to anterior lip Tongue Control During Bolus Hold: Escape to lateral buccal cavity/floor of mouth Bolus Preparation/Mastication: Slow prolonged chewing/mashing with complete recollection Bolus Transport/Lingual Motion: Repetitive/disorganized tongue motion Oral Residue: Residue collection on oral structures Pharyngeal Phase Initiation of Pharyngeal Swallow: Bolus head in valleculae Soft Palate Elevation: Trace column of contrast/air between soft palate and pharyngeal wall Laryngeal Elevation: Comp. Superior move thyroid cart w/comp. apprx arytenoid cart-epig pet Anterior Hyoid Excursion: Partial anterior movement Epiglottic Movement: Complete inversion Laryngeal Vestibule Closure at Height of Swallow: Complete; no air/contrast in laryngeal vestibule Pharyngeal Stripping Wave: Present - complete Pharyngoesophageal Segment Opening: Parital distension and partial duration; parital obstruction of flow Tongue Base Retraction: Trace column of contrast between tongue base & post. pharyngeal wall Pharyngeal Residue: Trace residue within or on pharyngeal structures Esophageal Phase Esophageal Clearance: Esophageal retention w/ retrograde flow below pharyngoesophageal seg. Diagnosis/Impression Diagnosis: Mild oral dysphagia R13.11; Esophageal dysphagia R13.14 Impression: The oral phase is marked by... -Slowed, but complete mastication of cookie. -Disorganized tongue motion for A-P transport. -Mild oral residues after the swallow. The pharyngeal phase is grossly WNL. Timely swallow onset. Good airway closure during the swallow due to complete laryngeal elevation and epiglottic inversion. No laryngeal penetration or aspiration observed during MBSS. CP bar at the level of C4-C5, which did not appear to greatly impact bolus clearance through the UES. Trace retention of thin liquids in UES. The esophageal phase is marked by... -Retention of pudding in the upper and lower esophagus, which somewhat cleared w/ thin liquid washes. -Mild retention of cookie in lower esophagus. Recommendations Diet: Regular Textures and Thin Liquids Compensatory Strategies: Small Bites, Small Sips, Slow Rate, Alternate bites/solids and sips/liquids (1:1 ratio), Sitting upright (During and 60min after meal) and Remain sitting upright for 30 minutes after PO intake Supervision: Distant Supervision Recommend Repeat Modified Barium Swallow: No Need for Skilled Speech Therapy Services: Yes Comment: Follow 2-3X to ensure diet tolerance, train in strategies to decrease risk for aspiration/reflux aspiration, and train in oral motor exercises to promote improved lingual coordination (lingual coordination exercises). Recommended Referrals: GI Consult Education Completed: 1. Described result of evaluation., 2. Pt understands evaluation & agrees with goals and treatment plan. and 7. Pt requires further education on strategies & risks. Status Active ST Patient: Active Contact Information [facility] Speech Therapy:: Jes German M.A. CCC-DIRECTOR OF SUSTAINABILITY? Speech-Language Pathologist?? [facility] [address] [place] [address]? [email or web address]?? [phone]
--- NOTE | 2024-01-02 15:20 | CASEMGMT ---
Discharge Planning A list of HH providers including quality and resource use data and consistent with the patient's preferred geographic region, medical needs, and insurance network was created in [employer] Guide.? This list was provided to the patient. Minda Cardenas, Discharge Planning Asst.
--- NOTE | 2024-01-02 17:13 | EX.PCM.CON.G ---
HPI Consult Data Date of Consult: 01/02/24 HPI Narrative Reason for Consultation: Abnormal swallowing study HPI Narrative: MARGO NGUYEN, is a 68 F who presented to the emergency department with chief complaint of nausea vomiting diarrhea. She has a past medical history of essential hypertension, history of tobacco abuse; with subsequent COPD, chronic hypoxic respiratory failure, history of bronchitis, depression with anxiety, history of alcohol abuse; Ms. Nguyen reports her symptoms began approximately 2 weeks prior to admission with a gradual-onset of progressively worsening GI upset with nausea followed by bilious emesis and nonbloody diarrhea. She then states her symptoms acutely worsened over the past 2 to 3 days with patient claiming she is unable to tolerate anything by mouth due to severe vomiting so she decided to come in for further evaluation and treatment. She also admits to multiple falls this week due to generalized weakness. She denies recent sick contacts, recent travel or recent medication changes or a history of alcohol withdrawal symptoms after she stops drinking. I was called to see her because she failed a swallowing study. [facility] Medical History Alcohol abuse COPD (chronic obstructive pulmonary disease) Smoker On home oxygen therapy Vertigo Acute respiratory failure with hypoxia Hip fracture Depression Anxiety Osteoporosis GERD (gastroesophageal reflux disease) Microscopic colitis Bronchitis HTN (hypertension) Home Medications ?Medication ?Instructions ?Recorded ?Last Taken ?Type amlodipine 10 mg tablet 10 mg PO DAILY bp #90 tabs 08/08/18 01/21/21 History metoprolol succinate 100 mg 100 mg PO DAILY bp #90 tabs 08/08/18 01/21/21 History tablet,extended release 24 hr omeprazole 40 mg capsule,delayed 40 mg PO DAILY reflux #90 caps 08/08/18 01/21/21 History release denosumab 60 mg/mL subcutaneous 60 mg subcut .[id number] BONES 01/21/21 12/03/20 History syringe (Prolia) albuterol sulfate 90 mcg/actuation 2 puff inhalation Q4H INHALER 04/27/21 Unknown History aerosol inhaler prochlorperazine maleate 10 mg 10 mg PO Q8H PRN nausea and 08/15/22 Unknown Rx tablet (Compazine) vomiting #14 tabs magnesium oxide 500 mg PO DAILY VITAMIN #30 tabs 12/06/22 Unknown Rx sodium chloride 1,000 mg soluble 1,000 mg PO QD-QID PRN electrolyte 12/06/22 Unknown Rx tablet replenishment #30 tabs Allergy/AdvReac Type Severity Reaction Status Date / Time nitrofurantoin (From AdvReac Severe Vomiting Verified 12/29/23 17:26 Macrobid) amoxicillin AdvReac Intermediate Other Verified 12/29/23 17:26 ciprofloxacin (From Cipro) AdvReac Intermediate Rash Verified 12/29/23 17:26 doxycycline AdvReac Intermediate Other Verified 12/29/23 17:26 naproxen AdvReac Intermediate Other Verified 12/29/23 17:26 sulfamethoxazole (From AdvReac Intermediate Other Verified 12/29/23 17:26 Bactrim) trimethoprim (From Bactrim) AdvReac Unknown Verified 12/29/23 17:26 Family History Sister Breast cancer Osteoporosis Mother Heart disease Myocardial infarction Father No problems noted. Surgical History (Updated 01/03/24 @ 17:[address] Michael Chacon MD) S/P hip replacement History of colonoscopy Social History household members: spouse housing: house number of children: 0 current occupational status: retired pets and animals: Yes (dog) Smoking Status: Current every day smoker tobacco type: cigarettes alcohol intake: current alcohol intake frequency: 0-2 drinks per day Alcohol type: beer ROS ROS Narrative Review of Systems: Constitutional: Patient denies fever or chills. Eyes: Patient denies changes in vision or discharge from eyes. ENT: Patient denies runny nose, sore throat or ear pain. Resp: Patient admits to severe shortness of breath at rest with wheezing that has worsened since admission and ultimately required BiPAP. CV: Patient denies chest pain, palpitations or heart racing. GI: Patient admits to abdominal pain, nausea and vomiting with bilious emesis and nonbloody diarrhea as per HPI. : Patient denies dysuria or hematuria. Psych: Patient denies symptoms of uncontrolled depression or anxiety. Neuro: Patient denies headache, paresthesias or focal neurologic deficits. Allergy: Patient denies lip swelling, tongue swelling or urticaria. Hematology: Patient denies easy bleeding or easy bruisability. Endocrinology: Patient denies polyuria, polydipsia or polyphagia. 14 point review of systems otherwise negative except for positives noted above in HPI. Physical Exam Narrative General: Alert, Oriented x3, Cooperative, No apparent distress HEENT: Atraumatic, PERRLA, EOMI, Normocephalic Oral: Moist Mucosa Neck: Supple, No JVD Lungs: Diminished, Normal air movement, No rhonchi, No wheeze, No rales Cardiovascular: Regular rate, Regular Rhythm, Normal S1, Normal S2, No murmurs Abdomen: Soft, Non Tender, Non-Distended, No Hepato-splenomegaly Extremities: No edema, Capillary Refill Less than 3 Seconds Skin: No rashes, No breakdown Musculoskeletal: No Tenderness to Palpation of Joints or Extremities Neurological: No focal neurological deficits, Motor Exam 5/5 strength throughout, Sensory exam intact to light touch and pain Psych/Mental Status: Normal Affect, Appropriate Medical Records Data Medical Nutrition Assessment Dietitian: Malnutrition Criteria Met Start: 12/30/23 13:53 Freq: Status: Active Protocol: Document 12/30/23 13:54 OR (Rec: 12/30/23 13:54 OR [id number]) Nutrition Malnutrition Evidence of Malnutrition Exists Yes Malnutrition (moderate): Acute Illness/Injury Malnutrition (unspecified) Severe pro/oscar Evidenced By Suboptimal Energy Intake ( Severe),Weight Loss (Severe) Clinical Problem Acute Disease or Injury Related Malnutrition Etiology related to acute gastroenteritis with associated nausea, vomiting, diarrhea Signs/Symptoms Weight loss of 9% x 1 month, and energy intake <50% x 2 weeks. Status Active Problem Recommendation Dietitian Recommendations/Changes Advance diet as tolerated to liberal regular diet when warranted Consider oral nutrition supplements if patient is accepting Monitor weight changes Lab / Micro Data 01/03/24 05:33 01/03/24 05:33 Labs: Laboratory Results - last 24 hr 12/30/23 06:47: Vit D 1,25-Dihydroxy 60.0 01/03/24 05:33: WBC 10.0, RBC 3.14 L, Hgb 11.0 L, Hct 32.1 L, MCV 102.2 H, MCH 35.0 H, MCHC 34.3, RDW Std Deviation 47.1 H, RDW Coeff of Lynnette 12.6, Plt Count 213, MPV 10.1, Immature Gran % (Auto) 1.000 H, Neut % (Auto) 63.6, Lymph % (Auto) 21.0, [place] % (Auto) 12.1 H, Eos % (Auto) 1.9, Baso % (Auto) 0.4, Absolute Neuts (auto) 6.4, Absolute Lymphs (auto) 2.11, Nucleated RBC % 0, Sodium 135 L, Potassium 3.7, Chloride 101, Carbon Dioxide 25.0, Anion Gap 9, BUN 14, Creatinine 0.72, Estim Creat Clear Calc 56.50, Est GFR (MDRD) Af Amer 103, Est GFR (MDRD) Non-Af 85, BUN/Creatinine Ratio 19.4, Glucose 70 L, Calcium 8.0 L, Phosphorus 1.5 L, Magnesium 1.3 L Micro: Microbiology 01/02/24 16:32 Stool Stool Occult Blood (MARIVEL) - Final Occult Blood Positive Assessment & Plan Assessment/Plan (1) High anion gap metabolic acidosis: PLAN: Plan 68-year-old with history of alcohol abuse who comes in with Nausea and vomiting with an anion gap metabolic acidosis secondary to mild lactic acidosis/chronic hyponatremia/severe malnutrition ? She will undergo an EGD to evaluate upper GI tract. She was explained alternatives, risk, benefits include not withstanding bleeding, infection, sepsis, perforation, need for return to . She will have an ASA of 3. Charges/Coding Visit Charges Inpatient E&M: 54623 Init Hosp L3
[2024-01-02] MEDS: guaiFENesin 1,200 MG Tablet 1200 MG PO (21:08)
[2024-01-02] MEDS: Azithromycin 250 MG in Dextrose 5%-Water (250mL Bag) 250 ML 500 MG IV (21:17)
[2024-01-03] VITALS (24 sets, daily range): BP systolic 61–137; BP diastolic 43–101; PULSE 88–129; RESP 16–24; TEMP 35.5–36.9; O2SAT 87–99; BMI 22.1
[2024-01-03] MEDS: Dicyclomine 10 MG Capsule 20 MG PO (05:17)
[2024-01-03] MEDS: Acetaminophen 325 MG Tablet 650 MG PO (05:17)
[2024-01-03 07:03] LABS: Absolute Lymphocyte Count 2.11 X10^3/uL (0.83-4.51); Absolute Neutrophil Count 6.4 X10^3/uL (2.0-7.7); Basophil# 0.04 X10^3/uL; Basophil% 0.4 % (0-1); Eosinophil# 0.19 X10^3/uL; Eosinophils% 1.9 % (0-5); Hematocrit 32.1 % (37-47); Lymphocyte # 2.11 X10^3/ul (0.83-4.51); Mean Corp Hgb Conc 34.3 g/dL (32-36); Mean Corpuscular Volume 102.2 fL (81-99); Mean Platelet Vol. 10.1 fl (6.2-12.0); Monocyte# 1.21 X10^3/uL; Monocyte% 12.1 % (0-10); NRBC Flagged by Analyzer 0 % (0-5); Neutrophil # 6.38 X10^3/uL (2.7-7.7); Neutrophil % 63.6 % (47-70); Platelet Count 213 K/mm3 (150-450); RBC Distribution Width CV 12.6 % (11.6-14.6); RBC Distribution Width SD 47.1 fl (35.1-43.9); Red Blood Count 3.14 M/mm3 (4.2-5.4)
[2024-01-03] MEDS: Ipratropium/Albuterol Sulfate 3 ML AMPUL.NEB INHALATION ×4 (07:17→19:45)
[2024-01-03 07:30] LABS: Anion Gap 9 (5-15); BUN 14 mg/dL (7-18); BUN/Creat Ratio 19.4 RATIO (10-20); Chloride 101 mmol/L (98-107); Creatinine, Serum 0.72 mg/dL (0.55-1.02); EST Glomerular Filtration Rate 85 mL/min (>60); Est Glom Filt Rate - Afr Amer 103 mL/min (>60); Glucose 70 mg/dL (74-106); Potassium 3.7 mmol/L (3.5-5.1); Sodium Level 135 mmol/L (136-145)
[2024-01-03] MEDS: 0.9% Saline Lock 10 ML Syringe IV ×2 (09:36→21:25)
[2024-01-03] MEDS: Folic Acid 1 MG in 0.9% Normal Saline (50mL Bag) 50 ML 200 MG IV (09:38)
--- NOTE | 2024-01-03 11:03 | PCM.PN.HOSP ---
Subjective Subjective Doing well, no issues overnight. Continues to have for chronic vertigo Objective Data Objective Data Vital Signs: Vital Signs Temp Pulse Resp BP Pulse Ox O2 Del Method O2 Flow Rate 95.9 F L 100 18 110/76 93 Room Air 2 01/03/24 04:10 01/03/24 10:29 01/03/24 10:29 01/03/24 09:10 01/03/24 07:18 01/03/24 08:16 01/03/24 07:18 FiO2 24 12/30/23 01:28 Oxygen Flow Rate (L/min) 2 Oxygen Delivery Method Room Air Weight: 129 lb 3.054 oz Body Mass Index (BMI) 22.1 Intake & Output: Intake and Output for Last 24 Hours 01/02/24 01/03/24 01/04/24 03:59 03:59 03:59 Intake Total 627.70 / 627.70 1702.7 / 1702.7 240 / 240 Output Total 1100 / 1100 1200 / 1200 Balance -472.30 / -472.30 502.7 / 502.7 240 / 240 Medical Nutrition Assessment Dietitian: Malnutrition Criteria Met Start: 12/30/23 13:53 Freq: Status: Active Protocol: Document 12/30/23 13:54 HI (Rec: 12/30/23 13:54 HI [id number]) Nutrition Malnutrition Evidence of Malnutrition Exists Yes Malnutrition (moderate): Acute Illness/Injury Malnutrition (unspecified) Severe pro/oscar Evidenced By Suboptimal Energy Intake ( Severe),Weight Loss (Severe) Clinical Problem Acute Disease or Injury Related Malnutrition Etiology related to acute gastroenteritis with associated nausea, vomiting, diarrhea Signs/Symptoms Weight loss of 9% x 1 month, and energy intake <50% x 2 weeks. Status Active Problem Recommendation Dietitian Recommendations/Changes Advance diet as tolerated to liberal regular diet when warranted Consider oral nutrition supplements if patient is accepting Monitor weight changes Lab / Micro Data 01/03/24 05:33 01/03/24 05:33 Labs: Laboratory Results - last 24 hr 01/03/24 05:33: WBC 10.0, RBC 3.14 L, Hgb 11.0 L, Hct 32.1 L, MCV 102.2 H, MCH 35.0 H, MCHC 34.3, RDW Std Deviation 47.1 H, RDW Coeff of Lynnette 12.6, Plt Count 213, MPV 10.1, Immature Gran % (Auto) 1.000 H, Neut % (Auto) 63.6, Lymph % (Auto) 21.0, [place] % (Auto) 12.1 H, Eos % (Auto) 1.9, Baso % (Auto) 0.4, Absolute Neuts (auto) 6.4, Absolute Lymphs (auto) 2.11, Nucleated RBC % 0, Sodium 135 L, Potassium 3.7, Chloride 101, Carbon Dioxide 25.0, Anion Gap 9, BUN 14, Creatinine 0.72, Estim Creat Clear Calc 56.50, Est GFR (MDRD) Af Amer 103, Est GFR (MDRD) Non-Af 85, BUN/Creatinine Ratio 19.4, Glucose 70 L, Calcium 8.0 L Micro: Microbiology 01/02/24 16:32 Stool Stool Occult Blood (MARIVEL) - Final Occult Blood Positive 12/30/23 21:05 Urine, Clean Catch Urine Culture - Final Culture exhibits no growth. 12/30/23 21:05 Urine, Clean Catch Legionella Antigen - Final 12/30/23 21:05 Urine, Clean Catch Streptococcus pneumoniae Antigen (M - Final 12/30/23 08:27 Mucosa - Nasopharyngeal Respiratory Panel (PCR) - Final 12/29/23 18:40 Mucosa - Nose SARS-CoV-2, Influenza & RSV (PCR) - Final Physical Exam Narrative General: Alert, Oriented x3, Cooperative, No apparent distress HEENT: Atraumatic, PERRLA, EOMI, Normocephalic Oral: Moist Mucosa Neck: Supple, No JVD Lungs: Diminished, Normal air movement, No rhonchi, No wheeze, No rales Cardiovascular: Regular rate, Regular Rhythm, Normal S1, Normal S2, No murmurs Abdomen: Soft, Non Tender, Non-Distended, No Hepato-splenomegaly Extremities: No edema, Capillary Refill Less than 3 Seconds Skin: No rashes, No breakdown Musculoskeletal: No Tenderness to Palpation of Joints or Extremities Neurological: No focal neurological deficits, Motor Exam 5/5 strength throughout, Sensory exam intact to light touch and pain Psych/Mental Status: Normal Affect, Appropriate Assessment & Plan Assessment/Plan (1) High anion gap metabolic acidosis: PLAN: Plan 1. Nausea vomiting with an anion gap metabolic acidosis secondary to mild lactic acidosis/chronic hyponatremia/severe malnutrition ? There is probably combination of starvation ketosis as well as loss of bicarb from her diarrhea involved ? She had a modified barium swallow today secondary to some issues with reflux and fears was swallowing, this showed esophageal retention ?Plan for EGD today ? Continue to encourage increased p.o. intake 2. Acute hypoxia and shortness of breath secondary to metabolic acidosis and acute exacerbation of COPD ? She is back down to room air today ? As she has 1 more day of azithromycin ? Viral studies are negative ? Will transition her steroids to p.o. prednisone tomorrow 3. Essential HTN ? Continue with her home metoprolol ? Will monitor make adjustments as necessary 4. Alcohol abuse ? She drinks about 3 glasses of wine every day but denies ever having any withdrawal continue with thiamine and folate ? Discontinue CIWA 5. GERD ? Stable ? Transition to p.o. PPI DVT: SCD Charges/Coding Visit Charges Inpatient E&M: 92768 Subs Hosp L2
[2024-01-03 11:33] LABS: Magnesium 1.3 mg/dL (1.6-2.6); Phosphorus 1.5 mg/dL (2.5-4.9)
--- NOTE | 2024-01-03 11:35 | CASEMGMT ---
Addendum entered by Marina Burnett 01/04/24 09:38: Patient was accepted by [facility] with planned start of care for 01/05/24. TONI CONNER updated the patient Original Note: TONI CONNER in to discuss HHC choice with patient. Patient states she believes her took list home to review. Patient gave permission for this RN DALILA to call to discuss HHC choices. TONI CONNER called , Sriram, and discuss HHC at discharge. Per Sriram, he believes that patient has had [facility] in the past and first choice for HHC would be [facility]. TONI CONNER updated a referral will be made and will update regarding acceptance. TONI CONNER updated patient regarding conversation with . Patient agreeable to referral to [facility]. TONI CONNER sent referral to [facility], awaiting acceptance.
[2024-01-03] MEDS: Metoprolol(XL)Succ 50 MG Tablet PO (11:47)
--- NOTE | 2024-01-03 16:15 | EGD_PTH ---
PATIENT: MARGO STRICKLAND LOC: [facility] U#:[id number] AGE/SX: 68/F ROOM: [facility] RE12/29/[address]: Dr. Jason Leyva MD : [id number] BED: 1 DIS: 01/04/2024 SPEC #: [id number] RECD: 01/03/24 18:07 STATUS: HANANE DURAN #: [id number] DOUGIE: 01/03/24 16:[address]: Dane Lewis DEPT: SURGICAL PATHOLOGY RECD BY: Annette Collins ENTERED: 01/04/24 07:44 SP TYPE: EGD BIOPSY OTHR DR: DO Dr. Jair Corona MD Dr. Kathryn Lee, DO Dr. Nicholas F Kotsonis, MD Dr. Tyler Bender, DO Tissues: Esophagus, NOS Procedures: Special Stain Group I Surgery Specimen Level IV Alcian Blue/PAS (control) HEADER OPERATION: EGD, biopsy, dilatation PRE-OP DIAGNOSIS: Abnormal swelling study TISSUE SUBMITTED: Distal esophagus biopsy MICROSCOPIC DIAGNOSIS Distal esophagus, biopsy: Fragments of gastroesophageal mucosa with chronic inflammation. Intestinal metaplasia (goblet cell metaplasia) not identified. See comment. 01/05/2024 COMMENT Alcian blue/PAS stain with matched control is used in the evaluation of the specimen. MICROSCOPIC DESCRIPTION Slides are reviewed. GROSS DESCRIPTION Received in fixative is one container labeled with the patient's name and designated Distal esophagus biopsy. The specimen consists of two irregular fragments of light jeffries soft tissue that in aggregate measure 0.5 x 0.3 x 0.1 cm. The specimen is totally submitted in one cassette. 01/04/2024 TC:3 CPT:56481,35721
--- NOTE | 2024-01-03 17:02 | PRE.ANES_ITS ---
ASA Classification* ASA Classification ASA Classification: 3 and E Assessment & Plan Anesthesia* Anesthesia Assessment Anesthesia Assessment: Discussed sedation and/or anesthesia options, risks, benefits, and alternatives with patient/parents/legal guardian/POA. Questions invited. The patient/parents/legal guardian/POA seems to understand and agrees to proceed with anesthesia plan. Reviewed the physical assessment, medical history, allergy history and patient home medications list prior to surgery/procedure/anesthetic and documented any changes. Performed airway and anesthesia risk assessments. Anesthesia Type Anesthesia Type: MAC History Source History Obtained from:: Patient and Chart Anesthesia Focused Assessment* Temperature: 97.5 F Pulse Rate: 97 Blood Pressure: 103/74 Respiratory Rate: 20 Pulse Ox: 92 Oxygen Delivery Method: Room Air Fraction of Inspired Oxygen (FIO2): 24 Airway Assessment Mouth opens: >3 cm Mallampati Score: II Teeth Condition: Caps/Crowns (Patient has crowns. They are all tight.) Neck Range of motion (ROM): Limited ROM (Somewhat decreased extension) Focused Labs Anesthesia Preop lab: CBC WBC 10.0 K/mm3 (4.4-11.0) 01/03/24 05:33 RBC 3.14 M/mm3 (4.2-5.4) L 01/03/24 05:33 Hgb 11.0 g/dL (12.0-15.0) L 01/03/24 05:33 Hct 32.1 % (37-47) L 01/03/24 05:33 Plt Count 213 K/mm3 (150-450) 01/03/24 05:33 CHEMISTRY Potassium 3.7 mmol/L (3.5-5.1) 01/03/24 05:33 Sodium 135 mmol/L (136-145) L 01/03/24 05:33 Magnesium 1.3 mg/dL (1.6-2.6) L 01/03/24 05:33 Phosphorus 1.5 mg/dL (2.5-4.9) L 01/03/24 05:33 BUN 14 mg/dL (7-18) 01/03/24 05:33 Creatinine 0.72 mg/dL (0.55-1.02) 01/03/24 05:33 Glucose 70 mg/dL (74-106) L 01/03/24 05:33 POC Glucose 84 mg/dL (74-106) 01/02/24 06:28 TSH 0.539 uIU/mL (0.358-3.740) 12/30/23 06:47 COAG PT 12.7 SECONDS (11.7-14.9) 01/21/21 15:15 Pre-Assessment Diagnosis/Proposed Procedure Planned Operative Procedure(s): EGD Anesthesia History 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 When Was Last Pacemaker Check QUESTION #4 FULL TEXT: You/Your Family Experience fever (hyperthermia) with Anesthesia Last Oral Intake Last Oral intake: Last Oral Intake NPO since 07:30 01/03/24 09:42 Meds taken in AM with sips of water? Meds patient instructed to take am of surgery PONV PONV - sales agent business services: PONV - sales agent business services Female HX of Motion Sickness HX of N/V After Surgery Non-Smoker Duration of Surgery greater than 60 minutes Number of Risk Factors PONV Score Height & Weight Height & Weight: Anesthesia: Height & Weight Height 5 ft 4 in 01/03/24 09:42 Weight: 58.6 kg 01/03/24 09:42 Body Mass Index (BMI) 22.1 01/03/24 09:42 Respiratory Assessment Respiratory Assessment - sales agent business [employer]: Respiratory Tract Infection Hx - sales agent business services Hx Respiratory Tract Infection No 01/03/24 09:44 STOP Sleep Apnea STOP Sleep Apnea - sales agent [employer]: STOP Sleep Apnea - sales agent business services Hx Hypertension Yes 12/30/23 13:25 Hx Sleep Apnea No 12/29/23 23:10 CPAP No 12/29/23 23:10 BIPAP Do you snore loudly (louder No 12/29/23 23:10 than talking or can be heard Do you often feel tired/ No 12/29/23 23:10 fatigued/ sleepy during daytime? Has anyone observed you stop No 12/29/23 23:10 breathing during sleep? STOP Results Negative 12/29/23 23:10 QUESTION #5 FULL TEXT : Do you snore loudly (louder than talking or can be heard through closed doors)? 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 Specify any problems Hx of Preganancy in last 3 No 12/29/23 23:10 Months Nurse Filling Out Transfusion RWALKER 12/29/23 23:10 & Questions: Date: 12/29/23 12/29/23 23:10 Time: 23:33 12/29/23 23:10 Patient unable to answer at this time (ie. confused, unrespo /Reproduction History /Reproductive History - sales agent business services: /Reproductive Hx- sales agent business services Hx Now No 01/03/24 09:44 Gestational Age (in weeks): EDC: Hx Hx Para Hx Section SAB Active Medications Active Medications: Current Medications Generic Name Dose Route Start Last Admin Trade Name Freq PRN Reason Stop Dose Admin Acetaminophen 650 mg 12/29/23 23:09 01/03/24 05:17 Acetaminophen 325 Mg Tablet PO 650 mg Q6H PRN PRN Administration Pain 1-5/10 Or Fever>100.7 Albuterol Sulfate 2.5 mg 12/29/23 23:09 12/30/23 09:33 Albuterol 2.5 Mg/3 Ml Vial.Neb. INHALATION 2.5 mg Q4H PRN PRN Administration SHORTNESS OF BREATH Albuterol/Ipratropium 3 ml 12/30/23 17:45 01/03/24 15:32 Ipratropium/Albuterol Sulfate 3 Ml Ampul.Neb INHALATION 3 ml Q4HWA.RT DELPHINE Administration Amlodipine Besylate 10 mg 12/30/23 10:00 12/30/23 09:12 Amlodipine 10 Mg Tablet PO Not Given DAILY [facility] Protocol Dicyclomine HCl 20 mg 12/29/23 23:09 01/03/24 05:17 Dicyclomine 10 Mg Capsule PO 20 mg Q6H PRN PRN Administration abdominal discomfort Gabapentin 300 mg 12/29/23 23:09 12/31/23 22:49 Gabapentin 300 Mg Capsule PO 300 mg Q8H PRN PRN Administration moderate to severe anxiety Guaifenesin 1,200 mg 12/30/23 22:00 01/03/24 16:50 Guaifenesin 1,200 Mg Tablet PO Not Given BID [facility] Folic Acid 1 mg/ Sodium 50.2 mls @ 200 mls/hr 12/30/23 10:00 01/03/24 10:00 Chloride IV Infused DAILY [facility] Infusion Azithromycin 500 mg/ Dextrose 255 mls @ 250 mls/hr 01/03/24 22:00 IV 01/03/24 23:02 Q24@2200 [facility]PHINE Magnesium Chloride 128 mg 12/30/23 10:00 01/03/24 16:50 Magnesium Chloride 64 Mg Delay Rel.Tablet PO Not Given DAILY [facility] Melatonin 3 mg 12/29/23 23:09 Melatonin 3 Mg Tablet PO QHS PRN PRN INSOMNIA Metoprolol Succinate 50 mg 12/30/23 10:00 01/03/24 11:47 Metoprolol(Xl)Succ 50 Mg Tablet PO 50 mg DAILY [facility] Administration Protocol Morphine Sulfate 2 mg 12/29/23 23:09 Morphine 2 Mg/Ml Syringe IV Q4H PRN PRN Pain Score 6-10 Ondansetron HCl 4 mg 12/29/23 23:09 12/30/23 01:29 Ondansetron 4 Mg/2 Ml Vial IV 4 mg Q6H PRN PRN Administration NAUSEA/VOMITING Pantoprazole Sodium 40 mg 01/03/24 10:00 01/03/24 16:50 Pantoprazole Sodium 40 Mg Tablet PO Not Given DAILY [facility] Prednisone 40 mg 01/03/24 08:00 01/03/24 16:50 Prednisone 20 Mg Tablet PO Not Given BREAKFAST [facility] Promethazine HCl 12.5 mg 12/29/23 23:09 Promethazine 25 Mg/Ml Syringe IM Q6H PRN PRN BREAKTHROUGH NAUSEA Sodium Chloride 10 - 40 ml 12/29/23 23:29 01/03/24 09:36 0.9% Saline Lock 10 Ml Syringe IV 20 ml UD PRN Administration SALINE FLUSH Sodium Chloride 1 gm 12/31/23 10:00 01/03/24 16:50 Sodium Chloride 1 Gm Tablet PO Not Given BID [facility] Thiamine HCl 100 mg 12/30/23 08:00 01/03/24 16:50 Thiamine Hydrochloride 100 Mg Tablet PO Not Given DAILYCM [facility] Trazodone HCl 100 mg 12/29/23 23:09 Trazodone 100 Mg Tablet PO QHS PRN INSOMNIA PFSH Medical History Alcohol abuse COPD (chronic obstructive pulmonary disease) Smoker On home oxygen therapy Vertigo Acute respiratory failure with hypoxia Hip fracture Depression Anxiety Osteoporosis GERD (gastroesophageal reflux disease) Microscopic colitis Bronchitis HTN (hypertension) Home Medications ?Medication ?Instructions ?Recorded ?Last Taken ?Type amlodipine 10 mg tablet 10 mg PO DAILY bp #90 tabs 08/08/18 01/21/21 History metoprolol succinate 100 mg 100 mg PO DAILY bp #90 tabs 08/08/18 01/21/21 History tablet,extended release 24 hr omeprazole 40 mg capsule,delayed 40 mg PO DAILY reflux #90 caps 08/08/18 01/21/21 History release denosumab 60 mg/mL subcutaneous 60 mg subcut .[id number] BONES 01/21/21 12/03/20 History syringe (Prolia) albuterol sulfate 90 mcg/actuation 2 puff inhalation Q4H INHALER 04/27/21 Unknown History aerosol inhaler prochlorperazine maleate 10 mg 10 mg PO Q8H PRN nausea and 08/15/22 Unknown Rx tablet (Compazine) vomiting #14 tabs magnesium oxide 500 mg PO DAILY VITAMIN #30 tabs 12/06/22 Unknown Rx sodium chloride 1,000 mg soluble 1,000 mg PO QD-QID PRN electrolyte 12/06/22 Unknown Rx tablet replenishment #30 tabs Allergy/AdvReac Type Severity Reaction Status Date / Time nitrofurantoin (From AdvReac Severe Vomiting Verified 12/29/23 17:26 Macrobid) amoxicillin AdvReac Intermediate Other Verified 12/29/23 17:26 ciprofloxacin (From Cipro) AdvReac Intermediate Rash Verified 12/29/23 17:26 doxycycline AdvReac Intermediate Other Verified 12/29/23 17:26 naproxen AdvReac Intermediate Other Verified 12/29/23 17:26 sulfamethoxazole (From AdvReac Intermediate Other Verified 12/29/23 17:26 Bactrim) trimethoprim (From Bactrim) AdvReac Unknown Verified 12/29/23 17:26 Family History Sister Breast cancer Osteoporosis Mother Heart disease Myocardial infarction Father No problems noted. Surgical History (Updated 01/03/24 @ 17:[address] Michael Chacon MD) S/P hip replacement History of colonoscopy Social History household members: spouse housing: house number of children: 0 current occupational status: retired pets and animals: Yes (dog) Smoking Status: Current every day smoker tobacco type: cigarettes alcohol intake: current alcohol intake frequency: 0-2 drinks per day Alcohol type: beer Review of Systems (Anesthesia) ROS Narrative System reviewed and no additional complaints, except as documented.
--- NOTE | 2024-01-03 17:35 | OP.EGD_ITS ---
Patient Name: Vani Nguyen Procedure Date: 01/03/2024 4:59 PM Date of : 1955 Age: 68 Procedure: Upper GI endoscopy Indications: Dysphagia Providers: Dane Lewis DO Referring MD: Ted Culp Do Medicines: Monitored Anesthesia Care Patient Profile: This is a 68 year old female. Refer to note in patient chart for documentation of history and physical. Patient has symptoms of dysphagia with both liquids and solids. The symptoms first began within the past few weeks. Complications: No immediate complications. Procedure: Pre-Anesthesia Assessment: - Prior to the procedure, a History and Physical was performed, and patient medications and allergies were reviewed. The patient is competent. The risks and benefits of the procedure and the sedation options and risks were discussed with the patient. All questions were answered and informed consent was obtained. Patient identification and proposed procedure were verified by the physician in the pre-procedure area. Mental Status Examination: alert and oriented. Airway Examination: normal oropharyngeal airway and neck mobility. Respiratory Examination: clear to auscultation. CV Examination: normal. Prophylactic Antibiotics: The patient does not require prophylactic antibiotics. Prior Anticoagulants: The patient has taken no anticoagulant or antiplatelet agents. ASA Grade Assessment: II - A patient with mild systemic disease. After reviewing the risks and benefits, the patient was deemed in satisfactory condition to undergo the procedure. The anesthesia plan was to use monitored anesthesia care (MAC). Immediately prior to administration of medications, the patient was re-assessed for adequacy to receive sedatives. The heart rate, respiratory rate, oxygen saturations, blood pressure, adequacy of pulmonary ventilation, and response to care were monitored throughout the procedure. The physical status of the patient was re-assessed after the procedure. After obtaining informed consent, the endoscope was passed under direct vision. Throughout the procedure, the patient's blood pressure, pulse, and oxygen saturations were monitored continuously. The gastroscope was introduced through the mouth, and advanced to the second part of duodenum. The upper GI endoscopy was accomplished with ease. The patient tolerated the procedure well. Scope In: 5:18:34 PM Scope Out: 5:24:05 PM Total Procedure Duration Time 0 hours 5 minutes 31 seconds Findings: One benign-appearing, intrinsic moderate stenosis was found 39 to 40 cm from the incisors. The stenosis was traversed. Biopsies were taken with a cold forceps for histology. Verification of patient identification for the specimen was done. Estimated blood loss was minimal. A guidewire was placed and the scope was withdrawn. Dilation was performed with a Savary dilator with no resistance at 54 Fr. The dilation site was examined and showed moderate mucosal disruption. A small hiatal hernia was present. No gross lesions were noted in the entire examined stomach. The second portion of the duodenum was normal. Impression: - Benign-appearing esophageal stenosis. Biopsied. Dilated. - Small hiatal hernia. - No gross lesions in the entire stomach. - Normal second portion of the duodenum. Recommendation: - Discharge patient to home. - Resume previous diet. - Continue present medications. - Await pathology results. Procedure Code(s): --- Professional --- 33833, Esophagogastroduodenoscopy, flexible, transoral; with insertion of guide wire followed by passage of dilator(s) through esophagus over guide wire 04069, 59, Esophagogastroduodenoscopy, flexible, transoral; with biopsy, single or multiple CPT copyright 2021 [employer]. All rights reserved. The codes documented in this report are preliminary and upon eviscerator review may be revised to meet current compliance requirements. Dane Lewis DO 01/03/2024 5:35:09 PM This report has been signed electronically. Number of Addenda: 0 Note Initiated On: 01/03/2024 4:59 PM
--- NOTE | 2024-01-03 17:35 | OP.CCLET_ITS ---
01/03/2024 Jair Squires [address] [place] [address] Re : Upper GI endoscopy procedure for Vani Nguyen Dear Dr. Squires This procedure was performed on Wednesday, January 03, 2024. My impressions and recommendations are as follows: Impressions : - Benign-appearing esophageal stenosis. Biopsied. Dilated. - Small hiatal hernia. - No gross lesions in the entire stomach. - Normal second portion of the duodenum. Recommendations : - Discharge patient to home. - Resume previous diet. - Continue present medications. - Await pathology results. My findings are described in the full procedure note, which is enclosed. If I can be of further assistance, please feel free to contact me at . Sincerely, Dane Lewis, 01/03/2024 5:35:09 PM This report has been signed electronically.
--- NOTE | 2024-01-03 17:46 | PCM.POST.ANE ---
Anesthesia: Postop Eval I Current Vital Signs Temperature: 98 F Pulse Rate: 88 Blood Pressure: 94/71 Respiratory Rate: 16 Pulse Ox: 96 Oxygen Delivery Method: Room Air Assessment Airway patent: Yes Spontaneous unlabored respirations: Yes Mental status: Awake (with profuse coughing) nausea: No Vomiting: No Anesthesia Complication: Yes Anesthesia Complication Comment:: profuse coughing in PACU with hypotension, Fluid Hydration Crystalloid volume administer (ml): 30 Total IV fluid infused: 30 Progress Note Anesthesia document: Postop Eval 1 completed: Yes
[2024-01-03] MEDS: Lactated Ringers 250 ML 999 ML IV (18:09)
[2024-01-03] MEDS: Sodium Chloride 1 GM Tablet PO (21:21)
[2024-01-03] MEDS: guaiFENesin 1,200 MG Tablet 1200 MG PO (21:21)
[2024-01-03] MEDS: Azithromycin 500 MG in Dextrose 5%-Water (250mL Bag) 250 ML 250 MG IV (21:29)
[2024-01-04] VITALS (11 sets, daily range): BP systolic 108–120; BP diastolic 68–78; PULSE 85–105; RESP 14–20; TEMP 36.4–36.8; O2SAT 92–98; BMI 22.1
[2024-01-04] MEDS: Ipratropium/Albuterol Sulfate 3 ML AMPUL.NEB INHALATION ×2 (07:31→10:50)
[2024-01-04] MEDS: Metoprolol(XL)Succ 50 MG Tablet PO (09:48)
[2024-01-04] MEDS: predniSONE 20 MG Tablet 40 MG PO (09:48)
[2024-01-04] MEDS: Sodium Chloride 1 GM Tablet PO (09:48)
[2024-01-04] MEDS: Thiamine Hydrochloride 100 MG Tablet PO (09:48)
[2024-01-04] MEDS: guaiFENesin 1,200 MG Tablet 1200 MG PO (09:49)
[2024-01-04] MEDS: Magnesium Chloride 64 MG Delay Rel.Tablet 128 MG PO (09:49)
[2024-01-04] MEDS: Pantoprazole Sodium 40 MG Tablet PO (09:49)
[2024-01-04] MEDS: Folic Acid 1 MG in 0.9% Normal Saline (50mL Bag) 50 ML 200 MG IV (10:36)
[2024-01-04] MEDS: Magnesium Sulfate 4gm/100mL 4 GM/100 ML IV.SOLN. IV (11:13)
[2024-01-04] MEDS: Potassium Phosphate 30 MM in 0.9% Normal Saline (250mL Bag) 250 ML 42 MM IV (11:13)
--- NOTE | 2024-01-04 11:21 | PCM.POSTANE2 ---
Anesthesia Postop Eval I Sum Postop Eval Completion status Anesthesia document: Postop Eval 1 completed: Yes Anesthesia Postop Eval I Summary Anesthesia Postop Eval I Summary: Anesthesia Postop Eval I: Assessment Summary Airway patent Yes 01/03/24 17:48 [email or web address] Spontaneous unlabored Yes 01/03/24 17:48 [email or web address] respirations Mental status Awake - with 01/03/24 17:48 [email or web address] profuse coughing nausea No 01/03/24 17:48 [email or web address] Vomiting No 01/03/24 17:48 [email or web address] Anesthesia Postop Eval I: Fluid Summary Crystalloid volume administer 30 01/03/24 17:48 [email or web address] (ml) Colloids volume administered ( ml) Blood Product volume administered (ml) Total IV fluid infused 30 01/03/24 17:48 [email or web address] Anesthesia Postop Eval I: Summary Notes Anesthesia Complication Yes 01/03/24 17:48 [email or web address] Anesthesia Complication profuse coughing 01/03/24 17:48 [email or web address] Comment: in PACU with hypotension, Post-operative progress note Anesthesia: Postop Eval II Evaluation Mental status: Awake and Calm Pain Level: 0 nausea: No Vomiting: No Progress Note Post-operative progress note: Coughing improved Complications Anesthesia Complication: No
--- NOTE | 2024-01-04 13:25 | DCINST_ITS ---
Discharge Instructions Diet Discharge Diet: No restrictions Activity Discharge Activity: Return to Normal Activity Dressing / Incision Call your doctor if you observe: Fever of 101 or Higher, Shortness of breath, Dizziness, Fainting spells, Swelling in the ankles, Chest pain and Increased palpitations (irregular heartbeat) Follow Up Care Test Results: Test results from this visit will be discussed in further detail at your follow- up appointment, if applicable. Discharge Plan Admission Admit Date/Time: 12/29/23 22:34 Attending Provider: Jason Leyva Primary Care Provider: Jair Squires Consulting Providers: Sriram Barker; Rosalinda Mckeon Instructions Additional Instructions / Restrictions: Follow-up with PCP in 3 to 5 days to monitor electrolytes and renal function. I do encourage increased p.o. intake with supplements with Ensure and multivitami n. Discharge Orders/Prescriptions Prescriptions: New prednisone 20 mg Tablet 40 mg PO BREAKFAST 5 Days Qty: 10 0RF Continued metoprolol succinate 100 mg tablet extended release 24 hr 100 mg PO DAILY Qty: 90 Patient Comments: PT STATES ONLY TAKES ONCE A DAY. amlodipine 10 mg tablet 10 mg PO DAILY Qty: 90 omeprazole 40 mg capsule,delayed release(DR/EC) 40 mg PO DAILY Qty: 90 magnesium oxide 500 mg tablet 500 mg PO DAILY Qty: 30 5RF sodium chloride 1,000 mg tablet,soluble 1,000 mg PO QD-QID PRN (Reason: electrolyte replenishment) Qty: 30 5RF Prolia 60 mg/mL syringe 60 mg SUBCUT .[id number] albuterol sulfate 90 mcg/actuation HFA aerosol inhaler 2 puff INHALATION Q4H prochlorperazine maleate [Compazine] 10 mg tablet 10 mg PO Q8H PRN (Reason: nausea and vomiting) Qty: 14 0RF Referrals / Follow Up: Jair Squires MD [Primary Care Provider] - Within 1 Week Friend,DO Dane [Med Staff - Active Staff] - Within 3 Months Disposition Disposition (needs filled in before D/C Order can be placed): Home, Self Care
--- NOTE | 2024-01-04 13:54 | PHA.DC_ITS ---
Pharmacy [facility] has performed discharge medication reconciliation and counseling for this patient. Patient requested meds to beds, this [facility] called retail and requested delivery. 1. PREDNISONE 40MG PO BREAKFAST X 5 DAYS The patient's discharge medication list was reviewed for discrepancies and discrepancies were resolved. The patient was counseled on the following discharge medications and changes in medications for homegoing were reviewed. The Reason for Use, instructions for use, and potential side effects were reviewed for all new medications. The patient's questions regarding all of their medications were answered. The patient was able to verbally demonstrate an understanding of their discharge medications. Patient counseled by pharmacy clinical specialistSterling. Medications at Discharge Home Medications amlodipine 10 mg tablet 10 mg PO DAILY bp #90 tabs 08/08/18 metoprolol succinate 100 mg tablet,extended release 24 hr 100 mg PO DAILY bp #90 tabs 08/08/18 omeprazole 40 mg capsule,delayed release 40 mg PO DAILY reflux #90 caps 08/08/18 denosumab 60 mg/mL subcutaneous syringe (Prolia) 60 mg subcut .[id number] BONES 01/21/21 albuterol sulfate 90 mcg/actuation aerosol inhaler 2 puff inhalation Q4H INHALER 04/27/21 prochlorperazine maleate 10 mg tablet (Compazine) 10 mg PO Q8H PRN nausea and vomiting #14 tabs 08/15/22 magnesium oxide 500 mg PO DAILY VITAMIN #30 tabs 12/06/22 sodium chloride 1,000 mg soluble tablet 1,000 mg PO QD-QID PRN electrolyte replenishment #30 tabs 12/06/22 prednisone 20 mg tablet 40 mg (2 x 20 mg) PO BREAKFAST 5 days #10 tabs 01/04/24
--- NOTE | 2024-01-04 14:25 | CASEMGMT ---
Patient has order for discharge. RN CM [facility] care planned for tomorrow. RN CM in to updated patient regarding [facility] start of care. RN CM inquired about additional needs at discharge. Patient denies additional needs or help at discharge. Patient had no further questions or concerns at this time.
--- NOTE | 2024-01-04 15:58 | DS.PCM_ITS ---
Providers Date of Admission: 12/29/23 Primary Care Physician: Dr. Jair Squires MD Consultations 01/02/24 14:51 Consult: Gastroenterology Routine Consulting Provider: [facility] Reason for Consult: food retention EMERGENT Consult: No MD Notified: Yes Date Notified: 01/02/24 Time Notified: 15:08 Method of Notification: Text Reason For Visit: HYPOMAGNESEMIA, HYPOCALCEMIA, VGE & ACUTE ETOH Diagnosis Discharge Diagnosis (1) High anion gap metabolic acidosis: Status: Acute Code(s): E87.29 - Other acidosis Medications at Discharge Home Medications amlodipine 10 mg tablet 10 mg PO DAILY bp #90 tabs 08/08/18 metoprolol succinate 100 mg tablet,extended release 24 hr 100 mg PO DAILY bp #90 tabs 08/08/18 omeprazole 40 mg capsule,delayed release 40 mg PO DAILY reflux #90 caps 08/08/18 denosumab 60 mg/mL subcutaneous syringe (Prolia) 60 mg subcut .[id number] BONES 01/21/21 albuterol sulfate 90 mcg/actuation aerosol inhaler 2 puff inhalation Q4H INHALER 04/27/21 prochlorperazine maleate 10 mg tablet (Compazine) 10 mg PO Q8H PRN nausea and vomiting #14 tabs 08/15/22 magnesium oxide 500 mg PO DAILY VITAMIN #30 tabs 12/06/22 sodium chloride 1,000 mg soluble tablet 1,000 mg PO QD-QID PRN electrolyte replenishment #30 tabs 12/06/22 prednisone 20 mg tablet 40 mg (2 x 20 mg) PO BREAKFAST 5 days #10 tabs 01/04/24 Hospital Course Operations None Procedures EGD Summary of Care Provided Minutes Spent on Discharge: 37 Hospital Course: Per HPI: MARGO NGUYEN, is a 67 F with a past medical history of essential hypertension, history of tobacco abuse; with subsequent COPD, chronic hypoxic respiratory failure, history of bronchitis, depression with anxiety, history of alcohol abuse; with patient drinking 2 to 3 glasses of wine nightly, history of peripheral vestibulopathy, history of vertigo, chronic maxillary and frontal sinusitis, history of microscopic colitis, history of hypomagnesemia, history of hyponatremia, history of vitamin D deficiency, osteoporosis; on Prolia, listed allergy to Macrobid (vomiting), listed allergy to Cipro (rash), listed allergy to doxycycline (?), listed allergy to Bactrim (?), GERD and OA; s/p Left Hip Fracture with subsequent ORIF who presents to [facility] ER complaining of nausea, vomiting, diarrhea plus SOB and wheezing. Ms. Nguyen reports her symptoms began approximately 2 weeks prior to admission with a gradual-onset of progressively worsening GI upset with nausea followed by bilious emesis and nonbloody diarrhea. She then states her symptoms acutely worsened over the past 2 to 3 days with patient claiming she is unable to tolerate anything by mouth due to severe vomiting so she decided to come in for further evaluation and treatment. She also admits to multiple falls this week due to generalized weakness. She denies recent sick contacts, recent travel or recent medication changes or a history of alcohol withdrawal symptoms after she stops drinking. There is no report of fever, chills, constipation or chest pain but she does admit to increasingly severe SOB at rest with wheezing since arrival. In the ER she was noted to have laboratory evidence of Severe Hypomagnesemia of 0.6 mg/dL present on admission along with Severe Hypocalcemia of 6.2 mg/dL with confirmatory ionized calcium of 3.4 mg/dL present on admission suspected to be due to to a combination of Acute Viral Gastroenteritis and Acute Alcohol Withdrawal plus Right Maxillary Sinusitis evident on head CT this admission in the setting of Chronic Alcohol Abuse with Macrocytosis; with MCV of 102.3 fL present on admission compounded by AE COPD with Acute Hypoxic Respiratory Failure requiring BiPAP and she was then admitted to the PCU for ongoing care for stay is expected to extend beyond 2 midnights. Hospital Course: 1. Nausea and vomiting with an anion gap metabolic acidosis secondary mild lactic acidosis likely due to bicarb loss from diarrhea and volume contraction/chronic hyponatremia/severe malnutrition complicated by esophageal stenosis?68-year-old female presented to the hospital with chronic nausea and vomiting and malnutrition secondary inability to tolerate p.o. intake. She had aggressive electrolyte replacement as well as IV fluids and did significantly improve. She had a modified barium swallow which demonstrated retained food in her upper esophagus so GI was consulted and proceeded with an EGD that demonstrated a benign-appearing esophageal stenosis which was biopsied and dilated. Post dilation she was able to tolerate a diet without any nausea or vomiting. She did have her phosphorus and her magnesium replaced today and I do recommend close outpatient follow-up with her PCP for further electrolyte monitoring. I also discussed with her the plan for discharge and she expressed understanding of the risk benefits going home and would like to go home today. I discussed the need for improved p.o. intake and to also add supplements into her diet including Ensure as well as a multivitamin. 2. Acute hypoxia and shortness of breath secondary to metabolic acidosis and acute exacerbation of her COPD?initially when she presented to the hospital she was hypoxic and tachypneic her pCO2 on ABG was down to 15 consistent with hyperventilation. With volume expansion and a bicarb drip her respiratory status improved she is currently not requiring any oxygen. She was started on steroids and will transition to 5 days of prednisone 40 mg p.o. daily. Her viral studies on admission were negative. 3. Essential hypertension, GERD, alcohol abuse are all chronic medical conditions which complicate her care. Her home medications were continued where appropriate Physical Exam Narrative General: Alert, Oriented x3, Cooperative, No apparent distress HEENT: Atraumatic, PERRLA, EOMI, Normocephalic Oral: Moist Mucosa Neck: Supple, No JVD Lungs: Diminished, Normal air movement, No rhonchi, No wheeze, No rales Cardiovascular: Regular rate, Regular Rhythm, Normal S1, Normal S2, No murmurs Abdomen: Soft, Non Tender, Non-Distended, No Hepato-splenomegaly Extremities: No edema, Capillary Refill Less than 3 Seconds Skin: No rashes, No breakdown Musculoskeletal: No Tenderness to Palpation of Joints or Extremities Neurological: No focal neurological deficits, Motor Exam 5/5 strength throughout, Sensory exam intact to light touch and pain Psych/Mental Status: Normal Affect, Appropriate Medical Records Data Medical Nutrition Assessment Dietitian: Malnutrition Criteria Met Start: 12/30/23 13:53 Freq: Status: Active Protocol: Document 12/30/23 13:54 HI (Rec: 12/30/23 13:54 HI [id number]) Nutrition Malnutrition Evidence of Malnutrition Exists Yes Malnutrition (moderate): Acute Illness/Injury Malnutrition (unspecified) Severe pro/oscar Evidenced By Suboptimal Energy Intake ( Severe),Weight Loss (Severe) Clinical Problem Acute Disease or Injury Related Malnutrition Etiology related to acute gastroenteritis with associated nausea, vomiting, diarrhea Signs/Symptoms Weight loss of 9% x 1 month, and energy intake <50% x 2 weeks. Status Active Problem Recommendation Dietitian Recommendations/Changes Advance diet as tolerated to liberal regular diet when warranted Consider oral nutrition supplements if patient is accepting Monitor weight changes Weight / BMI Weight Weight: 129 lb 6.581 oz Body Mass Index (BMI) 22.1 ABG / Lab / Microbiology Data 01/03/24 05:33 01/03/24 05:33 Microbiology: Microbiology 01/02/24 16:32 Stool Stool Occult Blood (MARIVEL) - Final Occult Blood Positive 12/30/23 21:05 Urine, Clean Catch Urine Culture - Final Culture exhibits no growth. 12/30/23 21:05 Urine, Clean Catch Legionella Antigen - Final 12/30/23 21:05 Urine, Clean Catch Streptococcus pneumoniae Antigen (M - Final 12/30/23 08:27 Mucosa - Nasopharyngeal Respiratory Panel (PCR) - Final 12/29/23 18:40 Mucosa - Nose SARS-CoV-2, Influenza & RSV (PCR) - Final D/C Instructions Discharge Diet: No restrictions Call your doctor if you observe: Fever of 101 or Higher, Shortness of breath, Dizziness, Fainting spells, Swelling in the ankles, Chest pain and Increased palpitations (irregular heartbeat) Meaningful Use Info Meaningful Use Meaningful Use Diagnoses (Choose all that apply): None applicable Ischemic Stroke Statin Dosing Therapy Reference: STATIN DOSE THERAPY REFERENCE: * Patients > 75 years receive moderate or high dose statin therapy. * Patients 75 years or YOUNGER should receive HIGH intensity statin dose unless contraindicated. You will be required to document reason for non-treatment if statin daily dose does not meet guidelines. HIGH DOSE STATIN THERAPY DAILY Atorvastatin > than or = to 40 mg Rosuvastatin > than or = to 20 mg Amlodipine + Atorvastatin > than or = to 2.5/40 mg Ezetimibe + Simvastatin 10/80 mg Simvastatin 80mg Discharge Plan Admission Admit Date/Time: 12/29/23 22:34 Attending Provider: Jason Leyva Primary Care Provider: Jair Squires Consulting Providers: Sriram Barker; Rosalinda Mckeon Instructions Additional Instructions / Restrictions: Follow-up with PCP in 3 to 5 days to monitor electrolytes and renal function. I do encourage increased p.o. intake with supplements with Ensure and multivitamin. Discharge Orders/Prescriptions Prescriptions: New prednisone 20 mg Tablet 40 mg PO BREAKFAST 5 Days Qty: 10 0RF Continued metoprolol succinate 100 mg tablet extended release 24 hr 100 mg PO DAILY Qty: 90 Patient Comments: PT STATES ONLY TAKES ONCE A DAY. amlodipine 10 mg tablet 10 mg PO DAILY Qty: 90 omeprazole 40 mg capsule,delayed release(DR/EC) 40 mg PO DAILY Qty: 90 magnesium oxide 500 mg tablet 500 mg PO DAILY Qty: 30 5RF sodium chloride 1,000 mg tablet,soluble 1,000 mg PO QD-QID PRN (Reason: electrolyte replenishment) Qty: 30 5RF Prolia 60 mg/mL syringe 60 mg SUBCUT .[id number] albuterol sulfate 90 mcg/actuation HFA aerosol inhaler 2 puff INHALATION Q4H prochlorperazine maleate [Compazine] 10 mg tablet 10 mg PO Q8H PRN (Reason: nausea and vomiting) Qty: 14 0RF Referrals / Follow Up: Jair Squires MD [Primary Care Provider] - Within 1 Week Dane Lewis DO [Med Staff - Active Staff] - Within 3 Months Disposition Disposition (needs filled in before D/C Order can be placed): Home Health Service Charges/Coding Visit Charges Inpatient E&M: 90945 Disch Hosp >30min
--- NOTE | 2024-01-04 16:36 | EX.PCM.PN.GI ---
Subjective Subjective Patient underwent an upper endoscopy yesterday for nausea and vomiting. She was discovered to have esophageal stricture that underwent dilation. She is eating without any problems today. Objective Data Objective Data Vital Signs: Vital Signs Temp Pulse Resp BP Pulse Ox O2 Del Method O2 Flow Rate 98 F 90 16 110/72 97 Room Air 2 01/04/24 11:10 01/04/24 11:10 01/04/24 11:10 01/04/24 11:10 01/04/24 11:10 01/04/24 11:10 01/04/24 07:31 FiO2 24 01/03/24 17:07 Oxygen Flow Rate (L/min) 2 Oxygen Delivery Method Room Air Weight: 129 lb 6.581 oz Body Mass Index (BMI) 22.1 Intake & Output: Intake and Output for Last 24 Hours 01/02/24 01/03/24 01/04/24 23:59 23:59 23:59 Intake Total 1252.7 / 1702.7 1305.2 / 1305.2 390.2 / 390.2 Output Total 1200 / 1200 Balance 52.7 / 502.7 1305.2 / 1305.2 390.2 / 390.2 Medical Nutrition Assessment Dietitian: Malnutrition Criteria Met Start: 12/30/23 13:53 Freq: Status: Active Protocol: Document 12/30/23 13:54 WV (Rec: 12/30/23 13:54 WV [id number]) Nutrition Malnutrition Evidence of Malnutrition Exists Yes Malnutrition (moderate): Acute Illness/Injury Malnutrition (unspecified) Severe pro/oscar Evidenced By Suboptimal Energy Intake ( Severe),Weight Loss (Severe) Clinical Problem Acute Disease or Injury Related Malnutrition Etiology related to acute gastroenteritis with associated nausea, vomiting, diarrhea Signs/Symptoms Weight loss of 9% x 1 month, and energy intake <50% x 2 weeks. Status Active Problem Recommendation Dietitian Recommendations/Changes Advance diet as tolerated to liberal regular diet when warranted Consider oral nutrition supplements if patient is accepting Monitor weight changes Lab / Micro Data 01/03/24 05:33 01/03/24 05:33 Micro: Microbiology 01/02/24 16:32 Stool Stool Occult Blood (MARIVEL) - Final Occult Blood Positive 12/30/23 21:05 Urine, Clean Catch Urine Culture - Final Culture exhibits no growth. 12/30/23 21:05 Urine, Clean Catch Legionella Antigen - Final 12/30/23 21:05 Urine, Clean Catch Streptococcus pneumoniae Antigen (M - Final 12/30/23 08:27 Mucosa - Nasopharyngeal Respiratory Panel (PCR) - Final 12/29/23 18:40 Mucosa - Nose SARS-CoV-2, Influenza & RSV (PCR) - Final Physical Exam Narrative General: Alert, Oriented x3, Cooperative, No apparent distress HEENT: Atraumatic, PERRLA, EOMI, Normocephalic Oral: Moist Mucosa Neck: Supple, No JVD Lungs: Diminished, Normal air movement, No rhonchi, No wheeze, No rales Cardiovascular: Regular rate, Regular Rhythm, Normal S1, Normal S2, No murmurs Abdomen: Soft, Non Tender, Non-Distended, No Hepato-splenomegaly Extremities: No edema, Capillary Refill Less than 3 Seconds Skin: No rashes, No breakdown Musculoskeletal: No Tenderness to Palpation of Joints or Extremities Neurological: No focal neurological deficits, Motor Exam 5/5 strength throughout, Sensory exam intact to light touch and pain Psych/Mental Status: Normal Affect, Appropriate Assessment & Plan Assessment/Plan (1) High anion gap metabolic acidosis: PLAN: Plan 1. Nausea vomiting with an anion gap metabolic acidosis secondary to mild lactic acidosis/chronic hyponatremia/severe malnutrition ? There is probably combination of starvation ketosis as well as loss of bicarb from her diarrhea involved ? She had a modified barium swallow today secondary to some issues with reflux and fears was swallowing, this showed esophageal retention ?EGD: Findings: One benign-appearing, intrinsic moderate stenosis was found 39 to 40 cm from the incisors. The stenosis was traversed. Biopsies were taken with a cold forceps for histology. Verification of patient identification for the specimen was done. Estimated blood loss was minimal. A guidewire was placed and the scope was withdrawn. Dilation was performed with a Savary dilator with no resistance at 54 Fr. The dilation site was examined and showed moderate mucosal disruption. A small hiatal hernia was present. No gross lesions were noted in the entire examined stomach. The second portion of the duodenum was normal. Impression: - Benign-appearing esophageal stenosis. Biopsied. Dilated. - Small hiatal hernia. - No gross lesions in the entire stomach. - Normal second portion of the duodenum. Recommendation: - Discharge patient to home. - Resume previous diet. - Continue present medications. - Await pathology results ? Continue to encourage increased p.o. intake Charges/Coding Visit Charges Inpatient E&M: 62137 Subs Hosp L3
== END 2024-01-04 17:55 | disposition home health service (06) | DRG 640 ==
LOC: ED 21:42 → PCU 22:03
PROVIDERS: Internal Medicine; Internal Medicine Gastroenterology; Admitting Provider Internal Medicine; Emergency Provider Emergency Medicine; PCP Family Medicine; Referring Provider Emergency Medicine; Visit Provider Family Medicine
PROC: 0DJ08ZZ Inspection of Upper Intestinal Tract, Via Natural or Artificial Opening Endoscopic (ICD-10-PCS; CPT 43235; principal; 2024-01-03 16:10)
DX: E87.29 Other acidosis (principal); E43 Unspecified severe protein-calorie malnutrition; J44.1 Chronic obstructive pulmonary disease with (acute) exacerbation; D63.8 Anemia in other chronic diseases classified elsewhere; K22.2 Esophageal obstruction; R13.10 Dysphagia, unspecified; I10 Essential (primary) hypertension; F10.10 Alcohol abuse, uncomplicated; E87.1 Hypo-osmolality and hyponatremia; E83.51 Hypocalcemia; E83.42 Hypomagnesemia; J32.0 Chronic maxillary sinusitis; F17.210 Nicotine dependence, cigarettes, uncomplicated; M16.12 Unilateral primary osteoarthritis, left hip; F41.9 Anxiety disorder, unspecified; K21.9 Gastro-esophageal reflux disease without esophagitis; E87.6 Hypokalemia; K44.9 Diaphragmatic hernia without obstruction or gangrene; M81.0 Age-related osteoporosis without current pathological fracture; A08.4 Viral intestinal infection, unspecified; R53.1 Weakness; Z79.01 Long term (current) use of anticoagulants; Z79.2 Long term (current) use of antibiotics; Z68.22 Body mass index [BMI] 22.0-22.9, adult; Z20.828 Contact with and (suspected) exposure to other viral communicable diseases; Z87.81 Personal history of (healed) traumatic fracture; Z98.890 Other specified postprocedural states; Z79.51 Long term (current) use of inhaled steroids; Z88.8 Allergy status to other drugs, medicaments and biological substances; Z88.1 Allergy status to other antibiotic agents; Z88.2 Allergy status to sulfonamides
CPT/HCPCS: 36415; 36600; 70450; 71045; 74177; 74230; 80048; 80053; 80307; 81001; 82009; 82274; 82330; 82607; 82652; 82728; 82746; 82803; 82962; 83540; 83550; 83605; 83690; 83735; 84100; 84443; 84484; 85025; 85027; 87086; 87449; 87631; 87633; 88305; 88312; 92526; 92610; 92611; 93005; 94002; 94640; 94667; 94668; 94762; 97110; 97116; 97162; 97166; 97530; 97535; 97802; 99283; Q9967; A4216; C1769; J0612; J2405

== ENCOUNTER 2024-01-12 12:48 | Outpatient (RCR) | payer MEDICARE, SELFPAY ==
[2024-01-12 13:34] LABS: Color, Urine Yellow (Yellow); Glucose, Dipstick Normal (Normal); Ketone-Dipstick Negative (Negative); Leukocyte Esterase-Dipstick 500 /ul (Negative); Nitrite-Dipstick Positive (Negative); Occult Blood-Urine 10 /ul (Negative); Protein-Dipstick 15 mg/dl (Negative); Urine Bilirubin Dipstick Negative (Negative); Urine Clarity Sl. Cloudy (Clear); Urine Urobilinogen Normal (Normal)
== END 2024-01-21 23:59 ==
LOC: LABSPEC 12:48
PROVIDERS: PCP Family Medicine
DX: J44.1 Chronic obstructive pulmonary disease with (acute) exacerbation (principal)
CPT/HCPCS: 81002; 87086; 87088; 87186

== ENCOUNTER 2024-02-01 15:28 | Outpatient (RCR) | payer MEDICARE, SELFPAY ==
[2024-02-01 15:32] LABS: Mucous, Urine 0 SEEN /hpf (<or=2+)
[2024-02-01 16:14] LABS: Color, Urine Yellow (Yellow); Glucose, Dipstick Normal (Normal); Ketone-Dipstick Negative (Negative); Leukocyte Esterase-Dipstick 500 /ul (Negative); Nitrite-Dipstick Positive (Negative); Occult Blood-Urine 10 /ul (Negative); Protein-Dipstick 15 mg/dl (Negative); Urine Bilirubin Dipstick Negative (Negative); Urine Clarity Cloudy (Clear); Urine Urobilinogen Normal (Normal)
[2024-02-01 17:11] LABS: Bacteria 3+ /hpf (None Seen); Hyaline Cast 0-5 SEEN /lpf (0-5); Red Blood Cells-Urine 0-5 SEEN /hpf (0-5); Squamous Epithelial Cells - UA 0-5 SEEN /hpf (5-10); White Blood Cells 25-50 SEEN /hpf (0-5)
== END 2024-02-21 23:59 ==
LOC: LABSPEC 15:28
PROVIDERS: PCP Family Medicine
DX: R35.0 Frequency of micturition (principal)
CPT/HCPCS: 81001; 87086; 87088; 87186

== ENCOUNTER 2024-04-03 18:19 | Inpatient (IN) | payer MEDICARE, SELFPAY ==
[2024-04-03] VITALS (9 sets, daily range): BP systolic 98–145; BP diastolic 57–123; PULSE 114–136; RESP 16–36; TEMP 36.6; O2SAT 88–100; BMI 17.6
--- NOTE | 2024-04-03 18:58 | EKG12_ITS ---
Test Reason : DYSRHYTHMIA Blood Pressure : */* mmHG Vent. Rate : 130 BPM Atrial Rate : 130 BPM P-R Int : 144 ms QRS Dur : 54 ms QT Int : 374 ms P-R-T Axes : 85 75 81 degrees QTcB Int : 550 ms Critical Test Result: Long QTc Sinus tachycardia Cannot rule out Septal infarct , age undetermined Abnormal ECG baseline artifact Confirmed by Avelino Scott ([id number]), fashion editor NAVEED GUALLPA ([id number]) on 04/04/2024 11:28:07 AM Referred By: Confirmed By: Avelino Scott
--- NOTE | 2024-04-03 19:02 | ED.VIS.DYS ---
HPI History of Present Illness Chief Complaint: Shortness of Breath Informant: patient and spouse/S.O. Narrative Narrative: Patient is a 68-year-old female with history of COPD, osteoporosis, GERD, hypertension and alcohol abuse as well as tobacco use (on 2-3 L of oxygen at baseline) presenting for worsening shortness of breath. She states the reason worse in the past week. states that he wanted her to come to the ER couple days ago but she had refused. He states her breathing is been more strenuous. She has had a deep cough but not been able to get anything up. She is getting progressively more weak. She does not have sleep apnea. She was diagnosed with a UTI recently and put on a course of antibiotics by Dr. Squires, her PCP. She did not improve and saw Dr. Angel. She was prescribed Bactrim but could not take it because she has an allergy to it. They are also concerned that she still could have a urinary tract infection. [facility] Medical History Alcohol abuse COPD (chronic obstructive pulmonary disease) Smoker On home oxygen therapy Vertigo Acute respiratory failure with hypoxia Hip fracture Depression Anxiety Osteoporosis GERD (gastroesophageal reflux disease) Microscopic colitis Bronchitis HTN (hypertension) Home Medications ?Medication ?Instructions ?Recorded ?Last Taken ?Type amlodipine 10 mg tablet 10 mg PO DAILY bp #90 tabs 08/08/18 01/21/21 History metoprolol succinate 100 mg 100 mg PO DAILY bp #90 tabs 08/08/18 01/21/21 History tablet,extended release 24 hr omeprazole 40 mg capsule,delayed 40 mg PO DAILY reflux #90 caps 08/08/18 01/21/21 History release denosumab 60 mg/mL subcutaneous 60 mg subcut .[id number] BONES 01/21/21 11/22/23 History syringe (Prolia) albuterol sulfate 90 mcg/actuation 2 puff inhalation Q4H INHALER 04/27/21 Unknown History aerosol inhaler fluticasone fur. 100 mcg-umeclid 1 ea inhalation DAILY 04/03/24 Unknown History 62.5 mcg-vilant 25 mcg inhalat.powder (Trelegy Ellipta) Allergy/AdvReac Type Severity Reaction Status Date / Time nitrofurantoin (From AdvReac Severe Vomiting Verified 04/03/24 18:52 Macrobid) amoxicillin AdvReac Intermediate Other Verified 04/03/24 18:52 ciprofloxacin (From Cipro) AdvReac Intermediate Rash Verified 04/03/24 18:52 doxycycline AdvReac Intermediate Other Verified 04/03/24 18:52 naproxen AdvReac Intermediate Other Verified 04/03/24 18:52 sulfamethoxazole (From AdvReac Intermediate Other Verified 04/03/24 18:52 Bactrim) trimethoprim (From Bactrim) AdvReac Unknown Verified 04/03/24 18:52 Family History Sister Breast cancer Osteoporosis Mother Heart disease Myocardial infarction Father No problems noted. Surgical History S/P hip replacement History of colonoscopy Social History household members: spouse housing: house number of children: 0 current occupational status: retired pets and animals: Yes (dog) Smoking Status: Current every day smoker tobacco type: cigarettes alcohol intake: current alcohol intake frequency: 0-2 drinks per day Alcohol type: beer ROS ROS ED Constitutional Constitutional ED: Denies chills or fever(s) ENT ENT ED: Denies sore throat Cardiovascular Cardiovascular: Denies chest pain Respiratory/Chest Respiratory/Chest: Reports cough and dyspnea; Denies sputum Gastrointestinal Gastrointestinal: Denies abdominal pain, diarrhea or vomiting Genitourinary Genitourinary ED: Denies dysuria Musculoskeletal Musculoskeletal: Denies arthralgias or myalgias Integumentary Denies rash Neurologic Neurologic: Reports weakness Psychiatric Psychiatric: Reports anxiety Hematologic/Lymphatic Hematologic/Lymphatic: Denies easy bleeding or easy bruising EXAM Physical Exam Const Vital Signs: 04/03/24 18:24 04/03/24 18:47 04/03/24 18:50 Temperature 98 F Temperature Source Oral Pulse Rate 117 H 125 H Respiratory Rate 32 H 36 H Respiratory Effort Short of Breath Labored Pursed Lip Respiratory Pattern Tachypnea Tachypnea Blood Pressure 145/123 H Blood Pressure Mean 130 Pulse Ox 88 98 Oxygen Delivery Method Room Air Bi-pap Oxygen Flow Rate (L/min) Fraction of Inspired Oxygen (FIO2) 70 04/03/24 18:58 04/03/24 19:22 04/03/24 19:33 Temperature Temperature Source Pulse Rate 125 H Respiratory Rate 29 H Respiratory Effort Respiratory Pattern Blood Pressure 106/69 Blood Pressure Mean 81 Pulse Ox 99 98 Oxygen Delivery Method Bi-pap Nasal Cannula Nasal Cannula Oxygen Flow Rate (L/min) 4 2 Fraction of Inspired Oxygen (FIO2) 100 04/03/24 19:33 04/03/24 20:00 04/03/24 20:00 Temperature Temperature Source Pulse Rate 136 H 135 H 114 H Respiratory Rate 36 H 36 H 30 H Respiratory Effort Respiratory Pattern Tachypnea Tachypnea Blood Pressure 98/66 Blood Pressure Mean 76 Pulse Ox 98 100 Oxygen Delivery Method Airvo Oxygen Flow Rate (L/min) Fraction of Inspired Oxygen (FIO2) 28 04/03/24 21:00 04/03/24 22:00 04/03/24 22:25 Temperature Temperature Source Pulse Rate 128 H 124 H 120 H Respiratory Rate 24 H 29 H 28 H Respiratory Effort Respiratory Pattern Tachypnea Blood Pressure 107/57 L 120/64 Blood Pressure Mean 73 82 Pulse Ox 98 98 97 Oxygen Delivery Method Airvo Airvo Oxygen Flow Rate (L/min) Fraction of Inspired Oxygen (FIO2) 28 04/03/24 23:00 04/04/24 00:00 Temperature Temperature Source Pulse Rate 118 H 112 H Respiratory Rate 27 H 31 H Respiratory Effort Respiratory Pattern Blood Pressure 112/65 132/78 H Blood Pressure Mean 80 90 Pulse Ox 96 96 Oxygen Delivery Method Room Air Oxygen Flow Rate (L/min) Fraction of Inspired Oxygen (FIO2) Constitutional Narrative: Chronically ill-appearing HEENT Reports dry mucous membranes Mouth ED: Yes dry mucous membranes Mouth: dry mucous membranes Eyes PERRL Neck no lymphadenopathy and supple Resp Resp Narrative: Significant tachypnea. Very diminished breath sounds specially in the upper lung kilpatrick. Expiratory wheezing noted in the lower lung kilpatrick. Auscultation: wheezes and diminished lung sounds Cardio Rate: tachycardic GI non-tender and non-distended Auscultation: normoactive bowel sounds Extremity normal to inspection General Extremety ED: Negative for edema General Extremity: Negative for edema Neuro oriented x3 Sensorium / Orientation: alert Motor Exam: Negative for general weakness Psych mental status grossly normal Skin no wounds MDM MDM MDM Narrative Medical decision making narrative: Patient is evaluated for for worsening shortness of breath. Patient is a history of chronic hypoxic respiratory failure and wears 2 L of oxygen at baseline. Is worsened over the past week at least. Exact onset of symptoms is not clear. Differential includes COPD exacerbation, acute hypercapnic respiratory failure, acute on chronic hypoxic respiratory failure, pneumonia, pulmonary emboli, ACS, CHF exacerbation, metabolic derangements and influenza/other viral illness. In triage patient was given aerosols and respiratory had a hard time getting O2 reading on her because she has cold fingers. They did get a reading that was 81 and patient was placed on BiPAP because she due to her work of breathing. Patient then brought back to room when I saw her. ABG obtained showed mixed respiratory alkalosis with a metabolic acidosis. Patient is found to be positive for COVID-19 which is likely cause of her respiratory symptoms. She is given Solu-Medrol and further aerosols in the emergency room. Given that she does not have a respiratory acidosis or hypoxia on ABG she is taken off BiPAP but continues to be pretty symptomatic on nasal cannula. Is in transition to Airvo which does seem to help better with her work of breathing. D-dimer significantly elevated. CTA of the chest does not show any acute PE but does show pleural-based nodular density in the anterior aspect of the right middle lobe which is concerning for malignancy needs further workup. Patient and informed of this findings. No other acute process noted. CBC normal which is less suggestive of a bacterial process. Lactate is elevated 2.8 with suspected is likely metabolic at this point. High since he troponin normal at 10 and EKG does not show any acute ischemic changes. Patient is have a history of alcohol use/abuse but alcohol levels negative today. She is mentate appropriately I do not think is having acute alcohol withdrawal. BMP shows hypokalemia with a potassium of 2.3, elevated anion gap at 19 with a bicarb of 16 and a calcium of 6.1. Kidney function is normal. Glucose is normal. Differential for this includes starvation ketosis versus alcoholic ketoacidosis. Magnesium added on which is critically low at 0.5. Patient ordered 6 g of IV magnesium. Case discussed with hospitalist, Dr. Mckeon and will be admitted. Dr. Mckeon will start her on potassium as well as D5 bicarb drip. Lab Data Attestation: I reviewed the patient's lab results. Labs: Laboratory Results - last 24 hr 04/03/24 04/03/24 04/03/24 18:50 20:49 23:40 WBC 8.9 RBC 3.77 L Hgb 12.6 Hct 37.7 MCV 100.0 H MCH 33.4 H MCHC 33.4 RDW Std Deviation 49.7 H RDW Coeff of Lynnette 13.5 Plt Count 247 MPV 9.4 Immature Gran % (Auto) 0.600 Neut % (Auto) 67.0 Lymph % (Auto) 18.3 L [place] % (Auto) 13.8 H Eos % (Auto) 0.1 Baso % (Auto) 0.2 Absolute Neuts (auto) 6.0 Absolute Lymphs (auto) 1.62 Nucleated RBC % 0 D-Dimer Quant (PE/DVT) 8.03 H* Sodium Potassium Chloride Carbon Dioxide Anion Gap BUN Creatinine Estim Creat Clear Calc Est GFR (MDRD) Af Amer Est GFR (MDRD) Non-Af BUN/Creatinine Ratio Glucose Lactic Acid 2.8 H* 2.2 H* Calcium Troponin I High Sens 10 B-Natriuretic Peptide 168.7 H Ethyl Alcohol < 3.0 04/03/24 23:55 WBC RBC Hgb Hct MCV MCH MCHC RDW Std Deviation RDW Coeff of Lynnette Plt Count MPV Immature Gran % (Auto) Neut % (Auto) Lymph % (Auto) [place] % (Auto) Eos % (Auto) Baso % (Auto) Absolute Neuts (auto) Absolute Lymphs (auto) Nucleated RBC % D-Dimer Quant (PE/DVT) Sodium 137 Potassium 2.3 L* Chloride 103 Carbon Dioxide 16.0 L Anion Gap 19 H BUN 16 Creatinine 0.63 Estim Creat Clear Calc 48.55 Est GFR (MDRD) Af Amer 121 Est GFR (MDRD) Non-Af 100 BUN/Creatinine Ratio 25.6 H Glucose 149 H Lactic Acid Calcium 6.1 L* Troponin I High Sens B-Natriuretic Peptide Ethyl Alcohol ABG Data ABG results: ABG 04/03/24 19:01 Specimen Type ART Sample Site R RADIAL pH 7.50 H Bicarbonate Actual 18.6 L Total CO2 19 Base Excess -5 L O2 Saturation 100 H O2 % 70.0 ABG pCO2 24.0 L ABG pO2 322 H* Rahul Test POS O2 Delivery Device Bi Pap Crit Call To/Read Back Yes Blood Gas Notified Whom ED Blood Gas Notified Time 190 Clinical Comments AVAPS 450vt 16rr 70% Radiography Diagnostic Testing: Clinical Impression(s) from Imaging Studies Chest X-Ray 04/03/24 19:05 IMPRESSION: 1. No acute findings. 2. Stable emphysema. 3. Ill-defined pulmonary nodule within the right mid lung, likely overlapping structures from patient positioning. Dedicated two-view chest radiographs could be obtained for further evaluation. Reading Location: [facility] Chest CTA 04/03/24 20:03 IMPRESSION: 1. No CT evidence of central pulmonary embolism. Subsegmental branches are suboptimal due to heterogeneous filling. 2. Pleural-based nodular density in the anterior aspect of the right middle lobe measuring 22 x 14 mm. Malignancy is not excluded. Consider further evaluation with PET-CT. 3. Mild bibasilar dependent atelectasis or infiltrates, [id number]-left. 4. Mildly prominent mediastinal and bilateral hilar lymph nodes. Metastatic disease is not excluded versus reactive changes. 5. Thickening of the left adrenal gland as well as mild thickening of the right adrenal gland may relate to adenomas. 6. Additional findings as above. One or more dose reduction techniques were used (e.g., Automated exposure control, adjustment of the mA and/or kV according to patient size, use of iterative reconstruction technique). Reading Location: [facility] Rhythm Strip Rhythm Strip: Sinus Tach Rate: 130 Ectopy: None EKG Initial EKG: Attestation: I personally reviewed and interpreted this EKG as follows: Interpretation: Sinus Tachycardia Comments: Sinus tachycardia rate 130 bpm Normal axis Prolonged QTc at [address] segments Prior EKG tracings: available for review Prior: Changed (Prolonged QTc) Management Discussion w/another healthcare provider: Hospitalist Discharge Plan Triage Chief Complaint: Shortness of Breath ED Provider: Yeni Cornelius Dx/Rx/DC Orders Clinical Impression: Acute and chronic respiratory failure, Hypomagnesemia, COVID-19, Acute hypokalemia, Tachycardia, Metabolic acidosis Prescriptions: No Action metoprolol succinate 100 mg tablet extended release 24 hr 100 mg PO DAILY Qty: 90 Patient Comments: PT STATES ONLY TAKES ONCE A DAY. amlodipine 10 mg tablet 10 mg PO DAILY Qty: 90 omeprazole 40 mg capsule,delayed release(DR/EC) 40 mg PO DAILY Qty: 90 Prolia 60 mg/mL syringe 60 mg SUBCUT .[id number] albuterol sulfate 90 mcg/actuation HFA aerosol inhaler 2 puff INHALATION Q4H Trelegy Ellipta 100-62.5-25 mcg blister with device 1 ea INHALATION DAILY Primary Care Provider: Jair Squires Referrals: Jair Squires MD [Primary Care Provider] - Print Language: Ukrainian
--- NOTE | 2024-04-03 19:05 | RAD_ITS ---
PROCEDURE: CHEST 1 VIEW (PORTABLE) REASON FOR EXAM: 68-year-old female, shortness of breath. TECHNIQUE: Frontal view of the chest. COMPARISON: Chest radiographs 12/30/2023. FINDINGS: The patient is slightly rotated. The heart size is normal. Persistent findings of emphysema. Ill-defined pulmonary nodule within the right mid lung (unable to localize on single-view radiograph), measuring 1.6 cm. No pleural effusion or pneumothorax. Stable fracture deformity of the left mid clavicle with clavicular foreshortening. Thoracic aortic calcifications. RAD/Chest 1 View (Portable) IMPRESSION: 1. No acute findings. 2. Stable emphysema. 3. Ill-defined pulmonary nodule within the right mid lung, likely overlapping s tructures from patient positioning. Dedicated two-view chest radiographs could be obtained for further evaluation. Reading Location: [id number]
[2024-04-03 19:18] LABS: Absolute Lymphocyte Count 1.62 X10^3/uL (0.83-4.51); Basophil# 0.02 X10^3/uL; Basophil% 0.2 % (0-1); Eosinophil# 0.01 X10^3/uL; Eosinophils% 0.1 % (0-5); Hematocrit 37.7 % (37-47); Hemoglobin 12.6 g/dL (12.0-15.0); Lymphocyte # 1.62 X10^3/ul (0.83-4.51); Lymphocyte % 18.3 % (19-41); Mean Corp Hgb Conc 33.4 g/dL (32-36); Mean Corpuscular Hgb 33.4 pg (27.0-32.0); Mean Platelet Vol. 9.4 fl (6.2-12.0); Monocyte# 1.22 X10^3/uL; Monocyte% 13.8 % (0-10); NRBC Flagged by Analyzer 0 % (0-5); Neutrophil # 5.95 X10^3/uL (2.7-7.7); Platelet Count 247 K/mm3 (150-450); RBC Distribution Width CV 13.5 % (11.6-14.6); RBC Distribution Width SD 49.7 fl (35.1-43.9); Red Blood Count 3.77 M/mm3 (4.2-5.4); White Blood Count 8.9 K/mm3 (4.4-11.0)
[2024-04-03] MEDS: MethylPREDNISolone 125 MG/2 ML Vial IV (19:26)
[2024-04-03] MEDS: 0.9% Normal Saline (500mL Bag) 500 ML 999 ML IV (19:26)
[2024-04-03] MEDS: Ipratropium/Albuterol Sulfate 3 ML AMPUL.NEB INHALATION (19:33)
[2024-04-03] MEDS: Albuterol 2.5 MG/3 ML VIAL.NEB. INHALATION ×3 (19:34→19:49)
[2024-04-03 19:35] LABS: Troponin-I HS 10 pg/mL (3.0-54.0)
[2024-04-03 19:38] LABS: BNP,B-Type NATRIURETIC PEPTIDE 168.7 pg/mL (0-100)
[2024-04-03 20:01] LABS: D-Dimer Quantitative (DVT/PE) 8.03 FEU/ug/m (0.27-0.49)
[2024-04-03 20:02] LABS: Lactic Acid 2.8 mmol/L (0.4-1.9)
--- NOTE | 2024-04-03 20:03 | CT_ITS ---
PROCEDURE: CTA CHEST W/WO CONTRAST REASON FOR EXAM: Hypoxia. Elevated D-dimer. TECHNIQUE: Multiple, axial CTA images of the chest were obtained with and without intravenous contrast. Coronal and sagittal 2D reformatted images were provided. Coronal and sagittal 3D MIP images were provided as well. COMPARISON: Chest x-ray from 04/03/2024. FINDINGS: There is no evidence of central pulmonary embolism. Subsegmental branches are suboptimal due to heterogeneous filling. Cardiac size is within normal limits. Thoracic aorta demonstrates normal caliber with atherosclerotic calcifications. There is mural plaque along the right lateral aspect of the descending thoracic aorta with maximal thickness measuring 11 mm. Coronary artery calcifications are identified. There are mildly prominent mediastinal and bilateral hilar lymph nodes. No pericardial or pleural effusion is identified. Evaluation of the lung parenchyma demonstrates emphysematous changes. Mild bibasilar dependent atelectasis or infiltrates are identified, [id number]-left. There is an anterior pleural-based nodular density in the right middle lobe measuring approximately 22 x 14 mm in the transverse and AP dimensions respectively (image 62 of 265). Central airway is patent. Evaluation of the upper abdomen demonstrates nodular thickening of the left adrenal gland and mildly of the right adrenal gland. Evaluation of the osseous structures demonstrates degenerative changes. There is a chronic appearing anterior wedge compression fracture of L1. CT/CTA Chest W/WO Contrast IMPRESSION: 1. No CT evidence of central pulmonary embolism. Subsegmental branches are sub optimal due to heterogeneous filling. 2. Pleural-based nodular density in the anterior aspect of the right middle lob e measuring 22 x 14 mm. Malignancy is not excluded. Consider further evaluation with PET-CT. 3. Mild bibasilar dependent atelectasis or infiltrates, [id number]-left . 4. Mildly prominent mediastinal and bilateral hilar lymph nodes. Metastatic di sease is not excluded versus reactive changes. 5. Thickening of the left adrenal gland as well as mild thickening of the right adrenal gland may relate to adenomas. 6. Additional findings as above. One or more dose reduction techniques were used (e.g., Automated exposure contr ol, adjustment of the mA and/or kV according to patient size, use of iterative reconstruction technique). Reading Location: [facility]
--- NOTE | 2024-04-03 20:08 | CPS ---
[1933] x3 Albuterol given to pt. in ER
[2024-04-03 21:13] LABS: Alcohol, Blood (Medical)-Serum < 3.0 mg/dL
--- NOTE | 2024-04-03 22:31 | CPS ---
[2225] Pt.'s liter flow from Airvo decreased from 60L to 50L per pt.'s request.
[2024-04-03 23:25] LABS: Reflex Lactate? Y
[2024-04-04] VITALS (20 sets, daily range): BP systolic 98–162; BP diastolic 33–78; PULSE 50–112; RESP 18–31; TEMP 34.8–36.6; O2SAT 94–100; BMI 17.7
--- NOTE | 2024-04-04 00:05 | PCM.HP.STD ---
[facility] - General General Date of Admission: 04/04/24 Date of Service: 04/04/24 Chief Complaint: SOB [facility] Narrative MARGO STRICKLAND, is a 68 F who presented to the emergency department at [facility] on 01/31/2025 with a chief complaint of shortness of breath. Patient has underlying severe COPD but is not oxygen dependent at baseline. She stated about 5 days ago she started having symptoms consistent with shortness of breath, cough, and some myalgias. She has had intermittent diarrhea. This is since resolved. She does have a history of chronic diarrhea as well. She states progressively over the last 5 days she has gotten worse to the point where her told her she needed to come in to be evaluated today. She was reluctant but decided to come in and be evaluated. She has had cough with intermittent production of sputum. Sounds like p.o. intake has been reduced. She still drinks alcohol and reports she is drinking about 2 regular size beers daily. Vital signs on presentation demonstrated temperature of 98, heart rate 117, respiratory 32, blood pressure was 145/123 and pulse ox was 88% on room air. She was initially placed on BiPAP and then transition to Airvo. CBC was unremarkable except she had a significant monocytosis at 13.8. D-dimer was elevated 8.03. ABG was performed and showed a pH of 7.5 with a pCO2 of 24 and a pO2 of 322 and a bicarb of 18.6. Chemistry panel was obtained and showed marked abnormal electrolytes with a potassium of 2.3, bicarb of 16, anion gap of 19, magnesium level was 0.5 and calcium was 6.1. Troponin was normal. BNP was slightly elevated at 168.5 however the patient appears dry on exam. Initial lactic acid was 2.8 and improved with volume and treatment of hypoxia to 2.2. Chest x-ray had no acute findings with stable emphysema and ill-defined pulmonary nodule in the right midlung. CTA of the chest was performed due to elevated D-dimer and showed no central PE but suboptimal evaluation of the subsegmental branches due to suboptimal timing, pleural-based nodular density in the anterior aspect of the right middle lobe that is 2.2 x 1.4 cm. COVID-19 was positive. Patient is outside the window for remdesivir. She was started on Solu-Medrol and Decadron due to her COPD exacerbation and admitted to PCU given markedly abnormal electrolytes. [facility] Medical History Alcohol abuse COPD (chronic obstructive pulmonary disease) Smoker On home oxygen therapy Vertigo Acute respiratory failure with hypoxia Hip fracture Depression Anxiety Osteoporosis GERD (gastroesophageal reflux disease) Microscopic colitis Bronchitis HTN (hypertension) Home Medications ?Medication ?Instructions ?Recorded ?Last Taken ?Type amlodipine 10 mg tablet 10 mg PO DAILY bp #90 tabs 08/08/18 01/21/21 History metoprolol succinate 100 mg 100 mg PO DAILY bp #90 tabs 08/08/18 01/21/21 History tablet,extended release 24 hr omeprazole 40 mg capsule,delayed 40 mg PO DAILY reflux #90 caps 08/08/18 01/21/21 History release denosumab 60 mg/mL subcutaneous 60 mg subcut .[id number] BONES 01/21/21 11/22/23 History syringe (Prolia) albuterol sulfate 90 mcg/actuation 2 puff inhalation Q4H INHALER 04/27/21 Unknown History aerosol inhaler fluticasone fur. 100 mcg-umeclid 1 ea inhalation DAILY 04/03/24 Unknown History 62.5 mcg-vilant 25 mcg inhalat.powder (Trelegy Ellipta) Allergy/AdvReac Type Severity Reaction Status Date / Time nitrofurantoin (From AdvReac Severe Vomiting Verified 04/03/24 18:52 Macrobid) amoxicillin AdvReac Intermediate Other Verified 04/03/24 18:52 ciprofloxacin (From Cipro) AdvReac Intermediate Rash Verified 04/03/24 18:52 doxycycline AdvReac Intermediate Other Verified 04/03/24 18:52 naproxen AdvReac Intermediate Other Verified 04/03/24 18:52 sulfamethoxazole (From AdvReac Intermediate Other Verified 04/03/24 18:52 Bactrim) trimethoprim (From Bactrim) AdvReac Unknown Verified 04/03/24 18:52 Family History Sister Breast cancer Osteoporosis Mother Heart disease Myocardial infarction Father No problems noted. Surgical History S/P hip replacement History of colonoscopy Social History household members: spouse housing: house number of children: 0 current occupational status: retired pets and animals: Yes (dog) Smoking Status: Current every day smoker tobacco type: cigarettes alcohol intake: current alcohol intake frequency: 0-2 drinks per day Alcohol type: beer ROS Constitutional Constitutional: Reports anorexia, fatigue, malaise and weakness; Denies change in weight, chills, fever(s), night sweats or other Eyes Eyes: Denies blurry vision, change in eye color, change in vision, discharge from eye(s), double vision, erythema, eye pain, loss of vision or other ENT HEENT: Reports headache(s); Denies abnormal hearing, dysphagia, ear pain, epistaxis, hearing loss, nasal congestion, nasal discharge, post nasal drip, sinus pressure, sore throat or other Cardiovascular Cardiovascular: Reports dyspnea on exertion; Denies chest pain, claudication, edema, lightheadedness, orthopnea, palpitations, paroxysmal nocturnal dyspnea, rapid heart rate, syncope or other Respiratory/Chest Respiratory/Chest: Reports cough, dyspnea, excessive phlegm production, productive cough, shortness of breath at rest, shortness of breath with exertion and wheezing Gastrointestinal Gastrointestinal: Reports loose stools; Denies abdominal pain, coffee ground emesis, constipation, diarrhea, dyspepsia, hematemesis, hematochezia, melena, nausea, vomiting or other Genitourinary Genitourinary: Denies burning urination, difficulty urinating, dysuria, hematuria, nocturia, urinary frequency, urinary hesitancy, urinary incontinence, urinary urgency or other Musculoskeletal Musculoskeletal: Denies arthralgias, back pain, joint pain, joint stiffness, joint swelling, myalgias, neck pain or other Neurologic Neurologic: Denies abnormal gait, abnormal speech, confusion, disequilibrium, dizziness, focal weakness, headache(s), numbness, paresthesias, seizure-like activity, seizures, syncope, tingling, tremor(s) or other Psychiatric Psychiatric: Reports anxiety and depression; Denies homicidal ideation, suicidal ideation or other Endocrine Endocrinology: Denies change in body appearance, cold intolerance, excessive sweating, heat intolerance, polydipsia, polyuria or other Hematologic/Lymphatic Hematologic/Lymphatic: Denies anemia, easy bleeding, easy bruising, lymphadenopathy or other Allergic/Immunologic Allergic/Immunologic: Denies rhinitis, hives, eczemia, asthma or other Vital Signs Vital Signs Vital Signs: 04/03/24 18:24 04/03/24 18:47 04/03/24 18:50 Temperature 98 F Temperature Source Oral Pulse Rate 117 H 125 H Respiratory Rate 32 H 36 H Respiratory Effort Short of Breath Labored Pursed Lip Respiratory Pattern Tachypnea Tachypnea Blood Pressure 145/123 H Blood Pressure Mean 130 Pulse Ox 88 98 Oxygen Delivery Method Room Air Bi-pap Oxygen Flow Rate (L/min) Fraction of Inspired Oxygen (FIO2) 70 04/03/24 18:58 04/03/24 19:22 04/03/24 19:33 Temperature Temperature Source Pulse Rate 125 H Respiratory Rate 29 H Respiratory Effort Respiratory Pattern Blood Pressure 106/69 Blood Pressure Mean 81 Pulse Ox 99 98 Oxygen Delivery Method Bi-pap Nasal Cannula Nasal Cannula Oxygen Flow Rate (L/min) 4 2 Fraction of Inspired Oxygen (FIO2) 100 04/03/24 19:33 04/03/24 20:00 04/03/24 20:00 Temperature Temperature Source Pulse Rate 136 H 135 H 114 H Respiratory Rate 36 H 36 H 30 H Respiratory Effort Respiratory Pattern Tachypnea Tachypnea Blood Pressure 98/66 Blood Pressure Mean 76 Pulse Ox 98 100 Oxygen Delivery Method Airvo Oxygen Flow Rate (L/min) Fraction of Inspired Oxygen (FIO2) 28 04/03/24 21:00 04/03/24 22:00 04/03/24 22:25 Temperature Temperature Source Pulse Rate 128 H 124 H 120 H Respiratory Rate 24 H 29 H 28 H Respiratory Effort Respiratory Pattern Tachypnea Blood Pressure 107/57 L 120/64 Blood Pressure Mean 73 82 Pulse Ox 98 98 97 Oxygen Delivery Method Airvo Airvo Oxygen Flow Rate (L/min) Fraction of Inspired Oxygen (FIO2) 28 04/03/24 23:00 Temperature Temperature Source Pulse Rate 118 H Respiratory Rate 27 H Respiratory Effort Respiratory Pattern Blood Pressure 112/65 Blood Pressure Mean 80 Pulse Ox 96 Oxygen Delivery Method Room Air Oxygen Flow Rate (L/min) Fraction of Inspired Oxygen (FIO2) Weight Weight: 47 kg Body Mass Index (BMI) 17.6 Physical Exam Const alert, oriented x3 and no apparent distress; Negative for average body habitus, healthy appearing or well nourished Constitutional Narrative: Older, white female, sitting up in bed, appears much older than stated age, cachectic, currently on Airvo and does have considerable dyspnea on conversation but no signs of extremis currently General Appearance: cooperative HEENT normocephalic and head/scalp atraumatic HEENT Narrative: Mild hearing loss, Mallampati 1, no thrush, temporal wasting Eyes conjunctivae normal Eyes Narrative: No scleral icterus Neck supple Neck Narrative: Trachea midline Resp No normal respiratory effort, no retractions, no use of accessory muscles and No clear to auscultation bilaterally Resp Narrative: Rhonchi in right base with scattered end expiratory wheezes, considerable decreased air movement, no tripoding patient does have some conversational dyspnea on Airvo Auscultation: rhonchi and wheezes; Negative for crackles Cardio regular rhythm, S1 normal heart sound, S2 normal heart sound, no murmurs, no rub, no gallops and no clicks Cardio Narrative: Mild tachycardia GI normal to inspection, nondistended, normoactive bowel sounds, soft to palpation and non-tender GI Narrative: Scaphoid abdomen Extremity no clubbing, cyanosis or edema Extremity Narrative: Decreased lean muscle mass, pedal pulses are 1+ bilaterally, radial pulses are 2+ bilaterally Skin No skin turgor normal, no jaundice, no petechiae and no mottling Skin Narrative: Tenting with skin turgor exam Neuro oriented x3, moves all extremities and no focal motor deficits Neuro Narrative: Significant generalized weakness noted Speech: speech normal Psych affect normal Psych Narrative: Currently pulse calm, eye contact is good, patient interacts appropriately Results Lab / Micro Data 04/03/24 18:50 04/03/24 23:55 Labs: Laboratory Results - last 24 hr 04/03/24 18:50: WBC 8.9, RBC 3.77 L, Hgb 12.6, Hct 37.7, MCV 100.0 H, MCH 33.4 H, MCHC 33.4, RDW Std Deviation 49.7 H, RDW Coeff of Lynnette 13.5, Plt Count 247, MPV 9.4, Immature Gran % (Auto) 0.600, Neut % (Auto) 67.0, Lymph % (Auto) 18.3 L, [place] % (Auto) 13.8 H, Eos % (Auto) 0.1, Baso % (Auto) 0.2, Absolute Neuts (auto) 6.0, Absolute Lymphs (auto) 1.62, Nucleated RBC % 0, D-Dimer Quant (PE/DVT) 8.03 H*, Lactic Acid 2.8 H*, Troponin I High Sens 10, B-Natriuretic Peptide 168.7 H 04/03/24 20:49: Ethyl Alcohol < 3.0 Micro: Microbiology 04/03/24 19:01 Mucosa - Nose SARS-CoV-2, Influenza & RSV (PCR) - Final SARS-CoV-2 (COVID 19 PCR) ABG Data ABG results: ABG 04/03/24 19:01 Specimen Type ART Sample Site R RADIAL pH 7.50 H Bicarbonate Actual 18.6 L Total CO2 19 Base Excess -5 L O2 Saturation 100 H O2 % 70.0 ABG pCO2 24.0 L ABG pO2 322 H* Rahul Test POS O2 Delivery Device Bi Pap Crit Call To/Read Back Yes Blood Gas Notified Whom ED Blood Gas Notified Time 190 Clinical Comments AVAPS 450vt 16rr 70% Imaging Radiology Impression Chest X-Ray 04/03/24 19:05 IMPRESSION: 1. No acute findings. 2. Stable emphysema. 3. Ill-defined pulmonary nodule within the right mid lung, likely overlapping structures from patient positioning. Dedicated two-view chest radiographs could be obtained for further evaluation. Reading Location: [id number] Chest CTA 04/03/24 20:03 IMPRESSION: 1. No CT evidence of central pulmonary embolism. Subsegmental branches are suboptimal due to heterogeneous filling. 2. Pleural-based nodular density in the anterior aspect of the right middle lobe measuring 22 x 14 mm. Malignancy is not excluded. Consider further evaluation with PET-CT. 3. Mild bibasilar dependent atelectasis or infiltrates, mxdmr-[id number]-[id number]-left. 4. Mildly prominent mediastinal and bilateral hilar lymph nodes. Metastatic disease is not excluded versus reactive changes. 5. Thickening of the left adrenal gland as well as mild thickening of the right adrenal gland may relate to adenomas. 6. Additional findings as above. One or more dose reduction techniques were used (e.g., Automated exposure control, adjustment of the mA and/or kV according to patient size, use of iterative reconstruction technique). [facility] Assessment & Plan Assessment/Plan (1) Metabolic acidosis: (2) Acute hypokalemia: (3) COVID-19: (4) Acute hypoxic respiratory failure: (5) Hypomagnesemia: (6) Hypocalcemia: PLAN: Plan Acute hypoxic respiratory failure secondary to acute COVID-19 infection/metabolic acidosis -No infiltrate noted on imaging but patient has rhonchi in right base -Currently requiring Airvo to maintain oxygen saturations -Wean oxygen as able -check strep pneumo and Legionella antigens -Start azithromycin and ceftriaxone -Check sputum culture -Patient is out of the window for remdesivir -Will utilize Solu-Medrol for COPD exacerbation and 40 every 8 -Start incentive spirometer and Acapella -Start DuoNebs every 4 hours while awake and as needed albuterol -Continue Mucinex 1200 twice daily Anion gap metabolic acidosis -Highly suspect related to mild lactic acidosis, diarrheal losses of bicarb, and starvation ketosis -Will utilize D5 with 150 mL of bicarb x 1 L at 100 cc/h -Recheck lab in a.m. -Liberalize diet Lactic acidosis -Mildly elevated likely related to hypoxia on presentation -Should improve with treatment Hypocalcemia -No albumin obtained -Will check a.m. ionized calcium and replace accordingly Hypokalemia -Markedly low at 2.3 on presentation -Oral replacement 60 mEq p.o. x 2 doses -Magnesium is also being replaced Hypomagnesemia -Markedly low at 0.5 on presentation -6 g of magnesium given -Check a.m. lab Right sided pulmonary nodule -2.2 x 1.4 cm pulmonary nodule in the right middle lobe -Needs outpatient follow-up with PET scan Severe malnutrition -Dietitian to evaluate -Start supplements as ordered Alcohol abuse -Patient states she is currently drinking about 2 beers daily -Start thiamine and folate -Will start CIWA for monitoring Essential hypertension -Continue home amlodipine -Continue metoprolol GERD -Continue home PPI Osteoporosis -Patient is on outpatient Prolia COPD -Management as above for now History of left hip fracture -Previous ORIF Depression/anxiety -Patient is not medicated for this at baseline DVT prophylaxis -Lovenox subcu 30 daily CODE STATUS -Full code as discussed on admission Charges/Coding Visit Charges Inpatient E&M: 96821 Init Hosp L3
[2024-04-04 00:13] LABS: Lactic Acid 2.2 mmol/L (0.4-1.9)
[2024-04-04 00:18] LABS: Anion Gap 19 (5-15); BUN 16 mg/dL (7-18); BUN/Creat Ratio 25.6 RATIO (10-20); Calcium,Total 6.1 mg/dL (8.5-10.1); Chloride 103 mmol/L (98-107); Creatinine, Serum 0.63 mg/dL (0.55-1.02); EST Glomerular Filtration Rate 100 mL/min (>60); Est Glom Filt Rate - Afr Amer 121 mL/min (>60); Estimated Creatinine Clearance 48.55 ml/min; Glucose 149 mg/dL (74-106); Potassium 2.3 mmol/L (3.5-5.1); Sodium Level 137 mmol/L (136-145)
[2024-04-04 00:41] LABS: Magnesium 0.5 mg/dL (1.6-2.6)
[2024-04-04] MEDS: 0.9% Normal Saline (1000mL) 1,000 ML 999 ML IV (00:50)
[2024-04-04 00:56] LABS: AST(SGOT) 20 U/L (15-37); Alanine Aminotransfer ALT/SGPT 12 U/L (13-56); Alkaline Phosphatase 40 U/L (45-117); Bilirubin, Direct 0.17 mg/dL (0.00-0.30); Globulin 3.6 g/dL (2.2-4.2); Protein, Total 6.6 g/dL (6.4-8.2)
[2024-04-04] MEDS: Magnesium Sulfate 2 GM in Dextrose 5%-Water (100mL Bag) 100 ML IV (01:12)
[2024-04-04] MEDS: Magnesium Sulfate 4gm/100mL 4 GM/100 ML IV.SOLN. IV (01:31)
[2024-04-04 03:18] LABS: Mucous, Urine 0 SEEN /hpf (<or=2+); White Blood Cells 0 SEEN /hpf (0-5)
[2024-04-04 03:20] LABS: Color, Urine Yellow (Yellow); Glucose, Dipstick Normal (Normal); Ketone-Dipstick 15 mg/dl (Negative); Leukocyte Esterase-Dipstick 500 /ul (Negative); Nitrite-Dipstick Positive (Negative); Occult Blood-Urine 10 /ul (Negative); Protein-Dipstick 30 mg/dl (Negative); Urine Bilirubin Dipstick Negative (Negative); Urine Clarity Sl. Cloudy (Clear); Urine Urobilinogen Normal (Normal)
[2024-04-04] MEDS: CALCIUM CHLORIDE IV (03:32)
[2024-04-04] MEDS: NORMAL SALINE 0.9% IV (03:32)
[2024-04-04] MEDS: Ipratropium/Albuterol Sulfate 3 ML AMPUL.NEB INHALATION ×5 (03:44→19:30)
[2024-04-04 03:49] LABS: Bacteria 2+ /hpf (None Seen); Red Blood Cells-Urine 0 SEEN /hpf (0-5); Squamous Epithelial Cells - UA 10-25 SEEN /hpf (5-10); Transitional Epithelial - Ur 0-5 SEEN /hpf (0-5)
[2024-04-04] MEDS: Sodium Bicarbonate 150 MEQ in Dextrose 5%-Water (1000mL Bag) 1,000 ML 100 MEQ IV (05:20)
[2024-04-04] MEDS: Potassium Chloride Oral Tablet 20 MEQ 60 MEQ PO ×2 (05:20→09:12)
[2024-04-04] MEDS: 0.9% Saline Lock 10 ML Syringe IV ×4 (05:21→21:04)
[2024-04-04 06:11] LABS: Allen Test Positive; Base Excess -5 mmol/L (-2 to +2); Bicarbonate 18.6 mmol/L (22-26); Blood Gas Specimen Type ART; Mode Not entered; O2 Delivery Device BiPAP; PO2 322 mmHG (75-100); SITE R Radial; SO2 100 % (95-99); Total Carbon Dioxide 19 mmol/L
[2024-04-04 07:24] LABS: Absolute Neutrophil Count 5.4 X10^3/uL (2.0-7.7); Hematocrit 32.4 % (37-47); Hemoglobin 10.9 g/dL (12.0-15.0); Lymphocyte % 3.4 % (19-41); Mean Corp Hgb Conc 33.6 g/dL (32-36); Mean Corpuscular Hgb 32.7 pg (27.0-32.0); Mean Corpuscular Volume 97.3 fL (81-99); Mean Platelet Vol. 9.3 fl (6.2-12.0); Monocyte# 0.23 X10^3/uL; NRBC Flagged by Analyzer 0 % (0-5); Neutrophil # 5.35 X10^3/uL (2.7-7.7); Neutrophil % 91.9 % (47-70); POSITIVE DIFFERENTIAL YES; Platelet Count 229 K/mm3 (150-450); RBC Distribution Width CV 13.4 % (11.6-14.6); RBC Distribution Width SD 47.9 fl (35.1-43.9); Red Blood Count 3.33 M/mm3 (4.2-5.4); White Blood Count 5.8 K/mm3 (4.4-11.0)
[2024-04-04 07:44] LABS: Ionized Calcium 0.88 mmol/L (1.09-1.30)
[2024-04-04 08:13] LABS: Ionized Calcium Order ORDER TUBE
[2024-04-04 08:15] LABS: ALB/GLOB Ratio 0.7 RATIO (0.9-2.4); AST(SGOT) 19 U/L (15-37); Alanine Aminotransfer ALT/SGPT 13 U/L (13-56); Albumin, Serum 2.8 g/dL (3.2-5.0); Alkaline Phosphatase 40 U/L (45-117); Anion Gap 11 (5-15); BUN 13 mg/dL (7-18); BUN/Creat Ratio 25.4 RATIO (10-20); Calcium,Total 6.5 mg/dL (8.5-10.1); Chloride 104 mmol/L (98-107); Creatinine, Serum 0.51 mg/dL (0.55-1.02); EST Glomerular Filtration Rate 126 mL/min (>60); Est Glom Filt Rate - Afr Amer 153 mL/min (>60); Estimated Creatinine Clearance 48.45 ml/min; Globulin 3.9 g/dL (2.2-4.2); Glucose 209 mg/dL (74-106); Magnesium 2.7 mg/dL (1.6-2.6); Phosphorus 3.4 mg/dL (2.5-4.9); Potassium 2.6 mmol/L (3.5-5.1); Protein, Total 6.7 g/dL (6.4-8.2); Sodium Level 136 mmol/L (136-145); Thyroid Stim Hormone (TSH) 0.329 uIU/mL (0.358-3.740)
[2024-04-04] MEDS: Ceftriaxone 2 GM in 0.9% Normal Saline (50mL MB+) 50 ML IV (09:07)
[2024-04-04] MEDS: Pantoprazole Sodium 40 MG Tablet PO (09:11)
[2024-04-04] MEDS: Thiamine Hydrochloride 100 MG Tablet PO (09:11)
[2024-04-04] MEDS: guaiFENesin 1,200 MG Tablet 1200 MG PO ×2 (09:11→21:03)
[2024-04-04] MEDS: Metoprolol(XL)Succ 100 MG Tablet PO (09:11)
[2024-04-04] MEDS: amLODIPine 10 MG Tablet PO (09:11)
[2024-04-04] MEDS: Enoxaparin 40 MG/0.4 ML Syringe 30 MG SC (09:12)
[2024-04-04] MEDS: Remdesivir 200 MG in 0.9% Normal Saline (250mL Bag) 210 ML 250 MG IV (09:35)
[2024-04-04] MEDS: Potassium Chloride 10mEq/100mL 10 MEQ/100 ML IV.SOLN. 100 MEQ IV BOLUS ×3 (10:11→15:05)
[2024-04-04] MEDS: Folic Acid 1 MG in 0.9% Normal Saline (50mL Bag) 50 ML 200 MG IV (11:19)
--- NOTE | 2024-04-04 11:45 | CASEMGMT ---
RN CM carrot tier DALILA spoke with patient for initial transition planning/care coordination assessment. Patient lying in bed, alert and oriented. @ bedside. Patient willing to participate in assessment and is able to answer all questions appropriately. Care providers, pharmacy, and demographics verified. Strata: 1 PCP: Dr Squires Specialists: Dr Rice, stem frazer; Dr Lewis, GI; Dr Lamar, neuro Preferred Pharmacy: [facility]. Insurance: [facility] Prescription Benefit: yes Living Will/HPOA: Pt has both LW and HCPOA, who is her , Sriram LNOK: , Sriram Living Arrangements: Patient lives with in a 2 story home. Bedroom and bathroom are on 2nd floor. There is also a bathroom on the main floor. 1 step to enter home. Patient states helps patient ambulate stairs and with ADLs. Pt manages her own appts and medications. Transportation: mostly. Pt states she can drive, but has not been driving much d/t vertigo DME: Patient states she has raised toilet, cane, walker, rails in the bathroom, and home oxygen with [facility] at 2lpm at . She does not have portable O2 and does not have a pulse ox. Made aware home O2 amb testing will be completed prior to discharge and if she qualifies for any O2 @ rest or w/exertion, Suresh would be notified & arrangements for delivery of portable O2 tanks will be made. She voices appreciation. Recommended to purchase a pulse ox and made aware of locations these can be purchased. HHC/SNF: No hx of SNF. Has had [facility] HHC in the past. Patient wishes to discharge home and would like HHC again. [employer] DALILA, Marina, made aware. Therapy evals pending. CM to follow. Patient states she has no further needs or concerns at this time. Plan: Home w/HHC Follow therapy. Chris CAPPS RN, CM
[2024-04-04] MEDS: Azithromycin 500 MG in 0.9% Normal Saline (250mL Bag) 250 ML 255 MG IV (11:53)
[2024-04-04] MEDS: Multivitamins,Therapeutic Tablet 1 TABLET PO (11:55)
[2024-04-04] MEDS: Ensure Plus High Protein 120 ML LIQUID PO ×3 (15:05→21:03)
[2024-04-04] MEDS: guaiFENesin Dm 10 ML UDC PO (18:05)
--- NOTE | 2024-04-04 19:17 | PCM.HOSP.N ---
Hospitalist Note Patient was seen and examined today, patient is on oxygen at home anywhere from 2 to 3 L., Her oxygen at the time my exam today was 6 L. Patient does continue to smoke at home. I have elected to place her on remdesivir because she is 5 days out from being ill with COVID. Pulse ox will be monitored and oxygen will be be adjusted as needed. I do not feel the patient needs IV Zithromax and IV ceftriaxone, I believe she would benefit from p.o. Zithromax due to her COPD. I have elected to leave the patient on IV Solu-Medrol rather than convert to Decadron.
[2024-04-05] VITALS (12 sets, daily range): BP systolic 96–125; BP diastolic 54–75; PULSE 79–95; RESP 18–20; TEMP 35.9–36.6; O2SAT 95–100
[2024-04-05] MEDS: Ipratropium/Albuterol Sulfate 3 ML AMPUL.NEB INHALATION ×5 (00:10→23:54)
[2024-04-05] MEDS: 0.9% Saline Lock 10 ML Syringe IV ×3 (06:19→14:09)
[2024-04-05] MEDS: Thiamine Hydrochloride 100 MG Tablet PO (08:19)
[2024-04-05] MEDS: Enoxaparin 40 MG/0.4 ML Syringe 30 MG SC ×2 (08:20→10:05)
[2024-04-05] MEDS: Ensure Plus High Protein 120 ML LIQUID PO ×3 (10:05→17:59)
[2024-04-05] MEDS: amLODIPine 10 MG Tablet PO (10:06)
[2024-04-05] MEDS: Metoprolol(XL)Succ 100 MG Tablet PO (10:06)
[2024-04-05] MEDS: Azithromycin 250 MG Tablet 500 MG PO (10:06)
[2024-04-05] MEDS: Pantoprazole Sodium 40 MG Tablet PO (10:07)
[2024-04-05] MEDS: guaiFENesin 1,200 MG Tablet 1200 MG PO ×2 (10:07→23:39)
[2024-04-05] MEDS: Folic Acid 1 MG in 0.9% Normal Saline (50mL Bag) 50 ML 200 MG IV (10:40)
[2024-04-05] MEDS: Remdesivir 100 MG in 0.9% Normal Saline (250mL Bag) 230 ML 250 MG IV (11:06)
[2024-04-05] MEDS: Multivitamins,Therapeutic Tablet 1 TABLET PO (12:20)
[2024-04-05 13:32] LABS: Anion Gap 7 (5-15); BUN 13 mg/dL (7-18); BUN/Creat Ratio 20.1 RATIO (10-20); Chloride 109 mmol/L (98-107); Creatinine, Serum 0.65 mg/dL (0.55-1.02); EST Glomerular Filtration Rate 96 mL/min (>60); Est Glom Filt Rate - Afr Amer 116 mL/min (>60); Estimated Creatinine Clearance 48.45 ml/min; Glucose 119 mg/dL (74-106); Potassium 3.9 mmol/L (3.5-5.1); Sodium Level 138 mmol/L (136-145)
[2024-04-05] MEDS: Acetaminophen 325 MG Tablet 650 MG PO (14:40)
[2024-04-05] MEDS: guaiFENesin Dm 10 ML UDC PO (14:40)
--- NOTE | 2024-04-05 17:19 | PN.HOSP_ITS ---
Reason for Visit Reason for Visit: Diagnoses Hypomagnesemia (04/04/24) Hypocalcemia (04/04/24) Acidosis, unspecified (04/04/24) Hypokalemia (04/04/24) Acute respiratory failure with hypoxia (04/04/24) COVID-19 (04/04/24) Subjective Subjective Patient was seen and examined today, she remains on 2 L of oxygen at rest. I confirm with her that she only uses 2 L at night at home, if she requires oxygen during the day I will have to rewrite her oxygen prescription. Patient continues on the remdesivir and IV corticosteroids, she does not appear to be in respiratory distress at rest Objective Data Objective Data Vital Signs: Vital Signs Temp Pulse Resp BP Pulse Ox O2 Del Method O2 Flow Rate 97.2 F L 79 20 H 96/54 L 98 Nasal Cannula 2 04/05/24 14:16 04/05/24 14:16 04/05/24 14:16 04/05/24 14:16 04/05/24 14:16 04/05/24 14:24 04/05/24 14:52 FiO2 35 04/04/24 10:29 Oxygen Flow Rate (L/min) 2 Oxygen Delivery Method Nasal Cannula Weight: 46.9 kg Body Mass Index (BMI) 17.7 Intake & Output: Intake and Output for Last 24 Hours 04/03/24 04/04/24 04/05/24 23:59 23:59 23:59 Intake Total 500 / 500 3364.2 / 3364.2 300.2 / 300.2 Output Total 800 / 800 400 / 400 Balance 500 / 500 2564.2 / 2564.2 -99.8 / -99.8 Lab / Micro Data 04/04/24 06:52 04/05/24 12:54 Labs: Laboratory Results - last 24 hr 04/05/24 12:54: Sodium 138, Potassium 3.9, Chloride 109 H, Carbon Dioxide 22.0, Anion Gap 7, BUN 13, Creatinine 0.65, Estim Creat Clear Calc 48.45, Est GFR (MDRD) Af Amer 116, Est GFR (MDRD) Non-Af 96, BUN/Creatinine Ratio 20.1 H, G lucose 119 H, Calcium 7.0 L Micro: Microbiology 04/04/24 03:12 Sputum, Expectorated/Coughed Gram Stain - Final 04/04/24 03:12 Sputum, Expectorated/Coughed Respiratory Culture - Preliminary Mixed normal respiratory santi. No Haemophilus, Streptococcus pneumoniae, beta-hemolytic Streptococcus or Staphylococcus aureus isolated. 04/04/24 03:12 Urine, Random Legionella Antigen - Final 04/04/24 03:12 Urine, Random Streptococcus pneumoniae Antigen (M - Final 04/03/24 19:01 Mucosa - Nose SARS-CoV-2, Influenza & RSV (PCR) - Final SARS-CoV-2 (COVID 19 PCR) Rhythm Strip Rhythm Strip: Sinus Tach Rate: 130 Ectopy: None Physical Exam Const alert, oriented x3 and no apparent distress Constitutional Narrative: Patient appears cachectic and older than her stated age General Appearance: cooperative, well kempt and well developed Orientation / Consciousness: awake, oriented to person, oriented to place and oriented to time HEENT normocephalic, head/scalp atraumatic and moist oral mucous membranes Eyes PERRL, EOMs intact bilaterally and conjunctivae normal Neck supple, no JVD, thyroid normal and no carotid bruits General: trachea midline Resp normal respiratory effort and no retractions Resp Narrative: Breath sounds are diminished bilaterally Auscultation: Negative for rales, rhonchi or wheezes Cardio regular rate, regular rhythm, S1 normal heart sound, S2 normal heart sound, no murmurs, no rub and no gallops GI normal to inspection, nondistended, normoactive bowel sounds, soft to palpation, non-tender and non-distended Extremity no clubbing, cyanosis or edema Skin no rashes or lesions noted General Skin Exam: no breakdown Neuro oriented x3, CN's II-XII intact bilaterally, moves all extremities, no focal motor deficits and no sensory deficits noted Sensorium / Orientation: awake and alert Speech: speech normal Psych affect normal Assessment & Plan Assessment/Plan (1) COVID-19: PLAN: Plan 1. Acute hypoxic respiratory failure secondary to acute COVID-19 infection- continue IV corticosteroids and remdesivir, attempt to wean oxygen if possible #2 chronic obstructive pulmonary disease with exacerbation due to COVID-19 infection-continue IV corticosteroids, aerosol treatments, continue oral Zithromax #3 hypokalemia-corrected at this time #4 essential hypertension-patient is on amlodipine and metoprolol Total clinical time spent by myself addressing the patient's medical issues, reviewing all of her data, and collaborating with patient's care team: 35-minute Charges/Coding Visit Charges Inpatient E&M: 57655 Subs Hosp L2
[2024-04-06] VITALS (13 sets, daily range): BP systolic 104–124; BP diastolic 63–72; PULSE 76–92; RESP 12–20; TEMP 36.1–36.8; O2SAT 93–99
[2024-04-06] MEDS: 0.9% Saline Lock 10 ML Syringe IV ×3 (05:32→20:57)
[2024-04-06] MEDS: Ipratropium/Albuterol Sulfate 3 ML AMPUL.NEB INHALATION ×4 (07:58→23:16)
[2024-04-06] MEDS: Folic Acid 1 MG in 0.9% Normal Saline (50mL Bag) 50 ML 200 MG IV (09:36)
[2024-04-06] MEDS: Thiamine Hydrochloride 100 MG Tablet PO (09:38)
[2024-04-06] MEDS: guaiFENesin 1,200 MG Tablet 1200 MG PO ×2 (09:38→20:57)
[2024-04-06] MEDS: Pantoprazole Sodium 40 MG Tablet PO (09:38)
[2024-04-06] MEDS: Azithromycin 250 MG Tablet 500 MG PO (09:39)
[2024-04-06] MEDS: Remdesivir 100 MG in 0.9% Normal Saline (250mL Bag) 230 ML 250 MG IV (09:53)
[2024-04-06] MEDS: amLODIPine 10 MG Tablet PO (10:09)
[2024-04-06] MEDS: Metoprolol(XL)Succ 100 MG Tablet PO (10:09)
[2024-04-06] MEDS: Multivitamins,Therapeutic Tablet 1 TABLET PO (11:21)
[2024-04-06] MEDS: Ensure Plus High Protein 120 ML LIQUID PO ×3 (14:39→20:57)
--- NOTE | 2024-04-06 14:48 | CASEMGMT ---
TONI CONNER in to discuss discharge planning with patient. Patient states she would like [facility] at discharge and prefers [facility], declined list. Patient states she only has a concentrator at home for at . Patient has oxygen through [facility]. TONI CONNER called [facility] to arrange for tank to be delivered to patient's room if she would need it over the weekend. TONI CONNER made referral to [facility] and they are able to accept with planned start of care for Tuesday. TONI CONNER updated patient. Patient had no further questions or concerns. Green sheet placed on chart.
--- NOTE | 2024-04-06 18:50 | PN.HOSP_ITS ---
Reason for Visit Reason for Visit: Diagnoses Hypomagnesemia (04/04/24) Hypocalcemia (04/04/24) Acidosis, unspecified (04/04/24) Hypokalemia (04/04/24) Acute respiratory failure with hypoxia (04/04/24) COVID-19 (04/04/24) Subjective Subjective Patient was seen and examined today, she is on 2 L of nasal cannula oxygen and rest, she still maintains that she uses it at home all the time although her prescription reads that is to be used at night. Patient continues to receive remdesivir, she does not appear to be in any respiratory distress at rest. Objective Data Objective Data Vital Signs: Vital Signs Temp Pulse Resp BP Pulse Ox O2 Del Method O2 Flow Rate 98.2 F 86 18 104/63 93 Nasal Cannula 2 04/06/24 14:35 04/06/24 14:59 04/06/24 14:35 04/06/24 14:35 04/06/24 15:01 04/06/24 15:40 04/06/24 15:40 FiO2 35 04/04/24 10:29 Oxygen Flow Rate (L/min) 2 Oxygen Delivery Method Nasal Cannula Weight: 46.9 kg Body Mass Index (BMI) 17.7 Intake & Output: Intake and Output for Last 24 Hours 04/04/24 04/05/24 04/06/24 23:59 23:59 23:59 Intake Total 3364.2 / 3364.2 300.2 / 300.2 300.2 / 300.2 Output Total 800 / 800 600 / 600 Balance 2564.2 / 2564.2 -299.8 / -299.8 300.2 / 300.2 Lab / Micro Data 04/04/24 06:52 04/05/24 12:54 Micro: Microbiology 04/04/24 03:12 Sputum, Expectorated/Coughed Gram Stain - Final 04/04/24 03:12 Sputum, Expectorated/Coughed Respiratory Culture - Final 04/04/24 03:12 Urine, Random Legionella Antigen - Final 04/04/24 03:12 Urine, Random Streptococcus pneumoniae Antigen (M - Final 04/03/24 19:01 Mucosa - Nose SARS-CoV-2, Influenza & RSV (PCR) - Final SARS-CoV-2 (COVID 19 PCR) Rhythm Strip Rhythm Strip: Sinus Tach Rate: 130 Ectopy: None Physical Exam Narrative alert, oriented x3 and no apparent distress Constitutional Narrative: Patient appears cachectic and older than her stated age General Appearance: cooperative, well kempt and well developed Orientation / Consciousness: awake, oriented to person, oriented to place and oriented to time HEENT normocephalic, head/scalp atraumatic and moist oral mucous membranes Eyes PERRL, EOMs intact bilaterally and conjunctivae normal Neck supple, no JVD, thyroid normal and no carotid bruits General: trachea midline Resp normal respiratory effort and no retractions Resp Narrative: Breath sounds are diminished bilaterally Auscultation: Negative for rales, rhonchi or wheezes Cardio regular rate, regular rhythm, S1 normal heart sound, S2 normal heart sound, no murmurs, no rub and no gallops GI normal to inspection, nondistended, normoactive bowel sounds, soft to palpation, non-tender and non-distended Extremity no clubbing, cyanosis or edema Skin no rashes or lesions noted General Skin Exam: no breakdown Neuro oriented x3, CN's II-XII intact bilaterally, moves all extremities, no focal motor deficits and no sensory deficits noted Sensorium / Orientation: awake and alert Speech: speech normal Psych affect normal Assessment & Plan Assessment/Plan (1) Acute and chronic respiratory failure: (2) COVID-19: PLAN: Plan 1. Acute hypoxic respiratory failure secondary to acute COVID-19 infection- continue IV corticosteroids and remdesivir, attempt to wean oxygen if possible, patient already has oxygen at home but the prescription states that she is to wear it at night, she has been wearing it during the day, this will have to be changed when she is discharged #2 chronic obstructive pulmonary disease with exacerbation due to COVID-19 infection-continue IV corticosteroids, aerosol treatments, continue oral Zithromax #3 hypokalemia-corrected at this time #4 essential hypertension-patient is on amlodipine and metoprolol Total clinical time spent by myself addressing the patient's medical issues, reviewing all of her data, and collaborating with patient's care team: 35-minute Charges/Coding Visit Charges Inpatient E&M: 13769 Subs Hosp L2
[2024-04-07] VITALS (10 sets, daily range): BP systolic 114–139; BP diastolic 65–93; PULSE 82–95; RESP 14–18; TEMP 36.6–36.8; O2SAT 83–98
[2024-04-07] MEDS: Ipratropium/Albuterol Sulfate 3 ML AMPUL.NEB INHALATION ×3 (02:46→11:20)
[2024-04-07] MEDS: 0.9% Saline Lock 10 ML Syringe IV ×2 (05:48→10:45)
[2024-04-07] MEDS: guaiFENesin 1,200 MG Tablet 1200 MG PO (08:48)
[2024-04-07] MEDS: Acetaminophen 325 MG Tablet 650 MG PO (08:48)
[2024-04-07] MEDS: Metoprolol(XL)Succ 100 MG Tablet PO (08:49)
[2024-04-07] MEDS: Enoxaparin 40 MG/0.4 ML Syringe 30 MG SC (08:55)
[2024-04-07] MEDS: amLODIPine 10 MG Tablet PO (08:55)
[2024-04-07] MEDS: Azithromycin 250 MG Tablet 500 MG PO (08:55)
[2024-04-07] MEDS: Pantoprazole Sodium 40 MG Tablet PO (08:55)
[2024-04-07] MEDS: Folic Acid 1 MG in 0.9% Normal Saline (50mL Bag) 50 ML 200 MG IV (10:19)
[2024-04-07] MEDS: Remdesivir 100 MG in 0.9% Normal Saline (250mL Bag) 230 ML 250 MG IV (10:22)
--- NOTE | 2024-04-07 12:50 | CASEMGMT ---
Addendum entered by Alina Fang 04/07/24 13:23: Pt returned and the concentrator goes to 6L. Original Note: Pt requires 6L oxygen with ambulation. RN CM into pt room, there is a tank in room for pt to go home with. Pt is not sure how high the home concentrator goes. He will go home to check this. He is aware that if it is not 6L, pt will not be able to go home as [employer] does not deliver on weekends. Updated charge nurse and hospitalist that pt cannot be dc'd unless concentrator goes to 6L.
--- NOTE | 2024-04-07 13:23 | PCM.DC ---
Discharge Instructions Diet Discharge Diet: No restrictions DC O2, CPAP, BIPAP needs RN Home O2 Qualification: Home O2 Qualification: Is the patient on home oxygen Yes 04/07/24 11:51 Home O2 Qualification: AT REST 1-Pulse Ox at rest 96 04/07/24 11:51 1- Oxygen flow rate at rest 2 04/07/24 11:51 Home O2 Qualification: WITH AMBULATION 1- Pulse Ox with ambulation 83 04/07/24 11:51 1- Oxygen Flow Rate with 2 04/07/24 11:51 ambulation 2- Pulse Ox with ambulation 86 04/07/24 11:51 2- Oxygen Flow Rate with 4 04/07/24 11:51 ambulation 3- Pulse Ox with ambulation 91 04/07/24 11:51 3- Oxygen Flow Rate with 6 04/07/24 11:51 ambulation Home O2 Discharge instructions: Yes Type of respiratory needs?: Oxygen Oxygen frequency: Continuous Continuous oxygen liters per minute: 2 L and With Ambulation Oxygen liters per minute during Ambulation: 6 L Dressing / Incision Discharge Activity: Return to Normal Activity Weight Bearing Status: Full weight bearing Follow Up Care Test Results: Test results from this visit will be discussed in further detail at your follow-up appointment, if applicable. Discharge Plan Admission Admit Date/Time: 04/04/24 00:43 Primary Reason for Your Visit: covid 19 Attending Provider: Christophe Burnett Primary Care Provider: Jair Squires Consulting Providers: Rosalinda Mckeon Instructions Additional Instructions / Restrictions: Use oxygen at 2 L/min while at rest, increase the oxygen setting to 6 L when walking or doing something exertional, I would recommend highly that you stop smoking Discharge Orders/Prescriptions Prescriptions: New dexamethasone 2 mg tablet 2 mg PO DAILY Qty: 21 0RF Rx Instructions: 3 tablets once a day for 7 days Continued metoprolol succinate 100 mg tablet extended release 24 hr 100 mg PO DAILY Qty: 90 Patient Comments: PT STATES ONLY TAKES ONCE A DAY. amlodipine 10 mg tablet 10 mg PO DAILY Qty: 90 omeprazole 40 mg capsule,delayed release(DR/EC) 40 mg PO DAILY Qty: 90 Prolia 60 mg/mL syringe 60 mg SUBCUT .[id number] albuterol sulfate 90 mcg/actuation HFA aerosol inhaler 2 puff INHALATION Q4H Trelegy Ellipta 100-62.5-25 mcg blister with device 1 ea INHALATION DAILY Referrals / Follow Up: Jair Squires MD [Primary Care Provider] - Within 2 Weeks Disposition Disposition (needs filled in before D/C Order can be placed): Home, Self Care
--- NOTE | 2024-04-07 13:42 | PCM.DC.SUM ---
Providers Date of Admission: 04/04/24 Date of Discharge: 04/07/24 Primary Care Physician: Dr. Jair Squires MD Reason For Visit: ACUTE HYPOXIC RESPIRATORY FAILURE Diagnosis Discharge Diagnosis (1) Acute and chronic respiratory failure: Status: Chronic Code(s): J96.20 - Acute and chronic respiratory failure, unspecified whether with hypoxia or hypercapnia (2) COVID-19: Status: Acute Code(s): U07.1 - COVID-19 Plan 1. Acute hypoxic respiratory failure secondary to acute COVID-19 infection-continue IV corticosteroids and remdesivir, attempt to wean oxygen if possible, patient already has oxygen at home but the prescription states that she is to wear it at night, she has been wearing it during the day, this will have to be changed when she is discharged #2 chronic obstructive pulmonary disease with exacerbation due to COVID-19 infection-continue IV corticosteroids, aerosol treatments, continue oral Zithromax #3 hypokalemia-corrected at this time #4 essential hypertension-patient is on amlodipine and metoprolol Total clinical time spent by myself addressing the patient's medical issues, reviewing all of her data, and collaborating with patient's care team: 35-minute Medications at Discharge Home Medications amlodipine 10 mg tablet 10 mg PO DAILY bp #90 tabs 08/08/18 metoprolol succinate 100 mg tablet,extended release 24 hr 100 mg PO DAILY bp #90 tabs 08/08/18 omeprazole 40 mg capsule,delayed release 40 mg PO DAILY reflux #90 caps 08/08/18 denosumab 60 mg/mL subcutaneous syringe (Prolia) 60 mg subcut .[id number] BONES 01/21/21 albuterol sulfate 90 mcg/actuation aerosol inhaler 2 puff inhalation Q4H INHALER 04/27/21 fluticasone fur. 100 mcg-umeclid 62.5 mcg-vilant 25 mcg inhalat.powder (Trelegy Ellipta) 1 ea inhalation DAILY 04/03/24 dexamethasone 2 mg tablet 2 mg PO DAILY #21 tabs 04/07/24 Hospital Course Operations None Procedures None Summary of Care Provided Minutes Spent on Discharge: 31 Hospital Course: This 68-year-old white female was seen in the emergency room at [facility] with complaints of increased shortness of breath and diarrhea, patient was supposed to be on 2 L of oxygen only when sleeping but she had been using oxygen at 2 to 3 L continuously at home before coming to the hospital. Workup in the emergency room included a COVID test which was positive, chest CTA showed no evidence of pulmonary embolism, there is a pleural-based nodular density in the anterior aspect of the right middle lobe, there were mild bibasilar dependent atelectasis or infiltrates right greater than left. Patient's white blood cell count was normal, chemistry profile was remarkable for a potassium of 2.3, lactic acid was elevated at 2.8, calcium was low at 6.11 and magnesium was low at 0.5. Patient was admitted to PCU, aerosol treatments were administered and patient was given supplemental potassium, magnesium, and calcium. She was placed on remdesivir, pulse ox was monitored. Patient was also placed on IV corticosteroids. On 04/07/2024, patient was seen and examined:alert, oriented x3 and no apparent distress Constitutional Narrative: Patient appears cachectic and older than her stated age General Appearance: cooperative, well kempt and well developed Orientation / Consciousness: awake, oriented to person, oriented to place and oriented to time HEENT normocephalic, head/scalp atraumatic and moist oral mucous membranes Eyes PERRL, EOMs intact bilaterally and conjunctivae normal Neck supple, no JVD, thyroid normal and no carotid bruits General: trachea midline Resp normal respiratory effort and no retractions Resp Narrative: Breath sounds are diminished bilaterally Auscultation: Negative for rales, rhonchi or wheezes Cardio regular rate, regular rhythm, S1 normal heart sound, S2 normal heart sound, no murmurs, no rub and no gallops GI normal to inspection, nondistended, normoactive bowel sounds, soft to palpation, non-tender and non-distended Extremity no clubbing, cyanosis or edema Skin no rashes or lesions noted General Skin Exam: no breakdown Neuro oriented x3, CN's II-XII intact bilaterally, moves all extremities, no focal motor deficits and no sensory deficits noted Sensorium / Orientation: awake and alert Speech: speech normal Psych affect normal Patient was felt to be stable for discharge home on 04/07/2024, she required 2 L of oxygen at rest and 6 L when ambulating at the time of discharge from the hospital, patient did not have a portable tank at home and this was supplied to the patient. Weight / BMI Weight Weight: 46.9 kg Body Mass Index (BMI) 17.7 ABG / Lab / Microbiology Data 04/04/24 06:52 04/05/24 12:54 Microbiology: Microbiology 04/04/24 03:12 Sputum, Expectorated/Coughed Gram Stain - Final 04/04/24 03:12 Sputum, Expectorated/Coughed Respiratory Culture - Final 04/04/24 03:12 Urine, Random Legionella Antigen - Final 04/04/24 03:12 Urine, Random Streptococcus pneumoniae Antigen (M - Final 04/03/24 19:01 Mucosa - Nose SARS-CoV-2, Influenza & RSV (PCR) - Final SARS-CoV-2 (COVID 19 PCR) D/C Instructions Discharge Diet: No restrictions Weight Bearing Status: Full weight bearing DC O2, CPAP, BIPAP Needs RN Home O2 Qualification: Home O2 Qualification: Is the patient on home oxygen Yes 04/07/24 11:51 Home O2 Qualification: AT REST 1-Pulse Ox at rest 96 04/07/24 11:51 1- Oxygen flow rate at rest 2 04/07/24 11:51 Home O2 Qualification: WITH AMBULATION 1- Pulse Ox with ambulation 83 04/07/24 11:51 1- Oxygen Flow Rate with 2 04/07/24 11:51 ambulation 2- Pulse Ox with ambulation 86 04/07/24 11:51 2- Oxygen Flow Rate with 4 04/07/24 11:51 ambulation 3- Pulse Ox with ambulation 91 04/07/24 11:51 3- Oxygen Flow Rate with 6 04/07/24 11:51 ambulation PSN CPAP & BiPAP: BiPAP & CPAP Settings per PSN Mode AIRVO 04/04/24 10:29 Bipap Delivery Device Nasal Pillows 04/04/24 10:29 BiPAP Expiratory Pressure 8 04/03/24 18:50 BiPAP Rate 16 04/03/24 18:50 Fraction of Inspired Oxygen ( 35 04/04/24 10:29 FIO2) Total Flow Rate 55 04/04/24 10:29 Home O2 Discharge instructions: Yes Type of respiratory needs?: Oxygen Oxygen frequency: Continuous Continuous oxygen liters per minute: 2 L and With Ambulation Oxygen liters per minute during Ambulation: 6 L DC home with Oxygen: Yes Home O2 MD Review: I have reviewed the oxygen testing, and the patient qualifies for home oxygen equipment and portability. The patient is mobile in the home and the community. Meaningful Use Info Meaningful Use Meaningful Use Diagnoses (Choose all that apply): None applicable Ischemic Stroke Statin Dosing Therapy Reference: STATIN DOSE THERAPY REFERENCE: * Patients > 75 years receive moderate or high dose statin therapy. * Patients 75 years or YOUNGER should receive HIGH intensity statin dose unless contraindicated. You will be required to document reason for non-treatment if statin daily dose does not meet guidelines. HIGH DOSE STATIN THERAPY DAILY Atorvastatin > than or = to 40 mg Rosuvastatin > than or = to 20 mg Amlodipine + Atorvastatin > than or = to 2.5/40 mg Ezetimibe + Simvastatin 10/80 mg Simvastatin 80mg Discharge Plan Admission Admit Date/Time: 04/04/24 00:43 Primary Reason for Your Visit: covid 19 Attending Provider: Christophe Burnett Primary Care Provider: Jair Squires Consulting Providers: Rosalinda Mckeon Instructions Additional Instructions / Restrictions: Use oxygen at 2 L/min while at rest, increase the oxygen setting to 6 L when walking or doing something exertional, I would recommend highly that you stop smoking Discharge Orders/Prescriptions Prescriptions: New dexamethasone 2 mg tablet 2 mg PO DAILY Qty: 21 0RF Rx Instructions: 3 tablets once a day for 7 days Continued metoprolol succinate 100 mg tablet extended release 24 hr 100 mg PO DAILY Qty: 90 Patient Comments: PT STATES ONLY TAKES ONCE A DAY. amlodipine 10 mg tablet 10 mg PO DAILY Qty: 90 omeprazole 40 mg capsule,delayed release(DR/EC) 40 mg PO DAILY Qty: 90 Prolia 60 mg/mL syringe 60 mg SUBCUT .[id number] albuterol sulfate 90 mcg/actuation HFA aerosol inhaler 2 puff INHALATION Q4H Trelegy Ellipta 100-62.5-25 mcg blister with device 1 ea INHALATION DAILY Referrals / Follow Up: Jair Squires MD [Primary Care Provider] - Within 2 Weeks Disposition Disposition (needs filled in before D/C Order can be placed): Home, Self Care Charges/Coding Visit Charges Inpatient E&M: 51559 Disch Hosp >30min
--- NOTE | 2024-04-10 11:47 | CASEMGMT ---
Discharge Summary faxed to [facility]. Minda Cardenas DC Planning Asst.
== END 2024-04-07 14:55 | disposition home or self-care (01) | DRG 177 ==
LOC: ED 19:14 → PCU 04-04 00:56
PROVIDERS: Admitting Provider Internal Medicine; Emergency Provider Emergency Medicine; PCP Family Medicine; Visit Provider Internal Medicine
DX: U07.1 COVID-19 (principal); J96.21 Acute and chronic respiratory failure with hypoxia; E87.21 Acute metabolic acidosis; J44.1 Chronic obstructive pulmonary disease with (acute) exacerbation; Z68.1 Body mass index [BMI] 19.9 or less, adult; E83.51 Hypocalcemia; Z99.81 Dependence on supplemental oxygen; I10 Essential (primary) hypertension; F10.10 Alcohol abuse, uncomplicated; E87.6 Hypokalemia; F17.210 Nicotine dependence, cigarettes, uncomplicated; E83.42 Hypomagnesemia; K21.9 Gastro-esophageal reflux disease without esophagitis; Z79.51 Long term (current) use of inhaled steroids; M81.0 Age-related osteoporosis without current pathological fracture; R63.6 Underweight; Z79.899 Other long term (current) drug therapy; Z96.642 Presence of left artificial hip joint
CPT/HCPCS: 36415; 36600; 71045; 71275; 80048; 80053; 80076; 81001; 82077; 82330; 82803; 83605; 83735; 83880; 84100; 84443; 84484; 85025; 85379; 87070; 87205; 87449; 87631; 93005; 94002; 94640; 94660; 94668; 94762; 97116; 97162; 97530; 99252; 99285; Q9967; A4216; G0463; J0248; J0696

== ENCOUNTER → 2024-10-31 | Outpatient (CLI) | payer MEDICARE, SELFPAY ==
[2024-10-31 15:57] LABS: Magnesium 1.5 mg/dL (1.5-2.2)
[2024-10-31 16:06] LABS: AST(SGOT) 28 U/L (<=31); Alanine Aminotransfer ALT/SGPT 7 U/L (<=34); Albumin, Serum 4.8 g/dL (3.4-4.8); Alkaline Phosphatase 49 U/L (35-104); Anion Gap 17 (5-15); BUN 15 mg/dL (4-19); BUN/Creat Ratio 23.2 RATIO (10-20); Calcium,Total 10.0 mg/dL (7.6-11.0); Carbon Dioxide 19.5 mmol/L (21.0-32.0); Chloride 95 mmol/L (98-108); Globulin 3.3 g/dL (2.2-4.2); Glucose 76 mg/dL (70-99); Potassium 4.2 mmol/L (3.3-5.1)
== END | disposition home or self-care (01) ==
LOC: MTLAB 12:45
PROVIDERS: PCP Family Medicine; Referring Provider Family Medicine; Visit Provider Family Medicine
DX: M81.0 Age-related osteoporosis without current pathological fracture (principal)
CPT/HCPCS: 36415; 80053; 83735